=== PATIENT | female | born 1945 | race Caucasian/White ===

== ENCOUNTER 2020-10-21 05:15 | Observation (INO) ==
--- NOTE | 2020-10-18 14:06 | Anesthesiology Consultation ---
Date of Service October 18, 2020 Assessment & Plan (1) Encounter for pre-operative examination: Chart Review Chart Review: Acceptable Risk for Surgery (pending preop Covid testing results ) and Patient NOT seen in Pre Admission Testing Pt scheduled for a port placement by general surgery on 10/26/20 - Check BSG AM DOS Per nursing assessment 10/18/2020, patient denies any recent travel. Wears mask at all times in public and socially distances. No known Covid infection in the past 90 days. Patient is vaccinated for Covid. Pt is vaccinated for Covid. No known Covid positive contacts or Covid related symptoms. Preop Covid testing 10/18/20 = results pending Last seen by cardiology 06/11/20 = DOElongstanding but now getting worse. May also have orthopnea PND although that also was not clear and she may have some increasing edema. Mild CHF. Will investigate for ischemiabelieve diuretic would be reasonable. Chest discomfortsubsternalnot clear description. Will schedule stress test. Mild cardiomyopathycould be due to chemotherapymay also be idiopathic or due to ishcemia- will order stress test. HCTZ added fro edema. (Pt had negative DSE on 07/02/20- did speak with patient on 10/18/20- chest discomfort significantly improved- later dx'ed with lung cancer- discussed with Dr. Fitch- pt can proceed with procedures as scheduled) History Surgery Operation Date: 10/21/20 08:00 Proposed Procedures p Endobronchial Ultrasound Guided Biopsy and Endrobroncial Navigational Bronchoscopy and Verans CT - Gualberto Shepherd MD Height/Weight Height: 5 ft 7 in Weight: 90.718 kg Allergies Allergy/AdvReac Type Severity Reaction Status Date / Time Penicillins Allergy Severe RASH AND Verified 10/18/20 10:46 THROAT SWELLING shellfish derived Allergy Severe RASH WELTS Verified 10/18/20 10:46 mold Allergy Unknown PER Verified 10/18/20 10:46 ALLERGY TESTS-SNEEZING adhesive AdvReac Unknown BLISTERS Verified 10/18/20 10:46 WITH TAPE-CLOTH [place] aspirin AdvReac Unknown Rash Verified 10/18/20 10:46 [From Tuh-Rueter Plus Cold/Cough] chlorpheniramine AdvReac Unknown Rash Verified 10/18/20 10:46 [From Thu-Rueter Plus Cold/Cough] dextromethorphan AdvReac Unknown Rash Verified 10/18/20 10:46 [From Thu-Rueter Plus Cold/Cough] phenylpropanolamine AdvReac Unknown Rash Verified 10/18/20 10:46 [From Thu-Rueter Plus Cold/Cough] dust mite Allergy Unknown ALLERGY Uncoded 10/18/20 10:46 TESTING Medications Home Medications Medication Instructions Recorded Confirmed Last Taken calcium carbonate-vitamin D3 600 1 tab PO QAM tab 01/21/19 10/18/20 09/10/19 mg(1,500 mg)-400 unit chewable tablet (Calcium 600 with Vitamin D3) cetirizine 10 mg tablet 10 mg PO QAM tab 01/21/19 10/18/20 09/11/19 07:00 ergocalciferol (vitamin D2) 1,250 50,000 units PO WEEKLY cap 01/21/19 10/18/20 09/10/19 mcg (50,000 unit) capsule fluticasone propionate 50 1 sprays INTNAS DAILY PRN 01/21/19 10/18/20 09/10/19 mcg/actuation nasal spray,suspension [employer] Ultra Blue Test Strip #100 ea NS 04/15/19 10/18/20 Unknown (blood sugar diagnostic) carboxymethylcellulose sodium 0.5 1 drp OPHTHALMIC (EYE) BID 11/06/19 10/18/20 Unknown % eye drops in a dropperette (Refresh Plus) glipizide 5 mg tablet 5 mg PO QAM #90 tab 03/01/20 10/18/20 Unknown lancets 33 gauge (OneTouch Delica #100 ea 03/16/20 10/18/20 Unknown Lancets) montelukast 10 mg tablet 10 mg PO QAM #30 tab 06/02/20 10/18/20 Unknown atorvastatin 40 mg tablet 40 mg PO QPM #90 tab 06/28/20 10/18/20 Unknown amlodipine 5 mg-benazepril 20 mg 1 cap PO QAM #90 cap 07/20/20 10/18/20 Unknown capsule diphenhydramine HCl 25 mg capsule 25 mg PO ONCE PRN cap 08/16/20 10/18/20 Unknown (Allergy (diphenhydramine)) levothyroxine 88 mcg tablet 88 mcg PO QAM #90 tab 08/16/20 10/18/20 Unknown metformin 500 mg tablet,extended 2,000 mg PO QAM #120 tab 09/15/20 10/18/20 Unknown release 24 hr clonazepam 0.5 mg tablet 0.5 mg PO DAILY PRN #5 tab 10/14/20 10/18/20 Unknown albuterol sulfate 90 mcg/actuation 2 puff INHALATION Q6H PRN 10/18/20 10/18/20 Unknown aerosol inhaler (Ventolin HFA) azelastine 137 mcg (0.1 %) nasal 1 spray INTRANASAL BID PRN 10/18/20 10/18/20 Unknown spray aerosol ipratropium bromide 42 mcg (0.06 2 spray INTRANASAL QAM 10/18/20 10/18/20 Unknown %) nasal spray pantoprazole 40 mg tablet,delayed 40 mg PO QAM PRN 10/18/20 10/18/20 Unknown release sitagliptin 50 mg tablet (Januvia) 50 mg PO QAM 10/18/20 10/18/20 Unknown umeclidinium 62.5 mcg-vilanterol 1 inh INHALATION QAM 10/18/20 10/18/20 Unknown 25 mcg/actuation powdr for inhalation (Anoro Ellipta) Past Medical History Medical History (Updated 10/18/20 @ 15:18 by Gayathri Bales PA-C) Allergic rhinitis due to dust mite Anxiety Cardiomyopathy F/U DR FISHER COPD with emphysema Diabetes mellitus, type 2 Edema of both legs Essential tremor Exertional dyspnea GERD (gastroesophageal reflux disease) Hiatal hernia History of breast cancer chemo and radiation and then oral pill Hyperlipidemia Hypertension Hypothyroidism Kidney stones hx Multiple pulmonary nodules Osteoporosis Secondary polycythemia Small cell lung cancer, 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) Temporomandibular joint disorder NO LOCKING Past Family History Family History Sister Diabetes Breast cancer Brother Diabetes Heart disease Father Diabetes Hypertension Lung disease Myocardial infarction Mother Diabetes Hypertension Kidney disease Myocardial infarction Daughter Breast cancer Denies family history of Ovarian cancer Prostate cancer Colorectal cancer Past Surgical History Surgical History History of appendectomy (~1967) History of breast biopsy (~09/03/12) History of cholecystectomy (~1974) History of colonoscopy 2019 History of esophagogastroduodenoscopy (EGD) History of hysterectomy (~1974) ovaries removed as well History of lithotripsy 2011 Hx of cataract surgery right and left Hx of lumpectomy LEFT BREAST-NO LIMB RESTIRCTIONS Hx of tonsillectomy Social History Smoking Status: Former smoker tobacco type: cigarettes Smoking cigarettes per day: 20 Do You Dip or Chew Tobacco: No Smoking End Date: QUIT 5 YRS AGO Hx Alcohol Use: No Hx Substance Use: No substance use type: does not use Lab Results Anesthesia Preop Results Results Anesthesia Widget: WBC 7.43 K/uL (4.8-10.8) 10/18/20 Hgb 12.7 g/dL (12.0-16.0) 10/18/20 Hct 38.2 % (37-47) 10/18/20 Plt 154 K/uL (130-400) 10/18/20 Na 139 mmol/L (136-145) 10/18/20 K 4.4 mmol/L (3.5-5.1) 10/18/20 Cl 109 mmol/L (98-107) H 10/18/20 CO2 24 mmol/L (21-32) 10/18/20 BUN 19 mg/dl (7-18) H 10/18/20 Creat 1.20 mg/dl (0.6-1.2) 10/18/20 Glucose Level 207 mg/dl (70-99) H 10/18/20 PT 10.2 Seconds (9.0-12.0) 10/18/20 PTT 22.8 Seconds (21.0-31.0) 10/18/20 INR 1.0 (0.9-1.1) 10/18/20 Testing Laboratory Results 08/16/20= HGB A1C: 9.1 Electrocardiogram Date: 06/11/20 Findings: + SB @ (59 bpm) Echocardiogram Date: 05/12/20 EF: 45-50% RWMA: + none Other Findings: + diastolic dysfunction (Grade 1); no LVH Valvular Disease: + no significant valvular disease Mildly reduced LV systolic function. Normal chamber dimensions. No evidence of elevated right heart pressures. Stress Test Date: 07/02/20 Type: DSE Negative dobutamine stress echo for myocardial ischemia at 91% MPHR. Negative dobutamine stress EKG. No dobutamine induced chest pain. Baseline echocardiogram notes normal LV function. Other Testing CT of lung 08/05/2020 = New suspicious solid irregularly marginated 14 mm left upper lobe pulmonary nodule. Pulmonary consultation recommended in follow-up. There is moderate pulmonary emphysema. There are no pleural effusions. There is a stable solid 4 mm lingular nodule. In addition there are 6 a few scattered pulmonary micronodules, several calcified granulomas, and benign-appearing peripheral nodules. There is a 2 cm right adrenal gland nodule, likely representing an adenoma PET/CT scan 08/18/20= Moderate FDG uptake within the lobulated 1.4 cm solid left upper lobe nodule. This is highly suspicious for malignancy and favors a primary bronchogenic carcinoma. No thoracic lymphadenopathy. Emphysema. Mild FDG uptake within a 2.2 cm low-attenuation right adrenal nodule. This nodule is unchanged since CT of January 28, 2019. This favors an adenoma.
[2020-10-21] MEDS ORDERED: LR 15ML/HR IV SCH (06:00)
[2020-10-21] MEDS ORDERED: ROCURONIUM BROMIDE 10 MG/ML 5 ML VIAL IV ONE (06:49)
[2020-10-21] MEDS ORDERED: MIDAZOLAM HCL 1 MG/ML 2ML VIAL ONE (06:49)
[2020-10-21] MEDS ORDERED: ONDANSETRON INJ 2 MG/ML 2 ML VIAL ONE (06:49)
[2020-10-21] MEDS ORDERED: PROPOFOL IV EMULSION 10 MG/ML 20 ML VIAL IV ONE (06:49)
[2020-10-21] MEDS ORDERED: LIDOCAINE 2% 2 ML VIAL/AMP(20MG/ML) INFIL ONE (06:49)
[2020-10-21] MEDS ORDERED: fentaNYL citrate 100 MCG/2 ML VIAL ONE (06:49)
--- NOTE | 2020-10-21 07:55 | History & Physical Report ---
Date of Service October 21, 2020 Assessment & Plan (1) Small cell lung cancer, left upper lobe: (2) COPD with emphysema: (3) Multiple pulmonary nodules: Plan: --Small cell lung cancer Left upper lobe, limited stage Patient is here today for fiducial placement Below full note for EBUS to stage the mediastinum Risk and benefit of the procedure explained to the patient in depth Patient understands and agrees to go ahead with the procedure Consent signed, witnessed and put in the chart COVID-19 PCR negative 10/18/2020 Platelets 154, PT/INR activity within normal limits Patient is not on any blood thinner Please note the above document was generated using voice recognition software. It may contain grammatical, syntax or spelling errors.Any formal questions or concerns about the content, text or information contained within the body of this dictation should be directly addressed to the provider for clarification. History of Present Illness Primary Care Provider: HILDA Silva 74-year-old female coming to pulmonary for COPD and multiple pulmonary nodules Past medical history: GERD, dyslipidemia, hypertension, seasonal allergies with allergic rhinitis, Left-sided breast cancer s/p lumpectomy followed by chemo and radiation Patient was last seen by me on 02/16/[address]-guided biopsy of the left upper lobe nodule which was positive for small cell lung cancer Patient is here today for fiducial placement as well as EBUS At the time of examination patient denies any complaints. No shortness of breath. No headache, no dizziness No nausea or vomiting. Allergies Allergy/AdvReac Type Severity Reaction Status Date / Time Penicillins Allergy Severe RASH AND Verified 10/21/20 05:42 THROAT SWELLING shellfish derived Allergy Severe RASH WELTS Verified 10/21/20 05:42 mold Allergy Unknown PER Verified 10/21/20 05:42 ALLERGY TESTS-SNEEZING adhesive AdvReac Unknown BLISTERS Verified 10/21/20 05:42 WITH TAPE-CLOTH OK aspirin AdvReac Unknown Rash Verified 10/21/20 05:42 [From Thu-Collbran Plus Cold/Cough] chlorpheniramine AdvReac Unknown Rash Verified 10/21/20 05:42 [From Thu-Collbran Plus Cold/Cough] dextromethorphan AdvReac Unknown Rash Verified 10/21/20 05:42 [From Thu-Collbran Plus Cold/Cough] phenylpropanolamine AdvReac Unknown Rash Verified 10/21/20 05:42 [From Thu-Collbran Plus Cold/Cough] dust mite Allergy Unknown ALLERGY Uncoded 10/21/20 05:42 TESTING Home Medications Medication Instructions Recorded Confirmed Type calcium carbonate-vitamin D3 600 1 tab PO QAM tab 01/21/19 10/21/20 History mg(1,500 mg)-400 unit chewable tablet (Calcium 600 with Vitamin D3) cetirizine 10 mg tablet 10 mg PO QAM tab 01/21/19 10/21/20 History ergocalciferol (vitamin D2) 1,250 50,000 units PO WEEKLY cap 01/21/19 10/21/20 History mcg (50,000 unit) capsule [employer] Ultra Blue Test Strip #100 ea NS 04/15/19 10/18/20 Rx (blood sugar diagnostic) carboxymethylcellulose sodium 0.5 1 drp OPHTHALMIC (EYE) BID 11/06/19 10/21/20 History % eye drops in a dropperette (Refresh Plus) glipizide 5 mg tablet 5 mg PO QAM #90 tab 03/01/20 10/21/20 Rx lancets 33 gauge (OneTouch Delica #100 ea 03/16/20 10/18/20 Rx Lancets) atorvastatin 40 mg tablet 40 mg PO QPM #90 tab 06/28/20 10/21/20 Rx diphenhydramine HCl 25 mg capsule 25 mg PO ONCE PRN cap 08/16/20 10/18/20 History (Allergy (diphenhydramine)) levothyroxine 88 mcg tablet 88 mcg PO QAM #90 tab 08/16/20 10/21/20 Rx metformin 500 mg tablet,extended 2,000 mg PO QAM #120 tab 09/15/20 10/21/20 Rx release 24 hr clonazepam 0.5 mg tablet 0.5 mg PO DAILY PRN #5 tab 10/14/20 10/21/20 Rx albuterol sulfate 90 mcg/actuation 2 puff INHALATION Q6H PRN 10/18/20 10/21/20 History aerosol inhaler (Ventolin HFA) azelastine 137 mcg (0.1 %) nasal 1 spray INTRANASAL BID PRN 10/18/20 10/21/20 History spray aerosol pantoprazole 40 mg tablet,delayed 40 mg PO QAM PRN 10/18/20 10/21/20 History release sitagliptin 50 mg tablet (Januvia) 50 mg PO QAM 10/18/20 10/21/20 History umeclidinium 62.5 mcg-vilanterol 1 inh INHALATION QAM 10/18/20 10/21/20 History 25 mcg/actuation powdr for inhalation (Anoro Ellipta) amlodipine 5 mg-benazepril 20 mg 1 cap PO QAM 10/21/20 10/21/20 History capsule (Lotrel) montelukast 10 mg tablet 10 mg PO QAM 10/21/20 10/21/20 History (Singulair) 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 COPD with emphysema Diabetes mellitus, type 2 Edema of both legs Essential tremor Exertional dyspnea GERD (gastroesophageal reflux disease) Hiatal hernia History of breast cancer chemo and radiation and then oral pill Hyperlipidemia Hypertension Hypothyroidism Kidney stones hx Multiple pulmonary nodules Osteoporosis Secondary polycythemia Small cell lung cancer, 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) Temporomandibular joint disorder NO LOCKING Surgical History History of appendectomy (~1967) History of breast biopsy (~09/03/12) History of cholecystectomy (~1974) History of colonoscopy 2020 History of esophagogastroduodenoscopy (EGD) History of hysterectomy (~1974) ovaries removed as well History of lithotripsy 2011 Hx of cataract surgery right and left Hx of lumpectomy LEFT BREAST-NO LIMB RESTIRCTIONS Hx of tonsillectomy Family History Sister Diabetes Breast cancer Brother Diabetes Heart disease Father Diabetes Hypertension Lung disease Myocardial infarction Mother Diabetes Hypertension Kidney disease Myocardial infarction Daughter Breast cancer Denies family history of Ovarian cancer Prostate cancer Colorectal cancer Social History Smoking Status: Former smoker (AGES 15-65, AVERAGED 1 PACK/DAY, SOMETIMES UP TO 2 PACKS/DAY) Tobacco Type: Cigarettes Age Started Using Tobacco: 17; Age Quit Using Tobacco: 68; Cigarettes Per Day: 20; Smoking End Date: QUIT 5 YRS AGO; Number of Years Since Quit: 4; Second Hand Exposure: Yes (SPOUSE SMOKES); Do You Dip or Chew Tobacco: No; Hx Alcohol Use: No Hx Substance Use: No Preferred Language: Malaysian Communication Ability: Effective Visual Impairment: No Limitations Hearing Ability: Normal Nutrition And Dietetics Instructor Required: No Beliefs That Will Affect Care: None marital status: Current Living Situation: Spouse current occupational status: retired current occupation: used to work at [employer] out of [employer] Other Information That Helps Us Care for You: No Feels Safe at Home: Yes Safety Concerns: Feels Safe At This Time Childhood Exposure to Second-Hand Smoke: Yes caffeine: Yes during the past year weight has: remained stable Dental Care, Regularly: No Physical Activity Frequency: Does not Exercise Seatbelt Use: always Sunscreen Use: Yes Assistive Devices: Denture - Upper and Glasses Assistive Devices Comment: DOES NOT WEAR LOWER DENTURE Review of Systems Review of Systems: All systems reviewed & are unremarkable except as noted in HPI & below Physical Exam Physical Exam: Constitutional: No acute distress HEENT: EOMI, PERRLA Respiratory system: Decreased air entry bilaterally, no wheeze, no rhonchi, positive crackles bilateral lower lobes more on the left side CVS: S1-S2 positive, no murmurs or gallops Abdomen: Soft, nontender, nondistended, positive bowel sounds x4, obese Extremities: +2 pulses bilaterally radialis, no cyanosis, +1 edema bilateral lower extremity neuro: Awake alert oriented x3 Psych: Normal mood and affect Skin: no rashes, warm and dry Lymphatic: no cervical or axillary lymphadenopathy Results & Data Results & Data ([facility]) Vital Signs (Past 12 Hours) Vital Signs Temp Pulse Resp BP Pulse Ox 10/21/20 05:52 36.5 C 71 20 127/83 93 PG Care Time/CCT Total # of Minutes Spent Total Time Spent with Patient: Total time spent is greater than 50% in coordination of care (as documented) at patient's floor/unit and/or counseling patient: Coding Level of Care Code INT OBSERVATION CARE 50M LVL 2 Diagnoses Small cell lung cancer, left upper lobe C34.12 COPD with emphysema J43.9 Multiple pulmonary nodules R91.8
[2020-10-21] MEDS ORDERED: ePHEDrine sulfate 50 MG/ML SYR ONE (08:32)
[2020-10-21] MEDS ORDERED: GLYCOPYRROLATE 0.2 MG/ML VIAL ONE (08:49)
--- NOTE | 2020-10-21 09:48 | Procedure Note ---
Procedure Note: Bronchoscopy Procedure PREOPERATIVE DIAGNOSIS: Left upper lobe small cell lung cancer POSTOPERATIVE DIAGNOSIS: Left upper lobe small cell lung cancer with positive mediastinal lymph nodes PROCEDURE PERFORMED: Navigational bronchoscopy with fiducial placement, EBUS and flexible bronchoscopy COMPLICATIONS: None. INDICATION: Fiducial placement as well as staging of the mediastinum PROCEDURE: After obtaining an informed consent, the patient was brought to the OR. The patient had appropriate oxygen, blood pressure, heart rate, and respiratory rate monitoring applied and monitored continuously throughout the procedure. Anesthesiologist managed sedation. Please refer to their notes and documentation Bronchoscope was advanced through LMA/I gel. There was normal vocal cord motion without masses or lesions. Topical anesthesia with 1% lidocaine was applied to the trachea and isis. The trachea appeared normal.The bronchoscope was then advanced through the isis, which was sharp. The scope was then advanced into the right main stem and each segment, subsegement in the right upper lobe, right middle lobe and right lower lobe were visualized. There were no secretions appreciated there were no other findings including evidence of mass, anatomic distortions, or hemorrhage. The bronchoscope was subsequently withdrawn and advanced into the left mainstem. Again, each segment and subsegment was well visualized. No specific masses or other lesions were identified throughout the tracheobronchial tree on the left. There were no secretions appreciated. Navigational Veran system was started and with the help of a working channel path was made towards the left upper lobe apicoposterior lesion. I was able to successfully place 3 fiducials near the proximity of the pulmonary nodule. Flexible bronchoscope was withdrawn and EBUS was introduced Station 4R, 4L and station 7 were visualized Station 4L and station 7 were biopsied. With 3 adequate passes and 2 adequate passes respectively Station 4L was positive for small cell lung cancer EBUS was withdrawn. Flexible bronchoscope was reintroduced. No bleeding was appreciated. The bronchoscope was then withdrawn to the mainstem. The area was suctioned clear. The bronchoscope was then withdrawn. The patient tolerated the procedure well without evidence of desaturation or complications. Recommendations: Follow-up chest x-ray Follow-up cytology of the mediastinum Please note the above document was generated using voice recognition software. It may contain grammatical, syntax or spelling errors.Any formal questions or concerns about the content, text or information contained within the body of this dictation should be directly addressed to the provider for clarification.
[2020-10-21] MEDS ORDERED: ALBUT/IPRATROP 3MG/0.5MG NEB 3 ML VIAL NEB STA (10:03)
--- NOTE | 2020-10-21 10:37 | XRay Report ---
SINGLE VIEW CHEST CLINICAL HISTORY: Status post bronchoscopy and fiducial placement. FINDINGS: An AP, portable, upright chest radiograph is compared to study dated 08/25/2009 and correlat ed with chest CT dated 10/21/2020. The heart is enlarged noting atherosclerotic calcification of the t horacic aorta. The pulmonary vasculature is noncongested. Emphysematous change is noted with chronic interstitial thickening. Scarring/atelectasis is noted in the lung bases. There is no airspace consol idation typical for pneumonia or pleural effusion. There is a small left apical pneumothorax with zenaida roximately 2.5 cm pleural separation. No right-sided pneumothorax is identified. Small linear metalli c structures projecting over the aortic arch may correspond to the reported history of fiducial place ment. The patient's known left upper lobe pulmonary lesion may project over the first rib. The skelet al structures are osteopenic. The bony thorax is grossly intact. IMPRESSION: 1. There is a small left apical pneumothorax identified post procedure. 2. Cardiomegaly and emphysema. 3. The patient's known left upper lobe pulmonary lesion may project over the first rib. 4. No airspace consolidation is seen typical for pneumonia and there is no large pleural effusion. ACT 112: Negative or not required by law. Electronically signed by: Ned Robles M.D. 10/21/2020 10:35 AM
--- NOTE | 2020-10-21 12:10 | History & Physical Report ---
Date of Service October 21, 2020 Assessment & Plan (1) Pneumothorax, left: Plan: Attending: Dr. Kinney Patient underwent navigational bronchoscopy this morning for placement of fiducials Postoperative chest x-ray revealed a left-sided pneumothorax Patient is asymptomatic. No hypoxia Repeat chest x-ray at noon today Continue supplemental oxygen with nonrebreather We will admit overnight for observation. Possibility of small chest tube in the event the pneumothorax does not improve or worsens discussed with patient We will follow on medical floor (2) Small cell lung cancer, left upper lobe: Plan: Recent diagnosis by fine-needle aspiration Fiducial markers placed today and navigational bronchoscopy Further management per Dr. Daniels (3) COPD with emphysema: Plan: No exacerbation No bronchospasm on exam We will continue usual home medications and montelukast (4) Hyperlipidemia: Plan: Continue atorvastatin (5) Diabetes mellitus, type 2: Plan: We will continue patient's home medications including sitagliptin, Metformin, glipizide NovoLog sliding scale ordered for coverage A1c in August was 9.1% Outpatient management (6) Hypertension: Plan: Hemodynamically stable Continue Lotrel Vital signs per protocol (7) GERD (gastroesophageal reflux disease): Plan: Continue outpatient dose of pantoprazole 40 mg daily (8) Hypothyroidism: Plan: Levothyroxine 88 mcg daily (9) DVT prophylaxis: Plan: Hold chemical prophylaxis in the event the chest tube placement is needed CRISTINAs and MATILDE [place] ordered History of Present Illness Chief Complaint: Postoperative left pneumothorax Primary Care Provider: HILDA Silva Attending: Dr. Kinney This is a 74-year-old female with a past Harshil Masoud small cell lung cancer left upper lobe, multiple pulmonary nodules, COPD with emphysema, hyperlipidemia. The patient had previous FNA biopsy of a pulmonary nodule at [facility] which revealed small cell lung cancer in the left upper lobe. She came in today for an elective navigational bronchoscopy for placement of fiducial markers. She is well with no apparent complications during the procedure. Postoperative chest x-ray revealed a left pneumothorax. Patient is being admitted for observation. Chest x-ray is being repeated noon today and again tomorrow morning. Patient has been placed on 100% FiO2 oxygen with a nonrebreather. Patient denies any chest pain or tightness. She has no noticeable shortness of breath. She has no pleuritic pain. She denies any hemoptysis. Patient has no other acute complaints. Allergies Allergy/AdvReac Type Severity Reaction Status Date / Time Penicillins Allergy Severe RASH AND Verified 10/21/20 05:42 THROAT SWELLING shellfish derived Allergy Severe RASH WELTS Verified 10/21/20 05:42 mold Allergy Unknown PER Verified 10/21/20 05:42 ALLERGY TESTS-SNEEZING adhesive AdvReac Unknown BLISTERS Verified 10/21/20 05:42 WITH TAPE-CLOTH [place] aspirin AdvReac Unknown Rash Verified 10/21/20 05:42 [From Thu-Buchanan Plus Cold/Cough] chlorpheniramine AdvReac Unknown Rash Verified 10/21/20 05:42 [From Thu-Buchanan Plus Cold/Cough] dextromethorphan AdvReac Unknown Rash Verified 10/21/20 05:42 [From Thu-Buchanan Plus Cold/Cough] phenylpropanolamine AdvReac Unknown Rash Verified 10/21/20 05:42 [From Thu-Buchanan Plus Cold/Cough] dust mite Allergy Unknown ALLERGY Uncoded 10/21/20 05:42 TESTING Home Medications Medication Instructions Recorded Confirmed Type calcium carbonate-vitamin D3 600 1 tab PO QAM tab 01/21/19 10/21/20 History mg(1,500 mg)-400 unit chewable tablet (Calcium 600 with Vitamin D3) cetirizine 10 mg tablet 10 mg PO QAM tab 01/21/19 10/21/20 History ergocalciferol (vitamin D2) 1,250 50,000 units PO WEEKLY cap 01/21/19 10/21/20 History mcg (50,000 unit) capsule [employer] Researchuch Ultra Blue Test Strip #100 ea NS 04/15/19 10/18/20 Rx (blood sugar diagnostic) carboxymethylcellulose sodium 0.5 1 drp OPHTHALMIC (EYE) BID 11/06/19 10/21/20 History % eye drops in a dropperette (Refresh Plus) glipizide 5 mg tablet 5 mg PO QAM #90 tab 03/01/20 10/21/20 Rx lancets 33 gauge (OneTouch Delica #100 ea 03/16/20 10/18/20 Rx Lancets) atorvastatin 40 mg tablet 40 mg PO QPM #90 tab 06/28/20 10/21/20 Rx diphenhydramine HCl 25 mg capsule 25 mg PO ONCE PRN cap 08/16/20 10/18/20 History (Allergy (diphenhydramine)) levothyroxine 88 mcg tablet 88 mcg PO QAM #90 tab 08/16/20 10/21/20 Rx metformin 500 mg tablet,extended 2,000 mg PO QAM #120 tab 09/15/20 10/21/20 Rx release 24 hr clonazepam 0.5 mg tablet 0.5 mg PO DAILY PRN #5 tab 10/14/20 10/21/20 Rx albuterol sulfate 90 mcg/actuation 2 puff INHALATION Q6H PRN 10/18/20 10/21/20 History aerosol inhaler (Ventolin HFA) azelastine 137 mcg (0.1 %) nasal 1 spray INTRANASAL BID PRN 10/18/20 10/21/20 History spray aerosol pantoprazole 40 mg tablet,delayed 40 mg PO QAM PRN 10/18/20 10/21/20 History release sitagliptin 50 mg tablet (Januvia) 50 mg PO QAM 10/18/20 10/21/20 History umeclidinium 62.5 mcg-vilanterol 1 inh INHALATION QAM 10/18/20 10/21/20 History 25 mcg/actuation powdr for inhalation (Anoro Ellipta) amlodipine 5 mg-benazepril 20 mg 1 cap PO QAM 10/21/20 10/21/20 History capsule (Lotrel) montelukast 10 mg tablet 10 mg PO QAM 10/21/20 10/21/20 History (Singulair) Past Med/Surg History Medical History (Updated 10/21/20 @ 12:18 by Ned Kapadia PA-C) Allergic rhinitis due to dust mite Anxiety Cardiomyopathy F/U DR FISHER COPD with emphysema Diabetes mellitus, type 2 Edema of both legs Essential tremor Exertional dyspnea GERD (gastroesophageal reflux disease) Hiatal hernia History of breast cancer chemo and radiation and then oral pill Hyperlipidemia Hypertension Hypothyroidism Kidney stones hx Multiple pulmonary nodules Osteoporosis Secondary polycythemia Small cell lung cancer, 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) Temporomandibular joint disorder NO LOCKING Surgical History History of appendectomy (~1967) History of breast biopsy (~09/03/12) History of cholecystectomy (~1974) History of colonoscopy 2020 History of esophagogastroduodenoscopy (EGD) History of hysterectomy (~1974) ovaries removed as well History of lithotripsy 2011 Hx of cataract surgery right and left Hx of lumpectomy LEFT BREAST-NO LIMB RESTIRCTIONS Hx of tonsillectomy Family History Sister Diabetes Breast cancer Brother Diabetes Heart disease Father Diabetes Hypertension Lung disease Myocardial infarction Mother Diabetes Hypertension Kidney disease Myocardial infarction Daughter Breast cancer Denies family history of Ovarian cancer Prostate cancer Colorectal cancer Social History Smoking Status: Former smoker (AGES 17-65, AVERAGED 1 PACK/DAY, SOMETIMES UP TO 2 PACKS/DAY) Tobacco Type: Cigarettes Age Started Using Tobacco: 17; Age Quit Using Tobacco: 68; Cigarettes Per Day: 20; Smoking End Date: QUIT 5 YRS AGO; Number of Years Since Quit: 4; Second Hand Exposure: Yes (SPOUSE SMOKES); Do You Dip or Chew Tobacco: No; Hx Alcohol Use: No Hx Substance Use: No Preferred Language: Amharic Communication Ability: Effective Visual Impairment: No Limitations Hearing Ability: Normal Ibm Websphere Portal Developer Required: No Beliefs That Will Affect Care: None marital status: Current Living Situation: Spouse current occupational status: retired current occupation: used to work at [employer] out of [employer] Other Information That Helps Us Care for You: No Feels Safe at Home: Yes Safety Concerns: Feels Safe At This Time Childhood Exposure to Second-Hand Smoke: Yes caffeine: Yes during the past year weight has: remained stable Dental Care, Regularly: No Physical Activity Frequency: Does not Exercise Seatbelt Use: always Sunscreen Use: Yes Assistive Devices: Denture - Upper, Denture - Lower and Glasses Assistive Devices Comment: DOES NOT WEAR LOWER DENTURE Review of Systems Review of Systems: All systems reviewed & are unremarkable except as noted in Subjective Physical Exam Physical Exam: GENERAL : No acute distress EYES: No icterus, gaze conjugate NOSE: No evidence of epistaxis MOUTH: No lesions or candidiasis. Nonrebreather facemask in place NECK: Supple. Trachea midline LUNGS: CTA B/L, no wheezes, rales or rhonchi HEART: Regular, rate controlled ABDOMEN: Soft, NT, ND, BS Present. No paradoxical chest wall movement. EXTREMITIES: No LE edema, pedal pulses intact NEURO: A&OX3 Results & Data Results & Data ([facility]) Vital Signs (Past 12 Hours) Vital Signs Temp Pulse Pulse Resp BP Pulse Ox 10/21/20 11:35 90 22 128/74 98 10/21/20 11:05 96 H 22 143/73 H 98 10/21/20 10:35 36.6 C 95 H 22 117/74 96 10/21/20 10:30 96 H 19 116/69 98 10/21/20 10:20 94 H 19 116/75 99 10/21/20 10:13 92 H 18 95 10/21/20 10:10 36.4 C L 94 H 19 108/78 95 10/21/20 10:00 94 H 18 112/72 92 10/21/20 09:50 96 H 18 119/75 93 10/21/20 09:40 96 H 18 124/77 95 10/21/20 09:30 94 H 18 123/74 96 10/21/20 09:20 36.1 C L 104 H 18 136/78 96 10/21/20 05:52 36.5 C 71 20 127/83 93 Diagnostic Findings SINGLE VIEW CHEST CLINICAL HISTORY: Status post bronchoscopy and fiducial placement. FINDINGS: An AP, portable, upright chest radiograph is compared to study dated 08/25/2009 and correlated with chest CT dated 10/21/2020. The heart is enlarged noting atherosclerotic calcification of the thoracic aorta. The pulmonary vasculature is noncongested. Emphysematous change is noted with chronic interstitial thickening. Scarring/atelectasis is noted in the lung bases. There is no airspace consolidation typical for pneumonia or pleural effusion. There is a small left apical pneumothorax with approximately 2.5 cm pleural separation. No right-sided pneumothorax is identified. Small linear metallic structures projecting over the aortic arch may correspond to the reported history of fiducial placement. The patient's known left upper lobe pulmonary lesion may project over the first rib. The skeletal structures are osteopenic. The bony thorax is grossly intact. IMPRESSION: 1. There is a small left apical pneumothorax identified post procedure. 2. Cardiomegaly and emphysema. 3. The patient's known left upper lobe pulmonary lesion may project over the first rib. 4. No airspace consolidation is seen typical for pneumonia and there is no large pleural effusion. ACT 112: Negative or not required by law. Electronically signed by: Ned Robles M.D. 10/21/2020 10:35 AM Code Status & VTE Plan Code Status Full resuscitation: Level I Supervising Physician Co-Signing Physician Notes Patient was seen and examined independently I discussed the case with Ned Kapadia PA-C I reviewed pertinent past medical social family history and also the plan of care and agree with the plan of care. Patient underwent navigational bronchoscopy for placement of fiducials. Post procedure pneumothorax was seen 2.5 cm apical on the left side patient is asymptomatic patient brought in for observation to evaluate whether the pneumothorax will expand or remained stable. Fiduciary thing placed for small cell lung cancer for eventual radiation therapy Patient was seen in the ambulatory surgical unit she was wearing 100% oxygen by nonrebreather she was in no respiratory distress examination did reveal some expiratory wheezes she informed she did not take her inhalers this morning we will proceed to give her some bronchodilators. Remainder of examination her heart was regular abdomen was normoactive bowel sounds and soft extremities without edema Patient be observed in our facility to evaluate progression of her pneumothorax and respond appropriately if enlarges with drainage Any exceptions will be noted below PG Care Time/CCT Total # of Minutes Spent Total Time Spent with Patient: Total time spent is greater than 50% in coordination of care (as documented) at patient's floor/unit and/or counseling patient: 60 minutes Coding Level of Care Code INT OBSERVATION CARE 50M LVL 2 Diagnoses Pneumothorax, left J93.9 Small cell lung cancer, left upper lobe C34.12 COPD with emphysema J43.9 Hyperlipidemia E78.5 DVT prophylaxis Z29.9 Diabetes mellitus, type 2 E11.9 Hypertension I10 GERD (gastroesophageal reflux disease) K21.9 Hypothyroidism E03.9 Time Spent (min) 60
[2020-10-21] MEDS ORDERED: DEXTROSE 50% 50 ML SYRINGE IV PRN (12:53)
[2020-10-21] MEDS ORDERED: ALBUTEROL HFA 8 GM INHALER INH PRN (12:53)
[2020-10-21] MEDS ORDERED: GLUCOSE 10 TABS/TUBE PO PRN (12:53)
[2020-10-21] MEDS ORDERED: clonazePAM 0.5 MG TAB PO PRN (12:53)
[2020-10-21] MEDS ORDERED: GLUCAGON FOR INJ 1 MG VIAL SQ PRN (12:53)
[2020-10-21] MEDS ORDERED: diphenhydrAMINE Capsule 25 MG CAP PO PRN (12:53)
[2020-10-21] MEDS ORDERED: ALBUT/IPRATROP 3MG/0.5MG NEB 3 ML VIAL NEB PRN (12:53)
[2020-10-21] MEDS ORDERED: CARBOHYDRATES FOR HYPOGLYCEMIA PO PRN (12:53)
[2020-10-21] MEDS ORDERED: GLUCOSE 40% GEL 15 GM TUBE PO PRN (12:53)
[2020-10-21] MEDS ORDERED: PANTOprazole 40 MG TAB PO PRN (12:53)
--- NOTE | 2020-10-21 13:29 | XRay Report ---
XR chest 1V portable CLINICAL HISTORY: Left pneumothorax COMPARISON STUDY: October 21, 2020 FINDINGS: Redemonstration of stable left apical pneumothorax with 2.6 cm of pleural separation which is unchang ed since prior study performed earlier today. No pleural effusion. Diffuse thickening of pulmonary interstitium is again seen bilaterally, unchanged since prior. Few pa tchy areas of slightly increase attenuation is seen within left mid to lower lung, was not well seen on prior study and might represent atelectasis. . Cardiomediastinal silhouette is stable. Aorta is calcified. Pulmonary vasculature is indistinct.. Osseous structures: Mild degenerative changes of the spine. IMPRESSION: 1. Stable left apical pneumothorax. 2. Few areas of patchy opacities at the left lateral lower lung might represent atelectasis. Attenti on on follow-up imaging. ACT 112: Negative or not required by law. The above report was generated using voice recognition software. It may contain grammatical, syntax o r spelling errors. Electronically signed by: Whit Calix DO 10/21/2020 1:27 PM
--- NOTE | 2020-10-21 13:44 | Anesthesiology Progress Note ---
Date of Service October 21, 2020 Anesthesia Post Procedure Vital Signs Vital Signs: Temp Pulse Pulse Resp BP Pulse Ox 10/21/20 12:35 92 H 22 118/71 97 10/21/20 11:35 90 22 128/74 98 10/21/20 11:05 96 H 22 143/73 H 98 10/21/20 10:35 36.6 C 95 H 22 117/74 96 10/21/20 10:30 96 H 19 116/69 98 10/21/20 10:20 94 H 19 116/75 99 10/21/20 10:13 92 H 18 95 10/21/20 10:10 36.4 C L 94 H 19 108/78 95 10/21/20 10:00 94 H 18 112/72 92 10/21/20 09:50 96 H 18 119/75 93 10/21/20 09:40 96 H 18 124/77 95 10/21/20 09:30 94 H 18 123/74 96 10/21/20 09:20 36.1 C L 104 H 18 136/78 96 10/21/20 05:52 36.5 C 71 20 127/83 93 Transfer of Care Handoff Completed per policy Notes Mental Status: alert / awake / arousable and participated in evaluation Patient Amnestic to Procedure: Yes Nausea / Vomiting: adequately controlled Pain: adequately controlled Airway Patency, RR, SpO2: stable & adequate BP & HR: stable & adequate Hydration State: stable & adequate Anesthetic Complications: no major complications apparent and Pt Satisfied with anesthetic care Notes: The patient is status post navigational bronchoscopy this morning for placement of fiducials. A postoperative chest x-ray revealed a left-sided pneumothorax. Dr. Garcia therefore will be admitted the patient for observation and treatment. The patient remains stable in recovery with no complaints.
--- NOTE | 2020-10-21 16:25 | XRay Report ---
XR chest 1V portable HISTORY: 74 years-old Female f/u pneumo left-sided pneumothorax COMPARISON: Chest radiograph of same day at 11:50 AM TECHNIQUE: Portable AP view of the chest FINDINGS: Cardiac silhouette is upper limits of normal in size. Emphysema with interstitial coarsening. A left- sided pneumothorax is redemonstrated with pleural separation at the left lung apex measuring up to 2. 0 cm, previously measuring over 2.5 cm. Lateral pleural separation measures up to 8 mm. The patient's known left upper lobe pulmonary lesion is not identified. Leads are again noted overlying the chest. IMPRESSION: Slightly decreased size of the small left sided pneumothorax. ACT 112: Negative or not required by law. The above report was generated using voice recognition software. It may contain grammatical, syntax o r spelling errors. Electronically signed by: Jori Onofre M.D. 10/21/2020 4:23 PM
[2020-10-21] MEDS: INSULIN ASPART 100 UNITS/ML 3 ML PEN SC SCH ×2 (17:47→21:40)
[2020-10-21] MEDS: guaiFENesin/CODEINE 100MG/10MG 5ML UDC PO SCH ×2 (17:49→21:48)
[2020-10-21] MEDS: ACETAMINOPHEN 325 MG TAB PO PRN (21:48)
[2020-10-21] MEDS: ATORVASTATIN 40 MG TAB PO SCH (21:49)
[2020-10-22] MEDS: guaiFENesin/CODEINE 100MG/10MG 5ML UDC PO SCH ×4 (05:52→23:02)
[2020-10-22] MEDS: LEVOTHYROXINE SODIUM 88 MCG TABLET PO SCH (05:52)
[2020-10-22] MEDS ORDERED: ERGOCALCIFEROL 50,000 UNITS 1250 MCG CAP PO SCH (09:00)
[2020-10-22] MEDS: UMECLIDINIUM/VILANTEROL 62.5/25MCG 7 PUFFS/INHALER INH SCH (09:03)
[2020-10-22] MEDS: SITagliptin PHOSPHATE 25 MG TAB PO SCH (09:04)
[2020-10-22] MEDS: glipiZIDE 5 MG TAB PO SCH (09:04)
[2020-10-22] MEDS: amLODIPine BESYLATE 5 MG TAB PO SCH (09:04)
[2020-10-22] MEDS: metFORMIN HCL ER 500 MG TABCR PO SCH (09:04)
[2020-10-22] MEDS: CALCIUM 600MG + VIT D 400 IU TAB PO SCH (09:05)
[2020-10-22] MEDS: ENALAPRIL MALEATE 10 MG TAB PO SCH (09:05)
[2020-10-22] MEDS: MONTELUKAST SODIUM 10 MG TABLET PO SCH (09:05)
[2020-10-22] MEDS: CETIRIZINE HCL 10 MG TABLET PO SCH (09:05)
[2020-10-22] MEDS: INSULIN ASPART 100 UNITS/ML 3 ML PEN SC SCH ×4 (09:05→21:01)
--- NOTE | 2020-10-22 11:18 | XRay Report ---
XR chest 1V portable CLINICAL HISTORY: Left apical pneumothorax COMPARISON STUDY: October 21, 2020 FINDINGS: The right worsening of the left apical pneumothorax with pleural separation within region of the left apex measuring 2.5 cm (it was measured 2.0 cm during prior study performed yesterday). Also pleural separation is now seen at the mid lateral aspect of the left chest measuring 3 mm. No evidence of mid line shift. No pleural effusion. Diffuse reticular opacities are again seen probably bilateral lungs and unchanged since prior. Minima l atelectasis is seen at the left base. Cardiomediastinal silhouette is within normal limits in size. No significant pulmonary vascular congestion.. Osseous structures: Osteopenia. Degenerative changes of the spine. IMPRESSION: 1. Interval worsening of the left-sided pneumothorax. No evidence of midline shift. 2. The rest of findings as above. ACT 112: Negative or not required by law. The above report was generated using voice recognition software. It may contain grammatical, syntax o r spelling errors. Electronically signed by: Whit Calix DO 10/22/2020 11:16 AM
--- NOTE | 2020-10-22 13:45 | XRay Report ---
XR chest inspiration/expiratio CLINICAL HISTORY: Left pneumothorax COMPARISON STUDY: October 22, 2020 at 07:04 hours. FINDINGS: Minimal interval improvement of left-sided pneumothorax, pleural separation at the region of the left apex is measured 1.8 cm (it was measured 2.5 cm during recent prior study this morning) recently see n pleural separation at lateral mid left lung is no longer visualized.. No pleural effusion. Interval improvement of the diffuse prominence of pulmonary interstitium. Minimal atelectasis at the left base is also improved. Cardiomediastinal silhouette is within normal limits in size. No significant pulmonary vascular congestion.. Aorta is calcified. Osseous structures: Degenerative changes of the spine. Interval prominence of focal calcification at the left lower lung which could be due to improvement o f superimposed parenchymal thickening and represent pleural calcifications versus other etiology.. IMPRESSION: 1. Interval improvement of the left-sided pneumothorax. 2. Interval improvement of diffuse prominence of pulmonary interstitium. 3. The rest of findings as above. ACT 112: Negative or not required by law. The above report was generated using voice recognition software. It may contain grammatical, syntax o r spelling errors. Electronically signed by: Whit Calix DO 10/22/2020 1:43 PM
--- NOTE | 2020-10-22 14:08 | Pulmonary Consultation ---
Date of Consultation October 22, 2020 Assessment & Plan (1) Pneumothorax, left: Attending: Dr. 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 Patient presented for elective navigational bronchoscopy for placement of fiducial markers. Patient then developed an iatrogenic pneumothorax and was admitted for observation. She was placed on high flow O2 via nonrebreather. It was not felt at that time that the patient needed a chest tube and she was monitored. Repeat chest x-ray this morning showed possible development of worsening pneumothorax. Repeat chest x-ray with inspirational and expirational views was then completed which showed improvement of the aforementioned pneumothorax. Recommendations: 1. Left pneumothorax: Patient is asymptomatic. She has no hypoxia. She is tolerating supplemental oxygen at 100% FiO2 for treatment of her pneumothorax. Repeat chest x-ray this afternoon shows some improvement to the pneumothorax with inspirational expirational views. At this time a pigtail catheter chest tube is not indicated. Patient can be monitored another night with repeat chest x-ray in the morning. If patient prefers to go home, she could be discharged if she has repeat chest x-ray at the hospital in the morning. It should be made clear to the patient that if she does go home in the x-ray is worse tomorrow she may be readmitted for chest tube. It should also be noted if she goes home that she has any increase in shortness of breath or chest pain to report to the emergency department immediately. Is suspected that this pneumothorax will resolve on its own with time. We will follow with serial chest x-rays 2. Small cell lung cancer: Patient was presented at thoracic conference yesterday. Patient had fiducial markers placed by Dr. Shepherd with navigational bronchoscopy yesterday. Once pneumothorax is resolved, patient is scheduled for elective placement of an A-port for chemotherapy. She will also undergo stereotactic radiation for treatment of her known lung mass. Patient is a previous smoker and has quit smoking. 3. COPD with emphysema: Patient is a former tobacco abuser. She denies any supplemental oxygen use at home. She has no current complaints and is oxygenating well on room air. Outpatient medications include Anoro Ellipta (AC/LABA) and montelukast. I will continue these while inpatient. No emma cation for augmentation of the patient's inhalers at this time. If the patient does develop bronchospasm, it would be appropriate to add nebulizers with albuterol/ipratropium. Pulmonary function testing was performed on 05/20/2020 and does confirm a diagnosis of an obstructive process. This was discussed with Dr. Ramirez. He is in agreement. We will follow up on inspirational expirational films in the morning. Please look to his addendum for further recommendations and corrections. (2) Small cell lung cancer in adult: Supervising Physician Co-Signing Physician Notes Patient seen and examined. Images independently reviewed. On my review the apical pneumothorax appears stable. Would not recommend aspiration or chest tube placement at the current time. The patient remains asymptomatic. We will plan on repeating her x-ray in the morning and if it stable she can be dismissed with radiographic outpatient follow-up. Discussed with hospitalist and with SOP[facility] History of Present Illness Reason for Consultation: Iatrogenic left pneumothorax Requesting Physician: Dr. Kinney Attending Physician: Aaron Kinney MD History of Present Illness Attending: Dr. Ramirez This is a 74-year-old female with a past medical history of small cell lung cancer left upper lobe, multiple pulmonary nodules, COPD with emphysema, hyperlipidemia, and previous tobacco abuse. The patient had previous FNA biopsy of a pulmonary nodule at [facility] which revealed small cell lung cancer in the left upper lobe. She presented yesterday for an elective navigational bronchoscopy for placement of fiducial markers. Postoperative chest x-ray revealed a left pneumothorax. Patient was placed on 100% nonrebreather and monitor overnight. Repeat chest x- rays were similar to initial with no significant improvement to the pneumothorax. A repeat inspiratory/expiratory chest x-ray was reviewed at 1345 this afternoon and shows slight improvement to the aforementioned pneumothorax. Patient is asymptomatic. She has no shortness of breath. She denies any cough. She has no pleuritic pain. Patient denies any chest pain or tightness. She denies any hemoptysis. Patient has no other acute complaints. Allergies Allergy/AdvReac Type Severity Reaction Status Date / Time Penicillins Allergy Severe RASH AND Verified 10/21/20 05:42 THROAT SWELLING shellfish derived Allergy Severe RASH WELTS Verified 10/21/20 05:42 mold Allergy Unknown PER Verified 10/21/20 05:42 ALLERGY TESTS-SNEEZING adhesive AdvReac Unknown BLISTERS Verified 10/21/20 05:42 WITH TAPE-CLOTH [place] aspirin AdvReac Unknown Rash Verified 10/21/20 05:42 [From Thu-[facility] [facility] Cold/Cough] chlorpheniramine AdvReac Unknown Rash Verified 10/21/20 05:42 [From Thu-[facility] [facility] Cold/Cough] dextromethorphan AdvReac Unknown Rash Verified 10/21/20 05:42 [From Thu-[facility] [facility] Cold/Cough] phenylpropanolamine AdvReac Unknown Rash Verified 10/21/20 05:42 [From Thu-[facility] [facility] Cold/Cough] dust mite Allergy Unknown ALLERGY Uncoded 10/21/20 05:42 TESTING Home Medications Medication Instructions Recorded Confirmed Type calcium carbonate-vitamin D3 600 1 tab PO QAM tab 01/21/19 10/21/20 History mg(1,500 mg)-400 unit chewable tablet (Calcium 600 with Vitamin D3) cetirizine 10 mg tablet 10 mg PO QAM tab 01/21/19 10/21/20 History ergocalciferol (vitamin D2) 1,250 50,000 units PO WEEKLY cap 01/21/19 10/21/20 History mcg (50,000 unit) capsule DrDoctor Ultra Blue Test Strip #100 ea NS 04/15/19 10/18/20 Rx (blood sugar diagnostic) carboxymethylcellulose sodium 0.5 1 drp OPHTHALMIC (EYE) BID 11/06/19 10/21/20 History % eye drops in a dropperette (Refresh Plus) glipizide 5 mg tablet 5 mg PO QAM #90 tab 03/01/20 10/21/20 Rx lancets 33 gauge (OneTouch Delica #100 ea 03/16/20 10/18/20 Rx Lancets) atorvastatin 40 mg tablet 40 mg PO QPM #90 tab 06/28/20 10/21/20 Rx diphenhydramine HCl 25 mg capsule 25 mg PO ONCE PRN cap 08/16/20 10/18/20 History (Allergy (diphenhydramine)) levothyroxine 88 mcg tablet 88 mcg PO QAM #90 tab 08/16/20 10/21/20 Rx metformin 500 mg tablet,extended 2,000 mg PO QAM #120 tab 09/15/20 10/21/20 Rx release 24 hr clonazepam 0.5 mg tablet 0.5 mg PO DAILY PRN #5 tab 10/14/20 10/21/20 Rx albuterol sulfate 90 mcg/actuation 2 puff INHALATION Q6H PRN 10/18/20 10/21/20 History aerosol inhaler (Ventolin HFA) azelastine 137 mcg (0.1 %) nasal 1 spray INTRANASAL BID PRN 10/18/20 10/21/20 History spray aerosol pantoprazole 40 mg tablet,delayed 40 mg PO QAM PRN 10/18/20 10/21/20 History release sitagliptin 50 mg tablet (Januvia) 50 mg PO QAM 10/18/20 10/21/20 History umeclidinium 62.5 mcg-vilanterol 1 inh INHALATION QAM 10/18/20 10/21/20 History 25 mcg/actuation powdr for inhalation (Anoro Ellipta) amlodipine 5 mg-benazepril 20 mg 1 cap PO QAM 10/21/20 10/21/20 History capsule (Lotrel) montelukast 10 mg tablet 10 mg PO QAM 10/21/20 10/21/20 History (Singulair) codeine 10 mg-guaifenesin 100 mg/5 5 ml PO Q6H #118 ml 10/22/20 Rx mL oral liquid (Guaiatussin AC) Patient History Medical History Allergic rhinitis due to dust mite Anxiety Cardiomyopathy F/U DR FISHER COPD with emphysema Diabetes mellitus, type 2 Edema of both legs Essential tremor Exertional dyspnea GERD (gastroesophageal reflux disease) Hiatal hernia History of breast cancer chemo and radiation and then oral pill Hyperlipidemia Hypertension Hypothyroidism Kidney stones hx Multiple pulmonary nodules Osteoporosis Secondary polycythemia Small cell lung cancer, 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) Temporomandibular joint disorder NO LOCKING Surgical History History of appendectomy (~1967) History of breast biopsy (~09/03/12) History of cholecystectomy (~1974) History of colonoscopy 2019 History of esophagogastroduodenoscopy (EGD) History of hysterectomy (~1974) ovaries removed as well History of lithotripsy 2011 Hx of cataract surgery right and left Hx of lumpectomy LEFT BREAST-NO LIMB RESTIRCTIONS Hx of tonsillectomy Family History Sister Diabetes Breast cancer Brother Diabetes Heart disease Father Diabetes Hypertension Lung disease Myocardial infarction Mother Diabetes Hypertension Kidney disease Myocardial infarction Daughter Breast cancer Denies family history of Ovarian cancer Prostate cancer Colorectal cancer Social History Smoking Status: Former smoker (AGES 15-65, AVERAGED 1 PACK/DAY, SOMETIMES UP TO 2 PACKS/DAY) Tobacco Type: Cigarettes Age Started Using Tobacco: 17; Age Quit Using Tobacco: 68; Cigarettes Per Day: 20; Number of Years Since Quit: 4; Second Hand Exposure: Yes (SPOUSE SMOKES); Hx Alcohol Use: No Hx Substance Use: No Preferred Language: Swedish Communication Ability: Effective Visual Impairment: No Limitations Hearing Ability: Normal Audiovisual Production Specialist Required: No Beliefs That Will Affect Care: None marital status: Current Living Situation: Spouse current occupational status: retired current occupation: used to work at [employer] out of [employer] Feels Safe at Home: Yes Childhood Exposure to Second-Hand Smoke: Yes caffeine: Yes during the past year weight has: remained stable Dental Care, Regularly: No Physical Activity Frequency: Does not Exercise Seatbelt Use: always Sunscreen Use: Yes Assistive Devices: Oxygen - Continuous Review of Systems Review of Systems: All systems reviewed & are unremarkable except as noted in Subjective Physical Exam Physical Exam: GENERAL : No acute distress. Pleasant. No conversational dyspnea EYES: No icterus, gaze conjugate. Pupils equal round and reactive to light NOSE: No evidence of epistaxis. No evidence of septal breech MOUTH: No lesions or candidiasis. Mucosa moist NECK: Supple. No stridor LUNGS: CTA B/L, no wheezes, rales or rhonchi. No paradoxical chest wall movement HEART: Regular, rate controlled without evidence of tachycardia ABDOMEN: Soft, NT, ND, BS Present EXTREMITIES: No LE edema, pedal pulses intact and equal bilaterally NEURO: A&OX3 Results & Data Results & Data ([facility]) Vital Signs (Past 12 Hours) Vital Signs Temp Pulse Resp BP Pulse Ox 10/22/20 06:36 36.2 C L 57 L 18 100/62 99 Laboratory Results No further laboratory studies Diagnostic Findings XR chest inspiration/expiratio CLINICAL HISTORY: Left pneumothorax COMPARISON STUDY: October 22, 2020 at 07:04 hours. FINDINGS: Minimal interval improvement of left-sided pneumothorax, pleural separation at the region of the left apex is measured 1.8 cm (it was measured 2.5 cm during recent prior study this morning) recently seen pleural separation at lateral mid left lung is no longer visualized.. No pleural effusion. Interval improvement of the diffuse prominence of pulmonary interstitium. Minimal atelectasis at the left base is also improved. Cardiomediastinal silhouette is within normal limits in size. No significant pulmonary vascular congestion.. Aorta is calcified. Osseous structures: Degenerative changes of the spine. Interval prominence of focal calcification at the left lower lung which could be due to improvement of superimposed parenchymal thickening and represent pleural calcifications versus other etiology.. IMPRESSION: 1. Interval improvement of the left-sided pneumothorax. 2. Interval improvement of diffuse prominence of pulmonary interstitium. 3. The rest of findings as above. ACT 112: Negative or not required by law. The above report was generated using voice recognition software. It may contain grammatical, syntax or spelling errors. Electronically signed by: Whit Calix DO 10/22/2020 1:43 PM PG Care Time/CCT Total # of Minutes Spent Total Time Spent with Patient: Total time spent is greater than 50% in coordination of care (as documented) at patient's floor/unit and/or counseling patient:45 minutes Coding [place] [address] Office/OBS Consult Lvl 2 Patient Type Established Medical Decision Making Moderate Complexity Diagnoses Pneumothorax, left J93.9 Small cell lung cancer in adult C34.90 Time Spent (min) 45
--- NOTE | 2020-10-22 18:20 | Hospitalist Progress Note ---
Date of Service October 22, 2020 Assessment & Plan (1) Pneumothorax, left: Plan: Patient underwent navigational bronchoscopy this morning for placement of fiducials Postoperative chest x-ray revealed a left-sided pneumothorax this remains in on different x-rays may be slightly larger or slightly smaller. Patient is asymptomatic. No hypoxia Continue supplemental oxygen with nonrebreather Greatly appreciate pulmonary's assistance in managing this patient (2) Small cell lung cancer, left upper lobe: Plan: Recent diagnosis by fine-needle aspiration Fiducial markers placed 10/21/2020 and navigational bronchoscopy Scheduled for a port placement October 26 Radiation oncology simulation October [address] Daniels (3) COPD with emphysema: Plan: No exacerbation No bronchospasm on exam We will continue usual home medications and montelukast (4) Hyperlipidemia: Plan: Continue atorvastatin (5) Diabetes mellitus, type 2: Plan: We will continue patient's home medications including sitagliptin, Metformin, glipizide NovoLog sliding scale ordered for coverage A1c in August was 9.1% (6) Hypertension: Plan: Remains hemodynamically stable Continue Lotrel (7) GERD (gastroesophageal reflux disease): Plan: Continue outpatient dose of pantoprazole 40 mg daily (8) Hypothyroidism: Plan: Levothyroxine 88 mcg daily (9) DVT prophylaxis: Plan: Hold chemical prophylaxis in the event the chest tube placement is needed Jesus and MATILDE [place] ordered Admission and Anticipated Discharge Date Admission Date: October 21, 2020 Subjective Patient was seen in her room in no apparent distress. I checked her oxygen saturations on room air was 92 to 93%. However her chest x-ray showed equivocal improvement to worsening of apical pneumothorax which was resulted of a navigational bronchoscopy for fiduciary placement for radiation therapy. Patient is in no distress however after discussions on multiple occasions with pulmonology it is felt best to have the patient stay in the hospital for repeat chest x-ray in the morning to evaluate for progression of pneumothorax in case she would need medical decompression Review of Systems Review of Systems: Mild distress and fatigue no headache, no visual changes no speech or swallowing issues no chest pain, pressure or palpitations He does have some dyspnea with speaking and moving about but she says no worse than her baseline no abdominal pain, nausea or vomiting, diarrhea or constipation no dysuria, hematuria or frequency no focal joint pain or swelling no back pain, CVA tenderness or radicular pain no bruising, bleeding or rashes no focal signs of weakness or numbness or altered sensation no complaints of anxiety or depression.. Physical Exam Physical Exam: The patient appeared well nourished and normally developed. Vital signs as documented. Head exam is normocephalic atraumatic Neck is without JVD, thyromegaly, or carotid bruits. Lungs are clear to auscultation, no focal loss of breath sounds Cardiac exam, Rhythm is regular.. No murmurs, rubs or gallops. Abdominal exam reveals normal bowel sounds, soft non tender, no masses Extremities are nonedematous and both pedal pulses are present Neurologic exam is alert and oriented, no focal loss of strength or sensation Skin is without bruises or rashes Psychologically is without concerns for anxiety or depression Results & Data Results & Data ([facility]) Vital Signs (Past 12 Hours) Vital Signs Temp Pulse Pulse Resp BP Pulse Ox 10/22/20 15:00 97.7 F 78 16 112/68 98 10/22/20 06:36 97.2 F L 57 L 18 100/62 99 PG Care Time/CCT Total # of Minutes Spent Total Time Spent with Patient: Total time spent is greater than 50% in coordination of care (as documented) at patient's floor/unit and/or counseling patient: Coding Level of Care Code 86882 Subseq Hosp Care Lvl 3 Diagnoses Pneumothorax, left J93.9 Small cell lung cancer, left upper lobe C34.12 COPD with emphysema J43.9 Hyperlipidemia E78.5 Diabetes mellitus, type 2 E11.9 Hypertension I10 GERD (gastroesophageal reflux disease) K21.9 Hypothyroidism E03.9 DVT prophylaxis Z29.9
[2020-10-22] MEDS: ATORVASTATIN 40 MG TAB PO SCH (21:01)
[2020-10-22] MEDS: ACETAMINOPHEN 325 MG TAB PO PRN (21:01)
[2020-10-23] MEDS: LEVOTHYROXINE SODIUM 88 MCG TABLET PO SCH (05:46)
[2020-10-23] MEDS: guaiFENesin/CODEINE 100MG/10MG 5ML UDC PO SCH ×4 (05:46→21:43)
--- NOTE | 2020-10-23 08:46 | XRay Report ---
XR chest inspiration/expiratio HISTORY: 74 years-old Female Left pneumothorax follow-up study in a patient with left pneumothorax COMPARISON: 10/22/2020, PET CT 08/18/2020. TECHNIQUE: Inspiration and expiration views of the chest FINDINGS: Left-sided pneumothorax redemonstrated, 3.8 cm pleural separation with expiration and 1.7 cm pleural separation with inspiration, previously measuring 4.4 and 1.8 cm respectively. Cardiac silhouette is upper limits of normal in size. Emphysema with chronic interstitial coarsening. The patient's known l eft upper lobe pulmonary lesion is better seen on comparison chest CT. Leads are again noted overlyin g the chest. No acute fracture. IMPRESSION: Persistent left-sided pneumothorax, slightly decreased in size from yesterday's study. Co ntinued follow-up recommended. ACT 112: Negative or not required by law. The above report was generated using voice recognition software. It may contain grammatical, syntax o r spelling errors. Electronically signed by: Jori Onofre M.D. 10/23/2020 8:44 AM
[2020-10-23] MEDS: metFORMIN HCL ER 500 MG TABCR PO SCH (09:07)
[2020-10-23] MEDS: UMECLIDINIUM/VILANTEROL 62.5/25MCG 7 PUFFS/INHALER INH SCH (09:08)
[2020-10-23] MEDS: SITagliptin PHOSPHATE 25 MG TAB PO SCH (09:08)
[2020-10-23] MEDS: ENALAPRIL MALEATE 10 MG TAB PO SCH (09:08)
[2020-10-23] MEDS: amLODIPine BESYLATE 5 MG TAB PO SCH (09:08)
[2020-10-23] MEDS: glipiZIDE 5 MG TAB PO SCH (09:08)
[2020-10-23] MEDS: CALCIUM 600MG + VIT D 400 IU TAB PO SCH (09:08)
[2020-10-23] MEDS: MONTELUKAST SODIUM 10 MG TABLET PO SCH (09:08)
[2020-10-23] MEDS: CETIRIZINE HCL 10 MG TABLET PO SCH (09:08)
[2020-10-23] MEDS: INSULIN ASPART 100 UNITS/ML 3 ML PEN SC SCH ×4 (09:13→20:35)
[2020-10-23] MEDS ORDERED: LIDOCAINE 1% LOCAL 20 ML VIAL ONE (10:01)
--- NOTE | 2020-10-23 10:23 | Pulmonology Progress Note ---
Date of Service October 23, 2020 Assessment & Plan (1) Pneumothorax, left: Plan: Attending: Dr. Ramirez Impression: This is a 74-year-old female who had previous FNA biopsy at [facility] which revealed a small cell lung cancer in the left upper lobe. Patient presented for elective navigational bronchoscopy for placement of fiducial markers. Patient then developed an iatrogenic pneumothorax and was admitted for observation. The pneumothorax has been stable to slightly increased but now the patient desaturates with exertion. Recommendations: 1. Left pneumothorax: Patient is asymptomatic. I discussed options with the patient to include sending her home on oxygen with serial radiographic surveillance or aspiration/placement of a small bore catheter to evacuate the pneumothorax. She would like to proceed with the catheter intervention and she would like to avoid oxygen if possible. Please see separate procedure notes. If the pneumothorax is adequately evacuated, could consider clamping the tube and a follow-up chest x-ray in 2 hours and if the lung remains above, tube can be removed and the patient can be dismissed from the hospital. She should be advised not to drive or have significant changes in barometric pressure over the next 2 to 3 weeks to avoid reaccumulation. 2. Small cell lung cancer: Follow-up with radiation oncology and medical oncology 3. COPD with emphysema: Able currently Please call with additional questions. We will follow up with imaging as noted above (2) Small cell lung cancer in adult: Admission and Anticipated Discharge Date Admission Date: October 21, 2020 Subjective Patient seen and examined. EMR reviewed. Images were apparently reviewed. Patient remains asymptomatic. She denies any cough or shortness of breath however on ambulation to the restroom the patient did desaturate into the 80s. Chest x-ray demonstrated a stable 2 cm left apical pneumothorax. Patient denies fevers chills or night sweats. Review of Systems Review of Systems: All systems reviewed & are unremarkable except as noted in HPI & below Physical Exam Constitutional: WD/WN, vitals as above Neck: trachea midline, no thyromegaly Respiratory: normal respiratory effort, lungs clear to auscultation Cardiovascular: RRR, no murmur, no edema Gastrointestinal (Abdomen): normal bowel sounds, soft, nontender, no hepatosplenomegaly Musculoskeletal: Extremities: extremities normal to inspection Skin: no rashes, warm and dry Neurologic: Nonfocal exam Lymphatic: no cervical lymphadenopathy Results & Data Results & Data ([facility]) Vital Signs (Past 12 Hours) Vital Signs Temp Pulse Pulse Pulse Resp BP BP 10/23/20 09:05 87 117/73 10/23/20 08:17 63 16 10/23/20 06:00 36.6 C 58 L 20 102/65 10/23/20 00:13 36.7 C 82 22 103/67 Pulse Ox 10/23/20 09:05 10/23/20 08:17 89 L 10/23/20 06:00 98 10/23/20 00:13 94 Diagnostic Findings Chest x-ray from today was independently reviewed. Left apical pneumothorax unchanged to slightly progressed compared to previous PG Care Time/CCT Total # of Minutes Spent Total Time Spent with Patient: Total time spent is greater than 50% in coordination of care (as documented) at patient's floor/unit and/or counseling patient: Coding Level of Care Code 12256 Subseq Hosp Care Lvl 2 Diagnoses Pneumothorax, left J93.9 Small cell lung cancer in adult C34.90
--- NOTE | 2020-10-23 10:30 | Procedure Note ---
Procedure Note Date of Service October 23, 2020 Note Procedure: Left 8 Tajik apical catheter placement Indication postprocedural pneumothorax Um Rn Dr. Ramirez Senior Mobile Solutions Architect FADY [place] Anesthesia: 15 mL 1% lidocaine without epinephrine Estimated blood loss none Procedure: The patient was placed in a semirecumbent position in bed. An area approximately 2 to 4 cm below the clavicle on the left side was cleaned with chlorhexidine and a sterile field established. The intercostal space was palpated. Using 1% lidocaine, the skin and subcutaneous tissues were anesthetized. A small skin samanta was made with the scalpel. At that point time an 8 Tajik over the needle catheter was threaded down until air was aspirated. The catheter was advanced to small degree and then pushed off the needle into the pleural space. The needle was withdrawn. The catheter was then attached to a suction system. An occlusive dressing was applied around the insertion site. A follow-up chest x-ray was performed which revealed near complete resolution of the previously noted apical pneumothorax. The tube was then clamped. Would recommend repeating the patient's imaging in about 2 hours. If the pneumothorax remains resolved, the tube can be discontinued and the patient can be dismissed from the hospital. Recommendations and plan were discussed with the hospitalist service as well as with the bedside nurse. Coding CPT Codes Pulmonary/Thoracic - Pulmonary and Thoracic: 67022 Pleural drainage w/o imaging ([id number]) [facility] Procedure Codes (Charges) Pulmonary/Thoracic Procedure 1: Pulmonary and Thoracic: 65858 Pleural drainage w/o imaging
--- NOTE | 2020-10-23 10:35 | XRay Report ---
XR chest 1V portable HISTORY: Left sided chest catheter COMPARISON: Chest 10/23/2020. FINDINGS: There is a left upper pleural catheter. The left-sided pneumothorax appears to have resolve d in the interval. Emphysema and chronic interstitial thickening persists. No new focal lung consolid ations. The heart is normal in size. The patient's known left upper lobe pulmonary lesion is better a ppreciated on the recent chest CT. Left breast calcification persists. IMPRESSION: Interval resolution of the left-sided pneumothorax status post a left upper pleural catheter. ACT 112: Negative or not required by law. Electronically signed by: Adalid Limon M.D. 10/23/2020 10:34 AM
--- NOTE | 2020-10-23 10:56 | Hospitalist Progress Note ---
Date of Service October 23, 2020 Assessment & Plan (1) Pneumothorax, left: Plan: Attending: Dr. Waite Impression: This is a 74-year-old female who had previous FNA biopsy at [facility] which revealed a small cell lung cancer in the left upper lobe. Patient presented for elective navigational bronchoscopy for placement of fiducial markers. Patient then developed an iatrogenic pneumothorax and was admitted for observation. The pneumothorax has been stable to slightly increased but now the patient desaturates with exertion. Pneumothorax remained stable. Patient does have some hypoxia with exertion which is new for her. We will discuss options with Dr. Ramirez. Suspect patient would benefit from a pneumothorax catheter to evacuate free air around left lung Patient is asymptomatic with no complaints of shortness of breath We will follow-up with pulmonary service. (2) Small cell lung cancer in adult: Plan: Elective bronchoscopy performed on for placement of fiducial markers Patient scheduled for a port placement next week as well as marking for stereotactic radiation Further management per pulmonary and oncology services Anticoagulation for chemical prophylaxis of DVT has been held secondary to suspected need for interventional procedures Continue to encourage patient to ambulate as tolerated. (3) COPD with emphysema: Plan: Continue with Anoro Ellipta and montelukast Patient did have some bronchospasm earlier this morning. Continue with albuterol nebulizer treatments as needed High flow O2 with nonrebreather was used for pneumothorax Can convert to nasal cannula as needed to maintain SaO2 of 89% or higher. (4) Hypertension: Plan: Continue enalapril and amlodipine Vital signs per protocol (5) Hypothyroidism: Plan: Levothyroxine (6) GERD (gastroesophageal reflux disease): Plan: No symptoms Continue pantoprazole (7) Hyperlipidemia: Plan: Continue atorvastatin 40 mg daily (8) Diabetes mellitus, type 2: Plan: Hemoglobin A1c 9.1% in August 2020 Continue usual home medications Continue NovoLog sliding scale insulin (9) DVT prophylaxis: Plan: No chemical prophylaxis secondary to need for invasive procedure for pneumothorax Continue to encourage ambulation MATILDE hose/SCDs Admission and Anticipated Discharge Date Admission Date: October 21, 2020 Subjective Attending: Dr. Kinney Patient seen and examined at bedside. She has no complaints of shortness of breath. She has no chest pain or tightness. Inspirational/expirational chest x-ray was reviewed and patient continues with a persistent left pneumothorax with inspiration with separation of 1.7 cm and expirational separation of 3.[address] Ramirez regarding appropriateness of a chest tube to evacuate pneumothorax. Discussed briefly with patient she is agreeable to seeing Dr. Ramirez. Patient denies any fever, chills, sweats, rigors. She has no cough or sputum production. She is questioning discharge plan as today is her 52th anniversary. She has no other complaints Review of Systems Review of Systems: All systems reviewed & are unremarkable except as noted in Subjective Physical Exam Physical Exam: GENERAL : No acute distress. Pleasant. No conversational dyspnea EYES: No icterus, gaze conjugate NOSE: No evidence of epistaxis MOUTH: No lesions or candidiasis NECK: Supple LUNGS: CTA B/L, no wheezes, rales or rhonchi. Good inspirational effort. No paradoxical chest wall movement HEART: Regular, rate controlled ABDOMEN: Soft, NT, ND, BS Present EXTREMITIES: No LE edema, pedal pulses intact and equal bilaterally NEURO: A&OX3 Results & Data Results & Data ([facility]) Vital Signs (Past 12 Hours) Vital Signs Temp Pulse Pulse Pulse Resp BP BP 10/23/20 09:05 87 117/73 10/23/20 08:17 63 16 10/23/20 06:00 36.6 C 58 L 20 102/65 10/23/20 00:13 36.7 C 82 22 103/67 Pulse Ox 10/23/20 09:05 10/23/20 08:17 89 L 10/23/20 06:00 98 10/23/20 00:13 94 PG Care Time/CCT Total # of Minutes Spent Total Time Spent with Patient: Total time spent is greater than 50% in coordination of care (as documented) at patient's floor/unit and/or counseling patient: 30 minutes Coding Level of Care Code 77920 Subseq Hosp Care Lvl 2 Diagnoses Pneumothorax, left J93.9 Small cell lung cancer in adult C34.90 COPD with emphysema J43.9 Hypertension I10 Hypothyroidism E03.9 GERD (gastroesophageal reflux disease) K21.9 Hyperlipidemia E78.5 DVT prophylaxis Z29.9 Diabetes mellitus, type 2 E11.9 Time Spent (min) 30
--- NOTE | 2020-10-23 11:55 | XRay Report ---
XR chest 1V portable HISTORY: 74 years-old Female ABBEY Chest tube placement follow-up study in a patient with left pneumot horax COMPARISON: Chest radiograph of same day at 9:55 AM TECHNIQUE: Portable AP view of the chest FINDINGS: Interval removal of the left-sided chest tube. No pneumothorax, pleural effusion, airspace consolidat ion or overt pulmonary edema. Emphysema with chronic interstitial coarsening. Heart is normal in size . The patient's known left upper lobe pulmonary lesion is better appreciated on comparison chest CT. Degenerative changes of the shoulders and spine. IMPRESSION: Interval removal of the left-sided chest tube. No pneumothorax identified. ACT 112: Negative or not required by law. The above report was generated using voice recognition software. It may contain grammatical, syntax o r spelling errors. Electronically signed by: Jori Onofre M.D. 10/23/2020 11:54 AM
[2020-10-23] MEDS: ACETAMINOPHEN 325 MG TAB PO PRN (21:43)
[2020-10-23] MEDS: ATORVASTATIN 40 MG TAB PO SCH (21:43)
[2020-10-24] MEDS: LEVOTHYROXINE SODIUM 88 MCG TABLET PO SCH (05:37)
[2020-10-24] MEDS: guaiFENesin/CODEINE 100MG/10MG 5ML UDC PO SCH (05:37)
--- NOTE | 2020-10-24 08:15 | XRay Report ---
XR chest 1V portable HISTORY: 74 years-old Female Left pneumothorax COMPARISON: 10/23/2020, PET CT 08/18/2020 TECHNIQUE: AP view of the chest. FINDINGS: No pneumothorax, pleural effusion, airspace consolidation or overt pulmonary edema. Emphysema with ch ronic interstitial coarsening. Heart is normal in size. The patient's known left upper lobe pulmonary lesion is better appreciated on comparison chest CT. Left breast calcification. Degenerative changes of the shoulders and spine. IMPRESSION: 1. No pneumothorax. 2. Stable findings as above. ACT 112: Negative or not required by law. The above report was generated using voice recognition software. It may contain grammatical, syntax o r spelling errors. Electronically signed by: Jori Onofre M.D. 10/24/2020 8:14 AM
[2020-10-24 08:30] VITALS: TEMP 97.5; O2SAT 96
[2020-10-24] MEDS: UMECLIDINIUM/VILANTEROL 62.5/25MCG 7 PUFFS/INHALER INH SCH (08:31)
[2020-10-24] MEDS: MONTELUKAST SODIUM 10 MG TABLET PO SCH (08:32)
[2020-10-24] MEDS: metFORMIN HCL ER 500 MG TABCR PO SCH (08:33)
[2020-10-24] MEDS: glipiZIDE 5 MG TAB PO SCH (08:33)
[2020-10-24] MEDS: CETIRIZINE HCL 10 MG TABLET PO SCH (08:33)
[2020-10-24] MEDS: ENALAPRIL MALEATE 10 MG TAB PO SCH (08:33)
[2020-10-24] MEDS: amLODIPine BESYLATE 5 MG TAB PO SCH (08:33)
[2020-10-24] MEDS: SITagliptin PHOSPHATE 25 MG TAB PO SCH (08:33)
[2020-10-24] MEDS: CALCIUM 600MG + VIT D 400 IU TAB PO SCH (08:33)
[2020-10-24] MEDS: INSULIN ASPART 100 UNITS/ML 3 ML PEN SC SCH (08:38)
--- NOTE | 2020-10-24 08:48 | Discharge Summary ---
Date of Service October 24, 2020 Admission HPI Per Admitting Provider Attending: Dr. Kinney This is a 74-year-old female with a past small cell lung cancer left upper lobe, multiple pulmonary nodules, COPD with emphysema, hyperlipidemia. The patient had previous FNA biopsy of a pulmonary nodule at [facility] which revealed small cell lung cancer in the left upper lobe. She came in today for an elective navigational bronchoscopy for placement of fiducial ma rkers. She is well with no apparent complications during the procedure. Postoperative chest x-ray revealed a left pneumothorax. Patient is being admitted for observation. Chest x-ray is being repeated noon today and again tomorrow morning. Patient has been placed on 100% FiO2 oxygen with a nonrebreather. Patient denies any chest pain or tightness. She has no noticeable shortness of breath. She has no pleuritic pain. She denies any hemoptysis. Patient has no other acute complaints. Admission Exam Per Admitting Provider GENERAL : No acute distress EYES: No icterus, gaze conjugate NOSE: No evidence of epistaxis MOUTH: No lesions or candidiasis. Nonrebreather facemask in place NECK: Supple. Trachea midline LUNGS: CTA B/L, no wheezes, rales or rhonchi HEART: Regular, rate controlled ABDOMEN: Soft, NT, ND, BS Present. No paradoxical chest wall movement. EXTREMITIES: No LE edema, pedal pulses intact NEURO: A&OX3 Principal Diagnosis Left apical pneumothorax Discharge Exam GENERAL : No acute distress EYES: No icterus, gaze conjugate NOSE: No evidence of epistaxis MOUTH: No lesions or candidiasis NECK: Supple LUNGS: CTA B/L, no wheezes, rales or rhonchi HEART: Regular, rate controlled ABDOMEN: Soft, NT, ND, BS Present EXTREMITIES: No LE edema, pedal pulses intact NEURO: A&OX3 Discharge Data Allergies Allergy/AdvReac Type Severity Reaction Status Date / Time Penicillins Allergy Severe RASH AND Verified 10/26/20 15:52 THROAT SWELLING shellfish derived Allergy Severe RASH WELTS Verified 10/26/20 15:52 house dust mite Allergy Mild ALLERGY Verified 10/27/20 07:21 TESTING mold Allergy Mild PER Verified 10/27/20 07:21 ALLERGY TESTS-SNEEZING adhesive AdvReac Intermediate BLISTERS Verified 10/27/20 07:21 WITH TAPE-CLOTH [place] aspirin AdvReac Intermediate Rash Verified 10/27/20 07:21 [From Thu-[place] Plus Cold/Cough] chlorpheniramine AdvReac Intermediate Rash Verified 10/27/20 07:21 [From Thu-[place] Plus Cold/Cough] dextromethorphan AdvReac Intermediate Rash Verified 10/27/20 07:21 [From Thu-[place] Plus Cold/Cough] phenylpropanolamine AdvReac Intermediate Rash Verified 10/27/20 07:21 [From Thu-[place] Plus Cold/Cough] Consultations 10/22/20 12:46 Consult Pulmonology Routine Procedures Performed Operation Date: 10/21/20 08:00 Actual Procedures p Endobroncial Navigational Bronchoscopy with Verans CT(Not Applicable) - Gualberto Shepherd MD s Endobronchial Ultrasound Guided Biopsy(Not Applicable) - Gualberto Shepherd MD Ordered Studies 10/21/20 05:16 CT bronch Veran chest wo Routine Hospital Course (1) Pneumothorax, left: Attending: Dr. Waite Impression: This is a 74-year-old female who had previous FNA biopsy at [facility] which revealed a small cell lung cancer in the left upper lobe. Patient presented for elective navigational bronchoscopy for placement of fiducial markers. Patient then developed an iatrogenic pneumothorax and was admitted for observation. The pneumothorax has been stable to slightly increased but now the patient desaturates with exertion. Pneumothorax remained stable. Patient does have some hypoxia with exertion which is new for her. A pneumothorax catheter was placed in the second intercostal space on the left and placed to suction at 20 mmHg. Chest x-ray completed immediately post procedure showed no evidence of pneumothorax Shortly thereafter, patient accidentally pulled the catheter. The dressing was left in place. A repeat chest x-ray was completed and showed no evidence of pneumothorax once the catheter was pulled Chest x-ray the following morning again showed no evidence of pneumothorax. The patient was discharged home and set to follow the following week for a port placement. Patient did have hypoxia with exertion A 6-minute walk test was performed and patient did require 2 L/min via nasal cannula at rest and with exertion to maintain an SaO2 greater than 88% (2) COPD with emphysema: Continue with Anoro Ellipta and montelukast Patient being discharged with supplemental oxygen at 2 L/min via nasal cannula Follow-up in the office on discharge (3) Hypertension: Continue enalapril and amlodipine (4) Hypothyroidism: Levothyroxine (5) GERD (gastroesophageal reflux disease): No symptoms Continue pantoprazole (6) Hyperlipidemia: Continue atorvastatin 40 mg daily (7) Diabetes mellitus, type 2: Hemoglobin A1c 9.1% in August 2020 Continue usual home medications Outpatient management by PCP Total Time Total Time Spent Total Time Spent (In Minutes): 40 minutes Discharge Plan Discharge Items Patient Disposition: Home - Self-Care Reason For Visit: PULMONARY NODULE Discharge Diagnosis: pneumothorax stable non small cell lung cancer Activity: Resume your previous activity Lifting: Gradually increase as tolerated Bathing: No limitations Exercise/Sports: Gradually increase as tolerated Driving/Machine Use: No driving or flying Weightbearing: Full weightbearing Non-emergency contact: Primary Care Provider and Specialist Call non-emergency contact if: you have any medication questions, your symptoms worsen and you have a fever Follow-up/Referrals: Gayathri Parnell CRNP [Primary Care Provider] - 10/26/20 4:00 pm Maria Isabel Castro MD [Physician] - 10/27/20 8:30 am Diet: Carb Consistent or DM2 Addtl Attending Provider Instructions: please be sure you follow up with radiation onocology for your treatments you are scheduled for Radiation oncology 10/27/20 at 830, present to the [facility] [place] at the back left of the hospital, please arrive a bit early for check in After your bronchoscopy you developed a pneumothorax. this is a collapsed lung. This condition occurs when air leaks into the space between the lungs and chest wall. A blunt or penetrating chest injury, certain medical procedures, or lung disease can cause a pneumothorax. Symptoms include shortness of breath. A small chest tube was inserted and the air was evacuated on 10/23/2020. Yuval x- ray after the tube was removed showed no residual collapse. Chest x-ray the morning of discharge was also negative for collapsed lung. If you feel your breathing is worsening please return to the hospital You were also found to have low oxygen levels. Testing was done by respiratory therapy and you are not found to need supplemental oxygen at 2 L/min via nasal cannula at all times. Please use your oxygen as directed. No one should be smoking in the house or around you as this is a severe fire hazard and could result in explosion. Please keep all of your appointments with pulmonary, oncology, radiation oncology, and surgery. Pending Studies at Discharge: No Stand-Alone Forms: My [facility] Medications and DC Order Prescriptions: New codeine-guaifenesin [Guaiatussin AC] 10-100 mg/5 mL Liquid 5 ml PO Q6H Qty: 118 RF: 0 Continued (DME) OneTouch Ultra Blue Test Strip Strip See Rx Instructions .ROUTE .MEDSUPPLY Qty: 100 RF: 3 glipizide 5 mg tablet 5 mg PO QAM Qty: 90 RF: 3 (DME) lancets [OneTouch Delica Lancets] 33 gauge misc See Rx Instructions .ROUTE .MEDSUPPLY Qty: 100 RF: 3 atorvastatin 40 mg tablet 40 mg PO QPM Qty: 90 RF: 3 metformin 500 mg tablet extended release 24 hr 2,000 mg PO QAM Qty: 120 RF: 5 clonazepam 0.5 mg tablet 0.5 mg PO DAILY PRN (Reason: anxiety) Qty: 5 RF: 0 Calcium 600 with Vitamin D3 600 mg(1,500mg) -400 unit tablet,chewable 1 tab PO QAM RF: 0 ergocalciferol (vitamin D2) 50,000 unit capsule 50,000 units PO WEEKLY RF: 0 cetirizine 10 mg tablet 10 mg PO QAM RF: 0 Refresh Plus 0.5 % dropperette 1 drp ophthalmic (eye) BID RF: 0 diphenhydramine HCl [Allergy (diphenhydramine)] 25 mg capsule 25 mg PO ONCE PRN (Reason: Allergic Symptoms) RF: 0 levothyroxine 88 mcg tablet 88 mcg PO QAM Qty: 90 RF: 3 azelastine 137 mcg (0.1 %) aerosol,spray 1 spray intranasal BID PRN (Reason: Congestion) RF: 0 Anoro Ellipta 62.5-25 mcg/actuation blister with device 1 inh inhalation QAM RF: 0 albuterol sulfate [Ventolin HFA] 90 mcg/actuation Hfa Aerosol Inhaler 2 puff INHALATION Q6H PRN (Reason: Wheezing) RF: 0 pantoprazole 40 mg tablet,delayed release (DR/EC) 40 mg PO QAM PRN (Reason: Acid Reflux) RF: 0 Januvia 50 mg tablet 50 mg PO QAM RF: 0 amlodipine-benazepril [Lotrel] 5-20 mg capsule 1 cap PO QAM RF: 0 montelukast [Singulair] 10 mg tablet 10 mg PO QAM RF: 0 Discharge Orders: Discharge Order (Routine); Ordered 10/24/20 Ordered By: Ned Espinoza/Other Patient Handouts: Pneumothorax (Collapsed Lung) Admission Data Admit Date/Time: 10/23/20 10:41 Attending Provider: Aaron Kinney Admit Provider: Aaron Kinney Primary Care Provider: Gayathri Parnell Other Providers: Aaron Kinney Other Interventions: Discharge Summary Assessment (RN) Last Done: 10/24/20 08:57 Coding Level of Care Code D/C DAY MANAGEMENT >30 MINS Diagnoses Pneumothorax, left J93.9 COPD with emphysema J43.9 Hypertension I10 Hypothyroidism E03.9 GERD (gastroesophageal reflux disease) K21.9 Hyperlipidemia E78.5 Diabetes mellitus, type 2 E11.9 Time Spent (min) 40
[2020-10-24 08:58] VITALS: BP 103/67; PULSE 82
== END 2020-10-24 09:54 | disposition home or self-care (01) | DRG 200 ==
LOC: ASU 05:15 → EDSTATUS 08:00 → 3E 12:13 → INTOOBSV 12:13

== ENCOUNTER 2020-12-13 14:04 | Inpatient (IN) ==
[2020-12-13] MEDS ORDERED: SODIUM CHLORIDE 0.9% 1000ML 1,000 ML IV SCH (15:45)
[2020-12-13 16:51] LABS: Alanine Aminotransferase 20 U/L (12-78); Albumin Level 3.1 gm/dl (3.4-5.0); Aspartate Aminotransferase 19 U/L (15-37); Blood Urea Nitrogen 37 mg/dl (7-18); Calcium 10.3 mg/dl (8.5-10.1); Carbon Dioxide 22 mmol/L (21-32); Chloride 110 mmol/L (98-107); Est GFR (African American) 34.6 ml/min; Est GFR (Non-African American) 29.8 ml/min; Glucose 164 mg/dl (70-99); Magnesium 2.2 mg/dl (1.8-2.4); Partial Thromboplastin Ratio 0.9; Partial Thromboplastin Time 22.5 Seconds (21.0-31.0); Potassium 3.7 mmol/L (3.5-5.1); Prothrombin Time 10.3 Seconds (9.0-12.0); Sodium 143 mmol/L (136-145)
[2020-12-13 16:56] LABS: Albumin Globulin Ratio 0.7 (0.9-2); Alkaline Phosphatase 96 U/L (45-117); Bilirubin,Total 0.6 mg/dl (0.2-1); Globulin 4.7 gm/dl (2.5-4.0); Total Protein 7.8 gm/dl (6.4-8.2); Troponin I < 0.015 ng/ml (0-0.045)
--- NOTE | 2020-12-13 16:56 | XRay Report ---
XR chest 1V portable CLINICAL HISTORY: SEPSIS COMPARISON STUDY: Chest radiograph October 26, 2020. Treatment planning CT October 27, 2020. FINDINGS: Intraoperative [id number] is in place but there is no pneumothorax or definite pleural e ffusion. There is mild left basilar opacity. There is no evidence for pulmonary edema. Cardiomediasti nal silhouette is stable. The known left upper lobe lesion is not well-visualized on this exam. IMPRESSION: Minimal left basilar opacity. Atelectasis is favored. An infectious process could appear similar. ACT 112: Negative or not required by law. Electronically signed by: Vahe Reynoso M.D. 12/13/2020 4:54 PM
[2020-12-13 17:07] LABS: Hematocrit (blood only) 24.7 % (37-47); Hemoglobin 8.7 g/dL (12.0-16.0); Mean Corpuscular Hemoglobin 30.5 pg (25-34); Mean Corpuscular Hgb Conc 35.2 g/dL (32-36); Mean Corpuscular Volume 86.7 fL (80-100); Mean Platelet Volume 11.4 fL (7.4-10.4); Nucleated RBC # (auto) 0.03 K/uL (0-0); Nucleated RBC % (auto) 2.6 %; Platelet Count 19 K/uL (130-400); RDW Coefficient of Variation 14.1 % (11.5-14.5); RDW Standard Deviation 44.3 fL (36.4-46.3); Red Blood Count 2.85 M/uL (4.2-5.4); White Blood Count 1.32 K/uL (4.8-10.8)
[2020-12-13 17:09] LABS: Platelet Estimate SIGNIFIC DECREASED (Normal); Polychromasia 1+; Toxic Granulation 1+
[2020-12-13 17:10] LABS: ALC (manual) 0.41 K/uL (1.2-3.4); ANC (manual) 0.58 K/uL (1.4-6.5); Lymphocytes # (manual) 0.41 K/uL (1.2-3.4); Lymphocytes % (manual) 31.3 %; Metamyelocytes # (manual) 0.01 K/uL (0-0); Metamyelocytes % (manual) 0.9 %; Monocytes # (manual) 0.31 K/uL (0.11-0.59); Monocytes % (manual) 23.5 %; Neutrophils # (manual) 0.58 K/uL (1.4-6.5); Neutrophils % (manual) 44.3 %
[2020-12-13] MEDS ORDERED: ONDANSETRON INJ 2 MG/ML 2 ML VIAL IV STA (17:18)
[2020-12-13] MEDS ORDERED: AZTREONAM 2,000 MG in DEXTROSE 5% 100 ML IV STA (17:25)
[2020-12-13] MEDS ORDERED: CIPROFLOXACIN / D5W 400 MG/200 ML BAG IV STA (17:25)
[2020-12-13] MEDS ORDERED: VANCOMYCIN HCL 2,250 MG in SODIUM CHLORIDE 0.9% 500 ML IV ONE (18:05)
[2020-12-13] MEDS ORDERED: VANCOMYCIN CONSULT ACTIVE PRN (18:05)
[2020-12-13 18:06] LABS: Appearance Urine Cloudy (Clear); Bacteria Urine Automated 4+ (Negative); Blood Urine 2+ (Negative); Color Urine Dark Yellow; Epithelial Cell Urine Auto >30 /lpf (0-5); Glucose Urine UA Negative (Negative); Ketones Urine Trace (Negative); Leukocyte Esterase Urine Negative (Negative); Nitrite Urine Positive (Negative); Protein Urine 2+ (Negative); Specific Gravity Urine 1.025 (1.000-1.030); Urobilinogen Urine Negative (Negative)
[2020-12-13 18:25] LABS: Bilirubin Urine 1+ (Negative)
--- NOTE | 2020-12-13 19:16 | Emergency Department Note ---
History of Present Illness General Chief complaint: Illness Stated complaint: CANCER PATIENT,CAME FROM [facility] Time Seen by Provider: 12/13/20 15:40 History of Present Illness Provider complaint: Nausea and vomiting Onset (ago): day(s) 2 Maximum Pain Intensity: 6 Associated symptoms: + cough, + malaise, + nausea/vomiting and + shortness of breath; no chest pain or no headaches 75-year-old female presents emergency department for nausea vomiting. Patient is currently being treated for lung cancer with radiation therapy by radiation oncology Dr. Castro as well as chemotherapy oncology Dr. Daniels. She states for the last 2 days she has been having nausea and vomiting. She states she vomited what she thought was blood earlier today. She also reports cough. She also reports black stool. She also reports subjective fevers. She reports she cannot eat or drink anything. She reports generalized malaise. She states the [facility] told her to come to the emergency department. Home Medications Medication Instructions Recorded Confirmed Type calcium carbonate-vitamin D3 600 1 tab PO QAM tab 01/21/19 12/13/20 History mg(1,500 mg)-400 unit chewable tablet (Calcium 600 with Vitamin D3) cetirizine 10 mg tablet 10 mg PO QAM tab 01/21/19 12/13/20 History ergocalciferol (vitamin D2) 1,250 50,000 units PO WEEKLY cap 01/21/19 12/13/20 History mcg (50,000 unit) capsule [facility] Ultra Blue Test Strip #100 ea NS 04/15/19 12/13/20 Rx (blood sugar diagnostic) carboxymethylcellulose sodium 0.5 1 drp OPHTHALMIC (EYE) BID 11/06/19 12/13/20 History % eye drops in a dropperette (Refresh Plus) lancets 33 gauge (OneTouch Delica #100 ea 03/16/20 12/13/20 Rx Lancets) atorvastatin 40 mg tablet 40 mg PO QPM #90 tab 06/28/20 12/13/20 Rx levothyroxine 88 mcg tablet 88 mcg PO QAM #90 tab 08/16/20 12/13/20 Rx metformin 500 mg tablet,extended 2,000 mg PO QAM #120 tab 09/15/20 12/13/20 Rx release 24 hr clonazepam 0.5 mg tablet 0.5 mg PO DAILY PRN #5 tab 10/14/20 12/13/20 Rx azelastine 137 mcg (0.1 %) nasal 1 spray INTRANASAL BID PRN 10/18/20 12/13/20 History spray aerosol pantoprazole 40 mg tablet,delayed 40 mg PO QAM PRN 10/18/20 12/13/20 History release sitagliptin 50 mg tablet (Januvia) 50 mg PO QAM 10/18/20 12/13/20 History amlodipine 5 mg-benazepril 20 mg 1 cap PO QAM 10/21/20 12/13/20 History capsule (Lotrel) montelukast 10 mg tablet 10 mg PO QAM 10/21/20 12/13/20 History (Singulair) Portable Oxygen #1 ea 11/24/20 12/13/20 Rx albuterol sulfate 90 mcg/actuation 2 puff INHALATION Q6H PRN #8.5 g 11/24/20 12/13/20 Rx aerosol inhaler (Ventolin HFA) umeclidinium 62.5 mcg-vilanterol 1 inh INHALATION QAM #60 ea 11/24/20 12/13/20 Rx 25 mcg/actuation powdr for inhalation (Anoro Ellipta) glipizide 5 mg tablet 5 mg PO QAM #90 tab 11/25/20 12/13/20 Rx Magic Mouthwash 300 mL mouthwash 10 ml MUCOUS MEMBRANE .COMPLEX 12/06/20 12/13/20 Rx #300 ml sucralfate 1 gram tablet (Carafate) 1 g PO Q6H #120 tab 12/10/20 12/13/20 Rx Allergies Allergy/AdvReac Type Severity Reaction Status Date / Time Penicillins Allergy Severe RASH AND Verified 12/13/20 13:27 THROAT SWELLING shellfish derived Allergy Severe RASH WELTS Verified 12/13/20 13:27 house dust mite Allergy Mild ALLERGY Verified 12/13/20 13:27 TESTING mold Allergy Mild PER Verified 12/13/20 13:27 ALLERGY TESTS-SNEEZING adhesive AdvReac Intermediate BLISTERS Verified 12/13/20 13:27 WITH TAPE-CLOTH OK aspirin AdvReac Intermediate Rash Verified 12/13/20 13:27 [From Thu-[place] Plus Cold/Cough] chlorpheniramine AdvReac Intermediate Rash Verified 12/13/20 13:27 [From Thu-[place] Plus Cold/Cough] dextromethorphan AdvReac Intermediate Rash Verified 12/13/20 13:27 [From Thu-[place] Plus Cold/Cough] phenylpropanolamine AdvReac Intermediate Rash Verified 12/13/20 13:27 [From Thu-[place] Plus Cold/Cough] 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 COPD with emphysema Diabetes mellitus, type 2 Edema of both legs Essential tremor Exertional dyspnea GERD (gastroesophageal reflux disease) Hiatal hernia History of breast cancer chemo and radiation and then oral pill Hyperlipidemia Hypertension Hypothyroidism Kidney stones hx Multiple pulmonary nodules Osteoporosis Secondary polycythemia Small cell lung cancer, 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) Temporomandibular joint disorder NO LOCKING Surgical History History of appendectomy (~1967) History of breast biopsy (~09/03/12) History of cholecystectomy (~1974) History of colonoscopy 2019 History of esophagogastroduodenoscopy (EGD) History of hysterectomy (~1974) ovaries removed as well History of lithotripsy 2011 Hx of cataract surgery right and left Hx of lumpectomy LEFT BREAST-NO LIMB RESTIRCTIONS Hx of tonsillectomy Family History Sister Diabetes Breast cancer Brother Diabetes Heart disease Father Diabetes Hypertension Lung disease Myocardial infarction Mother Diabetes Hypertension Kidney disease Myocardial infarction Daughter Breast cancer Denies family history of Ovarian cancer Prostate cancer Colorectal cancer Social History Smoking Status: Never smoker Tobacco Type: Cigarettes Age Started Using Tobacco: 17; Age Quit Using Tobacco: 68; Cigarettes Per Day: 20; Number of Years Since Quit: 4; Second Hand Exposure: Yes (SPOUSE SMOKES); Hx Alcohol Use: No Hx Substance Use: No Preferred Language: Spanish Communication Ability: Effective Visual Impairment: No Limitations Hearing Ability: Normal Outside Sales Engineer Required: No Beliefs That Will Affect Care: None marital status: Current Living Situation: Spouse current occupational status: retired current occupation: used to work at [employer] out of [employer] Feels Safe at Home: Yes Childhood Exposure to Second-Hand Smoke: Yes caffeine: Yes during the past year weight has: remained stable Dental Care, Regularly: No Physical Activity Frequency: Does not Exercise Seatbelt Use: always Sunscreen Use: Yes Assistive Devices: Oxygen - Continuous Review of Systems A total of 10 systems reviewed and were otherwise negative Physical Exam Vital Signs Vital Signs - 24 hr 12/13/20 14:18 12/13/20 15:44 12/13/20 16:33 Temperature 37 C Temperature Source Oral Pulse Rate 100 H Respiratory Rate 18 20 Respiratory Effort / Characteristics Non-Labored Blood Pressure 107/74 Blood Pressure Mean 85 Pulse Oximetry 95 97 95 Oxygen Delivery Method Room Air Room Air Room Air Sepsis Recent Fever Within 48 Hours No Sepsis New/Unexplained Change in Mental Status No Sepsis Action Taken by Nursing No Action Required 12/13/20 17:00 12/13/20 17:19 Temperature Temperature Source Pulse Rate Respiratory Rate Respiratory Effort / Characteristics Blood Pressure Blood Pressure Mean Pulse Oximetry 87 L Oxygen Delivery Method Room Air Room Air Sepsis Recent Fever Within 48 Hours Sepsis New/Unexplained Change in Mental Status Sepsis Action Taken by Nursing Physical Exam HENT: Exam performed. -Head: Normocephalic and atraumatic. -Right Ear: External ear normal. No mastoid tenderness. -Left Ear: External ear normal. No mastoid tenderness. -Mouth/Throat: The oropharynx is clear and moist. No trismus in the jaw. No dental abscesses or uvula swelling. No oropharyngeal exudate or tonsillar abscesses. EYES: Conjunctivae and EOM are normal. Pupils are equal, round, and reactive to light. Right eye exhibits no discharge. Left eye exhibits no discharge. No scleral icterus. NECK: Normal range of motion. Neck supple. No JVD present. No spinous process tenderness present. No carotid bruit present. No rigidity. No tracheal deviation and normal range of motion present. No Brudzinski's sign and no Kernig's sign noted. CV: Normal rate, regular rhythm, normal heart sounds and intact distal pulses. There is no peripheral edema. Palpable radial pulses bue. PULM/CHEST: Diminished breath sounds bilaterally. -Chest Wall: She exhibits no tenderness. ABD: The abdomen is soft. Bowel sounds are normal. She has no distension. No mass is present. There is no tenderness. There is no rebound, no guarding, no Abreu's sign and no tenderness at McBurney's point. Rovsig negative MUSC/SKEL: Normal range of motion. There is no peripheral edema, tenderness or deformity. NEURO: She is alert and oriented to person, place, and time. She has normal strength. No cranial nerve deficit or sensory deficit. Course Course 1540: The patient was evaluated in room B7. A complete history and physical exam was performed Cardiac monitoring: An order was placed for continuous cardiac monitoring. The monitor shows a rate of 80 with sinus rhythm 1730: Patient hypoxic on room air. Patient placed on supplemental oxygen via nasal cannula which improved her oxygen saturation. Imaging does show possible infiltrate.Labs show a leukopenia of 1.32. Hemoglobin 8.7. Platelet count of 19. Creatinine 1.68. Lactic acid within normal limits. Given the patient's hypoxia and possible findings of pneumonia, the patient will be treated for pneumonia. Patient does have a apparent anaphylactic reaction to penicillin. Patient be treated with Cipro IV piggyback, vancomycin IV piggyback, and aztreonam IV piggyback. I did discuss the case with the patient's oncologist Dr. Garcia who is in agreement with this plan. [facility] will be [facility]. Administered Medications Ciprofloxacin (Cipro / D5w) 400 mg in 200 mls @ 100 mls/hr IV NOW STA; Protocol Stop: 12/13/20 19:24 Last Admin: 12/13/20 18:34 Dose: 100 mls/hr Documented by: [id number] Discontinued Medications Sodium Chloride (Nss 1000ml) 1,000 mls @ 999 mls/hr IV .Q1H1M MAYRA Stop: 12/13/20 16:45 Last Admin: 12/13/20 16:59 Dose: 999 mls/hr Documented by: [id number] Ondansetron HCl (Ondansetron Inj 2 Mg/Ml 2 Ml Vial) 4 mg IV NOW STA Stop: 12/13/20 17:19 Last Admin: 12/13/20 17:24 Dose: 4 mg Documented by: [id number] Critical Care Time Critical Care Time: Yes Total Critical Care Time: 37 I have personally spent greater than 37 minutes of critical care time in the direct management of this patient. This includes bedside care, interpretation of diagnostic studies, and testing, discussion with consultants, patient, and family members, and other required patient management activities. This 37 minutes is in excess of all separately billable procedures. Medical Decision Making Laboratory Data Result diagrams: 12/13/20 16:20 12/13/20 16:20 Lab Results 12/13/20 12/13/20 12/13/20 Range/Units 16:20 16:20 16:20 WBC 1.32 L (4.8-10.8) K/uL RBC 2.85 L (4.2-5.4) M/uL Hgb 8.7 L (12.0-16.0) g/dL Hct 24.7 L (37-47) % MCV 86.7 (80-100) fL MCH 30.5 (25-34) pg MCHC 35.2 (32-36) g/dL RDW Std Deviation 44.3 (36.4-46.3) fL RDW Coeff of Sari 14.1 (11.5-14.5) % Plt Count 19 L* (130-400) K/uL MPV 11.4 H (7.4-10.4) fL Absolute Nucleated RBC 0.03 H (0-0) K/uL Nucleated RBC % (auto) 2.6 % Neutrophils % (Manual) 44.3 % Lymphocytes % (Manual) 31.3 % Monocytes % (Manual) 23.5 % Metamyelocytes % (Man) 0.9 % Neutrophils # (Manual) 0.58 L (1.4-6.5) K/uL Total Absolute Neuts 0.58 L* (1.4-6.5) K/uL Lymphocytes # (Manual) 0.41 L (1.2-3.4) K/uL Total Abs Lymphocytes 0.41 L (1.2-3.4) K/uL Monocytes # (Manual) 0.31 (0.11-0.59) K/uL Metamyelocytes # (Man) 0.01 H (0-0) K/uL Toxic Granulation 1+ Platelet Estimate SIGNIFIC DECREASED (Normal) Polychromasia 1+ PT 10.3 (9.0-12.0) Seconds INR 1.0 (0.9-1.1) APTT 22.5 (21.0-31.0) Seconds PTT Ratio 0.9 Sodium 143 (136-145) mmol/L Potassium 3.7 (3.5-5.1) mmol/L Chloride 110 H (98-107) mmol/L Carbon Dioxide 22 (21-32) mmol/L Anion Gap 10.0 (3-11) BUN 37 H (7-18) mg/dl Creatinine 1.68 H (0.6-1.2) mg/dl Est Cr Clr Drug Dosing Not Reportable Est GFR ( Amer) 34.6 ml/min Est GFR (Non-Af Amer) 29.8 ml/min BUN/Creatinine Ratio 22.0 H (10-20) Glucose 164 H (70-99) mg/dl Lactate (0.4-2.0) mmol/L Calcium 10.3 H (8.5-10.1) mg/dl Magnesium 2.2 (1.8-2.4) mg/dl Total Bilirubin 0.6 (0.2-1) mg/dl AST 19 (15-37) U/L ALT 20 (12-78) U/L Alkaline Phosphatase 96 (45-117) U/L Troponin I < 0.015 (0-0.045) ng/ml Total Protein 7.8 (6.4-8.2) gm/dl Albumin 3.1 L (3.4-5.0) gm/dl Globulin 4.7 H (2.5-4.0) gm/dl Albumin/Globulin Ratio 0.7 L (0.9-2) Procalcitonin (0-0.5) ng/ml Urine Color Urine Appearance (Clear) Urine pH (4.5-7.5) Ur Specific Carlin (1.000-1.030) Urine Protein (Negative) Urine Glucose (UA) (Negative) Urine Ketones (Negative) Urine Blood (Negative) Urine Nitrite (Negative) Urine Bilirubin (Negative) Urine Urobilinogen (Negative) Ur Leukocyte Esterase (Negative) Urine WBC (Auto) (0-5) /hpf Urine RBC (Auto) (0-4) /hpf U Hyaline Cast (Auto) (0-5) /lpf U Epithel Cells (Auto) (0-5) /lpf Urine Bacteria (Auto) (Negative) Granular Casts (0) /lpf COVID-19 Eval Order SARS-CoV-2 (PCR) (Negative) 12/13/20 12/13/20 12/13/20 Range/Units 16:20 16:20 16:37 WBC (4.8-10.8) K/uL RBC (4.2-5.4) M/uL Hgb (12.0-16.0) g/dL Hct (37-47) % MCV (80-100) fL MCH (25-34) pg MCHC (32-36) g/dL RDW Std Deviation (36.4-46.3) fL RDW Coeff of Sari (11.5-14.5) % Plt Count (130-400) K/uL MPV (7.4-10.4) fL Absolute Nucleated RBC (0-0) K/uL Nucleated RBC % (auto) % Neutrophils % (Manual) % Lymphocytes % (Manual) % Monocytes % (Manual) % Metamyelocytes % (Man) % Neutrophils # (Manual) (1.4-6.5) K/uL Total Absolute Neuts (1.4-6.5) K/uL Lymphocytes # (Manual) (1.2-3.4) K/uL Total Abs Lymphocytes (1.2-3.4) K/uL Monocytes # (Manual) (0.11-0.59) K/uL Metamyelocytes # (Man) (0-0) K/uL Toxic Granulation Platelet Estimate (Normal) Polychromasia PT (9.0-12.0) Seconds INR (0.9-1.1) APTT (21.0-31.0) Seconds PTT Ratio Sodium (136-145) mmol/L Potassium (3.5-5.1) mmol/L Chloride (98-107) mmol/L Carbon Dioxide (21-32) mmol/L Anion Gap (3-11) BUN (7-18) mg/dl Creatinine (0.6-1.2) mg/dl Est Cr Clr Drug Dosing Est GFR ( Amer) ml/min Est GFR (Non-Af Amer) ml/min BUN/Creatinine Ratio (10-20) Glucose (70-99) mg/dl Lactate 1.0 (0.4-2.0) mmol/L Calcium (8.5-10.1) mg/dl Magnesium (1.8-2.4) mg/dl Total Bilirubin (0.2-1) mg/dl AST (15-37) U/L ALT (12-78) U/L Alkaline Phosphatase (45-117) U/L Troponin I (0-0.045) ng/ml Total Protein (6.4-8.2) gm/dl Albumin (3.4-5.0) gm/dl Globulin (2.5-4.0) gm/dl Albumin/Globulin Ratio (0.9-2) Procalcitonin 0.28 (0-0.5) ng/ml Urine Color Urine Appearance (Clear) Urine pH (4.5-7.5) Ur Specific Carlin (1.000-1.030) Urine Protein (Negative) Urine Glucose (UA) (Negative) Urine Ketones (Negative) Urine Blood (Negative) Urine Nitrite (Negative) Urine Bilirubin (Negative) Urine Urobilinogen (Negative) Ur Leukocyte Esterase (Negative) Urine WBC (Auto) (0-5) /hpf Urine RBC (Auto) (0-4) /hpf U Hyaline Cast (Auto) (0-5) /lpf U Epithel Cells (Auto) (0-5) /lpf Urine Bacteria (Auto) (Negative) Granular Casts (0) /lpf COVID-19 Eval Order Covid19 at [facility] SARS-CoV-2 (PCR) (Negative) 12/13/20 12/13/20 Range/Units 16:37 17:34 WBC (4.8-10.8) K/uL RBC (4.2-5.4) M/uL Hgb (12.0-16.0) g/dL Hct (37-47) % MCV (80-100) fL MCH (25-34) pg MCHC (32-36) g/dL RDW Std Deviation (36.4-46.3) fL RDW Coeff of Sari (11.5-14.5) % Plt Count (130-400) K/uL MPV (7.4-10.4) fL Absolute Nucleated RBC (0-0) K/uL Nucleated RBC % (auto) % Neutrophils % (Manual) % Lymphocytes % (Manual) % Monocytes % (Manual) % Metamyelocytes % (Man) % Neutrophils # (Manual) (1.4-6.5) K/uL Total Absolute Neuts (1.4-6.5) K/uL Lymphocytes # (Manual) (1.2-3.4) K/uL Total Abs Lymphocytes (1.2-3.4) K/uL Monocytes # (Manual) (0.11-0.59) K/uL Metamyelocytes # (Man) (0-0) K/uL Toxic Granulation Platelet Estimate (Normal) Polychromasia PT (9.0-12.0) Seconds INR (0.9-1.1) APTT (21.0-31.0) Seconds PTT Ratio Sodium (136-145) mmol/L Potassium (3.5-5.1) mmol/L Chloride (98-107) mmol/L Carbon Dioxide (21-32) mmol/L Anion Gap (3-11) BUN (7-18) mg/dl Creatinine (0.6-1.2) mg/dl Est Cr Clr Drug Dosing Est GFR ( Amer) ml/min Est GFR (Non-Af Amer) ml/min BUN/Creatinine Ratio (10-20) Glucose (70-99) mg/dl Lactate (0.4-2.0) mmol/L Calcium (8.5-10.1) mg/dl Magnesium (1.8-2.4) mg/dl Total Bilirubin (0.2-1) mg/dl AST (15-37) U/L ALT (12-78) U/L Alkaline Phosphatase (45-117) U/L Troponin I (0-0.045) ng/ml Total Protein (6.4-8.2) gm/dl Albumin (3.4-5.0) gm/dl Globulin (2.5-4.0) gm/dl Albumin/Globulin Ratio (0.9-2) Procalcitonin (0-0.5) ng/ml Urine Color Dark Yellow Urine Appearance Cloudy A (Clear) Urine pH 5.0 (4.5-7.5) Ur Specific Carlin 1.025 (1.000-1.030) Urine Protein 2+ H (Negative) Urine Glucose (UA) Negative (Negative) Urine Ketones Trace H (Negative) Urine Blood 2+ H (Negative) Urine Nitrite Positive A (Negative) Urine Bilirubin 1+ H (Negative) Urine Urobilinogen Negative (Negative) Ur Leukocyte Esterase Negative (Negative) Urine WBC (Auto) 5-10 H (0-5) /hpf Urine RBC (Auto) 10-30 H (0-4) /hpf U Hyaline Cast (Auto) 10-30 H (0-5) /lpf U Epithel Cells (Auto) >30 H (0-5) /lpf Urine Bacteria (Auto) 4+ H (Negative) Granular Casts 5-10 H (0) /lpf COVID-19 Eval Order SARS-CoV-2 (PCR) NEGATIVE (Negative) Imaging Data Radiologist's Impression: Chest X-Ray 12/13/20 15:44 XR chest 1V portable CLINICAL HISTORY: SEPSIS COMPARISON STUDY: Chest radiograph October 26, 2020. Treatment planning CT October 27, 2020. FINDINGS: Intraoperative Krcbul-a-Gyse is in place but there is no pneumothorax or definite pleural effusion. There is mild left basilar opacity. There is no evidence for pulmonary edema. Cardiomediastinal silhouette is stable. The known left upper lobe lesion is not well-visualized on this exam. IMPRESSION: Minimal left basilar opacity. Atelectasis is favored. An infectious process could appear similar. ACT 112: Negative or not required by law. Electronically signed by: Vahe Reynoso M.D. 12/13/2020 4:54 PM ECG Data Indication: + nausea and + SOB/dyspnea Rate (beats per minute): 83 Rhythm: + normal sinus ECG Intervals/blocks: + Normal QRS, + Normal MD and + Normal QT-c ECG ST segments: + Normal ST segments MDM Narrative Patient hypoxic on room air. Patient placed on supplemental oxygen via nasal cannula which improved her oxygen saturation. Imaging does show possible infiltrate.Labs show a leukopenia of 1.32. Hemoglobin 8.7. Platelet count of 19. Creatinine 1.68. Lactic acid within normal limits. Given the patient's hypoxia and possible findings of pneumonia, the patient will be treated for pneumonia. Patient does have a apparent anaphylactic reaction to penicillin. Patient be treated with Cipro IV piggyback, vancomycin IV piggyback, and aztreonam IV piggyback. I did discuss the case with the patient's oncologist Dr. Garcia who is in agreement with this plan. [facility] team will be notified. Impression & Plan Hypoxia, Nausea and vomiting, Leukopenia, Thrombocytopenia Discharge Plan Visit Data Chief Complaint: Illness Stated Complaint: CANCER PATIENT,CAME FROM [facility]CER CENTER Discharge Problem: Hypoxia, Nausea and vomiting, Leukopenia, Thrombocytopenia Patient Disposition: Admitted As Inpatient Forms Stand Alone Forms: My [facility] Prescriptions Prescriptions: No Action (DME) OneTouch Ultra Blue Test Strip Strip See Rx Instructions .ROUTE .MEDSUPPLY Qty: 100 RF: 3 (DME) lancets [OneTouch Delica Lancets] 33 gauge misc See Rx Instructions .ROUTE .MEDSUPPLY Qty: 100 RF: 3 atorvastatin 40 mg tablet 40 mg PO QPM Qty: 90 RF: 3 metformin 500 mg tablet extended release 24 hr 2,000 mg PO QAM Qty: 120 RF: 5 clonazepam 0.5 mg tablet 0.5 mg PO DAILY PRN (Reason: anxiety) Qty: 5 RF: 0 glipizide 5 mg tablet 5 mg PO QAM Qty: 90 RF: 3 Magic Mouthwash 300 mL mouthwash 10 ml mucous membrane .COMPLEX Qty: 300 RF: 1 sucralfate [Carafate] 1 gram tablet 1 g PO Q6H Qty: 120 RF: 4 Calcium 600 with Vitamin D3 600 mg(1,500mg) -400 unit tablet,chewable 1 tab PO QAM RF: 0 ergocalciferol (vitamin D2) 50,000 unit capsule 50,000 units PO WEEKLY RF: 0 cetirizine 10 mg tablet 10 mg PO QAM RF: 0 Refresh Plus 0.5 % dropperette 1 drp ophthalmic (eye) BID RF: 0 levothyroxine 88 mcg tablet 88 mcg PO QAM Qty: 90 RF: 3 albuterol sulfate [Ventolin HFA] 90 mcg/actuation HFA aerosol inhaler 2 puff INHALATION Q6H PRN (Reason: Wheezing) Qty: 8.5 RF: 3 Anoro Ellipta 62.5-25 mcg/actuation blister with device 1 inh inhalation QAM Qty: 60 RF: 5 (DME) Portable Oxygen Misc See Rx Instructions .MEDSUPPLY Qty: 1 RF: 0 azelastine 137 mcg (0.1 %) aerosol,spray 1 spray intranasal BID PRN (Reason: Congestion) RF: 0 pantoprazole 40 mg tablet,delayed release (DR/EC) 40 mg PO QAM PRN (Reason: Acid Reflux) RF: 0 Januvia 50 mg tablet 50 mg PO QAM RF: 0 amlodipine-benazepril [Lotrel] 5-20 mg capsule 1 cap PO QAM RF: 0 montelukast [Singulair] 10 mg tablet 10 mg PO QAM RF: 0 Referrals Referrals: Gayathri Parnell CRNP [Primary Care Provider] -
--- NOTE | 2020-12-13 22:10 | History & Physical Report ---
Date of Service December 13, 2020 Assessment & Plan (1) Nausea and vomiting: Plan: Patient is being admitted with nausea and vomiting. Patient is unable to tolerate an oral diet. This is likely secondary to her chemo/radiation. Patient will be receiving IV fluids. (2) Leukopenia: Plan: Pancytopenia. Patient is currently leukopenic. Patient received antibiotics while in the ER, however she does not have any documented fever. Will hold further antibiotics and monitor. (3) Thrombocytopenia: Plan: Platelet is 21. will continue to monitor. (4) Hypothyroidism: Plan: Patient will be restarted on her IV levothyroxine. (5) GERD (gastroesophageal reflux disease): Plan: Will resume home meds (6) Hypertension: Plan: will hold BP meds and monitor. (7) Diabetes mellitus, type 2: Plan: consult glycemic control (8) Small cell lung cancer, left upper lobe: Plan: due to problem 1 will hold chemo and radiotherapy (9) Hyperlipidemia: Plan: resume statin History of Present Illness Chief Complaint: Nausea and vomiting. Primary Care Provider: HILDA Tristan 75 yo female comes in with nausea and vomiting. Patient reports she has not been able to take any of her medications for the past 5 days (since ). Patient reports she has been getting radiation treatment with Dr. Castro and chemotherapy with Dr. Daniels. Patient has been complaining of generalized malaise. She reports she has not been able to eat or drink well. . She states the cancer center told her to come to the emergency department. Allergies Allergy/AdvReac Type Severity Reaction Status Date / Time Penicillins Allergy Severe RASH AND Verified 12/13/20 13:27 THROAT SWELLING shellfish derived Allergy Severe RASH WELTS Verified 12/13/20 13:27 house dust mite Allergy Mild ALLERGY Verified 12/13/20 13:27 TESTING mold Allergy Mild PER Verified 12/13/20 13:27 ALLERGY TESTS-SNEEZING adhesive AdvReac Intermediate BLISTERS Verified 12/13/20 13:27 WITH TAPE-CLOTH OK aspirin AdvReac Intermediate Rash Verified 12/13/20 13:27 [From Thu-Ludlow Plus Cold/Cough] chlorpheniramine AdvReac Intermediate Rash Verified 12/13/20 13:27 [From Thu-Ludlow Plus Cold/Cough] dextromethorphan AdvReac Intermediate Rash Verified 12/13/20 13:27 [From Thu-Ludlow Plus Cold/Cough] phenylpropanolamine AdvReac Intermediate Rash Verified 12/13/20 13:27 [From Thu-Ludlow Plus Cold/Cough] Home Medications Medication Instructions Recorded Confirmed Type calcium carbonate-vitamin D3 600 1 tab PO QAM tab 01/21/19 12/13/20 History mg(1,500 mg)-400 unit chewable tablet (Calcium 600 with Vitamin D3) cetirizine 10 mg tablet 10 mg PO QAM tab 01/21/19 12/13/20 History ergocalciferol (vitamin D2) 1,250 50,000 units PO WEEKLY cap 01/21/19 12/13/20 History mcg (50,000 unit) capsule [employer] Ultra Blue Test Strip #100 ea NS 04/15/19 12/13/20 Rx (blood sugar diagnostic) carboxymethylcellulose sodium 0.5 1 drp OPHTHALMIC (EYE) BID 11/06/19 12/13/20 History % eye drops in a dropperette (Refresh Plus) lancets 33 gauge ([employer] Delica #100 ea 03/16/20 12/13/20 Rx Lancets) atorvastatin 40 mg tablet 40 mg PO QPM #90 tab 06/28/20 12/13/20 Rx levothyroxine 88 mcg tablet 88 mcg PO QAM #90 tab 08/16/20 12/13/20 Rx metformin 500 mg tablet,extended 2,000 mg PO QAM #120 tab 09/15/20 12/13/20 Rx release 24 hr clonazepam 0.5 mg tablet 0.5 mg PO DAILY PRN #5 tab 10/14/20 12/13/20 Rx azelastine 137 mcg (0.1 %) nasal 1 spray INTRANASAL BID PRN 10/18/20 12/13/20 History spray aerosol pantoprazole 40 mg tablet,delayed 40 mg PO QAM PRN 10/18/20 12/13/20 History release sitagliptin 50 mg tablet (Januvia) 50 mg PO QAM 10/18/20 12/13/20 History amlodipine 5 mg-benazepril 20 mg 1 cap PO QAM 10/21/20 12/13/20 History capsule (Lotrel) montelukast 10 mg tablet 10 mg PO QAM 10/21/20 12/13/20 History (Singulair) Portable Oxygen #1 ea 11/24/20 12/13/20 Rx albuterol sulfate 90 mcg/actuation 2 puff INHALATION Q6H PRN #8.5 g 11/24/20 12/13/20 Rx aerosol inhaler (Ventolin HFA) umeclidinium 62.5 mcg-vilanterol 1 inh INHALATION QAM #60 ea 11/24/20 12/13/20 Rx 25 mcg/actuation powdr for inhalation (Anoro Ellipta) glipizide 5 mg tablet 5 mg PO QAM #90 tab 11/25/20 12/13/20 Rx Magic Mouthwash 300 mL mouthwash 10 ml MUCOUS MEMBRANE .COMPLEX 12/06/20 12/13/20 Rx #300 ml sucralfate 1 gram tablet (Carafate) 1 g PO Q6H #120 tab 12/10/20 12/13/20 Rx 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 COPD with emphysema Diabetes mellitus, type 2 Edema of both legs Essential tremor Exertional dyspnea GERD (gastroesophageal reflux disease) Hiatal hernia History of breast cancer chemo and radiation and then oral pill Hyperlipidemia Hypertension Hypothyroidism Kidney stones hx Multiple pulmonary nodules Osteoporosis Secondary polycythemia Small cell lung cancer, 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) Temporomandibular joint disorder NO LOCKING Surgical History History of appendectomy (~1967) History of breast biopsy (~09/03/12) History of cholecystectomy (~1974) History of colonoscopy 2019 History of esophagogastroduodenoscopy (EGD) History of hysterectomy (~1974) ovaries removed as well History of lithotripsy 2011 Hx of cataract surgery right and left Hx of lumpectomy LEFT BREAST-NO LIMB RESTIRCTIONS Hx of tonsillectomy Family History Sister Diabetes Breast cancer Brother Diabetes Heart disease Father Diabetes Hypertension Lung disease Myocardial infarction Mother Diabetes Hypertension Kidney disease Myocardial infarction Daughter Breast cancer Denies family history of Ovarian cancer Prostate cancer Colorectal cancer Social History Smoking Status: Former smoker Tobacco Type: Cigarettes Age Started Using Tobacco: 17; Age Quit Using Tobacco: 68; Cigarettes Per Day: 20; Number of Years Since Quit: 4; Second Hand Exposure: Yes (SPOUSE SMOKES); Hx Alcohol Use: No Hx Substance Use: No Preferred Language: Bermudian Communication Ability: Effective Visual Impairment: No Limitations Hearing Ability: Normal Mobile Unit Assistant Required: No Beliefs That Will Affect Care: None marital status: Current Living Situation: Spouse current occupational status: retired current occupation: used to work at [employer] out of [employer] Other Information That Helps Us Care for You: No Feels Safe at Home: Yes Safety Concerns: Feels Safe At This Time Childhood Exposure to Second-Hand Smoke: Yes caffeine: Yes during the past year weight has: remained stable Dental Care, Regularly: No Physical Activity Frequency: Does not Exercise Seatbelt Use: always Sunscreen Use: Yes Assistive Devices: Oxygen - Continuous Assistive Devices Comment: oxygen use PRN at home Review of Systems Review of Systems: All systems reviewed & are unremarkable except as noted in HPI & below Physical Exam Constitutional: WD/WN, vitals as above Eyes: PERRL, conjunctivae normal, anicteric sclerae ENMT: external ear and nose normal, oropharynx normal Neck: trachea midline, no thyromegaly Respiratory: normal respiratory effort, lungs clear to auscultation Cardiovascular: RRR, no murmur, no edema Gastrointestinal (Abdomen): normal bowel sounds, soft, nontender, no hepatosplenomegaly Musculoskeletal: no cyanosis or clubbing, extremities motor strength 5/5 Neurologic: PERRL, EOMI, accommodation nl, no face palsy, no dysarthria Psychiatric: A+Ox3, euthymic affect Results & Data Results & Data ([facility]) Vital Signs (Past 12 Hours) Vital Signs Temp Pulse Resp BP Pulse Ox 12/13/20 21:30 83 33 H 114/68 100 12/13/20 21:00 81 17 120/77 99 12/13/20 20:32 91 H 16 134/81 97 12/13/20 20:00 83 14 118/76 96 12/13/20 19:30 96 H 22 121/74 93 12/13/20 19:00 88 15 108/60 99 12/13/20 18:30 82 17 141/84 H 100 12/13/20 18:01 85 19 121/82 99 12/13/20 17:19 87 L 12/13/20 16:33 20 95 12/13/20 15:44 97 12/13/20 14:18 37 C 100 H 18 107/74 95 Code Status & VTE Plan VTE Prophylaxis Plan VTE Prophylaxis will be ordered: Yes PG Care Time/CCT Total # of Minutes Spent Total Time Spent with Patient: Total time spent is greater than 50% in coordination of care (as documented) at patient's floor/unit and/or counseling patient: Coding Level of Care Code 69570 Initial Inpt Care Lvl 3 Diagnoses Nausea and vomiting R11.2 Vomiting Intractability: non-intractable Vomiting type: unspecified Leukopenia D72.819 Leukopenia type: unspecified Thrombocytopenia D69.6 Hypothyroidism E03.9 GERD (gastroesophageal reflux disease) K21.9 Hypertension I10 Diabetes mellitus, type 2 E11.9 Small cell lung cancer, left upper lobe C34.12 Hyperlipidemia E78.5 (1) Leukopenia Leukopenia type: unspecified Qualified Code(s): D72.819 - Decreased white blood cell count, unspecified (2) Nausea and vomiting Vomiting Intractability: non-intractable Vomiting type: unspecified Qualified Code(s): R11.2 - Nausea with vomiting, unspecified
[2020-12-13] MEDS ORDERED: DEXTROSE 50% 50 ML SYRINGE IV PRN (22:53)
[2020-12-13] MEDS ORDERED: LORazepam 0.5 MG/1 ML VIAL IV PRN (22:53)
[2020-12-13] MEDS ORDERED: ALBUTEROL HFA 8 GM INHALER INH PRN (22:53)
[2020-12-13] MEDS ORDERED: CARBOHYDRATES FOR HYPOGLYCEMIA PO PRN (22:53)
[2020-12-13] MEDS ORDERED: GLUCOSE 40% GEL 15 GM TUBE PO PRN (22:53)
[2020-12-13] MEDS ORDERED: AZELASTINE HCL 0.1% NASAL 200 SPRAYS/27,400 MCG BTL NAE PRN (22:53)
[2020-12-13] MEDS ORDERED: GLUCOSE 10 TABS/TUBE PO PRN (22:53)
[2020-12-13] MEDS ORDERED: GLUCAGON FOR INJ 1 MG VIAL SQ PRN (22:53)
[2020-12-14] MEDS: FAMOTIDINE 20 MG in SYRINGE 3 ML IV SCH ×3 (00:09→21:00)
[2020-12-14] MEDS: SODIUM CHLORIDE 0.9% 1000ML 1,000 ML IV SCH ×2 (00:09→10:49)
[2020-12-14] MEDS: INSULIN ASPART 100 UNITS/ML 3 ML PEN SC SCH ×6 (00:15→21:01)
[2020-12-14] MEDS: ONDANSETRON INJ 2 MG/ML 2 ML VIAL IV PRN (07:28)
[2020-12-14 07:51] LABS: Mean Corpuscular Hgb Conc 34.5 g/dL (32-36); Mean Platelet Volume 10.9 fL (7.4-10.4); Nucleated RBC # (auto) 0.04 K/uL (0-0); Nucleated RBC % (auto) 2.1 %; Platelet Count 21 K/uL (130-400)
[2020-12-14 07:52] LABS: Hematocrit (blood only) 20.6 % (37-47); Hemoglobin 7.1 g/dL (12.0-16.0); Mean Corpuscular Hemoglobin 29.8 pg (25-34); Mean Corpuscular Volume 86.6 fL (80-100); RDW Coefficient of Variation 14.3 % (11.5-14.5); RDW Standard Deviation 44.5 fL (36.4-46.3); Red Blood Count 2.38 M/uL (4.2-5.4); White Blood Count 1.68 K/uL (4.8-10.8)
[2020-12-14 07:59] LABS: Dohle Bodies 1+
[2020-12-14 08:00] LABS: ALC (manual) 0.38 K/uL (1.2-3.4); ANC (manual) 0.88 K/uL (1.4-6.5); Lymphocytes # (manual) 0.38 K/uL (1.2-3.4); Lymphocytes % (manual) 22.6 %; Monocytes # (manual) 0.39 K/uL (0.11-0.59); Monocytes % (manual) 23.5 %; Myelocytes # (manual) 0.03 K/uL (0-0); Myelocytes % (manual) 1.7 %; Neutrophils # (manual) 0.88 K/uL (1.4-6.5); Neutrophils % (manual) 52.2 %
[2020-12-14 08:09] LABS: BUN Creatinine Ratio 22.2 (10-20); Calcium 9.3 mg/dl (8.5-10.1); Creatinine Clr Calc Pharmacy 44.3 ml/min; Est GFR (Non-African American) 41.4 ml/min; Potassium 3.6 mmol/L (3.5-5.1)
[2020-12-14] MEDS: UMECLIDINIUM/VILANTEROL 62.5/25MCG 7 PUFFS/INHALER INH SCH (08:44)
--- NOTE | 2020-12-14 08:45 | Electrocardiogram Report ---
Test Reason : Blood Pressure : / mmHG Vent. Rate : 083 BPM Atrial Rate : 083 BPM P-R Int : 120 ms QRS Dur : 088 ms QT Int : 366 ms P-R-T Axes : 070 047 049 degrees QTc Int : 430 ms Normal sinus rhythm Normal ECG No previous ECGs available Confirmed by Farooq Caldera ([id number]) on 12/14/2020 8:45:25 AM Referred By: REFERRED SELF Confirmed By:Aman Caldera
[2020-12-14] MEDS ORDERED: PHARMACY GLYCEMIC MGMT CONSULT PRN (10:01)
[2020-12-14] MEDS: ACETAMINOPHEN 1000 MG/100 ML IV IV PRN ×2 (10:58→20:57)
[2020-12-14] MEDS ORDERED: LEVOTHYROXINE SODIUM 44 MCG in SYRINGE 0 ML IV SCH (11:00)
--- NOTE | 2020-12-14 12:01 | Pharmacy Report ---
Pharmacy Glycemic Short Note 2 - Date of Service December 14, 2020 - Glycemic Short BSG Results (Last 24 hours): 12/13/20 12/14/20 12/14/20 16:20 00:07 06:18 Glucose 164 H POC Glucose 155 H 179 H 12/14/20 12/14/20 12/14/20 07:25 08:34 11:54 Glucose 160 H POC Glucose 180 H 173 H OUTPATIENT ANTIDIABETIC REGIMEN: * glipizide 5 mg qAM * HbA1C = 8.5% (12/06/20) ASSESSMENT: * Ms Rivers is a 75 y/o F with a PMH of T2DM on oral medications who presents with N/V and decreased PO intake. Last glipizide dose was 5 days ago. * BSGs since admission were 155-179-180 and at lunch 173 mg/dL. * Patient is NPO. * Will start weight-based stress of 3 Novolog for now for more aggressive short- term coverage. * Lantus 15 units at bedtime if BSGs > 180 mg/dL as this will indicate second time patient's BSGs> 180 mg/dL. PLAN FOR INPATIENT GLYCEMIC CONTROL: * Hold outpatient oral diabetes medications * Basal insulin * Lantus 15 units SQ HS if BSG > 180 mg/dL * Bolus insulin * NovoLog per scale ACHS or Q6hrs while NPO * Goal Range: Low 110 mg/dL - High 140 mg/dL * Correction Factor: 20 mg/dL/unit * Nutritional / Prandial insulin per carb ratio of 1 unit per 6 grams CHO consumed PLAN FOR DISCHARGE: * TBD
[2020-12-14] MEDS ORDERED: BENZONATATE 100 MG CAPSULE PO PRN (16:23)
[2020-12-14] MEDS ORDERED: guaiFENesin/DEXTROM SYRUP 100MG/10MG 5ML UDC PO PRN (16:57)
[2020-12-14] MEDS ORDERED: Nursing to Pharmacy Communication SCH (17:00)
[2020-12-14 17:12] LABS: Hematocrit (blood only) 19.9 % (37-47)
--- NOTE | 2020-12-14 17:35 | XRay Report ---
XR chest 1V portable INDICATION: MN ^cough. TECHNIQUE: Single frontal radiograph of the chest was obtained. Comparison: Comparison is made to chest one view 12/13/2020 FINDINGS: Stable left port catheter. The cardiomediastinal silhouette is normal. Trace left basilar opacity is again seen. Emphysematous changes are seen. No evidence of pleural effusion or pneumothorax. IMPRESSION: Stable minimal left basilar opacity which represent atelectasis and/or pneumonia. ACT 112: Negative or not required by law. Electronically signed by: Babak Muhammad M.D. 12/14/2020 5:34 PM
--- NOTE | 2020-12-14 20:18 | Hospitalist Progress Note ---
Date of Service December 14, 2020 Assessment & Plan (1) Nausea and vomiting: Plan: Patient is being admitted with nausea and vomiting. Patient was unable to tolerate an oral diet. This is likely secondary to her chemo/radiation. Patient will be receiving IV fluids. Will try a full liquid diet. appreciate input from turn out. (2) Leukopenia: Plan: Pancytopenia. Patient is currently leukopenic. Patient received antibiotics while in the ER, however she does not have any documented fever. Will hold further antibiotics and monitor. (3) Thrombocytopenia: Plan: Platelet is 21. will continue to monitor. (4) Hypothyroidism: Plan: Patient will be restarted on her IV levothyroxine. (5) GERD (gastroesophageal reflux disease): Plan: Will resume home meds (6) Hypertension: Plan: will hold BP meds and monitor. (7) Diabetes mellitus, type 2: Plan: consult glycemic control (8) Small cell lung cancer, left upper lobe: Plan: due to problem 1 will hold chemo and radiotherapy (9) Hyperlipidemia: Plan: resume statin (10) Anemia: Plan: hemoglobin is at 7. will transfuse below 7. Admission and Anticipated Discharge Date Admission Date: December 13, 2020 Subjective Patient reports she has severe pain when she swallows. Review of Systems Review of Systems: All systems reviewed & are unremarkable except as noted in HPI & below Physical Exam Constitutional: WD/WN, vitals as above Eyes: PERRL, conjunctivae normal, anicteric sclerae ENMT: external ear and nose normal, oropharynx normal Neck: trachea midline, no thyromegaly Respiratory: normal respiratory effort, lungs clear to auscultation Cardiovascular: RRR, no murmur, no edema Gastrointestinal (Abdomen): normal bowel sounds, soft, nontender, no hepatosplenomegaly Musculoskeletal: no cyanosis or clubbing, extremities motor strength 5/5 Neurologic: PERRL, EOMI, accommodation nl, no face palsy, no dysarthria Psychiatric: A+Ox3, euthymic affect Results & Data Results & Data ([facility]) Vital Signs (Past 12 Hours) Vital Signs Temp Pulse Resp BP Pulse Ox 12/14/20 14:37 36.7 C 74 18 114/73 95 PG Care Time/CCT Total # of Minutes Spent Total Time Spent with Patient: Total time spent is greater than 50% in coordination of care (as documented) at patient's floor/unit and/or counseling patient: Coding Level of Care Code 95041 Subseq Hosp Care Lvl 3 Diagnoses Nausea and vomiting R11.2 Vomiting Intractability: non-intractable Vomiting type: unspecified Leukopenia D72.819 Leukopenia type: unspecified Thrombocytopenia D69.6 Hypothyroidism E03.9 GERD (gastroesophageal reflux disease) K21.9 Hypertension I10 Diabetes mellitus, type 2 E11.9 Small cell lung cancer, left upper lobe C34.12 Hyperlipidemia E78.5 Anemia D64.9 (1) Leukopenia Leukopenia type: unspecified Qualified Code(s): D72.819 - Decreased white blood cell count, unspecified (2) Nausea and vomiting Vomiting Intractability: non-intractable Vomiting type: unspecified Qualified Code(s): R11.2 - Nausea with vomiting, unspecified
[2020-12-14] MEDS: INSULIN GLARGINE SOLOSTAR 100 UNITS/ML 3 ML PEN SC SCH (21:01)
[2020-12-15] MEDS: HEPARIN 100 UNIT/ML 5ML FLUSH FLUSH PRN ×5 (00:24→21:19)
[2020-12-15 06:37] LABS: Platelet Count 25 K/uL (130-400)
[2020-12-15 06:56] LABS: Hematocrit (blood only) 19.4 % (37-47); Hemoglobin 6.7 g/dL (12.0-16.0); Mean Corpuscular Hemoglobin 29.6 pg (25-34); Mean Corpuscular Hgb Conc 34.5 g/dL (32-36); Mean Corpuscular Volume 85.8 fL (80-100); Nucleated RBC # (auto) 0.02 K/uL (0-0); Nucleated RBC % (auto) 1.1 %; RDW Coefficient of Variation 14.2 % (11.5-14.5); RDW Standard Deviation 43.7 fL (36.4-46.3); Red Blood Count 2.26 M/uL (4.2-5.4); White Blood Count 2.05 K/uL (4.8-10.8)
[2020-12-15 06:57] LABS: Platelet Estimate SIGNIFIC DECREASED (Normal)
[2020-12-15 06:59] LABS: BUN Creatinine Ratio 22.9 (10-20); Creatinine Clr Calc Pharmacy 60.9 ml/min; Est GFR (African American) 70.7 ml/min; Ferritin 1395.8 ng/ml (8-388); Potassium 3.5 mmol/L (3.5-5.1)
[2020-12-15] MEDS ORDERED: SODIUM CHLORIDE 0.9% 250 ML IV PRN (07:27)
[2020-12-15] MEDS: UMECLIDINIUM/VILANTEROL 62.5/25MCG 7 PUFFS/INHALER INH SCH (08:30)
[2020-12-15] MEDS: FAMOTIDINE 20 MG in SYRINGE 3 ML IV SCH (08:45)
[2020-12-15] MEDS: ALUMINUM/MAGNESIUM SUSP 30 ML UDC PO SCH ×3 (08:45→21:13)
--- NOTE | 2020-12-15 09:08 | Hospitalist Progress Note ---
Date of Service December 15, 2020 Assessment & Plan (1) Nausea and vomiting: Plan: Patient is being admitted with nausea and vomiting. Patient was unable to tolerate an oral diet. This is likely secondary to her chemo/radiation. Patient will be receiving IV fluids. Will try a full liquid diet. appreciate input from sales assistant displays ordered maalox. consult GI for endoscopy. Ordered CT scan of chest: possible food impaction. (2) Leukopenia: Plan: Pancytopenia. Patient is currently leukopenic. Patient received antibiotics while in the ER, however she does not have any documented fever. Will hold further antibiotics and monitor. (3) Thrombocytopenia: Plan: Platelet is 21. will continue to monitor. (4) Hypothyroidism: Plan: Patient will be restarted on her IV levothyroxine. (5) GERD (gastroesophageal reflux disease): Plan: Will resume home meds (6) Hypertension: Plan: will hold BP meds and monitor. (7) Diabetes mellitus, type 2: Plan: consult glycemic control (8) Small cell lung cancer, left upper lobe: Plan: due to problem 1 will hold chemo and radiotherapy (9) Hyperlipidemia: Plan: resume statin (10) Anemia: Plan: hemoglobin is below 7. Will transfuse 1 PRBC Admission and Anticipated Discharge Date Admission Date: December 13, 2020 Subjective 75 yo female reports being able to tolerate beter her diet. However she is still having pain when she swallows, it is mainly epigastric and midsternum. She reports it as sharp. Review of Systems Review of Systems: All systems reviewed & are unremarkable except as noted in HPI & below Physical Exam Constitutional: WD/WN, vitals as above Eyes: PERRL, conjunctivae normal, anicteric sclerae ENMT: external ear and nose normal, oropharynx normal Neck: trachea midline, no thyromegaly Respiratory: normal respiratory effort, lungs clear to auscultation Cardiovascular: RRR, no murmur, no edema Gastrointestinal (Abdomen): normal bowel sounds, soft, nontender, no hepatosplenomegaly Musculoskeletal: no cyanosis or clubbing, extremities motor strength 5/5 Neurologic: PERRL, EOMI, accommodation nl, no face palsy, no dysarthria Psychiatric: A+Ox3, euthymic affect Results & Data Results & Data ([facility]) Vital Signs (Past 12 Hours) Vital Signs Temp Pulse Resp BP Pulse Ox 10/06/21 07:56 36.5 C 63 17 130/86 98 12/14/20 23:52 92 12/14/20 23:51 36.5 C 73 14 102/67 85 L PG Care Time/CCT Total # of Minutes Spent Total Time Spent with Patient: Total time spent is greater than 50% in coordination of care (as documented) at patient's floor/unit and/or counseling patient: Coding Level of Care Code 92844 Subseq Hosp Care Lvl 3 Diagnoses Nausea and vomiting R11.2 Vomiting Intractability: non-intractable Vomiting type: unspecified Leukopenia D72.819 Leukopenia type: unspecified Thrombocytopenia D69.6 Hypothyroidism E03.9 GERD (gastroesophageal reflux disease) K21.9 Hypertension I10 Diabetes mellitus, type 2 E11.9 Small cell lung cancer, left upper lobe C34.12 Hyperlipidemia E78.5 Anemia D64.9 (1) Leukopenia Leukopenia type: unspecified Qualified Code(s): D72.819 - Decreased white blood cell count, unspecified (2) Nausea and vomiting Vomiting Intractability: non-intractable Vomiting type: unspecified Qualified Code(s): R11.2 - Nausea with vomiting, unspecified
[2020-12-15] MEDS: INSULIN ASPART 100 UNITS/ML 3 ML PEN SC SCH ×4 (11:51→21:16)
[2020-12-15] MEDS: PANTOprazole 40 MG in SYRINGE 0 ML IV SCH ×2 (12:49→21:16)
[2020-12-15] MEDS ORDERED: OPTIRAY 320 100ml IV ONE (13:13)
--- NOTE | 2020-12-15 13:32 | CT Scan Report ---
CHEST CT WITH CONTRAST CT DOSE: 405.28 mGycm HISTORY: Mid Chest pain, History of Lung CA TECHNIQUE: Multiaxial CT images of the chest were performed following the intravenous administration of contrast. A dose lowering technique was utilized adhering to the principles of ALARA. COMPARISON: Radiation oncology CT 10/27/2020. PET CT 08/18/2020. FINDINGS: There is an old anterior wedge-shaped compression deformity at T6. No suspicious lytic or b lastic osseous lesions. A left jugular Port-A-Cath terminates in the SVC. Prior cholecystectomy. Limi jazz views of the upper abdomen demonstrate a normal liver and spleen. Stable 2.2 cm right adrenal gla nd nodule. Trace left pleural effusion. Stable dense calcification within the medial aspect of the le ft breast likely representing old postoperative change. Moderate circumferential thickening within th e mid esophagus with associated small amount of intraluminal debris. This raises the possibility of f ood impaction. No evidence for pneumomediastinum to suggest esophageal perforation. This is best seen on image 79. There is a single mildly enlarged upper right paratracheal lymph node on image 20 which is increased in size. This measures 10 x 7 mm. This could be reactive. No additional enlarged medias tinal or hilar lymph nodes. No axillary lymphadenopathy. Normal caliber thoracic aorta with no eviden ce for dissection. The central pulmonary arteries are patent. Moderate emphysema. No pneumothorax. Significant decrease in size in the left upper lobe nodule radha red to the prior study. This currently measures 5 mm. Small linear scarlike densities adjacent to thi s nodule may represent post radiation change. There are 2 fiducial marker seen within the left upper lobe medially. A few left basilar linear densities consistent with subsegmental atelectasis. IMPRESSION: 1. Moderate circumferential thickening within the esophagus with associated small amount of intralumi nal debris at this location. This raises the possibility of food impaction. Recommend endoscopy for f urther evaluation. 2. A single mildly enlarged upper right paratracheal lymph node which is new from the prior study. Th is could be reactive to the suspected inflammatory process within the mid esophagus. This bears watch ing future examinations. 3. Emphysema. 4. Significant decrease in size within the left upper lobe nodule which currently measures 5 mm. 5. Trace left pleural effusion. 6. These findings were called/faxed to the referring physician following dictation. ACT 112: Negative or not required by law. Electronically signed by: Adalid Limon M.D. 12/15/2020 1:31 PM
[2020-12-15 16:18] LABS: Hemoglobin 8.4 g/dL (12.0-16.0)
--- NOTE | 2020-12-15 20:40 | Gastrointestinal Consultation ---
Date of Consultation December 15, 2020 Assessment & Plan (1) Anemia: (2) Nausea and vomiting: (3) Small cell lung cancer, left upper lobe: (4) GERD (gastroesophageal reflux disease): Differential diagnosis: 1) Radiation esophagitis 2) Munira esophagitis 3) GERD 4) Metastatic disease from Small Cell Lung CA Recommend switching from Famotidine to Protonix 40 mg IV BID Check CT scan of the chest with IV contrast now Transfuse PRN to maintain H/H around 10/30 Consider EGD based on findings of CT imaging if medically stable History of Present Illness Reason for Consultation: Esophagitis Attending Physician: Cortez Sandhu History of Present Illness Daina Rivers is a 75 yo CF with an extensive medical history that includes Small Cell lung cancer for which she has been receiving chemotherapy and XRT. She presented to the ER with complaints of nausea, vomiting, SOB and was subsequently admitted. She was placed on twice daily famotidine therapy. I was asked to see her in consultation secondary to her symptoms of nausea, vomiting and recent complaints of right sided chest pain. She states that she has been tolerating clear liquid diet, however, she notes that she has a poor appetite, mainly, "because of the pain I get in my chest when I swallow something." She denies any fevers, chills, hematemesis, melena, or hematochezia, however, she was noted to have significant anemia on admission and did receive a transfusion. She states that she does not feel like food is getting stuck. She denies any abdominal pain or difficulty with moving her bowels, and has no further complaints. Allergies Allergy/AdvReac Type Severity Reaction Status Date / Time Penicillins Allergy Severe RASH AND Verified 12/13/20 13:27 THROAT SWELLING shellfish derived Allergy Severe RASH WELTS Verified 12/13/20 13:27 house dust mite Allergy Mild ALLERGY Verified 12/13/20 13:27 TESTING mold Allergy Mild PER Verified 12/13/20 13:27 ALLERGY TESTS-SNEEZING adhesive AdvReac Intermediate BLISTERS Verified 12/13/20 13:27 WITH TAPE-CLOTH [place] aspirin AdvReac Intermediate Rash Verified 12/13/20 13:27 [From Thu-Jones Plus Cold/Cough] chlorpheniramine AdvReac Intermediate Rash Verified 12/13/20 13:27 [From Thu-Jones Plus Cold/Cough] dextromethorphan AdvReac Intermediate Rash Verified 12/13/20 13:27 [From Thu-Jones Plus Cold/Cough] phenylpropanolamine AdvReac Intermediate Rash Verified 12/13/20 13:27 [From Tuh-Jones Plus Cold/Cough] Home Medications Medication Instructions Recorded Confirmed Type calcium carbonate-vitamin D3 600 1 tab PO QAM tab 01/21/19 12/13/20 History mg(1,500 mg)-400 unit chewable tablet (Calcium 600 with Vitamin D3) cetirizine 10 mg tablet 10 mg PO QAM tab 01/21/19 12/13/20 History ergocalciferol (vitamin D2) 1,250 50,000 units PO WEEKLY cap 01/21/19 12/13/20 History mcg (50,000 unit) capsule [facility] Inspar Ultra Blue Test Strip #100 ea NS 04/15/19 12/13/20 Rx (blood sugar diagnostic) carboxymethylcellulose sodium 0.5 1 drp OPHTHALMIC (EYE) BID 11/06/19 12/13/20 History % eye drops in a dropperette (Refresh Plus) lancets 33 gauge (Whiskey MediaTouch Delica #100 ea 03/16/20 12/13/20 Rx Lancets) atorvastatin 40 mg tablet 40 mg PO QPM #90 tab 06/28/20 12/13/20 Rx levothyroxine 88 mcg tablet 88 mcg PO QAM #90 tab 08/16/20 12/13/20 Rx metformin 500 mg tablet,extended 2,000 mg PO QAM #120 tab 09/15/20 12/13/20 Rx release 24 hr clonazepam 0.5 mg tablet 0.5 mg PO DAILY PRN #5 tab 10/14/20 12/13/20 Rx azelastine 137 mcg (0.1 %) nasal 1 spray INTRANASAL BID PRN 10/18/20 12/13/20 History spray aerosol pantoprazole 40 mg tablet,delayed 40 mg PO QAM PRN 10/18/20 12/13/20 History release sitagliptin 50 mg tablet (Januvia) 50 mg PO QAM 10/18/20 12/13/20 History amlodipine 5 mg-benazepril 20 mg 1 cap PO QAM 10/21/20 12/13/20 History capsule (Lotrel) montelukast 10 mg tablet 10 mg PO QAM 10/21/20 12/13/20 History (Singulair) Portable Oxygen #1 ea 11/24/20 12/13/20 Rx albuterol sulfate 90 mcg/actuation 2 puff INHALATION Q6H PRN #8.5 g 11/24/2006/30 Rx aerosol inhaler (Ventolin HFA) umeclidinium 62.5 mcg-vilanterol 1 inh INHALATION QAM #60 ea 11/24/20 12/13/20 Rx 25 mcg/actuation powdr for inhalation (Anoro Ellipta) glipizide 5 mg tablet 5 mg PO QAM #90 tab 11/25/20 12/13/20 Rx Magic Mouthwash 300 mL mouthwash 10 ml MUCOUS MEMBRANE .COMPLEX 12/06/20 12/13/20 Rx #300 ml sucralfate 1 gram tablet (Carafate) 1 g PO Q6H #120 tab 12/10/20 12/13/20 Rx Patient History Medical History Allergic rhinitis due to dust mite Anxiety Cardiomyopathy F/U DR FISHER COPD with emphysema Diabetes mellitus, type 2 Edema of both legs Essential tremor Exertional dyspnea GERD (gastroesophageal reflux disease) Hiatal hernia History of breast cancer chemo and radiation and then oral pill Hyperlipidemia Hypertension Hypothyroidism Kidney stones hx Multiple pulmonary nodules Osteoporosis Secondary polycythemia Small cell lung cancer, 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) Temporomandibular joint disorder NO LOCKING Surgical History History of appendectomy (~1967) History of breast biopsy (~09/03/12) History of cholecystectomy (~1974) History of colonoscopy 2020 History of esophagogastroduodenoscopy (EGD) History of hysterectomy (~1974) ovaries removed as well History of lithotripsy 2011 Hx of cataract surgery right and left Hx of lumpectomy LEFT BREAST-NO LIMB RESTIRCTIONS Hx of tonsillectomy Family History Sister Diabetes Breast cancer Brother Diabetes Heart disease Father Diabetes Hypertension Lung disease Myocardial infarction Mother Diabetes Hypertension Kidney disease Myocardial infarction Daughter Breast cancer Denies family history of Ovarian cancer Prostate cancer Colorectal cancer Social History Smoking Status: Former smoker Tobacco Type: Cigarettes Age Started Using Tobacco: 17; Age Quit Using Tobacco: 68; Cigarettes Per Day: 20; Number of Years Since Quit: 4; Second Hand Exposure: Yes (SPOUSE SMOKES); Hx Alcohol Use: No Hx Substance Use: No Preferred Language: Irish Communication Ability: Effective Visual Impairment: No Limitations Hearing Ability: Normal Technical Architect Required: No Beliefs That Will Affect Care: None marital status: Current Living Situation: Spouse current occupational status: retired current occupation: used to work at [employer] out of [employer] Other Information That Helps Us Care for You: No Feels Safe at Home: Yes Safety Concerns: Feels Safe At This Time Childhood Exposure to Second-Hand Smoke: Yes caffeine: Yes during the past year weight has: remained stable Dental Care, Regularly: No Physical Activity Frequency: Does not Exercise Seatbelt Use: always Sunscreen Use: Yes Assistive Devices: None Assistive Devices Comment: oxygen use PRN at home Review of Systems Constitutional: as per Subjective / HPI Eyes: as per Subjective / HPI Ear, Nose, Mouth, Throat: as per Subjective / HPI Respiratory: as per Subjective / HPI Cardiovascular: as per Subjective / HPI Gastrointestinal: as per Subjective / HPI Musculoskeletal: as per Subjective / HPI Integumentary: as per Subjective / HPI Neurologic: as per Subjective / HPI Psychiatric: as per Subjective / HPI Endocrine: as per Subjective / HPI Hematologic / Lymphatic: as per Subjective / HPI Allergy / Immunological: as per Subjective / HPI Physical Exam Constitutional: + ill appearing (Chronic) and + cachectic Eyes: + anicteric sclerae ENMT: external ear and nose normal, oropharynx normal Respiratory: normal respiratory effort Auscultation: + diminished lung sounds Cardiovascular: RRR, no murmur, no edema Gastrointestinal (Abdomen): normal bowel sounds, soft, nontender, no hepatosplenomegaly Psychiatric: A+Ox3, euthymic affect Results & Data ([facility]) Vital Signs (Past 12 Hours) Vital Signs Temp Pulse Pulse Resp BP BP Pulse Ox 12/15/20 15:12 36.8 C 59 L 17 115/71 91 12/15/20 12:11 36.6 C 61 16 121/78 96 12/15/20 11:44 36.6 C 65 16 127/76 91 12/15/20 11:24 36.5 C 73 16 114/74 93 12/15/20 10:24 36.4 C L 82 18 118/78 96 12/15/20 09:55 36.5 C 82 16 119/81 97 12/15/20 09:39 36.6 C 84 18 128/82 95 12/15/20 09:22 36.4 C L 84 18 125/78 95 PG Care Time/CCT Total # of Minutes Spent Total Time Spent with Patient: Total time spent is greater than 50% in coordination of care (as documented) at patient's floor/unit and/or counseling patient: Coding Level of Care Code 43350 Initial Inpt Care Lvl 3 Diagnoses Anemia D64.9 Nausea and vomiting R11.2 Vomiting Intractability: non-intractable Vomiting type: unspecified Small cell lung cancer, left upper lobe C34.12 GERD (gastroesophageal reflux disease) K21.9 (1) Nausea and vomiting Vomiting Intractability: non-intractable Vomiting type: unspecified Qualified Code(s): R11.2 - Nausea with vomiting, unspecified
[2020-12-15] MEDS: INSULIN GLARGINE SOLOSTAR 100 UNITS/ML 3 ML PEN SC SCH (21:16)
[2020-12-16] MEDS: ALUMINUM/MAGNESIUM SUSP 30 ML UDC PO SCH ×4 (01:46→21:31)
[2020-12-16] MEDS ORDERED: Nursing to Pharmacy Communication SCH ×2 (03:45→16:00)
[2020-12-16] MEDS: INSULIN ASPART 100 UNITS/ML 3 ML PEN SC SCH ×4 (05:44→21:32)
[2020-12-16] MEDS: ACETAMINOPHEN 1000 MG/100 ML IV IV PRN ×2 (07:36→15:03)
[2020-12-16] MEDS: HEPARIN 100 UNIT/ML 5ML FLUSH FLUSH PRN ×3 (07:56→21:32)
[2020-12-16] MEDS: UMECLIDINIUM/VILANTEROL 62.5/25MCG 7 PUFFS/INHALER INH SCH (09:11)
[2020-12-16] MEDS: PANTOprazole 40 MG in SYRINGE 0 ML IV SCH ×2 (09:11→21:32)
--- NOTE | 2020-12-16 09:40 | History & Physical Bridge Note ---
Date of Service December 16, 2020 History & Physical Bridge Note I have examined the patient, reviewed the History & Physical and in the interval since the performance of the History & Physical I have noted the following changes of clinical significance: CT chest showed intraluminal abnormality of the esophagus concerning for a food bolus. Patient notes she struggles with swallowing cold liquids and foods. She reports persistent, unchanged epigastric/chest discomfort. No new complaints since initial GI evaluation. Keep NPO. Proceed with EGD in OR today. Will hold off on EGD at present due to platelet count of 24 Advance to Full liquid diet EGD when Platelet count >50
--- NOTE | 2020-12-16 15:07 | Anesthesiology Consultation ---
Date of Service December 16, 2020 Assessment & Plan Chart Review Chart Review: Acceptable Risk for Surgery and Patient NOT seen in Pre Admission Testing Consults Requested none ASA ASA4 Proposed Anesthesia Anesthesia Type: General History Surgery Operation Date: 12/16/20 10:50 Proposed Procedures p Esophagogastroduodenoscopy Mingo Burris Case, DO Operation Date: 12/16/20 17:10 Proposed Procedures p Esophagogastroduodenoscopy Dr Mercado - Vik Burris Case, DO Height/Weight Height: 5 ft 7 in Weight: 86.7 kg Allergies Allergy/AdvReac Type Severity Reaction Status Date / Time Penicillins Allergy Severe RASH AND Verified 12/13/20 13:27 THROAT SWELLING shellfish derived Allergy Severe RASH WELTS Verified 12/13/20 13:27 house dust mite Allergy Mild ALLERGY Verified 12/13/20 13:27 TESTING mold Allergy Mild PER Verified 12/13/20 13:27 ALLERGY TESTS-SNEEZING adhesive AdvReac Intermediate BLISTERS Verified 12/13/20 13:27 WITH TAPE-CLOTH OK aspirin AdvReac Intermediate Rash Verified 12/13/20 13:27 [From Thu-Hillister Plus Cold/Cough] chlorpheniramine AdvReac Intermediate Rash Verified 12/13/20 13:27 [From Thu-Hillister Plus Cold/Cough] dextromethorphan AdvReac Intermediate Rash Verified 12/13/20 13:27 [From Thu-Hillister Plus Cold/Cough] phenylpropanolamine AdvReac Intermediate Rash Verified 12/13/20 13:27 [From Thu-Hillister Plus Cold/Cough] Medications Home Medications Medication Instructions Recorded Confirmed Last Taken calcium carbonate-vitamin D3 600 1 tab PO QAM tab 01/21/19 12/13/20 10/25/20 09:00 mg(1,500 mg)-400 unit chewable tablet (Calcium 600 with Vitamin D3) cetirizine 10 mg tablet 10 mg PO QAM tab 01/21/19 12/13/20 12/09/20 ergocalciferol (vitamin D2) 1,250 50,000 units PO WEEKLY cap 01/21/19 12/13/20 10/24/20 09:00 mcg (50,000 unit) capsule ScrollMotionTouch Ultra Blue Test Strip #100 ea NS 04/15/19 12/13/20 Unknown (blood sugar diagnostic) carboxymethylcellulose sodium 0.5 1 drp OPHTHALMIC (EYE) BID 11/06/19 12/13/20 10/24/20 20:00 % eye drops in a dropperette (Refresh Plus) lancets 33 gauge (Mitra Moeller #100 ea 03/16/20 12/13/20 Unknown Lancets) atorvastatin 40 mg tablet 40 mg PO QPM #90 tab 06/28/20 12/13/20 12/09/20 levothyroxine 88 mcg tablet 88 mcg PO QAM #90 tab 08/16/20 12/13/20 12/09/20 metformin 500 mg tablet,extended 2,000 mg PO QAM #120 tab 09/15/20 12/13/20 12/09/20 release 24 hr clonazepam 0.5 mg tablet 0.5 mg PO DAILY PRN #5 tab 10/14/20 12/13/20 10/24/20 08:00 azelastine 137 mcg (0.1 %) nasal 1 spray INTRANASAL BID PRN 10/18/20 12/13/20 10/25/20 23:00 spray aerosol pantoprazole 40 mg tablet,delayed 40 mg PO QAM PRN 10/18/20 12/13/20 10/25/20 09:00 release sitagliptin 50 mg tablet (Januvia) 50 mg PO QAM 10/18/20 12/13/20 12/09/20 amlodipine 5 mg-benazepril 20 mg 1 cap PO QAM 10/21/20 12/13/20 12/09/20 capsule (Lotrel) montelukast 10 mg tablet 10 mg PO QAM 10/21/20 12/13/20 10/25/20 09:00 (Singulair) Portable Oxygen #1 ea 11/24/20 12/13/20 Unknown albuterol sulfate 90 mcg/actuation 2 puff INHALATION Q6H PRN #8.5 g 11/24/20 12/13/20 Unknown aerosol inhaler (Ventolin HFA) umeclidinium 62.5 mcg-vilanterol 1 inh INHALATION QAM #60 ea 11/24/20 12/13/20 Unknown 25 mcg/actuation powdr for inhalation (Anoro Ellipta) glipizide 5 mg tablet 5 mg PO QAM #90 tab 11/25/20 12/13/2012/09/21 Magic Mouthwash 300 mL mouthwash 10 ml MUCOUS MEMBRANE .COMPLEX 12/06/20 12/13/20 Unknown #300 ml sucralfate 1 gram tablet (Carafate) 1 g PO Q6H #120 tab 12/10/20 12/13/20 Unknown Active Medications Generic Name Dose Route Start Last Admin Trade Name Freq PRN Reason Stop Dose Admin Acetaminophen 1,000 mg 12/14/20 10:22 12/16/20 15:03 Acetaminophen 1000 Mg/100 Ml Iv IV 12/17/20 10:21 1,000 mg Q8H PRN Administration Pain Al Hydrox/Mg Hydrox/Simethicone 15 ml 12/15/20 09:00 12/16/20 15:06 Aluminum/Magnesium Susp 30 Ml Udc PO 01/14/21 08:59 Not Given Q6H MAYRA Guaifenesin/Dextromethorphan 5 ml 12/14/20 16:57 12/14/20 21:58 Guaifenesin/Dextrom Syrup 100mg/10mg 5ml Udc PO 01/13/21 16:56 5 ml Q6H PRN Administration Cough Heparin Sodium (Porcine) 5 ml 12/14/20 04:40 12/16/20 09:12 Heparin 100 Unit/Ml 5ml Flush FLUSH 01/13/21 04:39 5 ml PRN PRN Administration Flush Pantoprazole Sodium 40 mg/ 10 mls @ 5 mls/min 12/15/20 09:30 12/16/20 09:11 Syringe IV 01/14/21 09:29 5 mls/min BID MAYRA Administration Insulin Aspart 0 units 12/16/20 06:00 12/16/20 12:30 Insulin Aspart 100 Units/Ml 3 Ml Pen SC 01/15/21 05:59 Not Given Q6 MAYRA Ondansetron HCl 4 mg 12/13/20 22:53 12/14/20 07:28 Ondansetron Inj 2 Mg/Ml 2 Ml Vial IV 01/12/21 22:52 4 mg Q6H PRN Administration Nausea Umeclidinium/Vilanterol 1 puffs 12/14/20 09:00 12/16/20 09:11 Umeclidinium/Vilanterol 62.5/25mcg 7 Puffs/Inhaler INH 01/13/21 08:59 1 puffs QAM MAYRA Administration Past Medical History Medical History Allergic rhinitis due to dust mite Anxiety Cardiomyopathy F/U DR FISHER COPD with emphysema Diabetes mellitus, type 2 Edema of both legs Essential tremor Exertional dyspnea GERD (gastroesophageal reflux disease) Hiatal hernia History of breast cancer chemo and radiation and then oral pill Hyperlipidemia Hypertension Hypothyroidism Kidney stones hx Multiple pulmonary nodules Osteoporosis Secondary polycythemia Small cell lung cancer, 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) Temporomandibular joint disorder NO LOCKING Exercise / Class Metabolic Activity III < 4 Walking/Shop/Light housework Past Family History Family History Sister Diabetes Breast cancer Brother Diabetes Heart disease Father Diabetes Hypertension Lung disease Myocardial infarction Mother Diabetes Hypertension Kidney disease Myocardial infarction Daughter Breast cancer Denies family history of Ovarian cancer Prostate cancer Colorectal cancer Past Surgical History Surgical History History of appendectomy (~1967) History of breast biopsy (~09/03/12) History of cholecystectomy (~1974) History of colonoscopy 2020 History of esophagogastroduodenoscopy (EGD) History of hysterectomy (~1974) ovaries removed as well History of lithotripsy 2011 Hx of cataract surgery right and left Hx of lumpectomy LEFT BREAST-NO LIMB RESTIRCTIONS Hx of tonsillectomy Past Anesthesia History No Hx of Anesthesia Complications and No Family Hx of Anesthesia Complications History of PONV No Hx of PONV and No Hx of Motion Sickness Social History Smoking Status: Former smoker tobacco type: cigarettes Smoking cigarettes per day: 20 Hx Alcohol Use: No Hx Substance Use: No substance use type: does not use Physical Exam Vital Signs Last Vital Signs Temp 36.7 C 12/16/20 14:16 Pulse 54 L 12/16/20 14:16 Resp 17 12/16/20 14:16 BP 132/82 12/16/20 14:16 Pulse Ox 91 12/16/20 14:16 Testing Laboratory Results 12/15/20 15:57 12/15/20 05:53 PT 10.3 Seconds (9.0-12.0) 12/13/20 16:20 INR 1.0 (0.9-1.1) 12/13/20 16:20 APTT 22.5 Seconds (21.0-31.0) 12/13/20 16:20 Urine Color Dark Yellow 12/13/20 17:34 Urine Appearance Cloudy (Clear) A 12/13/20 17:34 Urine pH 5.0 (4.5-7.5) 12/13/20 17:34 Ur Specific [place] 1.025 (1.000-1.030) 12/13/20 17:34 Urine Protein 2+ (Negative) H 12/13/20 17:34 Urine Glucose (UA) Negative (Negative) 12/13/20 17:34 Urine Ketones Trace (Negative) H 12/13/20 17:34 Urine Nitrite Positive (Negative) A 12/13/20 17:34 Ur Leukocyte Esterase Negative (Negative) 12/13/20 17:34 Urine WBC (Auto) 5-10 /hpf (0-5) H 12/13/20 17:34 Urine RBC (Auto) 10-30 /hpf (0-4) H 12/13/20 17:34 U Hyaline Cast (Auto) 10-30 /lpf (0-5) H 12/13/20 17:34 U Epithel Cells (Auto) >30 /lpf (0-5) H 12/13/20 17:34 Urine Bacteria (Auto) 4+ (Negative) H 12/13/20 17:34 Blood Type A Positive 12/15/20 07:56 Antibody Screen NEGATIVE 12/15/20 07:56 12/13/20 16:20 Aerobic Blood Culture - Preliminary Blood No growth in Aerobic bottle after 48 hours. Anaerobic Blood Culture - Preliminary No growth in Anaerobic bottle after 48 hours. 12/13/20 16:39 Aerobic Blood Culture - Preliminary Blood No growth in Aerobic bottle after 48 hours. Anaerobic Blood Culture - Preliminary No growth in Anaerobic bottle after 48 hours. 12/13/20 17:34 Urine Culture - Final Urine,Clean Catch Escherichia coli 12/16/20 12/16/20 11:54 05:39 POC Glucose 136 H 139 H Electrocardiogram Date: 12/13/20 Findings: + NSR @ (at 83) Chest X-Ray Date: 12/14/20 Findings: + infiltrate (trace left basilar opacity) and + other (emphysematous changes) Echocardiogram Date: 05/12/20 EF: 45% LV Function: dysfunctional RWMA: + none and + hypokinetic (mild) Other Findings: + diastolic dysfunction (grade 1) Valvular Disease: + no significant valvular disease Stress Test Date: 07/02/20 Type: DSE Findings: + WNL Pulmonary Function Test Date: 10/25/20 moderate COPD w/emphysema
[2020-12-16] MEDS ORDERED: fentaNYL citrate 100 MCG/2 ML VIAL ONE (15:35)
[2020-12-16] MEDS ORDERED: LIDOCAINE 2% 2 ML VIAL/AMP(20MG/ML) INFIL ONE (15:35)
[2020-12-16] MEDS ORDERED: PROPOFOL IV EMULSION 10 MG/ML 20 ML VIAL IV ONE (15:35)
--- NOTE | 2020-12-16 15:35 | Pharmacy Report ---
Pharmacy Glycemic Short Note 2 - Date of Service December 16, 2020 - Glycemic Short BSG Results (Last 24 hours): 12/15/20 12/15/20 12/16/20 17:09 20:45 05:39 POC Glucose 111 H 122 H 139 H 12/16/20 11:54 POC Glucose 136 H OUTPATIENT ANTIDIABETIC REGIMEN: * glipizide 5 mg qAM * HbA1C = 8.5% (12/06/20) ASSESSMENT: 12/16/20: * Pt received total 13 units of insulin yesterday; 0 units basal + 13 units b olus. * Fasting BSG = 139 mg/dl. Basal insulin discontinued today since she has received none so far. * Continued Novolog parameters the same since post-prandial BSGs within goal. 12/14/20 * Ms Rivers is a 75 y/o F with a PMH of T2DM on oral medications who presents with N/V and decreased PO intake. Last glipizide dose was 5 days ago. * BSGs since admission were 155-179-180 and at lunch 173 mg/dL. * Patient is NPO. * Will start weight-based stress of 3 Novolog for now for more aggressive short- term coverage. * Lantus 15 units at bedtime if BSGs > 180 mg/dL as this will indicate second time patient's BSGs> 180 mg/dL. PLAN FOR INPATIENT GLYCEMIC CONTROL: * Hold outpatient oral diabetes medications * Basal insulin * Discontinued * Bolus insulin: continued * NovoLog per scale ACHS or Q6hrs while NPO * Goal Range: Low 110 mg/dL - High 140 mg/dL * Correction Factor: 20 mg/dL/unit * Nutritional / Prandial insulin per carb ratio of 1 unit per 6 grams CHO consumed PLAN FOR DISCHARGE: * HbA1c = 8.5% on 12/06/20. Goal A1c is less than 8% in this patient based on age and co-morbidities. * Recommend continue Glipizide 5 mg QAM with breakfast and adding Metformin ER 500 mg PO with dinner with close follow up by outpatient provider.
--- NOTE | 2020-12-16 15:46 | History & Physical Bridge Note ---
Date of Service December 16, 2020 History & Physical Bridge Note I have examined the patient, reviewed the History & Physical and in the interval since the performance of the History & Physical I have noted the following changes of clinical significance: Platelet count is 25 and no platelets are available. Will hold off on endoscopy until platelets improve.
[2020-12-16 16:40] LABS: Hematocrit (blood only) 26.7 % (37-47); Hemoglobin 9.3 g/dL (12.0-16.0); Mean Corpuscular Hemoglobin 29.7 pg (25-34); Mean Corpuscular Hgb Conc 34.8 g/dL (32-36); Mean Corpuscular Volume 85.3 fL (80-100); Nucleated RBC # (auto) 0.07 K/uL (0-0); Nucleated RBC % (auto) 2.1 %; RDW Coefficient of Variation 14.3 % (11.5-14.5); RDW Standard Deviation 44.1 fL (36.4-46.3); Red Blood Count 3.13 M/uL (4.2-5.4); White Blood Count 3.19 K/uL (4.8-10.8)
[2020-12-16 17:33] LABS: Mean Platelet Volume 9.6 fL (7.4-10.4); Platelet Count 31 K/uL (130-400); Platelet Estimate Decreased (Normal)
--- NOTE | 2020-12-16 20:46 | Hospitalist Progress Note ---
Date of Service December 16, 2020 Assessment & Plan (1) Nausea and vomiting: Plan: Patient is being admitted with nausea and vomiting. Patient was unable to tolerate an oral diet. This is likely secondary to her chemo/radiation. Patient will be receiving IV fluids. Will try a full liquid diet. appreciate input from solar pv installer ordered maalox. consult GI for endoscopy. Ordered CT scan of chest: possible food impaction. unable to do endoscopy due to thrombocytopenia. blood bank does not have platelets (2) Leukopenia: Plan: Pancytopenia. Patient is currently leukopenic. Patient received antibiotics while in the ER, however she does not have any documented fever. Will hold further antibiotics and monitor. (3) Thrombocytopenia: Plan: Platelet is 25, improving/ will continue to monitor. (4) Hypothyroidism: Plan: Patient will be restarted on her IV levothyroxine. (5) GERD (gastroesophageal reflux disease): Plan: Will resume home meds (6) Hypertension: Plan: will hold BP meds and monitor. (7) Diabetes mellitus, type 2: Plan: consult glycemic control (8) Small cell lung cancer, left upper lobe: Plan: due to problem 1 will hold chemo and radiotherapy (9) Hyperlipidemia: Plan: resume statin (10) Anemia: Plan: hemoglobin is below 7. Will transfuse 1 PRBC Admission and Anticipated Discharge Date Admission Date: December 13, 2020 Subjective Patient continues to have pain in her chest when she eats. updated family. Review of Systems Review of Systems: All systems reviewed & are unremarkable except as noted in HPI & below Physical Exam Physical Exam: Constitutional: WD/WN, vitals as above Eyes: PERRL, conjunctivae normal, anicteric sclerae ENMT: external ear and nose normal, oropharynx normal Neck: trachea midline, no thyromegaly Respiratory: normal respiratory effort, lungs clear to auscultation Cardiovascular: RRR, no murmur, no edema Gastrointestinal (Abdomen): normal bowel sounds, soft, nontender, no hepatosplenomegaly Musculoskeletal: no cyanosis or clubbing, extremities motor strength 5/5 Neurologic: PERRL, EOMI, accommodation nl, no face palsy, no dysarthria Psychiatric: A+Ox3, euthymic affect Results & Data Results & Data ([facility]) Vital Signs (Past 12 Hours) Vital Signs Temp Pulse Resp BP Pulse Ox 12/16/20 14:16 36.7 C 54 L 17 132/82 91 PG Care Time/CCT Total # of Minutes Spent Total Time Spent with Patient: Total time spent is greater than 50% in coordination of care (as documented) at patient's floor/unit and/or counseling patient: Coding Level of Care Code 32293 Subseq Hosp Care Lvl 3 Diagnoses Nausea and vomiting R11.2 Vomiting Intractability: non-intractable Vomiting type: unspecified Leukopenia D72.819 Leukopenia type: unspecified Thrombocytopenia D69.6 Hypothyroidism E03.9 GERD (gastroesophageal reflux disease) K21.9 Hypertension I10 Diabetes mellitus, type 2 E11.9 Small cell lung cancer, left upper lobe C34.12 Hyperlipidemia E78.5 Anemia D64.9 Time Spent (min) 35 (1) Leukopenia Leukopenia type: unspecified Qualified Code(s): D72.819 - Decreased white blood cell count, unspecified (2) Nausea and vomiting Vomiting Intractability: non-intractable Vomiting type: unspecified Qualified Code(s): R11.2 - Nausea with vomiting, unspecified
[2020-12-17] MEDS: ALUMINUM/MAGNESIUM SUSP 30 ML UDC PO SCH ×4 (02:37→20:40)
[2020-12-17] MEDS: HEPARIN 100 UNIT/ML 5ML FLUSH FLUSH PRN ×4 (07:43→20:40)
[2020-12-17] MEDS: ONDANSETRON INJ 2 MG/ML 2 ML VIAL IV PRN (07:43)
[2020-12-17] MEDS ORDERED: LEVOTHYROXINE SODIUM 44 MCG in SYRINGE 0 ML IV SCH (08:00)
[2020-12-17] MEDS: INSULIN ASPART 100 UNITS/ML 3 ML PEN SC SCH ×4 (09:52→20:35)
[2020-12-17] MEDS: UMECLIDINIUM/VILANTEROL 62.5/25MCG 7 PUFFS/INHALER INH SCH (10:00)
[2020-12-17] MEDS: PANTOprazole 40 MG in SYRINGE 0 ML IV SCH ×2 (10:04→20:40)
[2020-12-17] MEDS ORDERED: ACETAMINOPHEN 325 MG TAB PO PRN (15:49)
[2020-12-17] MEDS: ACETAMINOPHEN 1,000 MG/100 ML VIAL IV PRN (16:47)
--- NOTE | 2020-12-17 20:38 | Hospitalist Progress Note ---
Date of Service December 17, 2020 Assessment & Plan (1) Nausea and vomiting: Plan: Patient is being admitted with nausea and vomiting. Patient was unable to tolerate an oral diet. This is likely secondary to her chemo/radiation. Patient will be receiving IV fluids. Will try a full liquid diet. appreciate input from crop setting out machine operator ordered maalox. consult GI for endoscopy. Ordered CT scan of chest: showed evidence of possible food impaction. unable to do endoscopy due to thrombocytopenia. blood bank does not have platelets Platelets have been gradually increasing. Now above 30. (2) Leukopenia: Plan: Pancytopenia. Patient is currently leukopenic. Patient received antibiotics while in the ER, however she does not have any documented fever. Will hold further antibiotics and monitor. (3) Thrombocytopenia: Plan: Platelet is 25, improving/ will continue to monitor. (4) Hypothyroidism: Plan: Patient will be restarted on her IV levothyroxine. (5) GERD (gastroesophageal reflux disease): Plan: Will resume home meds (6) Hypertension: Plan: will hold BP meds and monitor. (7) Diabetes mellitus, type 2: Plan: consult glycemic control (8) Small cell lung cancer, left upper lobe: Plan: due to problem 1 will hold chemo and radiotherapy (9) Hyperlipidemia: Plan: resume statin (10) Anemia: Plan: hemoglobin is below 7. Will transfuse 1 PRBC Admission and Anticipated Discharge Date Admission Date: December 13, 2020 Subjective 75 yo female reports have a streak of red blood in her stool. She denies any other symptoms. Review of Systems Review of Systems: All systems reviewed & are unremarkable except as noted in HPI & below Physical Exam Physical Exam: Constitutional: WD/WN, vitals as above Eyes: PERRL, conjunctivae normal, anicteric sclerae ENMT: external ear and nose normal, oropharynx normal Neck: trachea midline, no thyromegaly Respiratory: normal respiratory effort, lungs clear to auscultation Cardiovascular: RRR, no murmur, no edema Gastrointestinal (Abdomen): normal bowel sounds, soft, nontender, no hepatosplenomegaly Musculoskeletal: no cyanosis or clubbing, extremities motor strength 5/5 Neurologic: PERRL, EOMI, accommodation nl, no face palsy, no dysarthria Psychiatric: A+Ox3, euthymic affect Results & Data Results & Data ([place]) Vital Signs (Past 12 Hours) Vital Signs Temp Pulse Resp BP Pulse Ox 12/17/20 15:54 36.8 C 61 18 132/77 93 PG Care Time/CCT Total # of Minutes Spent Total Time Spent with Patient: Total time spent is greater than 50% in coordination of care (as documented) at patient's floor/unit and/or counseling patient: Coding Level of Care Code 90809 Subseq Hosp Care Lvl 2 Diagnoses Nausea and vomiting R11.2 Vomiting Intractability: non-intractable Vomiting type: unspecified Leukopenia D72.819 Leukopenia type: unspecified Thrombocytopenia D69.6 Hypothyroidism E03.9 GERD (gastroesophageal reflux disease) K21.9 Hypertension I10 Diabetes mellitus, type 2 E11.9 Small cell lung cancer, left upper lobe C34.12 Hyperlipidemia E78.5 Anemia D64.9 Time Spent (min) 25 (1) Leukopenia Leukopenia type: unspecified Qualified Code(s): D72.819 - Decreased white blood cell count, unspecified (2) Nausea and vomiting Vomiting Intractability: non-intractable Vomiting type: unspecified Qualified Code(s): R11.2 - Nausea with vomiting, unspecified
[2020-12-18] MEDS: ALUMINUM/MAGNESIUM SUSP 30 ML UDC PO SCH ×5 (03:25→20:11)
--- NOTE | 2020-12-18 08:58 | Pharmacy Report ---
Pharmacy Glycemic Short Note 2 - Date of Service December 18, 2020 - Glycemic Short BSG Results (Last 24 hours): 12/17/20 12/17/20 12/17/20 12:19 16:52 20:34 POC Glucose 96 117 H 127 H 12/18/20 08:23 POC Glucose 186 H OUTPATIENT ANTIDIABETIC REGIMEN: * glipizide 5 mg qAM * HbA1C = 8.5% (12/06/20) ASSESSMENT: 12/18/20 * AM fasting BSG on the rise since Lantus held 12/15 (Pt NPO and only full liquid diet) * Will resume low dose basal (0.2 units/kg) and titrate based on BSG trends. * No changes needed to CF/CR 12/16/20: * Pt received total 13 units of insulin yesterday; 0 units basal + 13 units carrie kenia. * Fasting BSG = 139 mg/dl. Basal insulin discontinued today since she has received none so far. * Continued Novolog parameters the same since post-prandial BSGs within goal. 12/14/20 * Ms Rivers is a 75 y/o F with a PMH of T2DM on oral medications who presents with N/V and decreased PO intake. Last glipizide dose was 5 days ago. * BSGs since admission were 155-179-180 and at lunch 173 mg/dL. * Patient is NPO. * Will start weight-based stress of 3 Novolog for now for more aggressive short- term coverage. * Lantus 15 units at bedtime if BSGs > 180 mg/dL as this will indicate second time patient's BSGs> 180 mg/dL. PLAN FOR INPATIENT GLYCEMIC CONTROL: * Hold outpatient oral diabetes medications * Basal insulin * Lantus 15 units SQ daily * Bolus insulin: continued * NovoLog per scale ACHS or Q6hrs while NPO * Goal Range: Low 110 mg/dL - High 140 mg/dL * Correction Factor: 20 mg/dL/unit * Nutritional / Prandial insulin per carb ratio of 1 unit per 7 grams CHO consumed PLAN FOR DISCHARGE: * HbA1c = 8.5% on 12/06/20. Goal A1c is less than 8% in this patient based on age and co-morbidities. * Recommend continue Glipizide 5 mg QAM with breakfast and adding Metformin ER 500 mg PO with dinner with close follow up by outpatient provider.
[2020-12-18 09:05] LABS: Hematocrit (blood only) 25.6 % (37-47); Mean Corpuscular Hemoglobin 29.7 pg (25-34); Mean Corpuscular Hgb Conc 35.2 g/dL (32-36); Mean Corpuscular Volume 84.5 fL (80-100); Nucleated RBC # (auto) 0.11 K/uL (0-0); Nucleated RBC % (auto) 2.9 %; RDW Coefficient of Variation 14.1 % (11.5-14.5); RDW Standard Deviation 42.9 fL (36.4-46.3); Red Blood Count 3.03 M/uL (4.2-5.4); White Blood Count 3.67 K/uL (4.8-10.8)
[2020-12-18] MEDS: INSULIN GLARGINE SOLOSTAR 100 UNITS/ML 3 ML PEN SC SCH (09:12)
[2020-12-18] MEDS: INSULIN ASPART 100 UNITS/ML 3 ML PEN SC SCH ×4 (09:13→21:28)
[2020-12-18] MEDS: UMECLIDINIUM/VILANTEROL 62.5/25MCG 7 PUFFS/INHALER INH SCH (09:20)
[2020-12-18] MEDS: HEPARIN 100 UNIT/ML 5ML FLUSH FLUSH PRN ×3 (09:24→17:48)
[2020-12-18] MEDS: PANTOprazole 40 MG in SYRINGE 0 ML IV SCH ×2 (09:24→20:11)
[2020-12-18 09:27] LABS: Mean Platelet Volume 10.7 fL (7.4-10.4); Platelet Count 41 K/uL (130-400)
[2020-12-18 09:30] LABS: BUN Creatinine Ratio 9.8 (10-20); Creatinine Clr Calc Pharmacy 54.5 ml/min; Est GFR (African American) 61.7 ml/min; Est GFR (Non-African American) 53.3 ml/min; Potassium 2.9 mmol/L (3.5-5.1)
[2020-12-18] MEDS: ACETAMINOPHEN 1,000 MG/100 ML VIAL IV PRN (10:58)
[2020-12-18] MEDS ORDERED: MoRPHine SULFATE 2 MG/ML CARP IV STA (17:39)
--- NOTE | 2020-12-18 20:35 | Hospitalist Progress Note ---
Date of Service December 18, 2020 Assessment & Plan (1) Nausea and vomiting: Plan: Patient is being admitted with nausea and vomiting. Patient was unable to tolerate an oral diet. This is likely secondary to her chemo/radiation. Patient will be receiving IV fluids. Will try a full liquid diet. appreciate input from publications sales representative ordered maalox. consult GI for endoscopy. Ordered CT scan of chest: showed evidence of possible food impaction. unable to do endoscopy due to thrombocytopenia. blood bank does not have platelets Platelets have been gradually increasing. Now above 40. (2) Leukopenia: Plan: Pancytopenia. Patient is currently leukopenic. Patient received antibiotics while in the ER, however she does not have any documented fever. Will hold further antibiotics and monitor. (3) Thrombocytopenia: Plan: Platelet is 41, improving/ will continue to monitor. (4) Hypothyroidism: Plan: Patient will be restarted on her IV levothyroxine. (5) GERD (gastroesophageal reflux disease): Plan: Will resume home meds (6) Hypertension: Plan: will hold BP meds and monitor. (7) Diabetes mellitus, type 2: Plan: consult glycemic control (8) Small cell lung cancer, left upper lobe: Plan: due to problem 1 will hold chemo and radiotherapy (9) Hyperlipidemia: Plan: resume statin (10) Anemia: Plan: hemoglobin is below 7. Will transfuse 1 PRBC Admission and Anticipated Discharge Date Admission Date: December 13, 2020 Subjective Patient reports no new symptoms. Review of Systems Review of Systems: All systems reviewed & are unremarkable except as noted in HPI & below Physical Exam Physical Exam: Constitutional: WD/WN, vitals as above Eyes: PERRL, conjunctivae normal, anicteric sclerae ENMT: external ear and nose normal, oropharynx normal Neck: trachea midline, no thyromegaly Respiratory: normal respiratory effort, lungs clear to auscultation Cardiovascular: RRR, no murmur, no edema Gastrointestinal (Abdomen): normal bowel sounds, soft, nontender, no hepato splenomegaly Musculoskeletal: no cyanosis or clubbing, extremities motor strength 5/5 Neurologic: PERRL, EOMI, accommodation nl, no face palsy, no dysarthria Psychiatric: A+Ox3, euthymic affect Results & Data Results & Data ([facility]) Vital Signs (Past 12 Hours) Vital Signs Temp Pulse Resp BP Pulse Ox 12/18/20 14:45 37.1 C 71 20 118/77 97 PG Care Time/CCT Total # of Minutes Spent Total Time Spent with Patient: Total time spent is greater than 50% in coordination of care (as documented) at patient's floor/unit and/or counseling patient: Coding Level of Care Code 14486 Subseq Hosp Care Lvl 2 Diagnoses Nausea and vomiting R11.2 Vomiting Intractability: non-intractable Vomiting type: unspecified Leukopenia D72.819 Leukopenia type: unspecified Thrombocytopenia D69.6 Hypothyroidism E03.9 GERD (gastroesophageal reflux disease) K21.9 Hypertension I10 Diabetes mellitus, type 2 E11.9 Small cell lung cancer, left upper lobe C34.12 Hyperlipidemia E78.5 Anemia D64.9 Time Spent (min) 25 (1) Leukopenia Leukopenia type: unspecified Qualified Code(s): D72.819 - Decreased white blood cell count, unspecified (2) Nausea and vomiting Vomiting Intractability: non-intractable Vomiting type: unspecified Qualified Code(s): R11.2 - Nausea with vomiting, unspecified
[2020-12-19] MEDS: ALUMINUM/MAGNESIUM SUSP 30 ML UDC PO SCH ×4 (03:09→21:26)
[2020-12-19] MEDS: PANTOprazole 40 MG in SYRINGE 0 ML IV SCH (08:04)
[2020-12-19] MEDS: UMECLIDINIUM/VILANTEROL 62.5/25MCG 7 PUFFS/INHALER INH SCH (08:05)
[2020-12-19] MEDS: HEPARIN 100 UNIT/ML 5ML FLUSH FLUSH PRN ×3 (08:09→16:18)
[2020-12-19 08:49] LABS: Hematocrit (blood only) 25.6 % (37-47); Hemoglobin 8.9 g/dL (12.0-16.0); Mean Corpuscular Hgb Conc 34.8 g/dL (32-36); Mean Corpuscular Volume 86.2 fL (80-100); Nucleated RBC # (auto) 0.09 K/uL (0-0); Nucleated RBC % (auto) 3.2 %; RDW Standard Deviation 42.8 fL (36.4-46.3); Red Blood Count 2.97 M/uL (4.2-5.4); White Blood Count 2.84 K/uL (4.8-10.8)
[2020-12-19] MEDS: INSULIN GLARGINE SOLOSTAR 100 UNITS/ML 3 ML PEN SC SCH (08:55)
[2020-12-19] MEDS: INSULIN ASPART 100 UNITS/ML 3 ML PEN SC SCH ×4 (08:56→21:26)
[2020-12-19 09:00] LABS: Mean Platelet Volume 9.8 fL (7.4-10.4); Platelet Count 48 K/uL (130-400)
[2020-12-19 09:15] LABS: BUN Creatinine Ratio 7.4 (10-20); Calcium 9.1 mg/dl (8.5-10.1); Creatinine Clr Calc Pharmacy 58.4 ml/min; Est GFR (African American) 67.2 ml/min; Est GFR (Non-African American) 57.9 ml/min
[2020-12-19] MEDS: POTASSIUM CHLORIDE CRTAB 20 MEQ TABCR PO SCH ×4 (11:16→21:30)
[2020-12-19] MEDS: POTASSIUM CHLORIDE / WTR 10 MEQ/100 ML PLCT IV SCH ×4 (12:19→15:12)
--- NOTE | 2020-12-19 20:11 | Hospitalist Progress Note ---
Date of Service December 19, 2020 Assessment & Plan (1) Nausea and vomiting: Plan: Patient is being admitted with nausea and vomiting. Patient was unable to tolerate an oral diet. This is likely secondary to her chemo/radiation. Patient will be receiving IV fluids. Will try a full liquid diet. appreciate input from dieing out machine operator ordered maalox. consult GI for endoscopy. Ordered CT scan of chest: showed evidence of possible food impaction. unable to do endoscopy due to thrombocytopenia. blood bank does not have platelets Platelets have been gradually increasing, now at 48. Goal is >50 platelets Plan is to have endoscopy on SundayDecember 21. NPO after midnight for Sunday. (2) Leukopenia: Plan: Pancytopenia. Patient is currently leukopenic. Patient received antibiotics while in the ER, however she does not have any documented fever. Will hold further antibiotics and monitor. (3) Thrombocytopenia: Plan: Platelet is 41, improving/ will continue to monitor. (4) Hypothyroidism: Plan: Patient will be restarted on her IV levothyroxine. (5) GERD (gastroesophageal reflux disease): Plan: Will resume home meds (6) Hypertension: Plan: will hold BP meds and monitor. (7) Diabetes mellitus, type 2: Plan: consult glycemic control (8) Small cell lung cancer, left upper lobe: Plan: due to problem 1 will hold chemo and radiotherapy (9) Hyperlipidemia: Plan: resume statin (10) Anemia: Plan: hemoglobin is below 7. Will transfuse 1 PRBC Admission and Anticipated Discharge Date Admission Date: December 13, 2020 Subjective Patient reports no new symptoms. She is having less pain when she eats. Review of Systems Review of Systems: All systems reviewed & are unremarkable except as noted in HPI & below Physical Exam Physical Exam: Constitutional: WD/WN, vitals as above Eyes: PERRL, conjunctivae normal, anicteric sclerae ENMT: external ear and nose normal, oropharynx normal Neck: trachea midline, no thyromegaly Respiratory: Marker for raition is noted on her midsternum. normal respiratory effort, lungs clear to auscultation Cardiovascular: RRR, no murmur, no edema Gastrointestinal (Abdomen): normal bowel sounds, soft, nontender, no hepatosplenomegaly Musculoskeletal: no cyanosis or clubbing, extremities motor strength 5/5 Neurologic: PERRL, EOMI, accommodation nl, no face palsy, no dysarthria Psychiatric: A+Ox3, euthymic affect Results & Data Results & Data ([facility]) Vital Signs (Past 12 Hours) Vital Signs Temp Pulse Resp BP Pulse Ox 12/19/20 16:07 36.6 C 70 16 133/87 91 PG Care Time/CCT Total # of Minutes Spent Total Time Spent with Patient: Total time spent is greater than 50% in coordination of care (as documented) at patient's floor/unit and/or counseling patient: Coding Level of Care Code 79536 Subseq Hosp Care Lvl 2 Diagnoses Nausea and vomiting R11.2 Vomiting Intractability: non-intractable Vomiting type: unspecified Leukopenia D72.819 Leukopenia type: unspecified Thrombocytopenia D69.6 Hypothyroidism E03.9 GERD (gastroesophageal reflux disease) K21.9 Hypertension I10 Diabetes mellitus, type 2 E11.9 Small cell lung cancer, left upper lobe C34.12 Hyperlipidemia E78.5 Anemia D64.9 Time Spent (min) 25 (1) Leukopenia Leukopenia type: unspecified Qualified Code(s): D72.819 - Decreased white blood cell count, unspecified (2) Nausea and vomiting Vomiting Intractability: non-intractable Vomiting type: unspecified Qualified Code(s): R11.2 - Nausea with vomiting, unspecified
[2020-12-19] MEDS: PANTOprazole 40 MG TAB PO SCH ×2 (21:26→21:30)
[2020-12-20] MEDS: ALUMINUM/MAGNESIUM SUSP 30 ML UDC PO SCH ×4 (02:21→20:20)
[2020-12-20] MEDS: LEVOTHYROXINE SODIUM 88 MCG TABLET PO SCH (06:01)
[2020-12-20] MEDS: INSULIN ASPART 100 UNITS/ML 3 ML PEN SC SCH ×4 (09:09→21:06)
[2020-12-20] MEDS: POTASSIUM CHLORIDE CRTAB 20 MEQ TABCR PO SCH (09:10)
[2020-12-20] MEDS: INSULIN GLARGINE SOLOSTAR 100 UNITS/ML 3 ML PEN SC SCH (09:10)
[2020-12-20] MEDS: PANTOprazole 40 MG TAB PO SCH ×2 (09:10→20:20)
[2020-12-20] MEDS: UMECLIDINIUM/VILANTEROL 62.5/25MCG 7 PUFFS/INHALER INH SCH (11:22)
--- NOTE | 2020-12-20 13:24 | Pharmacy Report ---
Pharmacy Glycemic Short Note 2 - Date of Service December 20, 2020 - Glycemic Short BSG Results (Last 24 hours): 12/19/20 12/19/20 12/20/20 17:35 20:49 08:10 POC Glucose 117 H 139 H 164 H 12/20/20 12:28 POC Glucose 105 H OUTPATIENT ANTIDIABETIC REGIMEN: * glipizide 5 mg qAM * HbA1C = 8.5% (12/06/20) ASSESSMENT: 12/20/20: * Ms Rivers rec'd 27 units of insulin yesterday, with well-controlled BSGs all day. * Pt will be NPO after midnight tonight for endoscopy tomorrow. * Basal insulin appears to be appropriately dosed, so do not anticipate any changes while NPO. 12/18 * AM fasting BSG on the rise since Lantus held 12/15 (Pt NPO and only full liquid diet) * Will resume low dose basal (0.2 units/kg) and titrate based on BSG trends. * No changes needed to CF/CR 12/16 * Pt received total 13 units of insulin yesterday; 0 units basal + 13 units bolus. * Fasting BSG = 139 mg/dl. Basal insulin discontinued today since she has received none so far. * Continued Novolog parameters the same since post-prandial BSGs within goal. 12/14 * Ms Rivers is a 75 y/o F with a PMH of T2DM on oral medications who presents with N/V and decreased PO intake. Last glipizide dose was 5 days ago. * BSGs since admission were 155-179-180 and at lunch 173 mg/dL. * Patient is NPO. * Will start weight-based stress of 3 Novolog for now for more aggressive short- term coverage. * Lantus 15 units at bedtime if BSGs > 180 mg/dL as this will indicate second time patient's BSGs> 180 mg/dL. PLAN FOR INPATIENT GLYCEMIC CONTROL: * Hold outpatient oral diabetes medications * Basal insulin * Lantus 15 units SQ daily * Bolus insulin: continued * NovoLog per scale ACHS or Q6hrs while NPO * Goal Range: Low 110 mg/dL - High 140 mg/dL * Correction Factor: 20 mg/dL/unit * Nutritional / Prandial insulin per carb ratio of 1 unit per 8 grams CHO consumed PLAN FOR DISCHARGE: * HbA1c = 8.5% on 12/06/20. Goal A1c is less than 8% in this patient based on age and co-morbidities. * Recommend continue Glipizide 5 mg QAM with breakfast and adding Metformin ER 500 mg PO with dinner with close follow up by outpatient provider.
[2020-12-20 14:03] LABS: Hematocrit (blood only) 26.2 % (37-47); Hemoglobin 9.1 g/dL (12.0-16.0); Mean Corpuscular Hgb Conc 34.7 g/dL (32-36); Mean Corpuscular Volume 86.5 fL (80-100); Nucleated RBC # (auto) 0.06 K/uL (0-0); Nucleated RBC % (auto) 2.1 %; RDW Coefficient of Variation 14.5 % (11.5-14.5); RDW Standard Deviation 44.1 fL (36.4-46.3); Red Blood Count 3.03 M/uL (4.2-5.4); White Blood Count 2.95 K/uL (4.8-10.8)
[2020-12-20 14:18] LABS: Mean Platelet Volume 9.1 fL (7.4-10.4); Platelet Count 60 K/uL (130-400)
--- NOTE | 2020-12-20 17:23 | Anesthesiology Consultation ---
Date of Service December 20, 2020 Assessment & Plan Chart Review Chart Review: Acceptable Risk for Surgery and Patient NOT seen in Pre Admission Testing History Surgery Operation Date: 12/16/20 10:50 Proposed Procedures p Esophagogastroduodenoscopy Mingo Burris Case, DO Operation Date: 12/16/20 17:10 Proposed Procedures p Esophagogastroduodenoscopy Dr Mercado - Vik Burris Case, DO Operation Date: 12/21/20 07:00 Proposed Procedures p Esophagogastroduodenoscopy - Tej West MD Height/Weight Height: 5 ft 7 in Weight: 86.7 kg Allergies Allergy/AdvReac Type Severity Reaction Status Date / Time Penicillins Allergy Severe RASH AND Verified 12/13/20 13:27 THROAT SWELLING shellfish derived Allergy Severe RASH WELTS Verified 12/13/20 13:27 house dust mite Allergy Mild ALLERGY Verified 12/13/20 13:27 TESTING mold Allergy Mild PER Verified 12/13/20 13:27 ALLERGY TESTS-SNEEZING adhesive AdvReac Intermediate BLISTERS Verified 12/13/20 13:27 WITH TAPE-CLOTH [place] aspirin AdvReac Intermediate Rash Verified 12/13/20 13:27 [From Thu-[place] Plus Cold/Cough] chlorpheniramine AdvReac Intermediate Rash Verified 12/13/20 13:27 [From Thu-[place] Plus Cold/Cough] dextromethorphan AdvReac Intermediate Rash Verified 12/13/20 13:27 [From Thu-[place] Plus Cold/Cough] phenylpropanolamine AdvReac Intermediate Rash Verified 12/13/20 13:27 [From Thu-[place] Plus Cold/Cough] Medications Home Medications Medication Instructions Recorded Confirmed Last Taken calcium carbonate-vitamin D3 600 1 tab PO QAM tab 01/21/19 12/13/20 10/25/20 09:00 mg(1,500 mg)-400 unit chewable tablet (Calcium 600 with Vitamin D3) cetirizine 10 mg tablet 10 mg PO QAM tab 01/21/19 12/13/20 12/09/20 ergocalciferol (vitamin D2) 1,250 50,000 units PO WEEKLY cap 01/21/19 12/13/20 10/24/20 09:00 mcg (50,000 unit) capsule Virobayuch Ultra Blue Test Strip #100 ea NS 04/15/19 12/13/20 Unknown (blood sugar diagnostic) carboxymethylcellulose sodium 0.5 1 drp OPHTHALMIC (EYE) BID 11/06/19 12/13/20 10/24/20 20:00 % eye drops in a dropperette (Refresh Plus) lancets 33 gauge (Mitra Moeller #100 ea 03/16/20 12/13/20 Unknown Lancets) atorvastatin 40 mg tablet 40 mg PO QPM #90 tab 06/28/20 12/13/20 12/09/20 levothyroxine 88 mcg tablet 88 mcg PO QAM #90 tab 08/16/20 12/13/20 12/09/20 metformin 500 mg tablet,extended 2,000 mg PO QAM #120 tab 09/15/20 12/13/20 0 12/09/20 release 24 hr clonazepam 0.5 mg tablet 0.5 mg PO DAILY PRN #5 tab 10/14/20 12/13/20 10/24/20 08:00 azelastine 137 mcg (0.1 %) nasal 1 spray INTRANASAL BID PRN 10/18/20 12/13/20 10/25/20 23:00 spray aerosol pantoprazole 40 mg tablet,delayed 40 mg PO QAM PRN 10/18/20 12/13/20 10/25/20 09:00 release sitagliptin 50 mg tablet (Januvia) 50 mg PO QAM 10/18/20 12/13/20 12/09/20 amlodipine 5 mg-benazepril 20 mg 1 cap PO QAM 10/21/20 12/13/20 12/09/20 capsule (Lotrel) montelukast 10 mg tablet 10 mg PO QAM 10/21/20 12/13/20 10/25/20 09:00 (Singulair) Portable Oxygen #1 ea 11/24/20 12/13/20 Unknown albuterol sulfate 90 mcg/actuation 2 puff INHALATION Q6H PRN #8.5 g 11/24/20 12/13/20 Unknown aerosol inhaler (Ventolin HFA) umeclidinium 62.5 mcg-vilanterol 1 inh INHALATION QAM #60 ea 11/24/20 12/13/20 Unknown 25 mcg/actuation powdr for inhalation (Anoro Ellipta) glipizide 5 mg tablet 5 mg PO QAM #90 tab 11/25/20 12/13/20 12/09/20 Magic Mouthwash 300 mL mouthwash 10 ml MUCOUS MEMBRANE .COMPLEX 12/06/20 12/13/20 Unknown #300 ml sucralfate 1 gram tablet (Carafate) 1 g PO Q6H #120 tab 12/10/20 12/13/20 Unknown Active Medications Generic Name Dose Route Start Last Admin Trade Name Freq PRN Reason Stop Dose Admin Al Hydrox/Mg Hydrox/Simethicone 15 ml 12/15/20 09:00 12/20/20 15:49 Aluminum/Magnesium Susp 30 Ml Udc PO 01/14/21 08:59 15 ml Q6H MAYRA Administration Guaifenesin/Dextromethorphan 5 ml 12/14/20 16:57 12/14/20 21:58 Guaifenesin/Dextrom Syrup 100mg/10mg 5ml Udc PO 01/13/21 16:56 5 ml Q6H PRN Administration Cough Heparin Sodium (Porcine) 5 ml 12/14/20 04:40 12/19/20 16:18 Heparin 100 Unit/Ml 5ml Flush FLUSH 01/13/21 04:39 5 ml PRN PRN Administration Flush Insulin Aspart 0 units 12/16/20 16:30 12/20/20 12:59 Insulin Aspart 100 Units/Ml 3 Ml Pen SC 01/15/21 05:59 5 units ACHS MAYRA Administration Insulin Glargine 15 units 12/18/20 09:00 12/20/20 09:10 Insulin Glargine Solostar 100 Units/Ml 3 Ml Pen SC 01/17/21 08:59 15 units DAILY MAYRA Administration Levothyroxine Sodium 88 mcg 12/20/20 06:30 12/20/20 06:01 Levothyroxine Sodium 88 Mcg Tablet PO 01/19/21 06:29 88 mcg DAILYBB MAYRA Administration Ondansetron HCl 4 mg 12/13/20 22:53 12/17/20 07:43 Ondansetron Inj 2 Mg/Ml 2 Ml Vial IV 01/12/21 22:52 4 mg Q6H PRN Administration Nausea Pantoprazole Sodium 40 mg 12/19/20 21:00 12/20/20 09:10 Pantoprazole 40 Mg Tab PO 01/18/21 20:59 Not Given BID MARYA Umeclidinium/Vilanterol 1 puffs 12/14/20 09:00 12/20/20 11:22 Umeclidinium/Vilanterol 62.5/25mcg 7 Puffs/Inhaler INH 01/13/21 08:59 1 puffs QAM MAYRA Administration Past Medical History Medical History Allergic rhinitis due to dust mite Anxiety Cardiomyopathy F/U DR FISHER COPD with emphysema Diabetes mellitus, type 2 Edema of both legs Essential tremor Exertional dyspnea GERD (gastroesophageal reflux disease) Hiatal hernia History of breast cancer chemo and radiation and then oral pill Hyperlipidemia Hypertension Hypothyroidism Kidney stones hx Multiple pulmonary nodules Osteoporosis Secondary polycythemia Small cell lung cancer, 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) Temporomandibular joint disorder NO LOCKING Past Family History Family History Sister Diabetes Breast cancer Brother Diabetes Heart disease Father Diabetes Hypertension Lung disease Myocardial infarction Mother Diabetes Hypertension Kidney disease Myocardial infarction Daughter Breast cancer Denies family history of Ovarian cancer Prostate cancer Colorectal cancer Past Surgical History Surgical History History of appendectomy (~1967) History of breast biopsy (~09/03/12) History of cholecystectomy (~1974) History of colonoscopy 2020 History of esophagogastroduodenoscopy (EGD) History of hysterectomy (~1974) ovaries removed as well History of lithotripsy 2011 Hx of cataract surgery right and left Hx of lumpectomy LEFT BREAST-NO LIMB RESTIRCTIONS Hx of tonsillectomy Social History Smoking Status: Former smoker tobacco type: cigarettes Smoking cigarettes per day: 20 Hx Alcohol Use: No Hx Substance Use: No substance use type: does not use Physical Exam Vital Signs Last Vital Signs Temp 36.7 C 12/20/20 16:00 Pulse 77 12/20/20 16:00 Resp 20 12/20/20 16:00 BP 131/83 12/20/20 16:00 Pulse Ox 92 12/20/20 16:00 Testing Laboratory Results 12/20/20 13:53 12/19/20 08:11 PT 10.3 Seconds (9.0-12.0) 12/13/20 16:20 INR 1.0 (0.9-1.1) 12/13/20 16:20 APTT 22.5 Seconds (21.0-31.0) 12/13/20 16:20 Urine Color Dark Yellow 12/13/20 17:34 Urine Appearance Cloudy (Clear) A 12/13/20 17:34 Urine pH 5.0 (4.5-7.5) 12/13/20 17:34 Ur Specific [place] 1.025 (1.000-1.030) 12/13/20 17:34 Urine Protein 2+ (Negative) H 12/13/20 17:34 Urine Glucose (UA) Negative (Negative) 12/13/20 17:34 Urine Ketones Trace (Negative) H 12/13/20 17:34 Urine Nitrite Positive (Negative) A 12/13/20 17:34 Ur Leukocyte Esterase Negative (Negative) 12/13/20 17:34 Urine WBC (Auto) 5-10 /hpf (0-5) H 12/13/20 17:34 Urine RBC (Auto) 10-30 /hpf (0-4) H 12/13/20 17:34 U Hyaline Cast (Auto) 10-30 /lpf (0-5) H 12/13/20 17:34 U Epithel Cells (Auto) >30 /lpf (0-5) H 12/13/20 17:34 Urine Bacteria (Auto) 4+ (Negative) H 12/13/20 17:34 Blood Type A Positive 12/15/20 07:56 Antibody Screen NEGATIVE 12/15/20 07:56 12/13/20 16:39 Aerobic Blood Culture - Final Blood No growth in Aerobic bottle after 5 days. Anaerobic Blood Culture - Final No growth in Anaerobic bottle after 5 days. 12/13/20 16:20 Aerobic Blood Culture - Final Blood No growth in Aerobic bottle after 5 days. Anaerobic Blood Culture - Final No growth in Anaerobic bottle after 5 days. 12/13/20 17:34 Urine Culture - Final Urine,Clean Catch Escherichia coli 12/20/20 12/20/20 12/20/20 17:01 12:28 08:10 POC Glucose 109 H 105 H 164 H Electrocardiogram Date: 12/13/20 Findings: + NSR @ (at 83) Chest X-Ray Date: 12/14/20 Findings: + infiltrate (trace left basilar opacity) and + other (emphysematous changes) Echocardiogram Date: 05/12/20 EF: 45% LV Function: dysfunctional RWMA: + none and + hypokinetic (mild) Other Findings: + diastolic dysfunction (grade 1) Valvular Disease: + no significant valvular disease Stress Test Date: 07/02/20 Type: DSE Findings: + WNL Pulmonary Function Test Date: 10/25/20 moderate COPD w/emphysema
--- NOTE | 2020-12-20 20:50 | Hospitalist Progress Note ---
Date of Service December 20, 2020 Assessment & Plan (1) Nausea and vomiting: Plan: - Patient admitted with nausea and vomiting; actively undergoing radiation/chemotherapy - CT with moderate circumferential thickening within the esophagus with associated small amount of debris which raises the possibility of food impaction -- Also single mildly enlarged upper right paratracheal lymph node with his new and possibly reactive due to the esophageal findings - will need monitoring -- Decrease in the L upper lobe nodule - Plts currently at 60 - GI following - planning for EGD tomorrow (2) Leukopenia: Plan: - Pancytopenia - active chemotherapy - Abx in ED but does not look infectious at this time and will monitor - low threshold for abx given immune compromised (3) Thrombocytopenia: Plan: Platelet up to 60, improving/ will continue to monitor - no signs of bleeding (4) Hypothyroidism: Plan: - Was able to take Synthroid this evening - will see if able to do this tomorrow vs need further IV options (5) GERD (gastroesophageal reflux disease): Plan: - Continue Protonix (6) Diabetes mellitus, type 2: Plan: - Appreciate glycemic management (7) Small cell lung cancer, left upper lobe: Plan: - Actively undergoing chemo/radiation - follows with Dr. Garcia and Dr. Castro (Radiation) (8) Hyperlipidemia: Plan: - Can resume statin when better swallowing (9) Anemia: Plan: - Hgb at 9.1 - Transfused on 12/15 Plan: - Await EGD tomorrow Admission and Anticipated Discharge Date Admission Date: December 13, 2020 Subjective Reports feeling well today. Still having difficulty with swallowing pills but was able to take the protonix oral tonight. Plts have improved to 60 and plan for EGD tomorrow. She verbalizes no other complaints currently Review of Systems Review of Systems: REVIEW OF SYSTEMS General/Constitutional: Denies fever/chills ENT: + difficulty swallowing pills Cardiovascular: Denies chest pain, palpitations, edema Respiratory: Denies cough, sputum, SOB, wheezing, orthopnea GI: Denies nausea, vomiting, abdominal pain, constipation, diarrhea : Denies dysuria, frequency, hematuria Musculoskeletal: Denies joint/muscle aches, weakness, swelling Neurologic: Denies dizziness/lightheadedness Physical Exam Physical Exam: PHYSICAL EXAM General Appearance: NAD who is A&O x 3 HEENT: Head is normocephalic/atraumatic; Hearing grossly intact; Mucous membranes moist Neck: Supple; Trachea midline; Neg JVD Heart: RRR with no M/G/R; port placed in L upper chest Lungs: CTA in all lung grewal bilaterally; Respirations unlabored; Neg accessory muscle use Abdomen: Soft, non-tender, non-distended; Positive BS x 4 quadrants Extremities: Neg cyanosis or edema Neurological: Speech clear; Gross motor/sensory function intact; Neg focal neurologic deficits Psychiatric: Appropriate mood/affect Skin: Normal Color; Warm/Dry Results & Data Results & Data ([facility]) Vital Signs (Past 12 Hours) Vital Signs Temp Pulse Resp BP Pulse Ox 12/20/20 16:00 36.7 C 77 20 131/83 92 PG Care Time/CCT Total # of Minutes Spent Total Time Spent with Patient: Total time spent is greater than 50% in coordination of care (as documented) at patient's floor/unit and/or counseling patient: Coding Level of Care Code 45992 Subseq Hosp Care Lvl 3 Diagnoses Nausea and vomiting R11.2 Vomiting Intractability: non-intractable Vomiting type: unspecified Leukopenia D72.819 Leukopenia type: unspecified Thrombocytopenia D69.6 Hypothyroidism E03.9 GERD (gastroesophageal reflux disease) K21.9 Diabetes mellitus, type 2 E11.9 Small cell lung cancer, left upper lobe C34.12 Hyperlipidemia E78.5 Anemia D64.9 (1) Nausea and vomiting Vomiting Intractability: non-intractable Vomiting type: unspecified Qualified Code(s): R11.2 - Nausea with vomiting, unspecified (2) Leukopenia Leukopenia type: unspecified Qualified Code(s): D72.819 - Decreased white blood cell count, unspecified
[2020-12-21] MEDS: ALUMINUM/MAGNESIUM SUSP 30 ML UDC PO SCH ×4 (02:22→21:52)
[2020-12-21] MEDS: LEVOTHYROXINE SODIUM 88 MCG TABLET PO SCH (05:51)
[2020-12-21 06:01] LABS: Hematocrit (blood only) 26.5 % (37-47); Mean Corpuscular Hemoglobin 30.1 pg (25-34); Mean Corpuscular Volume 88.6 fL (80-100); Nucleated RBC # (auto) 0.03 K/uL (0-0); Nucleated RBC % (auto) 1.5 %; RDW Coefficient of Variation 14.7 % (11.5-14.5); RDW Standard Deviation 44.5 fL (36.4-46.3); Red Blood Count 2.99 M/uL (4.2-5.4); White Blood Count 2.23 K/uL (4.8-10.8)
[2020-12-21 06:03] LABS: Mean Platelet Volume 9.6 fL (7.4-10.4); Platelet Count 67 K/uL (130-400)
[2020-12-21] MEDS: INSULIN ASPART 100 UNITS/ML 3 ML PEN SC SCH ×4 (08:05→21:53)
[2020-12-21] MEDS: PANTOprazole 40 MG TAB PO SCH ×2 (08:15→21:52)
[2020-12-21] MEDS: UMECLIDINIUM/VILANTEROL 62.5/25MCG 7 PUFFS/INHALER INH SCH (08:16)
[2020-12-21] MEDS: INSULIN GLARGINE SOLOSTAR 100 UNITS/ML 3 ML PEN SC SCH (08:16)
--- NOTE | 2020-12-21 09:54 | History & Physical Bridge Note ---
Date of Service December 21, 2020 History & Physical Bridge Note I have examined the patient, reviewed the History & Physical and in the interval since the performance of the History & Physical I have noted the following changes of clinical significance: no changes noted. Reports persistent pinpoint chest pain although states the pain has slightly improved. No n/v, abdominal pain or other complaints. Platelet count has improved to 67 this morning. PE: A&Ox3. Heart RRR. Lungs CTA bilaterally. Abdomen soft, nontender. Normal bowel sounds. Moves all extremities. A/P: (1) Anemia: (2) Nausea and vomiting: (3) Small cell lung cancer, left upper lobe: (4) GERD (gastroesophageal reflux disease): Differential diagnosis: 1) Radiation esophagitis 2) [place] esophagitis 3) GERD 4) Metastatic disease from Small Cell Lung CA * NPO for now. * EGD in the OR with Dr. West for further evaluation. * Continue Pantoprazole 40 mg BID. * Further recommendations pending results of testing.
[2020-12-21] MEDS ORDERED: LACTATED RINGER'S 1,000 ML IV SCH (11:00)
[2020-12-21] MEDS ORDERED: SUCCINYLCHOLINE CHLORIDE 20 MG/ML 10 ML VIAL IV ONE (11:48)
[2020-12-21] MEDS ORDERED: LIDOCAINE 2% 2 ML VIAL/AMP(20MG/ML) INFIL ONE (11:48)
[2020-12-21] MEDS ORDERED: PROPOFOL IV EMULSION 10 MG/ML 20 ML VIAL IV ONE (11:48)
--- NOTE | 2020-12-21 12:02 | GI REPORT ---
Patient Name: Daina Rivers Procedure Date: 12/21/2020 11:13 AM Date of : 1945 Admit Type: Inpatient Age: 75 Gender: Female Attending MD: Tej West MD Procedure: Upper GI endoscopy Providers: Tej West MD Referring MD: Babak Walker Indications: Dysphagia, Abnormal CT of the GI tract Medicines: Monitored Anesthesia Care Complications: No immediate complications. Estimated blood loss: None. Estimated Blood Loss: Estimated blood loss: none. Procedure: Pre-Anesthesia Assessment: - Prior Anticoagulants: The patient has taken no previous anticoagulant or antiplatelet agents. - ASA Grade Assessment: III - A patient with severe systemic disease. After obtaining informed consent, the endoscope was passed under direct vision. Throughout the procedure, the patient's blood pressure, pulse, and oxygen saturations were monitored continuously. The Scope was introduced through the mouth, and advanced to the second part of duodenum. The upper GI endoscopy was accomplished without difficulty. The patient tolerated the procedure well. Findings: One benign-appearing, intrinsic moderate (circumferential scarring or stenosis; an endoscope may pass) stenosis was found in the mid esophagus. The stenosis was traversed. The dilation site was examined following endoscope reinsertion and showed mild mucosal disruption and mild improvement in luminal narrowing. Estimated blood loss: none. Diffuse mild inflammation characterized by erythema was found in the stomach. Biopsies were taken with a cold forceps for Helicobacter pylori testing. Estimated blood loss: none. The duodenal bulb and second portion of the duodenum were normal. Estimated blood loss: none. Impression: - Benign-appearing esophageal stenosis. - Gastritis. Biopsied. - Normal duodenal bulb and second portion of the duodenum. Recommendation: - [facility]. - Resume previous diet today. - Await pathology results. Tej West MD 12/21/2020 12:01:58 PM This report has been signed electronically. Note Initiated On: 12/21/2020 11:13 AM Number of Addenda: 0 I attest to the content of the Intraoperative Record and orders documented therein, exceptions below {[id number]}
--- NOTE | 2020-12-21 12:04 | Procedure Note ---
Procedure Note Date of Service December 21, 2020 Note GI post op/brief procedure note findings: radiation induced stricture in the mid-esophagus, dilated to 16.5 mm with balloon successfully with improved narrowing. No food bolus. gastritis, bx'd. recs: --dysphagia diet --f/u path results --supportive care Tej West MD Gastroenterology Coding
[2020-12-21] MEDS ORDERED: ATROPINE SULFATE 0.1 MG/ML 10ML SYR IV PRN (12:08)
[2020-12-21] MEDS ORDERED: ePHEDrine sulfate 50 MG/ML AMP IV PRN (12:08)
[2020-12-21] MEDS ORDERED: ONDANSETRON INJ 2 MG/ML 2 ML VIAL IV PRN (12:08)
--- NOTE | 2020-12-21 12:39 | Anesthesiology Progress Note ---
Date of Service December 21, 2020 Anesthesia Post Procedure Vital Signs Vital Signs: Temp Pulse Pulse Resp BP BP Pulse Ox 12/21/20 12:35 97.3 F L 68 12 149/84 H 96 12/21/20 12:25 71 13 127/83 96 12/21/20 12:15 74 12 133/87 100 12/21/20 12:05 78 17 144/82 H 100 12/21/20 11:58 96.8 F L 80 15 132/88 100 12/21/20 10:41 98.1 F 71 20 129/86 99 12/21/20 05:54 97.7 F 64 17 129/83 94 12/20/20 23:14 97.9 F 17 124/75 92 12/20/20 16:00 98.1 F 77 20 131/83 92 Pain Intensity Medial Chest: Pain Intensity: 3 Transfer of Care Handoff Completed per policy Notes Mental Status: alert / awake / arousable and participated in evaluation Patient Amnestic to Procedure: Yes Nausea / Vomiting: adequately controlled Pain: adequately controlled Airway Patency, RR, SpO2: stable & adequate BP & HR: stable & adequate Hydration State: stable & adequate Anesthetic Complications: no major complications apparent and Pt Satisfied with anesthetic care
--- NOTE | 2020-12-21 13:38 | Anesthesiology Progress Note ---
Date of Service December 21, 2020 Anesthesia Post Procedure Vital Signs Vital Signs: Temp Pulse Pulse Pulse Resp BP BP 12/21/20 13:04 98.1 F 76 16 122/72 12/21/20 12:35 97.3 F L 68 12 149/84 H 12/21/20 12:25 71 13 127/83 12/21/20 12:15 74 12 133/87 12/21/20 12:05 78 17 144/82 H 12/21/20 11:58 96.8 F L 80 15 132/88 12/21/20 10:41 98.1 F 71 20 129/86 12/21/20 05:54 97.7 F 64 17 129/83 12/20/20 23:14 97.9 F 17 124/75 12/20/20 16:00 98.1 F 77 20 131/83 Pulse Ox 12/21/20 13:04 99 12/21/20 12:35 96 12/21/20 12:25 96 12/21/20 12:15 100 12/21/20 12:05 100 12/21/20 11:58 100 12/21/20 10:41 99 12/21/20 05:54 94 12/20/20 23:14 92 12/20/20 16:00 92 Pain Intensity Medial Chest: Pain Intensity: 3 Transfer of Care Handoff Completed per policy Notes Mental Status: alert / awake / arousable and participated in evaluation Patient Amnestic to Procedure: Yes Nausea / Vomiting: adequately controlled Pain: adequately controlled Airway Patency, RR, SpO2: stable & adequate BP & HR: stable & adequate Hydration State: stable & adequate Anesthetic Complications: no major complications apparent and Pt Satisfied with anesthetic care
[2020-12-21] MEDS ORDERED: ACETAMINOPHEN 325 MG TAB PO PRN (17:01)
--- NOTE | 2020-12-21 17:38 | Hospitalist Progress Note ---
Date of Service December 21, 2020 Assessment & Plan (1) Nausea and vomiting: Plan: - Patient admitted with nausea and vomiting; actively undergoing radiation/chemotherapy - CT with moderate circumferential thickening within the esophagus with associated small amount of debris which raises the possibility of food impaction -- Also single mildly enlarged upper right paratracheal lymph node with his new and possibly reactive due to the esophageal findings - will need monitoring -- Decrease in the L upper lobe nodule - S/P EGD on 12/21 - intrinsic moderate stenosis with dilation; gastritis with biopsy pending - Plts continue to trend up - GI following - appreciate any further intervention/recommendations (2) Leukopenia: Plan: - Pancytopenia - active chemotherapy - Abx in ED but does not look infectious at this time and will monitor - low threshold for abx given immune compromised (3) Thrombocytopenia: Plan: Platelet trending up/improving will continue to monitor - no signs of bleeding (4) Hypothyroidism: Plan: - Continue Synthroid 88 mcg daily (5) GERD (gastroesophageal reflux disease): Plan: - Continue Protonix (6) Diabetes mellitus, type 2: Plan: - Appreciate glycemic management (7) Small cell lung cancer, left upper lobe: Plan: - Actively undergoing chemo/radiation - follows with Dr. Garcia and Dr. Castro (Radiation) (8) Hyperlipidemia: Plan: - Can resume statin when better swallowing (9) Anemia: Plan: - Hgb at 9.1 - Transfused on 12/15 Plan: - Await pathology and diet tolerance - possible D/C to home 1-2 days Admission and Anticipated Discharge Date Admission Date: December 13, 2020 Subjective Reports feeling well. Was seen pre and post EGD. Some nausea post-EGD. Feels she is able to swallow a lot better now. She did have her esophagus dilated. She verbalizes no new complaints Review of Systems Review of Systems: REVIEW OF SYSTEMS General/Constitutional: Denies fever/chills ENT: + improvement in swallowing pills but sore throat post-EGD Cardiovascular: Denies chest pain, palpitations, edema Respiratory: Denies cough, sputum, SOB, wheezing, orthopnea GI: Denies nausea, vomiting, abdominal pain, constipation, diarrhea : Denies dysuria, frequency, hematuria Musculoskeletal: Denies joint/muscle aches, weakness, swelling Neurologic: Denies dizziness/lightheadedness Physical Exam Physical Exam: PHYSICAL EXAM General Appearance: NAD who is A&O x 3 HEENT: Head is normocephalic/atraumatic; Hearing grossly intact; Mucous membranes moist Neck: Supple; Trachea midline; Neg JVD Heart: RRR with no M/G/R; port placed in L upper chest Lungs: CTA in all lung grewal bilaterally; Respirations unlabored; Neg accessory muscle use Abdomen: Soft, non-tender, non-distended; Positive BS x 4 quadrants Extremities: Neg cyanosis or edema Neurological: Speech clear; Gross motor/sensory function intact; Neg focal neurologic deficits Psychiatric: Appropriate mood/affect Skin: Normal Color; Warm/Dry Results & Data Results & Data ([facility]) Vital Signs (Past 12 Hours) Vital Signs Temp Pulse Pulse Pulse Resp BP BP 12/21/20 15:25 36.8 C 88 20 146/83 H 12/21/20 14:00 36.7 C 74 16 120/70 12/21/20 13:44 36.7 C 70 16 133/70 12/21/20 13:04 36.7 C 76 16 122/72 12/21/20 12:35 36.3 C L 68 12 149/84 H 12/21/20 12:25 71 13 127/83 12/21/20 12:15 74 12 133/87 12/21/20 12:05 78 17 144/82 H 12/21/20 11:58 36 C L 80 15 132/88 12/21/20 10:41 36.7 C 71 20 129/86 12/21/20 05:54 36.5 C 64 17 129/83 Pulse Ox 12/21/20 15:25 92 12/21/20 14:00 98 12/21/20 13:44 96 12/21/20 13:04 99 12/21/20 12:35 96 12/21/20 12:25 96 12/21/20 12:15 100 12/21/20 12:05 100 12/21/20 11:58 100 12/21/20 10:41 99 12/21/20 05:54 94 PG Care Time/CCT Total # of Minutes Spent Total Time Spent with Patient: Total time spent is greater than 50% in coordination of care (as documented) at patient's floor/unit and/or counseling patient: Coding Level of Care Code 91181 Subseq Hosp Care Lvl 2 Diagnoses Nausea and vomiting R11.2 Vomiting Intractability: non-intractable Vomiting type: unspecified Leukopenia D72.819 Leukopenia type: unspecified Thrombocytopenia D69.6 Hypothyroidism E03.9 GERD (gastroesophageal reflux disease) K21.9 Diabetes mellitus, type 2 E11.9 Small cell lung cancer, left upper lobe C34.12 Hyperlipidemia E78.5 Anemia D64.9 (1) Nausea and vomiting Vomiting Intractability: non-intractable Vomiting type: unspecified Qualified Code(s): R11.2 - Nausea with vomiting, unspecified (2) Leukopenia Leukopenia type: unspecified Qualified Code(s): D72.819 - Decreased white blood cell count, unspecified
[2020-12-21] MEDS: CHLORASEPTIC 1.4% SOLN 180 ML BTL MT PRN ×2 (18:33→21:55)
[2020-12-22] MEDS: ALUMINUM/MAGNESIUM SUSP 30 ML UDC PO SCH ×4 (03:51→20:10)
[2020-12-22] MEDS: LEVOTHYROXINE SODIUM 88 MCG TABLET PO SCH (06:24)
[2020-12-22] MEDS: UMECLIDINIUM/VILANTEROL 62.5/25MCG 7 PUFFS/INHALER INH SCH (07:35)
[2020-12-22] MEDS: PANTOprazole 40 MG TAB PO SCH ×2 (07:35→20:10)
[2020-12-22 08:39] LABS: Hematocrit (blood only) 26.8 % (37-47); Hemoglobin 8.9 g/dL (12.0-16.0); Mean Corpuscular Hgb Conc 33.2 g/dL (32-36); Mean Corpuscular Volume 90.2 fL (80-100); Nucleated RBC # (auto) 0.03 K/uL (0-0); Nucleated RBC % (auto) 1.1 %; RDW Coefficient of Variation 15.8 % (11.5-14.5); RDW Standard Deviation 47.1 fL (36.4-46.3); Red Blood Count 2.97 M/uL (4.2-5.4); White Blood Count 2.61 K/uL (4.8-10.8)
[2020-12-22 08:41] LABS: Mean Platelet Volume 9.2 fL (7.4-10.4); Platelet Count 82 K/uL (130-400)
[2020-12-22] MEDS: INSULIN GLARGINE SOLOSTAR 100 UNITS/ML 3 ML PEN SC SCH (09:02)
[2020-12-22] MEDS: INSULIN ASPART 100 UNITS/ML 3 ML PEN SC SCH ×4 (09:04→21:39)
[2020-12-22 09:07] LABS: Calcium 9.1 mg/dl (8.5-10.1); Creatinine Clr Calc Pharmacy 46.4 ml/min; Est GFR (African American) 50.9 ml/min; Est GFR (Non-African American) 43.9 ml/min; Potassium 3.4 mmol/L (3.5-5.1)
--- NOTE | 2020-12-22 10:41 | Gastroenterology Progress Note ---
Date of Service December 22, 2020 Assessment & Plan (1) Anemia: (2) Nausea and vomiting: (3) Small cell lung cancer, left upper lobe: (4) GERD (gastroesophageal reflux disease): Plan: Findings of esophageal stenosis, likely related to radiation treatment. -Continue Protonix 40 mg PO BID. -Repeat EGD with dilation in 4-6 weeks to be arranged by our office. -GI sign off. If needed, please do not hesitate to contact us. Admission and Anticipated Discharge Date Admission Date: December 13, 2020 Subjective Patient is status post EGD by Dr. West yesterday with reports of improved chest pain and improved swallowing after dilation of esophageal stricture. No new GI complaints. Review of Systems Constitutional: no fever and no chills Gastrointestinal: as per Subjective / HPI Physical Exam Constitutional: no acute distress Eyes: EOM intact bilaterally Neck: normal visual inspection Respiratory: normal respiratory effort Skin: normal color Psychiatric: A+Ox3, euthymic affect Results & Data Results & Data ([facility]) Vital Signs (Past 12 Hours) Vital Signs Temp Pulse Resp BP BP Pulse Ox 12/22/20 08:03 36.7 C 63 16 114/72 94 12/22/20 02:50 36.9 C 73 16 113/70 90 PG Care Time/CCT Total # of Minutes Spent Total Time Spent with Patient: Total time spent is greater than 50% in coordination of care (as documented) at patient's floor/unit and/or counseling patient: Coding Level of Care Code 80415 Subseq Hosp Care Lvl 3 Diagnoses Anemia D64.9 Nausea and vomiting R11.2 Vomiting Intractability: non-intractable Vomiting type: unspecified Small cell lung cancer, left upper lobe C34.12 GERD (gastroesophageal reflux disease) K21.9 (1) Nausea and vomiting Vomiting Intractability: non-intractable Vomiting type: unspecified Qualified Code(s): R11.2 - Nausea with vomiting, unspecified
[2020-12-22 12:36] LABS: Appearance Urine Cloudy (Clear); Bacteria Urine Automated Negative (Negative); Bilirubin Urine Negative (Negative); Blood Urine Negative (Negative); Color Urine Dark Yellow; Epithelial Cell Urine Auto >30 /lpf (0-5); Glucose Urine UA Negative (Negative); Ketones Urine Trace (Negative); Leukocyte Esterase Urine Trace (Negative); Nitrite Urine Negative (Negative); Protein Urine Negative (Negative); RBC Urine Automated 0-4 /hpf (0-4); Specific Gravity Urine 1.022 (1.000-1.030); Urobilinogen Urine Negative (Negative); pH Urine 5.5 (4.5-7.5)
--- NOTE | 2020-12-22 17:13 | Hospitalist Progress Note ---
Date of Service December 22, 2020 Assessment & Plan (1) Nausea and vomiting: Plan: - Patient admitted with nausea and vomiting (RESOLVED); actively undergoing radiation/chemotherapy - CT with moderate circumferential thickening within the esophagus with associated small amount of debris which raises the possibility of food impaction -- Also single mildly enlarged upper right paratracheal lymph node with his new and possibly reactive due to the esophageal findings - will need monitoring -- Decrease in the L upper lobe nodule - S/P EGD on 12/21 - intrinsic moderate stenosis with dilation; gastritis with biopsy showing chronic gastritis, intestinal metaplasia but negative for dysplasia, and H. pylori negative - Plts continue to trend up - Did have a positive UA on admission - states very rarely she gets mild burning periodically but nothing currently - repeated UA but negative maybe some asymptomatic bacteruria - but would have to monitor for symptoms or fever for treatment -- Was treated with a day of Abx due to concern of PNA - GI following - plan to F/U as outpatient with repeat EGD in 4-6 weeks (2) Leukopenia: Plan: - Pancytopenia - active chemotherapy - improving (3) Thrombocytopenia: Plan: Platelet trending up/improving will continue to monitor - no signs of bleeding (4) Hypothyroidism: Plan: - Continue Synthroid 88 mcg daily (5) GERD (gastroesophageal reflux disease): Plan: - Continue Protonix (6) Diabetes mellitus, type 2: Plan: - Appreciate glycemic management (7) Small cell lung cancer, left upper lobe: Plan: - Actively undergoing chemo/radiation - follows with Dr. Garcia and Dr. Castro (Radiation) (8) Hyperlipidemia: Plan: - Can resume statin when better swallowing (9) Anemia: Plan: - Hgb stable - Transfused on 12/15 Plan: - Plan for radiation tomorrow and D/C likely after if tolerated Admission and Anticipated Discharge Date Admission Date: December 13, 2020 Subjective Reports feeling well today. Some irritation with swallowing but a lot easier to swallow pills and food. She did go to radiation and tolerated that well today Review of Systems Review of Systems: REVIEW OF SYSTEMS General/Constitutional: Denies fever/chills ENT: + improvement in swallowing pills but sore throat post-EGD Cardiovascular: Denies chest pain, palpitations, edema Respiratory: Denies cough, sputum, SOB, wheezing, orthopnea GI: Denies nausea, vomiting, abdominal pain, constipation, diarrhea : Denies dysuria, frequency, hematuria Musculoskeletal: Denies joint/muscle aches, weakness, swelling Neurologic: Denies dizziness/lightheadedness Physical Exam Physical Exam: PHYSICAL EXAM General Appearance: NAD who is A&O x 3 HEENT: Head is normocephalic/atraumatic; Hearing grossly intact; Mucous membranes moist Neck: Supple; Trachea midline; Neg JVD Heart: RRR with no M/G/R; port placed in L upper chest Lungs: CTA in all lung grewal bilaterally; Respirations unlabored; Neg accessory muscle use Abdomen: Soft, non-tender, non-distended; Positive BS x 4 quadrants Extremities: Neg cyanosis or edema Neurological: Speech clear; Gross motor/sensory function intact; Neg focal neurologic deficits Psychiatric: Appropriate mood/affect Skin: Normal Color; Warm/Dry Results & Data Results & Data ([facility]) Vital Signs (Past 12 Hours) Vital Signs Temp Pulse Resp BP Pulse Ox 12/22/20 15:51 36.8 C 108 H 18 130/78 91 12/22/20 08:03 36.7 C 63 16 114/72 94 PG Care Time/CCT Total # of Minutes Spent Total Time Spent with Patient: Total time spent is greater than 50% in coordination of care (as documented) at patient's floor/unit and/or counseling patient: Coding Level of Care Code 38279 Subseq Hosp Care Lvl 3 Diagnoses Nausea and vomiting R11.2 Vomiting Intractability: non-intractable Vomiting type: unspecified Leukopenia D72.819 Leukopenia type: unspecified Thrombocytopenia D69.6 Hypothyroidism E03.9 GERD (gastroesophageal reflux disease) K21.9 Diabetes mellitus, type 2 E11.9 Small cell lung cancer, left upper lobe C34.12 Hyperlipidemia E78.5 Anemia D64.9 (1) Nausea and vomiting Vomiting Intractability: non-intractable Vomiting type: unspecified Qualified Code(s): R11.2 - Nausea with vomiting, unspecified (2) Leukopenia Leukopenia type: unspecified Qualified Code(s): D72.819 - Decreased white blood cell count, unspecified
[2020-12-23] MEDS: ALUMINUM/MAGNESIUM SUSP 30 ML UDC PO SCH ×2 (03:52→11:47)
[2020-12-23] MEDS: LEVOTHYROXINE SODIUM 88 MCG TABLET PO SCH (05:50)
[2020-12-23 08:41] VITALS: PULSE 121; TEMP 97.5; O2SAT 96
[2020-12-23] MEDS: ONDANSETRON INJ 2 MG/ML 2 ML VIAL IV PRN ×2 (08:49→15:28)
[2020-12-23] MEDS: HEPARIN 100 UNIT/ML 5ML FLUSH FLUSH PRN ×2 (08:49→15:28)
[2020-12-23] MEDS: UMECLIDINIUM/VILANTEROL 62.5/25MCG 7 PUFFS/INHALER INH SCH (09:27)
[2020-12-23] MEDS: INSULIN GLARGINE SOLOSTAR 100 UNITS/ML 3 ML PEN SC SCH (09:39)
[2020-12-23] MEDS: INSULIN ASPART 100 UNITS/ML 3 ML PEN SC SCH ×2 (09:39→12:52)
--- NOTE | 2020-12-23 10:50 | Pharmacy Report ---
Pharmacy Glycemic Short Note 2 - Date of Service December 23, 2020 - Glycemic Short BSG Results (Last 24 hours): 12/22/20 12/22/20 12/22/20 11:46 16:53 21:27 POC Glucose 165 H 141 H 169 H 12/23/20 08:21 POC Glucose 188 H OUTPATIENT ANTIDIABETIC REGIMEN: * glipizide 5 mg qAM * HbA1C = 8.5% (12/06/20) ASSESSMENT: 12/23: * Patient received total 34 units of insulin yesterday which is the highest that she has got in a few days. This includes 15 units of basal and 19 units bolus. * Fasting BSG today was 188 mg/dl which is slightly elevated but this happened a few days ago as well and trended down to normal by the end of the day. The following day fasting was at goal. No changes made in the basal insulin today. * Post-prandial BSGs have been well controlled. Continued current Novolog parameters. 12/20/20: * Ms Rivers rec'd 27 units of insulin yesterday, with well-controlled BSGs all day. * Pt will be NPO after midnight tonight for endoscopy tomorrow. * Basal insulin appears to be appropriately dosed, so do not anticipate any changes while NPO. 12/18 * AM fasting BSG on the rise since Lantus held 12/15 (Pt NPO and only full liquid diet) * Will resume low dose basal (0.2 units/kg) and titrate based on BSG trends. * No changes needed to CF/CR 12/16 * Pt received total 13 units of insulin yesterday; 0 units basal + 13 units bolus. * Fasting BSG = 139 mg/dl. Basal insulin discontinued today since she has received none so far. * Continued Novolog parameters the same since post-prandial BSGs within goal. 12/14 * Ms Rivers is a 75 y/o F with a PMH of T2DM on oral medications who presents with N/V and decreased PO intake. Last glipizide dose was 5 days ago. * BSGs since admission were 155-179-180 and at lunch 173 mg/dL. * Patient is NPO. * Will start weight-based stress of 3 Novolog for now for more aggressive short- term coverage. * Lantus 15 units at bedtime if BSGs > 180 mg/dL as this will indicate second time patient's BSGs> 180 mg/dL. PLAN FOR INPATIENT GLYCEMIC CONTROL: * Hold outpatient oral diabetes medications * Basal insulin: continued * Lantus 15 units SQ daily * Bolus insulin: continued * NovoLog per scale ACHS or Q6hrs while NPO * Goal Range: Low 110 mg/dL - High 140 mg/dL * Correction Factor: 20 mg/dL/unit * Nutritional / Prandial insulin per carb ratio of 1 unit per 8 grams CHO consumed PLAN FOR DISCHARGE: * HbA1c = 8.5% on 12/06/20. Goal A1c is less than 8% in this patient based on age and co-morbidities. * Recommend continue Glipizide 5 mg QAM with breakfast and adding Metformin ER 500 mg PO with dinner with close follow up by outpatient provider.
[2020-12-23] MEDS: PANTOprazole 40 MG TAB PO SCH (11:48)
[2020-12-23 15:35] VITALS: BP 113/70
--- NOTE | 2020-12-23 18:57 | Discharge Summary ---
Date of Service December 23, 2020 Admission HPI Per Admitting Provider 75 yo female comes in with nausea and vomiting. Patient reports she has not been able to take any of her medications for the past 5 days (since ). Patient reports she has been getting radiation treatment with Dr. Castro and chemotherapy with Dr. Daniels. Patient has been complaining of generalized malaise. She reports she has not been able to eat or drink well. . She states the cancer center told her to come to the emergency department. Principal Diagnosis Esophageal Stenosis Discharge Exam PHYSICAL EXAM General Appearance: NAD who is A&O x 3 HEENT: Head is normocephalic/atraumatic; Hearing grossly intact; Mucous membranes moist Neck: Supple; Trachea midline; Neg JVD Heart: RRR with no M/G/R; port placed in L upper chest Lungs: CTA in all lung grewal bilaterally; Respirations unlabored; Neg accessory muscle use Abdomen: Soft, non-tender, non-distended; Positive BS x 4 quadrants Extremities: Neg cyanosis or edema Neurological: Speech clear; Gross motor/sensory function intact; Neg focal neurologic deficits Psychiatric: Appropriate mood/affect Skin: Normal Color; Warm/Dry Discharge Data Allergies Allergy/AdvReac Type Severity Reaction Status Date / Time Penicillins Allergy Severe RASH AND Verified 12/27/20 13:58 THROAT SWELLING shellfish derived Allergy Severe RASH WELTS Verified 12/27/20 13:58 house dust mite Allergy Mild ALLERGY Verified 12/27/20 13:58 TESTING mold Allergy Mild PER Verified 12/27/20 13:58 ALLERGY TESTS-SNEEZING adhesive AdvReac Intermediate BLISTERS Verified 12/27/20 13:58 WITH TAPE-CLOTH [place] aspirin AdvReac Intermediate Rash Verified 12/27/20 13:58 [From Thu-[place] Plus Cold/Cough] chlorpheniramine AdvReac Intermediate Rash Verified 12/27/20 13:58 [From Thu-[place] Plus Cold/Cough] dextromethorphan AdvReac Intermediate Rash Verified 12/27/20 13:58 [From Thu-[place] Plus Cold/Cough] phenylpropanolamine AdvReac Intermediate Rash Verified 12/27/20 13:58 [From Thu-[place] Plus Cold/Cough] Consultations 12/13/20 17:31 ED Decision to Admit Stat 12/15/20 08:17 Consult Gastroenterology Routine Procedures Performed Operation Date: 12/16/20 10:50 Actual Procedures p Esophagogastroduodenoscopy(Not Applicable) - Vik Burris Case, DO Operation Date: 12/16/20 17:10 <No data on this case meets the specified criteria> Operation Date: 12/21/20 07:00 Actual Procedures p Esophagogastroduodenoscopy with Stomach Biopsy and Dilation(Not Applicable) - Tej Staley MD Ordered Studies Chest X-Ray 12/13/20 15:44 XR chest 1V portable CLINICAL HISTORY: SEPSIS COMPARISON STUDY: Chest radiograph October 26, 2020. Treatment planning CT October 27, 2020. FINDINGS: Intraoperative Gcefqk-a-Wagj is in place but there is no pneumothorax or definite pleural effusion. There is mild left basilar opacity. There is no evidence for pulmonary edema. Cardiomediastinal silhouette is stable. The known left upper lobe lesion is not well-visualized on this exam. IMPRESSION: Minimal left basilar opacity. Atelectasis is favored. An infectious process could appear similar. ACT 112: Negative or not required by law. Electronically signed by: Vahe Reynoso M.D. 12/13/2020 4:54 PM Chest X-Ray 12/14/20 16:46 XR chest 1V portable INDICATION: MN ^cough. TECHNIQUE: Single frontal radiograph of the chest was obtained. Comparison: Comparison is made to chest one view 12/13/2020 FINDINGS: Stable left port catheter. The cardiomediastinal silhouette is normal. Trace left basilar opacity is again seen. Emphysematous changes are seen. No evidence of pleural effusion or pneumothorax. IMPRESSION: Stable minimal left basilar opacity which represent atelectasis and/or pneumonia. ACT 112: Negative or not required by law. Electronically signed by: Babak Muhammad M.D. 12/14/2020 5:[address] 12/15/20 09:[address] WITH CONTRAST CT DOSE: 405.28 mGycm HISTORY: Mid Chest pain, History of Lung CA TECHNIQUE: Multiaxial CT images of the chest were performed following the intravenous administration of contrast. A dose lowering technique was utilized adhering to the principles of ALARA. COMPARISON: Radiation oncology CT 10/27/2020. PET CT 08/18/2020. FINDINGS: There is an old anterior wedge-shaped compression deformity at T6. No suspicious lytic or blastic osseous lesions. A left jugular Port-A-Cath terminates in the SVC. Prior cholecystectomy. Limited views of the upper abdomen demonstrate a normal liver and spleen. Stable 2.2 cm right adrenal gland nodule. Trace left pleural effusion. Stable dense calcification within the medial aspect of the left breast likely representing old postoperative change. Moderate circumferential thickening within the mid esophagus with associated small amount of intraluminal debris. This raises the possibility of food impaction. No ev idence for pneumomediastinum to suggest esophageal perforation. This is best seen on image 79. There is a single mildly enlarged upper right paratracheal lymph node on image 20 which is increased in size. This measures 10 x 7 mm. This could be reactive. No additional enlarged mediastinal or hilar lymph nodes. No axillary lymphadenopathy. Normal caliber thoracic aorta with no evidence for dissection. The central pulmonary arteries are patent. Moderate emphysema. No pneumothorax. Significant decrease in size in the left upper lobe nodule compared to the prior study. This currently measures 5 mm. Small linear scarlike densities adjacent to this nodule may represent post radiation change. There are 2 fiducial marker seen within the left upper lobe medially. A few left basilar linear densities consistent with subsegmental atelectasis. IMPRESSION: 1. Moderate circumferential thickening within the esophagus with associated small amount of intraluminal debris at this location. This raises the possibility of food impaction. Recommend endoscopy for further evaluation. 2. A single mildly enlarged upper right paratracheal lymph node which is new from the prior study. This could be reactive to the suspected inflammatory process within the mid esophagus. This bears watching future examinations. 3. Emphysema. 4. Significant decrease in size within the left upper lobe nodule which curre ntly measures 5 mm. 5. Trace left pleural effusion. 6. These findings were called/faxed to the referring physician following dictation. ACT 112: Negative or not required by law. Electronically signed by: Adalid Limon M.D. 12/15/2020 1:31 PM Hospital Course (1) Nausea and vomiting: - Patient admitted with nausea and vomiting (RESOLVED) - mild nausea after radiation which she said is common for her; actively undergoing radiation/chemotherapy - CT with moderate circumferential thickening within the esophagus with associated small amount of debris which raises the possibility of food impaction -- Also single mildly enlarged upper right paratracheal lymph node which this is new and possibly reactive due to the esophageal findings - will need monitoring in future -- Decrease in the L upper lobe nodule - S/P EGD on 12/21 - intrinsic moderate stenosis with dilation; gastritis with biopsy showing chronic gastritis, intestinal metaplasia but negative for dysplasia, and H. pylori negative - Plts continue to trend up - Did have a positive UA on admission - states very rarely she gets mild burning periodically but nothing currently - repeated UA but negative - but would have to monitor for symptoms or fever for treatment needs in the future -- Was treated with a day of Abx due to concern of PNA - GI following - plan to F/U as outpatient with repeat EGD in 4-6 weeks; Protonix 40 mg BID (2) Leukopenia: - * Chemotherapy induced pancytopenia - active chemotherapy - IMPROVING (3) Thrombocytopenia: Platelet trending up/improving will continue to monitor - no signs of bleeding (4) Hypothyroidism: - Continue Synthroid 88 mcg daily (5) GERD (gastroesophageal reflux disease): - Continue Protonix (6) Diabetes mellitus, type 2: - Continue home regimen (7) Small cell lung cancer, left upper lobe: - Actively undergoing chemo/radiation - follows with Dr. Garcia and Dr. Castro (Radiation) (8) Hyperlipidemia: - Continue Atorvastatin 40 mg daily (9) Anemia: - Hgb stable - Transfused on 12/15 - Will need F/U with PCP for ongoing monitorig - [facility] - Dr. Staley or associate in 4-6 weeks for repeat EGD - Has resumed radiation; will need to F/U with Dr. Garcia to determin when to resume chemotherapy (would suspect CBC needing to trend up a bit more before next dose) Total Time Total Time Spent Total Time Spent (In Minutes): Chest X-Ray 12/13/20 15:44 XR chest 1V portable CLINICAL HISTORY: SEPSIS COMPARISON STUDY: Chest radiograph October 26, 2020. Treatment planning CT October 27, 2020. FINDINGS: Intraoperative Sdjtme-n-Tcsp is in place but there is no pneumothorax or definite pleural effusion. There is mild left basilar opacity. There is no evidence for pulmonary edema. Cardiomediastinal silhouette is stable. The known left upper lobe lesion is not well-visualized on this exam. IMPRESSION: Minimal left basilar opacity. Atelectasis is favored. An infectious process could appear similar. ACT 112: Negative or not required by law. Electronically signed by: Vahe Reynoso M.D. 12/13/2020 4:54 PM Chest X-Ray 12/14/20 16:46 XR chest 1V portable INDICATION: MN ^cough. TECHNIQUE: Single frontal radiograph of the chest was obtained. Comparison: Comparison is made to chest one view 12/13/2020 FINDINGS: Stable left port catheter. The cardiomediastinal silhouette is normal. Trace left basilar opacity is again seen. Emphysematous changes are seen. No evidence of pleural effusion or pneumothorax. IMPRESSION: Stable minimal left basilar opacity which represent atelectasis and/or pneumonia. ACT 112: Negative or not required by law. Electronically signed by: Babak Muhammad M.D. 12/14/2020 5:[address] 12/15/20 09:[address] WITH CONTRAST CT DOSE: 405.28 mGycm HISTORY: Mid Chest pain, History of Lung CA TECHNIQUE: Multiaxial CT images of the chest were performed following the intravenous administration of contrast. A dose lowering technique was utilized adhering to the principles of ALARA. COMPARISON: Radiation oncology CT 10/27/2020. PET CT 08/18/2020. FINDINGS: There is an old anterior wedge-shaped compression deformity at T6. No suspicious lytic or blastic osseous lesions. A left jugular Port-A-Cath terminates in the SVC. Prior cholecystectomy. Limited views of the upper abdomen demonstrate a normal liver and spleen. Stable 2.2 cm right adrenal gland nodule. Trace left pleural effusion. Stable dense calcification within the medial aspect of the left breast likely representing old postoperative change. Moderate circumferential thickening within the mid esophagus with associated small amount of intraluminal debris. This raises the possibility of food impaction. No evidence for pneumomediastinum to suggest esophageal perforation. This is best seen on image 79. There is a single mildly enlarged upper right paratracheal lymph node on image 20 which is increased in size. This measures 10 x 7 mm. This could be reactive. No additional enlarged mediastinal or hilar lymph nodes. No axillary lymphadenopathy. Normal caliber thoracic aorta with no evidence for dissection. The central pulmonary arteries are patent. Moderate emphysema. No pneumothorax. Significant decrease in size in the left upper lobe nodule compared to the prior study. This currently measures 5 mm. Small linear scarlike densities adjacent to this nodule may represent post radiation change. There are 2 fiducial marker seen within the left upper lobe medially. A few left basilar linear densities consistent with subsegmental atelectasis. IMPRESSION: 1. Moderate circumferential thickening within the esophagus with associated small amount of intraluminal debris at this location. This raises the possibility of food impaction. Recommend endoscopy for further evaluation. 2. A single mildly enlarged upper right paratracheal lymph node which is new from the prior study. This could be reactive to the suspected inflammatory process within the mid esophagus. This bears watching future examinations. 3. Emphysema. 4. Significant decrease in size within the left upper lobe nodule which currently measures 5 mm. 5. Trace left pleural effusion. 6. These findings were called/faxed to the referring physician following dictation. ACT 112: Negative or not required by law. Electronically signed by: Adalid Limon M.D. 12/15/2020 1:31 PM Discharge Plan Discharge Items Patient Disposition: Home - Self-Care Reason For Visit: INTRACTABLE NAUSEA 2/2 CHEMO Discharge Diagnosis: Esophageal Stenosis (Narrowing) Activity: Resume your previous activity Non-emergency contact: Primary Care Provider Call non-emergency contact if: your symptoms worsen and you have a fever Follow-up/Referrals: Gayathri Parnell CRNP [Primary Care Provider] - 12/28/20 2:00 pm Chris Daniels DO [Physician] - (Needs labs and follow-up as missed appointments) Tej Staley MD [Physician] - (EGD IS NEEDED IN 4-[address] STALEY; THE OFFICE WILL CALL THE PATIENT TO SCHEDULE THE PROCEDURE.) Diet: Carb Consistent or DM2 Diet Texture: Easy to Chew Addtl Attending Provider Instructions: Nausea and Vomiting Likely due to Chemo but Also Esophageal Narrowing or Stenosis: - You were found to have narrowing of your esophagus which was dilated or stretched during your EGD scope. It is likely this was due to radiation. - The GI doctors office will call as you will need to follow up in 4-6 weeks for possibly a repeat scope. Sometimes repeat dilations are needed in the future. - Recommend to follow an easy to chew and swallow diet. Some things you can do is cook vegetables to make sure they are soft and easy to chew and swallow. Would avoid things like apples or those things with hard fiber skins -- Please see the handout provided. Would focus on levels 5-6 for now - Recommend to take Protonix 40 mg twice a day at least until you follow-up with the GI doctors to help reduce stomach acids - You can continue to use your Carafate or can always use Maalox over the counter to help with irritation of the stomach/esophagus - Continue your home medications as previously prescribed as we did not make adjustments to these Pending Studies at Discharge: No Stand-Alone Forms: [facility], Smoking Cessation Medications and DC Order Prescriptions: Continued (DME) OneTouch Ultra Blue Test Strip Strip See Rx Instructions .ROUTE .MEDSUPPLY Qty: 100 RF: 3 (DME) lancets [OneTouch Delica Lancets] 33 gauge misc See Rx Instructions .ROUTE .MEDSUPPLY Qty: 100 RF: 3 atorvastatin 40 mg tablet 40 mg PO QPM Qty: 90 RF: 3 metformin 500 mg tablet extended release 24 hr 2,000 mg PO QAM Qty: 120 RF: 5 clonazepam 0.5 mg tablet 0.5 mg PO DAILY PRN (Reason: anxiety) Qty: 5 RF: 0 glipizide 5 mg tablet 5 mg PO QAM Qty: 90 RF: 3 Magic Mouthwash 300 mL mouthwash 10 ml mucous membrane .COMPLEX Qty: 300 RF: 1 sucralfate [Carafate] 1 gram tablet 1 g PO Q6H Qty: 120 RF: 4 Calcium 600 with Vitamin D3 600 mg(1,500mg) -400 unit tablet,chewable 1 tab PO QAM RF: 0 ergocalciferol (vitamin D2) 50,000 unit capsule 50,000 units PO WEEKLY RF: 0 cetirizine 10 mg tablet 10 mg PO QAM RF: 0 Refresh Plus 0.5 % dropperette 1 drp ophthalmic (eye) BID RF: 0 levothyroxine 88 mcg tablet 88 mcg PO QAM Qty: 90 RF: 3 albuterol sulfate [Ventolin HFA] 90 mcg/actuation HFA aerosol inhaler 2 puff INHALATION Q6H PRN (Reason: Wheezing) Qty: 8.5 RF: 3 Anoro Ellipta 62.5-25 mcg/actuation blister with device 1 inh inhalation QAM Qty: 60 RF: 5 (DME) Portable Oxygen Misc See Rx Instructions .MEDSUPPLY Qty: 1 RF: 0 azelastine 137 mcg (0.1 %) aerosol,spray 1 spray intranasal BID PRN (Reason: Congestion) RF: 0 Januvia 50 mg tablet 50 mg PO QAM RF: 0 amlodipine-benazepril [Lotrel] 5-20 mg capsule 1 cap PO QAM RF: 0 Changed pantoprazole 40 mg tablet,delayed release (DR/EC) 40 mg PO BID 30 Days Qty: 60 RF: 0 No Action montelukast [Singulair] 10 mg tablet 10 mg PO QAM Qty: 90 RF: 3 Discharge Orders: Discharge Order (Routine); Ordered 12/23/20 Ordered By: Jenifer Espinoza/Other Patient Handouts: Dysphagia Diet- Managing Foods Admission Data Admit Date/Time: 12/13/20 20:31 Attending Provider: Babak Walker Admit Provider: Linda Reynolds Primary Care Provider: Gayathri Parnell Other Providers: Cortez Sandhu ; Vik Mercado Other Interventions: Discharge Summary Assessment (RN) Last Done: 12/23/20 15:33 Supervising Physician Co-Signing Physician Notes Attending note: patient seen and examined with Jenifer Bullard PA-C. I agree with her discharge summary. I personally reviewed the labs and imaging findings. patient feeling better ever since esophagus was dilated, swallowing better, no vomiting completed radiation today, ready for discharge - Esophageal stenosis: treated with EGD, esophageal dilation - Lung cancer: continue radiation therapy, received treatment while inpatient Coding Level of Care Code D/C DAY MANAGEMENT >30 MINS Diagnoses Nausea and vomiting R11.2 Vomiting Intractability: non-intractable Vomiting type: unspecified Leukopenia D72.819 Leukopenia type: unspecified Thrombocytopenia D69.6 Hypothyroidism E03.9 GERD (gastroesophageal reflux disease) K21.9 Diabetes mellitus, type 2 E11.9 Small cell lung cancer, left upper lobe C34.12 Hyperlipidemia E78.5 Anemia D64.9
== END 2020-12-23 16:51 | disposition home or self-care (01) | DRG 392 ==
LOC: ED 14:04 → 3E 20:31 → SUATTDRO 20:31 → 3E 21:56
DX: Z88.6 Allergy status to analgesic agent; D72.819 Decreased white blood cell count, unspecified; D69.6 Thrombocytopenia, unspecified; Z88.0 Allergy status to penicillin; I10 Essential (primary) hypertension; Z87.891 Personal history of nicotine dependence; C34.12 Malignant neoplasm of upper lobe, left bronchus or lung; Z92.3 Personal history of irradiation; K22.2 Esophageal obstruction; E11.9 Type 2 diabetes mellitus without complications; E78.5 Hyperlipidemia, unspecified; Z99.81 Dependence on supplemental oxygen; D61.818 Other pancytopenia; E03.9 Hypothyroidism, unspecified; T45.1X5A Adverse effect of antineoplastic and immunosuppressive drugs, initial encounter; K21.9 Gastro-esophageal reflux disease without esophagitis; Z79.84 Long term (current) use of oral hypoglycemic drugs

== ENCOUNTER 2021-01-23 12:57 | Inpatient (IN) ==
[2021-01-23] MEDS ORDERED: ERTAPENEM SODIUM 10 ML IV STA (13:25)
[2021-01-23] MEDS ORDERED: dexAMETHasone**PF** 10 MG/ML VIAL IV ONE (13:25)
[2021-01-23] MEDS ORDERED: ALBUT/IPRATROP 3MG/0.5MG NEB 3 ML VIAL NEB STA (13:25)
[2021-01-23] MEDS ORDERED: SODIUM CHLORIDE 0.9% 1000ML 1,000 ML IV SCH (13:30)
--- NOTE | 2021-01-23 13:33 | Emergency Department Note ---
Impression & Plan SOB (shortness of breath), Pneumonia, COVID-19, Pancytopenia, Lung cancer ED Provider Note NAME: SHAVONNE BARRON AGE: 75 SEX: F : 1945 ARRIVES VIA: Walk-In INFORMANT: [Patient] ED PROVIDER(S): [Ned Lynch MD] CHIEF COMPLAINT: Short of breath HISTORY OF PRESENT ILLNESS: The patient is a 75-year-old female who presents to the ER with 2 days of some increasing cough, shortness of breath, chills and fever. She has had some intermittent vomiting and diarrhea, most of the vomiting has been mucus. She tested positive for Covid yesterday. She has been vaccinated against COVID-19. The patient's Covid test was done because she was to have chemotherapy this [facility] [place] . As a result of the Covid test results, she cannot have her chemotherapy. She is receiving chemotherapy for lung cancer. The patient still has her taste and smell. She has had no known Covid exposures. She was told by her doctors office to report to the ED for evaluation and hospitalization as she was not felt safe at home. The patient does have COPD. She uses inhalers and nebulizers. She is on 2 L of oxygen chronically. REVIEW OF SYSTEMS: See HPI for pertinent positives and negatives. A total of ten systems were reviewed and were otherwise negative. PMHx/PSHx: See Below SOCIAL HISTORY: See Below. PHYSICAL EXAM: GENERAL: Patient is in no acute distress. HEENT: No acute trauma, normocephalic atraumatic, mucous membranes moist, no nasal congestion, no scleral icterus. NECK: No stridor, no adenopathy, no meningismus, trachea is midline. LUNGS: Diminished breath sounds bilaterally, especially on the left. No obvious respiratory distress, no wheezing. HEART: Without murmurs gallops or rubs, regular rate and rhythm. ABDOMEN: Soft, nontender, bowel sounds positive, no hernias, no peritonitis. EXTREMITIES: No cyanosis, full range of motion of all the joints without pain or difficulty, no signs for acute trauma. NEUROLOGIC: Oriented x 3, no acute motor or sensory deficits, no focal weakness. Upper extremity tremor noted. SKIN: No rash, no jaundice, no diaphoresis. DIFFERENTIAL DIAGNOSIS: Sepsis, UTI, influenza, COVID-19, pneumonia, metabolic abnormality, electrolyte abnormalities, cardiac sources, cellulitis, bacteremia, intracerebral event, toxicologic etiology, neurologic event, as well as other pathologies. EMERGENCY DEPARTMENT COURSE/PROCEDURES: ECG: Indication was shortness of breath. The ECG shows a normal sinus rhythm with some baseline artifact. The rate is 83. There is no ST elevation, no PVCs. The QTc is 444. Continuous Cardiac Monitoring: An order was placed for continuous cardiac monitoring. The monitor shows a rate of 85 with normal sinus rhythm. Critical Care Note: I have personally spent 39 minutes of critical care time in the direct management of this patient. This includes bedside care, interpretat ion of diagnostic studies, and testing, discussion with consultants, patient, and family members, and other required patient management activities. This 39 minutes is in excess of all separately billable procedures. MEDICAL DECISION MAKING: There is a marked leukopenia. The patient is quite neutropenic. Hemoglobin is low at 6.2. Platelet count is quite low at 11. No coagulopathy. Potassium low at 3, magnesium low at 1.3. Creatinine is mildly elevated, consistent with some dehydration. No worrisome liver enzyme elevation. ECG shows a sinus rhythm, no acute ischemia. Cardiac enzyme testing x1 is not consistent with acute cardiac injury. Influenza testing was negative. Covid testing returned positive. Chest film shows bilateral infiltrates consistent with a viral pneumonia. No pneumothorax. Chest CT does not show PE, bilateral infiltrates consistent with a viral pneumonia were noted. The patient was given IV saline, 1 L. She was given IV potassium, IV magnesium, IV ertapenem, IV Decadron and a DuoNeb. She was ordered for a unit of irradi ated packed red blood cells and a transfusion of platelets. She did sign consent for the blood transfusion. I discussed the case with hematology. They suggested the blood transfusion and the platelet transfusion. Medication to boost the white count was also felt reasonable. Patient is in need of a hospital stay. She has multiple issues right now that require attention. She has a severe pancytopenia, she has a low potassium and magnesium, she is dehydrated, she has Covid pneumonia and worsening of her respiratory status. I did speak with the patient at length. I spoke with the counter caser. The on-call hospitalist was consulted. 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 NO LOCKING Surgical History History of appendectomy (~1967) History of breast biopsy (~09/03/12) History of cholecystectomy (~1974) History of colonoscopy 2019 History of esophagogastroduodenoscopy (EGD) History of hysterectomy (~1974) ovaries removed as well History of lithotripsy 2011 Hx of cataract surgery right and left Hx of lumpectomy LEFT BREAST-NO LIMB RESTIRCTIONS Hx of tonsillectomy Family History Sister Diabetes Breast cancer Brother Diabetes Heart disease Father Diabetes Hypertension Lung disease Myocardial infarction Mother Diabetes Hypertension Kidney disease Myocardial infarction Daughter Breast cancer Denies family history of Ovarian cancer Prostate cancer Colorectal cancer Social History Smoking Status: Former smoker Tobacco Type: Cigarettes Age Started Using Tobacco: 17; Age Quit Using Tobacco: 68; Cigarettes Per Day: 20; Number of Years Since Quit: 4; Second Hand Exposure: Yes (SPOUSE SMOKES); Hx Alcohol Use: No Hx Substance Use: No Preferred Language: Citizen Of [place] Communication Ability: Effective Visual Impairment: No Limitations Hearing Ability: Normal Small Electric Engine Technician Required: No Beliefs That Will Affect Care: None marital status: Current Living Situation: Spouse current occupational status: retired current occupation: used to work at [employer] out of [employer] Feels Safe at Home: Yes Childhood Exposure to Second-Hand Smoke: Yes caffeine: Yes during the past year weight has: remained stable Dental Care, Regularly: No Physical Activity Frequency: Does not Exercise Seatbelt Use: always Sunscreen Use: Yes Assistive Devices: Denture - Upper, Denture - Lower and Glasses Allergies Allergies Allergy/AdvReac Type Severity Reaction Status Date / Time Penicillins Allergy Severe RASH AND Verified 01/23/21 14:33 THROAT SWELLING shellfish derived Allergy Severe RASH WELTS Verified 01/23/21 14:33 house dust mite Allergy Mild ALLERGY Verified 01/23/21 14:33 TESTING mold Allergy Mild PER Verified 01/23/21 14:33 ALLERGY TESTS-SNEEZING adhesive AdvReac Intermediate BLISTERS Verified 01/23/21 14:33 WITH TAPE-CLOTH OK aspirin AdvReac Intermediate Rash Verified 01/23/21 14:33 [From Thu-Lesage Plus Cold/Cough] chlorpheniramine AdvReac Intermediate Rash Verified 01/23/21 14:33 [From Thu-Lesage Plus Cold/Cough] dextromethorphan AdvReac Intermediate Rash Verified 01/23/21 14:33 [From Thu-Lesage Plus Cold/Cough] phenylpropanolamine AdvReac Intermediate Rash Verified 01/23/21 14:33 [From Thu-Lesage Plus Cold/Cough] Home Meds Home Medications Medication Instructions Recorded Confirmed calcium carbonate-vitamin D3 600 1 tab PO QAM tab 01/21/19 01/23/21 mg(1,500 mg)-400 unit chewable tablet (Calcium 600 with Vitamin D3) cetirizine 10 mg tablet 10 mg PO QAM tab 01/21/19 01/23/21 ergocalciferol (vitamin D2) 1,250 50,000 units PO WEEKLY cap 01/21/19 01/23/21 mcg (50,000 unit) capsule carboxymethylcellulose sodium 0.5 1 drp OPHTHALMIC (EYE) BID 11/06/19 01/23/21 % eye drops in a dropperette (Refresh Plus) azelastine 137 mcg (0.1 %) nasal 1 spray INTRANASAL BID PRN 10/18/20 01/23/21 spray aerosol sitagliptin 50 mg tablet (Januvia) 50 mg PO QAM 10/18/20 01/23/21 Previous Rx's Medication Instructions Recorded OneTouch Ultra Blue Test Strip #100 ea NS 04/15/19 (blood sugar diagnostic) lancets 33 gauge (OneTouch Delica #100 ea 03/16/20 Lancets) atorvastatin 40 mg tablet 40 mg PO QPM #90 tab 06/28/20 levothyroxine 88 mcg tablet 88 mcg PO QAM #90 tab 08/16/20 metformin 500 mg tablet,extended 2,000 mg PO QAM #120 tab 09/15/20 release 24 hr clonazepam 0.5 mg tablet 0.5 mg PO DAILY PRN #5 tab 10/14/20 Portable Oxygen #1 ea 11/24/20 albuterol sulfate 90 mcg/actuation 2 puff INHALATION Q6H PRN #8.5 g 11/24/20 aerosol inhaler (Ventolin HFA) umeclidinium 62.5 mcg-vilanterol 1 inh INHALATION QAM #60 ea 11/24/20 25 mcg/actuation powdr for inhalation (Anoro Ellipta) glipizide 5 mg tablet 5 mg PO QAM #90 tab 11/25/20 Magic Mouthwash 300 mL mouthwash 10 ml MUCOUS MEMBRANE .COMPLEX 12/06/20 #300 ml sucralfate 1 gram tablet (Carafate) 1 g PO Q6H #120 tab 12/10/20 pantoprazole 40 mg tablet,delayed 40 mg PO BID 30 Days #60 tab 12/23/20 release montelukast 10 mg tablet 10 mg PO QAM #90 tab 12/27/20 (Singulair) codeine 10 mg-guaifenesin 100 mg/5 5 ml PO Q6H PRN #120 ml 01/07/21 mL oral liquid (Guaiatussin AC) amlodipine 5 mg-benazepril 20 mg 1 cap PO QAM #90 cap 01/18/21 capsule (Lotrel) doxycycline hyclate 100 mg capsule 100 mg PO BID 7 Days #14 cap 01/21/21 Results & Data (ED) Vital Signs Vital Signs - 24 hr 01/23/21 13:01 01/23/21 14:09 01/23/21 14:28 Temperature 36.7 C Temperature Source Temporal Artery Scan Pulse Rate 100 H 83 Pulse Rate [Apical] Respiratory Rate 20 Respiratory Effort / Characteristics Spontaneous Short of Breath Blood Pressure 94/67 L Blood Pressure [Left Arm] Blood Pressure Mean 76 Blood Pressure Mean [Left Arm] Blood Pressure Position [Left Arm] Pulse Oximetry 95 100 Oxygen Delivery Method Room Air Nasal Cannula Nasal Cannula Oxygen Flow Rate 2 2 Sepsis Recent Fever Within 48 Hours No Sepsis New/Unexplained Change in Mental Status No Sepsis Action Taken by Nursing No Action Required Oxygen Flow Rate - Titration Pulse Oximetry Post Tiitration 01/23/21 14:34 01/23/21 15:29 01/23/21 16:12 Temperature Temperature Source Pulse Rate Pulse Rate [Apical] 92 H 86 Respiratory Rate 18 20 22 Respiratory Effort / Characteristics Non-Labored Spontaneous Spontaneous Short of Breath Spontaneous Short of Breath Blood Pressure Blood Pressure [Left Arm] 97/68 L 117/58 L Blood Pressure Mean Blood Pressure Mean [Left Arm] 77 77 Blood Pressure Position [Left Arm] Sitting Sitting Pulse Oximetry 95 93 93 Oxygen Delivery Method Nasal Cannula Nasal Cannula Nasal Cannula Oxygen Flow Rate 2 2 2 Sepsis Recent Fever Within 48 Hours Sepsis New/Unexplained Change in Mental Status Sepsis Action Taken by Nursing Oxygen Flow Rate - Titration Pulse Oximetry Post Tiitration 01/23/21 16:59 Temperature Temperature Source Pulse Rate Pulse Rate [Apical] Respiratory Rate Respiratory Effort / Characteristics Short of Breath Blood Pressure Blood Pressure [Left Arm] Blood Pressure Mean Blood Pressure Mean [Left Arm] Blood Pressure Position [Left Arm] Pulse Oximetry 89 L Oxygen Delivery Method Nasal Cannula Oxygen Flow Rate 4 Sepsis Recent Fever Within 48 Hours Sepsis New/Unexplained Change in Mental Status Sepsis Action Taken by Nursing Oxygen Flow Rate - Titration 4 Pulse Oximetry Post Tiitration 94 Home Medications Current Medication List: was personally reviewed by me Laboratory Data Attestation: I reviewed the patient's lab results. Result diagrams: 01/23/21 15:30 01/23/21 14:01 Lab Results 01/23/21 01/23/21 01/23/21 Range/Units 14:01 14:01 14:01 WBC Cancelled RBC Cancelled Hgb Cancelled Hct Cancelled MCV Cancelled MCH Cancelled MCHC Cancelled RDW Std Deviation Cancelled RDW Coeff of Sari Cancelled Plt Count Cancelled MPV Cancelled Immature Gran % (Auto) Cancelled Neut % (Auto) Cancelled Lymph % (Auto) Cancelled Glynn % (Auto) Cancelled Eos % (Auto) Cancelled Baso % (Auto) Cancelled Neut # (Auto) Cancelled Lymph # (Auto) Cancelled Glynn # (Auto) Cancelled Eos # (Auto) Cancelled Baso # (Auto) Cancelled Immature Gran # (Auto) Cancelled Absolute Nucleated RBC Cancelled Nucleated RBC % (auto) Cancelled Neutrophils % (Manual) Cancelled Band Neutrophils % Cancelled Lymphocytes % (Manual) Cancelled Prolymphocyte % Cancelled Reactive Lymphs % (Man) Cancelled Monocytes % (Manual) Cancelled Eosinophils % (Manual) Cancelled Basophils % (Manual) Cancelled Metamyelocytes % (Man) Cancelled Myelocytes % (Man) Cancelled Promyelocytes % (Man) Cancelled Blast Cells % (Manual) Cancelled Plasma Cell % (Manual) Cancelled Other Cells % Cancelled Nucleated RBC % Cancelled Neutrophils # (Manual) Cancelled Band Neutrophils # Cancelled Total Absolute Neuts Cancelled Lymphocytes # (Manual) Cancelled Prolymphocyte # Cancelled Reactive Lymphs # Cancelled Total Abs Lymphocytes Cancelled Monocytes # (Manual) Cancelled Eosinophils # (Manual) Cancelled Basophils # (Manual) Cancelled Metamyelocytes # (Man) Cancelled Myelocytes # (Manual) Cancelled Promyelocytes # (Man) Cancelled Blast Cells # (Man) Cancelled Plasma Cell # (Manual) Cancelled Other Cells # Cancelled Nucleated RBCs # (Man) Cancelled Hypersegmented Neuts Cancelled Hyposegmented Neuts Cancelled Hypogranular Neuts Cancelled Large Granular Lymphs Cancelled # Lrg Granular Lymphs Cancelled Hairy Cells Cancelled Smudge Cells Cancelled Toxic Granulation Cancelled Toxic Vacuolation Cancelled Dohle Bodies Cancelled Ignacio Rods Cancelled Platelet Estimate Cancelled Hypogranular Platelets Cancelled Clumped Platelets Cancelled Giant Platelets Cancelled Platelet Satelliting Cancelled RBC Morphology Cancelled Polychromasia Cancelled Hypochromasia Cancelled Poikilocytosis Cancelled Basophilic Stippling Cancelled Anisocytosis Cancelled Microcytosis Cancelled Macrocytosis Cancelled Spherocytes Cancelled Pappenheimer Bodies Cancelled Sickle Cells Cancelled Target Cells Cancelled Tear Drop Cells Cancelled Ovalocytes Cancelled Stomatocytes Cancelled [place] Bodies Cancelled Echinocytes Cancelled Acanthocytes (Spur) Cancelled Rouleaux Cancelled RBC Agglutinates Cancelled Schistocytes Cancelled RBC Morph Comment Cancelled Sezary Cell Cancelled PT 10.6 (9.0-12.0) Seconds INR 1.0 (0.9-1.1) APTT 28.7 (21.0-31.0) Seconds PTT Ratio 1.1 Sodium 136 (136-145) mmol/L Potassium 3.0 L (3.5-5.1) mmol/L Chloride 104 (98-107) mmol/L Carbon Dioxide 18 L (21-32) mmol/L Anion Gap 14.0 H (3-11) BUN 35 H (7-18) mg/dl Creatinine 1.51 H (0.6-1.2) mg/dl Est Cr Clr Drug Dosing 36.1 ml/min Est GFR ( Amer) 39.3 ml/min Est GFR (Non-Af Amer) 33.9 ml/min BUN/Creatinine Ratio 22.9 H (10-20) Glucose 169 H (70-99) mg/dl Lactate (0.4-2.0) mmol/L Calcium 8.7 (8.5-10.1) mg/dl Magnesium 1.3 L (1.8-2.4) mg/dl Total Bilirubin 0.6 (0.2-1) mg/dl AST 36 (15-37) U/L ALT 26 (12-78) U/L Alkaline Phosphatase 63 (45-117) U/L Troponin I < 0.015 (0-0.045) ng/ml Total Protein 7.1 (6.4-8.2) gm/dl Albumin 2.9 L (3.4-5.0) gm/dl Globulin 4.2 H (2.5-4.0) gm/dl Albumin/Globulin Ratio 0.7 L (0.9-2) Procalcitonin (0-0.5) ng/ml COVID-19 Eval Order SARS-CoV-2 (PCR) (Negative) Influ A Molecular Assay (Negative) Influ B Molecular Assay (Negative) Crossmatch 01/23/21 01/23/21 01/23/21 Range/Units 14:01 14:01 14:01 WBC RBC Hgb Hct MCV MCH MCHC RDW Std Deviation RDW Coeff of Sari Plt Count MPV Immature Gran % (Auto) Neut % (Auto) Lymph % (Auto) Glynn % (Auto) Eos % (Auto) Baso % (Auto) Neut # (Auto) Lymph # (Auto) Glynn # (Auto) Eos # (Auto) Baso # (Auto) Immature Gran # (Auto) Absolute Nucleated RBC Nucleated RBC % (auto) Neutrophils % (Manual) Band Neutrophils % Lymphocytes % (Manual) Prolymphocyte % Reactive Lymphs % (Man) Monocytes % (Manual) Eosinophils % (Manual) Basophils % (Manual) Metamyelocytes % (Man) Myelocytes % (Man) Promyelocytes % (Man) Blast Cells % (Manual) Plasma Cell % (Manual) Other Cells % Nucleated RBC % Neutrophils # (Manual) Band Neutrophils # Total Absolute Neuts Lymphocytes # (Manual) Prolymphocyte # Reactive Lymphs # Total Abs Lymphocytes Monocytes # (Manual) Eosinophils # (Manual) Basophils # (Manual) Metamyelocytes # (Man) Myelocytes # (Manual) Promyelocytes # (Man) Blast Cells # (Man) Plasma Cell # (Manual) Other Cells # Nucleated RBCs # (Man) Hypersegmented Neuts Hyposegmented Neuts Hypogranular Neuts Large Granular Lymphs # Lrg Granular Lymphs Hairy Cells Smudge Cells Toxic Granulation Toxic Vacuolation Dohle Bodies Ignacio Rods Platelet Estimate Hypogranular Platelets Clumped Platelets Giant Platelets Platelet Satelliting RBC Morphology Polychromasia Hypochromasia Poikilocytosis Basophilic Stippling Anisocytosis Microcytosis Macrocytosis Spherocytes Pappenheimer Bodies Sickle Cells Target Cells Tear Drop Cells Ovalocytes Stomatocytes [place] Bodies Echinocytes Acanthocytes (Spur) Rouleaux RBC Agglutinates Schistocytes RBC Morph Comment Sezary Cell PT (9.0-12.0) Seconds INR (0.9-1.1) APTT (21.0-31.0) Seconds PTT Ratio Sodium (136-145) mmol/L Potassium (3.5-5.1) mmol/L Chloride (98-107) mmol/L Carbon Dioxide (21-32) mmol/L Anion Gap (3-11) BUN (7-18) mg/dl Creatinine (0.6-1.2) mg/dl Est Cr Clr Drug Dosing ml/min Est GFR ( Amer) ml/min Est GFR (Non-Af Amer) ml/min BUN/Creatinine Ratio (10-20) Glucose (70-99) mg/dl Lactate 1.0 (0.4-2.0) mmol/L Calcium (8.5-10.1) mg/dl Magnesium (1.8-2.4) mg/dl Total Bilirubin (0.2-1) mg/dl AST (15-37) U/L ALT (12-78) U/L Alkaline Phosphatase (45-117) U/L Troponin I (0-0.045) ng/ml Total Protein (6.4-8.2) gm/dl Albumin (3.4-5.0) gm/dl Globulin (2.5-4.0) gm/dl Albumin/Globulin Ratio (0.9-2) Procalcitonin 0.11 (0-0.5) ng/ml COVID-19 Eval Order SARS-CoV-2 (PCR) (Negative) Influ A Molecular Assay Negative (Negative) Influ B Molecular Assay Negative (Negative) Crossmatch 01/23/21 01/23/21 01/23/21 Range/Units 14:01 14:01 15:30 WBC 0.18 L* RBC 1.87 L Hgb 6.2 L* Hct 17.2 L* MCV 92.0 MCH 33.2 MCHC 36.0 RDW Std Deviation 60.8 H RDW Coeff of Sari 18.2 H Plt Count 11 L* MPV 11.8 H Immature Gran % (Auto) 0.0 Neut % (Auto) 5.5 Lymph % (Auto) 77.8 Glynn % (Auto) 16.7 Eos % (Auto) 0.0 Baso % (Auto) 0.0 Neut # (Auto) 0.01 L* Lymph # (Auto) 0.14 L Glynn # (Auto) 0.03 L Eos # (Auto) 0.00 Baso # (Auto) 0.00 Immature Gran # (Auto) 0.00 Absolute Nucleated RBC Nucleated RBC % (auto) Neutrophils % (Manual) Band Neutrophils % Lymphocytes % (Manual) Prolymphocyte % Reactive Lymphs % (Man) Monocytes % (Manual) Eosinophils % (Manual) Basophils % (Manual) Metamyelocytes % (Man) Myelocytes % (Man) Promyelocytes % (Man) Blast Cells % (Manual) Plasma Cell % (Manual) Other Cells % Nucleated RBC % Neutrophils # (Manual) Band Neutrophils # Total Absolute Neuts Lymphocytes # (Manual) Prolymphocyte # Reactive Lymphs # Total Abs Lymphocytes Monocytes # (Manual) Eosinophils # (Manual) Basophils # (Manual) Metamyelocytes # (Man) Myelocytes # (Manual) Promyelocytes # (Man) Blast Cells # (Man) Plasma Cell # (Manual) Other Cells # Nucleated RBCs # (Man) Hypersegmented Neuts Hyposegmented Neuts Hypogranular Neuts Large Granular Lymphs # Lrg Granular Lymphs Hairy Cells Smudge Cells Toxic Granulation Toxic Vacuolation Dohle Bodies Ignacio Rods Platelet Estimate SIGNIFIC DECREASED Hypogranular Platelets Clumped Platelets Giant Platelets Platelet Satelliting RBC Morphology Polychromasia Hypochromasia Poikilocytosis Basophilic Stippling Anisocytosis Microcytosis Macrocytosis Spherocytes Pappenheimer Bodies Sickle Cells Target Cells Tear Drop Cells 1+ Ovalocytes Stomatocytes Brand[place] Bodies Echinocytes Acanthocytes (Spur) Rouleaux RBC Agglutinates Schistocytes RBC Morph Comment Sezary Cell PT (9.0-12.0) Seconds INR (0.9-1.1) APTT (21.0-31.0) Seconds PTT Ratio Sodium (136-145) mmol/L Potassium (3.5-5.1) mmol/L Chloride (98-107) mmol/L Carbon Dioxide (21-32) mmol/L Anion Gap (3-11) BUN (7-18) mg/dl Creatinine (0.6-1.2) mg/dl Est Cr Clr Drug Dosing ml/min Est GFR ( Amer) ml/min Est GFR (Non-Af Amer) ml/min BUN/Creatinine Ratio (10-20) Glucose (70-99) mg/dl Lactate (0.4-2.0) mmol/L Calcium (8.5-10.1) mg/dl Magnesium (1.8-2.4) mg/dl Total Bilirubin (0.2-1) mg/dl AST (15-37) U/L ALT (12-78) U/L Alkaline Phosphatase (45-117) U/L Troponin I (0-0.045) ng/ml Total Protein (6.4-8.2) gm/dl Albumin (3.4-5.0) gm/dl Globulin (2.5-4.0) gm/dl Albumin/Globulin Ratio (0.9-2) Procalcitonin (0-0.5) ng/ml COVID-19 Eval Order Covid19 at [facility] SARS-CoV-2 (PCR) POSITIVE A* (Negative) Influ A Molecular Assay (Negative) Influ B Molecular Assay (Negative) Crossmatch 01/23/21 Range/Units 16:53 WBC RBC Hgb Hct MCV MCH MCHC RDW Std Deviation RDW Coeff of Sari Plt Count MPV Immature Gran % (Auto) Neut % (Auto) Lymph % (Auto) Glynn % (Auto) Eos % (Auto) Baso % (Auto) Neut # (Auto) Lymph # (Auto) Glynn # (Auto) Eos # (Auto) Baso # (Auto) Immature Gran # (Auto) Absolute Nucleated RBC Nucleated RBC % (auto) Neutrophils % (Manual) Band Neutrophils % Lymphocytes % (Manual) Prolymphocyte % Reactive Lymphs % (Man) Monocytes % (Manual) Eosinophils % (Manual) Basophils % (Manual) Metamyelocytes % (Man) Myelocytes % (Man) Promyelocytes % (Man) Blast Cells % (Manual) Plasma Cell % (Manual) Other Cells % Nucleated RBC % Neutrophils # (Manual) Band Neutrophils # Total Absolute Neuts Lymphocytes # (Manual) Prolymphocyte # Reactive Lymphs # Total Abs Lymphocytes Monocytes # (Manual) Eosinophils # (Manual) Basophils # (Manual) Metamyelocytes # (Man) Myelocytes # (Manual) Promyelocytes # (Man) Blast Cells # (Man) Plasma Cell # (Manual) Other Cells # Nucleated RBCs # (Man) Hypersegmented Neuts Hyposegmented Neuts Hypogranular Neuts Large Granular Lymphs # Lrg Granular Lymphs Hairy Cells Smudge Cells Toxic Granulation Toxic Vacuolation Dohle Bodies Ignacio Rods Platelet Estimate Hypogranular Platelets Clumped Platelets Giant Platelets Platelet Satelliting RBC Morphology Polychromasia Hypochromasia Poikilocytosis Basophilic Stippling Anisocytosis Microcytosis Macrocytosis Spherocytes Pappenheimer Bodies Sickle Cells Target Cells Tear Drop Cells Ovalocytes Stomatocytes Brand[place] Bodies Echinocytes Acanthocytes (Spur) Rouleaux RBC Agglutinates Schistocytes RBC Morph Comment Sezary Cell PT (9.0-12.0) Seconds INR (0.9-1.1) APTT (21.0-31.0) Seconds PTT Ratio Sodium (136-145) mmol/L Potassium (3.5-5.1) mmol/L Chloride (98-107) mmol/L Carbon Dioxide (21-32) mmol/L Anion Gap (3-11) BUN (7-18) mg/dl Creatinine (0.6-1.2) mg/dl Est Cr Clr Drug Dosing ml/min Est GFR ( Amer) ml/min Est GFR (Non-Af Amer) ml/min BUN/Creatinine Ratio (10-20) Glucose (70-99) mg/dl Lactate (0.4-2.0) mmol/L Calcium (8.5-10.1) mg/dl Magnesium (1.8-2.4) mg/dl Total Bilirubin (0.2-1) mg/dl AST (15-37) U/L ALT (12-78) U/L Alkaline Phosphatase (45-117) U/L Troponin I (0-0.045) ng/ml Total Protein (6.4-8.2) gm/dl Albumin (3.4-5.0) gm/dl Globulin (2.5-4.0) gm/dl Albumin/Globulin Ratio (0.9-2) Procalcitonin (0-0.5) ng/ml COVID-19 Eval Order SARS-CoV-2 (PCR) (Negative) Influ A Molecular Assay (Negative) Influ B Molecular Assay (Negative) Crossmatch See Detail Administered Medications Discontinued Medications Albuterol (Albut/Ipratrop 3mg/0.5mg Neb 3 Ml Vial) 3 ml NEB NOW STA Stop: 01/23/21 13:26 Last Admin: 01/23/21 14:33 Dose: 3 ml Documented by: [id number] Dexamethasone Sodium Phosphate (DexamethasonePf 10 Mg/Ml Vial) 6 mg IV NOW ONE Stop: 01/23/21 13:26 Last Admin: 01/23/21 15:19 Dose: 6 mg Documented by: [id number] Sodium Chloride (Nss 1000ml) 1,000 mls @ 999 mls/hr IV .Q1H1M MAYRA Stop: 01/23/21 14:30 Last Admin: 01/23/21 15:17 Dose: 999 mls/hr Documented by: [id number] Ertapenem (Invanz) 10 mls @ 2 mls/min IV NOW STA Stop: 01/23/21 13:29 Last Admin: 01/23/21 15:22 Dose: 2 mls/min Documented by: [id number] Potassium Chloride (K Gasper / Wtr) 10 meq in 100 mls @ 100 mls/hr IV ONE ONE Stop: 01/23/21 15:45 Last Infusion: 01/23/21 16:17 Dose: 0 mls/hr Documented by: [id number] Admin: 01/23/21 15:17 Dose: 100 mls/hr Documented by: [id number] Magnesium Sulfate/Dextrose (Magnesium Sulfate / D5w) 1 gm in 100 mls @ 100 mls/hr IV Q1H MAYRA Stop: 01/23/21 16:45 Last Admin: 01/23/21 16:25 Dose: 100 mls/hr Documented by: [id number] Infusion: 01/23/21 16:25 Dose: 0 mls/hr Documented by: [id number] Admin: 01/23/21 15:18 Dose: 100 mls/hr Documented by: [id number] Ioversol (Optiray 320 125ml) 92 ml IV ONCE ONE Stop: 01/23/21 15:53 Last Admin: 01/23/21 15:53 Dose: 92 ml Documented by: [id number] Imaging Data Radiologist's Impression: Chest X-Ray 01/23/21 13:25 XR chest 1V portable CLINICAL HISTORY: SEPSIS TECHNIQUE: Single frontal radiograph of the chest was obtained. Comparison: Comparison is made to chest one view 12/14/2020 FINDINGS: Port catheter is unchanged. The cardiomediastinal silhouette is normal. Left g reater than right lower lung predominant airspace opacities are seen. No evidence of pleural effusion or pneumothorax. IMPRESSION: Left greater than right lower lung predominant airspace opacities which may represent atelectasis, pneumonia, and/or aspiration. ACT 112: Negative or not required by law. Electronically signed by: Babak Muhammad M.D. 01/23/2021 2:28 PM Chest CTA 01/23/21 15:14 CT angio chest PE protocol CLINICAL HISTORY: PE, covid and lung cancer TECHNIQUE: Multidetector row helical CT of the chest was performed. Coronal and sagittal reformations were obtained. Automated dose lowering techniques and/or adjustment according to patient size were utilized for this exam. Comparison: Comparison is made to chest one view 01/23/[address] chest 12/15/2020 FINDINGS: Lungs and pleura: Diffuse centrilobular emphysema is seen most prominent in the upper lobes. Scattered cystic and reticular scarring changes are seen. Possible groundglass opacities most prominent in the lingula. Heart and pericardium: Heart size is normal. No pericardial effusion. Vessels: No evidence of pulmonary embolism. Mediastinum and karan: Unremarkable. Chest wall and lower neck: Unremarkable. Abdomen: A hiatal hernia is seen. Bones: Unremarkable. IMPRESSION: 1. No evidence of pulmonary embolism. 2. Emphysematous and cystic changes are again seen. Interval development of increased groundglass and/or interstitial opacities in the lingula and left lung base which may represent infectious/inflammatory process. ACT 112: Negative or not required by law. Electronically signed by: Babak Muhammad M.D. 01/23/2021 4:14 PM Discharge Plan Visit Data Chief Complaint: Shortness of Breath/Dyspnea Stated Complaint: COVID+,SOB ED Provider: Ned Lynch Discharge Problem: SOB (shortness of breath), Pneumonia, COVID-19, Pancytopenia, Lung cancer Patient Disposition: Admitted As Inpatient Condition: Serious Forms Stand Alone Forms: [facility] Prescriptions Prescriptions: No Action (DME) OneTouch Ultra Blue Test Strip Strip See Rx Instructions .ROUTE .MEDSUPPLY Qty: 100 RF: 3 (DME) lancets [OneTouch Delica Lancets] 33 gauge misc See Rx Instructions .ROUTE .MEDSUPPLY Qty: 100 RF: 3 atorvastatin 40 mg tablet 40 mg PO QPM Qty: 90 RF: 3 metformin 500 mg tablet extended release 24 hr 2,000 mg PO QAM Qty: 120 RF: 5 clonazepam 0.5 mg tablet 0.5 mg PO DAILY PRN (Reason: anxiety) Qty: 5 RF: 0 glipizide 5 mg tablet 5 mg PO QAM Qty: 90 RF: 3 Magic Mouthwash 300 mL mouthwash 10 ml mucous membrane .COMPLEX Qty: 300 RF: 1 sucralfate [Carafate] 1 gram tablet 1 g PO Q6H Qty: 120 RF: 4 montelukast [Singulair] 10 mg tablet 10 mg PO QAM Qty: 90 RF: 3 codeine-guaifenesin [Guaiatussin AC] 10-100 mg/5 mL liquid 5 ml PO Q6H PRN (Reason: cough) Qty: 120 RF: 0 amlodipine-benazepril [Lotrel] 5-20 mg capsule 1 cap PO QAM Qty: 90 RF: 3 Calcium 600 with Vitamin D3 600 mg(1,500mg) -400 unit tablet,chewable 1 tab PO QAM RF: 0 ergocalciferol (vitamin D2) 50,000 unit capsule 50,000 units PO WEEKLY RF: 0 cetirizine 10 mg tablet 10 mg PO QAM RF: 0 Refresh Plus 0.5 % dropperette 1 drp ophthalmic (eye) BID RF: 0 levothyroxine 88 mcg tablet 88 mcg PO QAM Qty: 90 RF: 3 doxycycline hyclate 100 mg capsule 100 mg PO BID 7 Days Qty: 14 RF: 0 albuterol sulfate [Ventolin HFA] 90 mcg/actuation HFA aerosol inhaler 2 puff INHALATION Q6H PRN (Reason: Wheezing) Qty: 8.5 RF: 3 Anoro Ellipta 62.5-25 mcg/actuation blister with device 1 inh inhalation QAM Qty: 60 RF: 5 (DME) Portable Oxygen Misc See Rx Instructions .MEDSUPPLY Qty: 1 RF: 0 azelastine 137 mcg (0.1 %) aerosol,spray 1 spray intranasal BID PRN (Reason: Congestion) RF: 0 Januvia 50 mg tablet 50 mg PO QAM RF: 0 pantoprazole 40 mg tablet,delayed release (DR/EC) 40 mg PO BID 30 Days Qty: 60 RF: 0 Referrals Referrals: Gayathri Parnell CRNP [Primary Care Provider] -
[2021-01-23 14:27] LABS: Partial Thromboplastin Ratio 1.1; Partial Thromboplastin Time 28.7 Seconds (21.0-31.0); Prothrombin Time 10.6 Seconds (9.0-12.0)
--- NOTE | 2021-01-23 14:29 | XRay Report ---
XR chest 1V portable CLINICAL HISTORY: SEPSIS TECHNIQUE: Single frontal radiograph of the chest was obtained. Comparison: Comparison is made to chest one view 12/14/2020 FINDINGS: Port catheter is unchanged. The cardiomediastinal silhouette is normal. Left greater than right lower lung predominant airspace opacities are seen. No evidence of pleural effusion or pneumothorax. IMPRESSION: Left greater than right lower lung predominant airspace opacities which may represent atelectasis, pn eumonia, and/or aspiration. ACT 112: Negative or not required by law. Electronically signed by: Babak Muhammad M.D. 01/23/2021 2:28 PM
[2021-01-23 14:39] LABS: Influenza A virus by PCR Negative (Negative); Influenza B virus by PCR Negative (Negative)
[2021-01-23 14:41] LABS: Alanine Aminotransferase 26 U/L (12-78); Albumin Level 2.9 gm/dl (3.4-5.0); Aspartate Aminotransferase 36 U/L (15-37); BUN Creatinine Ratio 22.9 (10-20); Blood Urea Nitrogen 35 mg/dl (7-18); Calcium 8.7 mg/dl (8.5-10.1); Carbon Dioxide 18 mmol/L (21-32); Chloride 104 mmol/L (98-107); Creatinine Clr Calc Pharmacy 36.1 ml/min; Est GFR (African American) 39.3 ml/min; Est GFR (Non-African American) 33.9 ml/min; Glucose 169 mg/dl (70-99); Magnesium 1.3 mg/dl (1.8-2.4); Sodium 136 mmol/L (136-145)
[2021-01-23 14:45] LABS: Albumin Globulin Ratio 0.7 (0.9-2); Alkaline Phosphatase 63 U/L (45-117); Bilirubin,Total 0.6 mg/dl (0.2-1); Globulin 4.2 gm/dl (2.5-4.0); Total Protein 7.1 gm/dl (6.4-8.2); Troponin I < 0.015 ng/ml (0-0.045)
[2021-01-23] MEDS ORDERED: POTASSIUM CHLORIDE / WTR 10 MEQ/100 ML PLCT IV ONE (14:46)
[2021-01-23] MEDS: MAGNESIUM SULFATE / D5W 1 GM/100 ML BAG IV SCH ×2 (15:18→16:25)
[2021-01-23] MEDS ORDERED: OPTIRAY 320 125ml IV ONE (15:52)
--- NOTE | 2021-01-23 16:15 | CT Scan Report ---
CT angio chest PE protocol CLINICAL HISTORY: PE, covid and lung cancer TECHNIQUE: Multidetector row helical CT of the chest was performed. Coronal and sagittal reformations were obtained. Automated dose lowering techniques and/or adjustment according to patient size were u tilized for this exam. Comparison: Comparison is made to chest one view 01/23/[address] chest 12/15/2020 FINDINGS: Lungs and pleura: Diffuse centrilobular emphysema is seen most prominent in the upper lobes. Scattere d cystic and reticular scarring changes are seen. Possible groundglass opacities most prominent in th e lingula. Heart and pericardium: Heart size is normal. No pericardial effusion. Vessels: No evidence of pulmonary embolism. Mediastinum and karan: Unremarkable. Chest wall and lower neck: Unremarkable. Abdomen: A hiatal hernia is seen. Bones: Unremarkable. IMPRESSION: 1. No evidence of pulmonary embolism. 2. Emphysematous and cystic changes are again seen. Interval development of increased groundglass an d/or interstitial opacities in the lingula and left lung base which may represent infectious/inflamma tory process. ACT 112: Negative or not required by law. Electronically signed by: Babak Muhammad M.D. 01/23/2021 4:14 PM
[2021-01-23 16:17] LABS: Hematocrit (blood only) 17.2 % (37-47); Hemoglobin 6.2 g/dL (12.0-16.0); Lymphocytes # (auto) 0.14 K/uL (1.2-3.4); Lymphocytes % (auto) 77.8 %; Mean Corpuscular Hemoglobin 33.2 pg (25-34); Mean Platelet Volume 11.8 fL (7.4-10.4); Monocytes # (auto) 0.03 K/uL (0.11-0.59); Monocytes % (auto) 16.7 %; Neutrophils # (auto) 0.01 K/uL (1.4-6.5); Neutrophils % (auto) 5.5 %; Platelet Count 11 K/uL (130-400); Platelet Estimate SIGNIFIC DECREASED (Normal); RDW Coefficient of Variation 18.2 % (11.5-14.5); RDW Standard Deviation 60.8 fL (36.4-46.3); Red Blood Count 1.87 M/uL (4.2-5.4); Tear Drop Cells 1+; White Blood Count 0.18 K/uL (4.8-10.8)
[2021-01-23] MEDS ORDERED: SODIUM CHLORIDE 0.9% 250 ML IV PRN (16:50)
[2021-01-23] MEDS ORDERED: MAGNESIUM HYDROXIDE SUSP 30 ML UDC PO PRN (17:32)
[2021-01-23] MEDS ORDERED: POLYETHYLENE (MIRALAX) 17 GM PACK PO PRN (17:32)
[2021-01-23] MEDS ORDERED: ALUMINUM/MAGNESIUM SUSP 30 ML UDC PO PRN (17:32)
[2021-01-23] MEDS ORDERED: ONDANSETRON INJ 2 MG/ML 2 ML VIAL IV PRN (17:32)
[2021-01-23] MEDS ORDERED: clonazePAM 0.5 MG TAB PO PRN (17:38)
[2021-01-23] MEDS ORDERED: AZELASTINE HCL 0.1% NASAL 200 SPRAYS/27,400 MCG BTL NAE PRN (17:38)
[2021-01-23] MEDS ORDERED: GLUCOSE 10 TABS/TUBE PO PRN (17:40)
[2021-01-23] MEDS ORDERED: GLUCOSE 40% GEL 15 GM TUBE PO PRN (17:40)
[2021-01-23] MEDS ORDERED: DEXTROSE 50% 50 ML SYRINGE IV PRN (17:40)
[2021-01-23] MEDS ORDERED: CARBOHYDRATES FOR HYPOGLYCEMIA PO PRN (17:40)
[2021-01-23] MEDS ORDERED: GLUCAGON FOR INJ 1 MG VIAL SQ PRN (17:40)
[2021-01-23] MEDS ORDERED: NON-FORMULARY MEDICATION (Magic Mouthwash 300 mL mouthwash) mucous membrane SCH (17:45)
[2021-01-23] MEDS ORDERED: POTASSIUM CHLORIDE / WTR 10 MEQ/100 ML PLCT IV STA (17:47)
--- NOTE | 2021-01-23 19:47 | History & Physical Report ---
Date of Service January 23, 2021 Assessment & Plan (1) COVID-19: Plan: - Symptom start on 01/21 with nasal congestion/cough - tested positive 01/22 with progression of cough, SOB, weakness -- Was given Doxycycline as outpatient while awaiting COVID results - CTA - no evidence of pulmonary embolism; emphysematous and cystic changes with interval development of increased groundglass and/or interstitial opacities in the lingula and L lung base - Continue O2 supplemental support - does have baseline emphysema requiring intermittent 2 L NC at home - saturation goal 90% - Decadron 6 mg IV x 10 days - eGFR at 36 - hold Remdesivir at this time but if GFR improves on next lab draw could consider implementation - Duonebs - Invanz 1 g IV daily - Will hold on additional fluid resuscitation as blood products will be supplied to prevent volume overload given COVID - however has a very weakened immune system which may give some benefit to not produce a severe immunological response resulting in ARDs...etc (2) Acute on chronic respiratory failure with hypoxemia: Plan: - In the setting of acute on chronic anemia, small cell lung CA, and COVID superimposed on chronic emphysema - Utilizes 2 L NC PRN as outpatient - Anion gap 14 - Treatment as above; monitor for volume overload in setting of COVID (3) Pancytopenia: Plan: - Last chemotherapy on 06 January; now with COVID - likely both contributing - On admission - WBC 0.18, Hgb 6.2, Plts 11; Neutrophils 0.01 - ED discussed with Heme/Onc - recommended transfusion -- Discussed with heme - give Neupogen 480 mcg SC x 3 days - Reassess labs in AM - Neutropenic precautions - Given risk for DVT/PE due to cancer and now COVID increasing risk for thrombotic event - will monitor. Given platelets of 11 would be hesitant to anti-coagulate at this time -- Had mild hemoptysis which is likely due to frequent coughing in the setting of thrombocytopenia but otherwise no reports to suggest bleeding issue (no melena/hematochezia/hematuria) -- Could consider anticoagulation pending stabilization of platelets (4) Chronic kidney disease: Plan: - Baseline appears around 1.3-1.5 - Currently at 1.51 - assess after blood transfusion - K and magnesium low - replete as necessary - Anion gap 14 (5) Small cell lung cancer, left upper lobe: Plan: - Follows with [facility] for chemotherapy and radiation - Completed radiation treatments; last chemotherapy on 01/06 - Was to resume chemotherapy tomorrow per patient (6) Hypothyroidism: Plan: - TSH is WNL in Nov 2020 - Continue Levothyroxine 88 mcg daily (7) GERD (gastroesophageal reflux disease): Plan: - Also with 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 - dilatation last admission on 12/21 - Hold orals given some discomfort with swallowing pills currently - Famotidine 20 mg IV BID due to Protonix shortages - Will do full liquids - if tolerating could advance to soft/easy to chew foods (states she eats mashed potatoes, soft veggies...) (8) Hypertension: Plan: - Hold amlodipine-benazepril due to softer BPs and Cr elevation (9) Diabetes mellitus, type 2: Plan: - Hold oral regimen; per PCP note patient stopped glipizide and Januvia - Lantus 10 units daily and SSI - will monitor needs and adjust accordingly (10) COPD with emphysema: Plan: - Treatment as above Plan: CODE STATUS: Full -- Did discuss this with her and she said yes to CPR immediately. She said she would have to think about intubation as she would not want to be on a ventilator for a prolonged period of time. Explained that we cannot predict the length of ventilator need if you were to be intubated. Explained given her lung cancer, COPD, and now COVID she could have worsening breathing requiring more aggressive intervention. When asked, if she should stop breathing right now would you want intubation she said yes if it was to acutely help her. Disposition: - Lives at home with - updated him this evening History of Present Illness Chief Complaint: COVID +; Worsening SOB/Cough/Weakness Primary Care Provider: HILDA Tristan Ms. Rivers is a 75 y/o female with PMHx of Small Cell Lung CA, Hypothyroidism, T2DM, HLD, Emphysema, CKD, GERD, and Esophageal Stenosis (Requires dilation due to radiation) who presents to the ED due to being COVID + with worsening SOB/cough/weakness today. Patient has completed a course of radiation approx. one month ago. Her last chemotherapy with etoposide and cisplatin was 06 January 2021. She was supposed to resume chemotherapy per patient report on Sunday. She states she was in her normal state of health until 21 January when she developed nasal congestion and a cough. She was instructed to get COVID testing and was prescribed Doxycycline while awaiting results. She tested positive on 22 January. Due to her esophagitis she was unable to tolerate Doxycycline. Today, patient was more weak and became febrile at 101. She was 90% on room air and does check her saturations at home as she does use 2 L as needed based on her saturations. She has not had much of an appetite which is not new. She underwent esophageal dilation last admission (December 21). While in the ED, she did have some small amounts of hemoptysis. She reports her breathing feels a bit better but she is very fatigued. She was initially only on 2 L NC but after coughing she did desaturate to 89% and was moved to 4 L NC. She was found to be pancytopenic with WBC 0.18, Hgb 6.2, and platelets 11. Neutrophils 0.01. Cr is mildly elevated at 1.51, K at 3.0, mag at 1.3, normal LFTs, normal lactic. She has been vaccinated against COVID-19 and received her influenza vaccine this year. Updated over the phone this evening. Allergies Allergy/AdvReac Type Severity Reaction Status Date / Time Penicillins Allergy Severe RASH AND Verified 01/23/21 14:33 THROAT SWELLING shellfish derived Allergy Severe RASH WELTS Verified 01/23/21 14:33 house dust mite Allergy Mild ALLERGY Verified 01/23/21 14:33 TESTING mold Allergy Mild PER Verified 01/23/21 14:33 ALLERGY TESTS-SNEEZING Fish Containing Products Allergy Verified 01/26/21 15:28 fish derived Allergy Verified 01/26/21 15:28 fish oil Allergy Verified 01/26/21 15:28 adhesive AdvReac Intermediate BLISTERS Verified 01/23/21 14:33 WITH TAPE-CLOTH [place] aspirin AdvReac Intermediate Rash Verified 01/23/21 14:33 [From [facility] Plus Cold/Cough] chlorpheniramine AdvReac Intermediate Rash Verified 01/23/21 14:33 [From [facility] Plus Cold/Cough] dextromethorphan AdvReac Intermediate Rash Verified 01/23/21 14:33 [From [facility] Plus Cold/Cough] phenylpropanolamine AdvReac Intermediate Rash Verified 01/23/21 14:33 [From [place] [facility] Cold/Cough] Home Medications Medication Instructions Recorded Confirmed Type calcium carbonate-vitamin D3 600 1 tab PO QAM tab 01/21/19 01/23/21 History mg(1,500 mg)-400 unit chewable tablet (Calcium 600 with Vitamin D3) cetirizine 10 mg tablet 10 mg PO QAM tab 01/21/19 01/23/21 History ergocalciferol (vitamin D2) 1,250 50,000 units PO WEEKLY cap 01/21/19 01/23/21 History mcg (50,000 unit) capsule [employer] Ultra Blue Test Strip #100 ea NS 04/15/19 01/23/21 Rx (blood sugar diagnostic) carboxymethylcellulose sodium 0.5 1 drp OPHTHALMIC (EYE) BID 11/06/19 01/23/21 History % eye drops in a dropperette (Refresh Plus) lancets 33 gauge (ModaboundTouch Delica #100 ea 03/16/20 01/23/21 Rx Lancets) atorvastatin 40 mg tablet 40 mg PO QPM #90 tab 06/28/20 01/23/21 Rx levothyroxine 88 mcg tablet 88 mcg PO QAM #90 tab 08/16/20 01/23/21 Rx metformin 500 mg tablet,extended 2,000 mg PO QAM #120 tab 09/15/20 01/23/21 Rx release 24 hr clonazepam 0.5 mg tablet 0.5 mg PO DAILY PRN #5 tab 10/14/20 01/23/21 Rx azelastine 137 mcg (0.1 %) nasal 1 spray INTRANASAL BID PRN 10/18/20 01/23/21 History spray aerosol sitagliptin 50 mg tablet (Januvia) 50 mg PO QAM 10/18/20 01/23/21 History Portable Oxygen #1 ea 11/24/20 01/23/21 Rx albuterol sulfate 90 mcg/actuation 2 puff INHALATION Q6H PRN #8.5 g 11/24/20 01/23/21 Rx aerosol inhaler (Ventolin HFA) umeclidinium 62.5 mcg-vilanterol 1 inh INHALATION QAM #60 ea 11/24/20 01/23/21 Rx 25 mcg/actuation powdr for inhalation (Anoro Ellipta) glipizide 5 mg tablet 5 mg PO QAM #90 tab 11/25/20 01/23/21 Rx Magic Mouthwash 300 mL mouthwash 10 ml MUCOUS MEMBRANE .COMPLEX 12/06/20 01/23/21 Rx #300 ml sucralfate 1 gram tablet (Carafate) 1 g PO Q6H #120 tab 12/10/20 01/23/21 Rx pantoprazole 40 mg tablet,delayed 40 mg PO BID 30 Days #60 tab 12/23/20 01/23/21 Rx release montelukast 10 mg tablet 10 mg PO QAM #90 tab 12/27/20 01/23/21 Rx (Singulair) codeine 10 mg-guaifenesin 100 mg/5 5 ml PO Q6H PRN #120 ml 01/07/21 01/23/21 Rx mL oral liquid (Guaiatussin AC) amlodipine 5 mg-benazepril 20 mg 1 cap PO QAM #90 cap 01/18/21 01/23/21 Rx capsule (Lotrel) doxycycline hyclate 100 mg capsule 100 mg PO BID 7 Days #14 cap 01/21/21 01/23/21 Rx Past Med/Surg History Medical History (Updated 01/30/21 @ 05:09 by Abraham Bonilla) Allergic rhinitis due to dust mite Anxiety Cardiomyopathy F/U DR FISHER COPD with emphysema Diabetes mellitus, type 2 Edema of both legs Essential tremor Exertional dyspnea GERD (gastroesophageal reflux disease) Hiatal hernia History of breast cancer chemo and radiation and then oral pill Hyperlipidemia Hypertension Hypothyroidism Kidney stones hx Multiple pulmonary nodules Nausea and vomiting Osteoporosis Secondary polycythemia Small cell lung cancer, 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) Temporomandibular joint disorder NO LOCKING Surgical History History of appendectomy (~1967) History of breast biopsy (~09/03/12) History of cholecystectomy (~1974) History of colonoscopy 2019 History of esophagogastroduodenoscopy (EGD) History of hysterectomy (~1974) ovaries removed as well History of lithotripsy 2011 Hx of cataract surgery right and left Hx of lumpectomy LEFT BREAST-NO LIMB RESTIRCTIONS Hx of tonsillectomy Family History Sister Diabetes Breast cancer Brother Diabetes Heart disease Father Diabetes Hypertension Lung disease Myocardial infarction Mother Diabetes Hypertension Kidney disease Myocardial infarction Daughter Breast cancer Denies family history of Ovarian cancer Prostate cancer Colorectal cancer Social History Smoking Status: Former smoker Tobacco Type: Cigarettes Age Started Using Tobacco: 17; Age Quit Using Tobacco: 68; Cigarettes Per Day: 20; Number of Years Since Quit: 4; Second Hand Exposure: No; Do You Dip or Chew Tobacco: No; Tobacco Cessation Education Requested by Patient: No Hx Alcohol Use: No Hx Substance Use: No Preferred Language: Yakut Communication Ability: Effective Visual Impairment: No Limitations Hearing Ability: Normal Wedding Decorator Required: No Beliefs That Will Affect Care: None marital status: Current Living Situation: Spouse current occupational status: retired current occupation: used to work at [employer] out of [employer] Other Information That Helps Us Care for You: No Feels Safe at Home: Yes Safety Concerns: Feels Safe At This Time Childhood Exposure to Second-Hand Smoke: Yes caffeine: Yes during the past year weight has: remained stable Dental Care, Regularly: No Physical Activity Frequency: Does not Exercise Seatbelt Use: always Sunscreen Use: Yes Assistive Devices: Oxygen - Continuous Review of Systems Review of Systems: All systems reviewed & are unremarkable except as noted in HPI & below Physical Exam Physical Exam: PHYSICAL EXAM General Appearance: Chronically ill appearing but NAD who is A&O x 3 HEENT: Head is normocephalic/atraumatic; Hearing grossly intact; +alopecia Neck: Supple; Trachea midline; Neg JVD Heart: RRR with no M/G/R Lungs: Diffusely diminished with sporadic expiratory wheeze and crackles in bilateral bases; Respirations unlabored; Neg accessory muscle use Abdomen: Soft, non-tender, non-distended; Positive BS x 4 quadrants; Neg organomegaly Extremities: Neg cyanosis or edema Neurological: Speech clear; Gross motor/sensory function intact; Neg focal neurologic deficits Psychiatric: Appropriate mood/affect Skin: Normal Color; Warm/Dry Results & Data Results & Data ([facility]) Vital Signs (Past 12 Hours) Vital Signs Temp Pulse Pulse Resp BP BP Pulse Ox 01/23/21 19:31 37.2 C 82 18 108/63 95 01/23/21 18:55 88 23 106/59 L 96 11/14/21 18:20 23 97 01/23/21 18:00 80 18 102/65 95 01/23/21 17:30 82 23 105/53 L 98 01/23/21 16:59 89 L 01/23/21 16:12 86 22 117/58 L 93 01/23/21 15:29 92 H 20 97/68 L 93 01/23/21 14:34 18 95 01/23/21 14:09 83 100 01/23/21 13:01 36.7 C 100 H 20 94/67 L 95 Code Status & VTE Plan VTE Prophylaxis Plan VTE Prophylaxis will be ordered: Yes Supervising Physician Co-Signing Physician Notes Patient seen and examined, chart reviewed, case discussed with Jenifer Herrera and I agree with the assessment and plan as above except as otherwise noted above. General: A&Ox3. NAD. Cooperative. HEENT: Atraumatic, normocephalic. Pulm: CTAB A&P. -wheezes, -rales, -rhonchi. Symmetrical chest rise. No increase work of breathing. No respiratory distress. Cardiac: RRR, -mrg. Radial pulses intact and symmetrical. Abdominal: Nontender, nondistended, soft. BS present. All labs and images reviewed [Assessment] PG Care Time/CCT Total # of Minutes Spent Total Time Spent with Patient: Total time spent is greater than 50% in coordination of care (as documented) at patient's floor/unit and/or counseling patient: Coding Level of Care Code 65076 Initial Inpt Care Lvl 3 Diagnoses COVID-19 U07.1 Acute on chronic respiratory failure with hypoxemia J96.21 Pancytopenia D61.818 Small cell lung cancer, left upper lobe C34.12 Hypothyroidism E03.9 GERD (gastroesophageal reflux disease) K21.9 Hypertension I10 Diabetes mellitus, type 2 E11.9 COPD with emphysema J43.9 Chronic kidney disease N18.9
[2021-01-23] MEDS ORDERED: SUCRALFATE 1 GM TAB PO SCH (20:00)
[2021-01-23] MEDS: ALBUT/IPRATROP 3MG/0.5MG NEB 3 ML VIAL NEB SCH ×2 (20:03→22:38)
[2021-01-23] MEDS ORDERED: Magic Swizzle w/Glycerin 240mL MT SCH (21:00)
[2021-01-23] MEDS ORDERED: Magic Mouthwash 240mL PO SCH (21:00)
[2021-01-23] MEDS ORDERED: Magic Swizzle w/ Sucralfate 240mL PO SCH (21:00)
[2021-01-23] MEDS: POTASSIUM CHLORIDE / WTR 10 MEQ/100 ML PLCT IV SCH ×2 (21:43→23:00)
[2021-01-23] MEDS: FAMOTIDINE 20 MG in SYRINGE 3 ML IV SCH (21:56)
[2021-01-23] MEDS: ARTIFICIAL TEARS OP SCH (21:57)
[2021-01-23] MEDS: SUCRALFATE 1 GM TAB PO SCH (21:57)
[2021-01-23] MEDS: INSULIN ASPART 100 UNITS/ML 3 ML PEN SC SCH (21:57)
[2021-01-23] MEDS: FILGRASTIM 480 MCG/1.6 ML VIAL SC SCH (22:09)
[2021-01-23] MEDS: LIDOCAINE VISCOUS 2% SOLN 60 ML, diphenhydrAMINE Syrup 150 MG, ALUMINUM/MAGNESIUM SUSP ... MT SCH (22:12)
[2021-01-24] MEDS ORDERED: HEPARIN 100 UNIT/ML 5ML FLUSH FLUSH PRN (00:07)
[2021-01-24] MEDS: ALBUT/IPRATROP 3MG/0.5MG NEB 3 ML VIAL NEB SCH ×2 (02:17→07:40)
--- NOTE | 2021-01-24 05:49 | Electrocardiogram Report ---
Test Reason : Blood Pressure : / mmHG Vent. Rate : 083 BPM Atrial Rate : 083 BPM P-R Int : 116 ms QRS Dur : 094 ms QT Int : 378 ms P-R-T Axes : 045 048 056 degrees QTc Int : 444 ms Normal sinus rhythm Normal ECG When compared with ECG of 13-DEC-2020 16:04, No significant change was found Confirmed by Edgardo Hernandez ([id number]) on 01/24/2021 5:49:23 AM Referred By: REFERRED SELF Confirmed By:Edgardo Hernandez
[2021-01-24] MEDS: LEVOTHYROXINE SODIUM 88 MCG TABLET PO SCH (05:53)
[2021-01-24] MEDS: SUCRALFATE 1 GM TAB PO SCH ×4 (07:57→21:01)
[2021-01-24] MEDS: guaiFENesin/CODEINE 100MG/10MG 5ML UDC PO PRN (08:13)
[2021-01-24 09:08] LABS: BUN Creatinine Ratio 21.3 (10-20); C Reactive Protein 18.5 mg/dl (0-0.29); Calcium 9.3 mg/dl (8.5-10.1); Creatinine Clr Calc Pharmacy 48.6 ml/min; Est GFR (African American) 55.8 ml/min; Est GFR (Non-African American) 48.2 ml/min; Magnesium 1.9 mg/dl (1.8-2.4); Potassium 3.3 mmol/L (3.5-5.1)
[2021-01-24] MEDS: ARTIFICIAL TEARS OP SCH ×2 (09:08→21:02)
[2021-01-24] MEDS: LIDOCAINE VISCOUS 2% SOLN 60 ML, diphenhydrAMINE Syrup 150 MG, ALUMINUM/MAGNESIUM SUSP ... MT SCH ×4 (09:08→21:01)
[2021-01-24] MEDS: ERTAPENEM SODIUM 1,000 MG in SODIUM CHLORIDE 0.9% 50 ML IV SCH (09:09)
[2021-01-24] MEDS: dexAMETHasone 6 MG in SYRINGE 0 ML IV SCH (09:09)
[2021-01-24] MEDS: FAMOTIDINE 20 MG in SYRINGE 3 ML IV SCH ×2 (09:09→21:01)
[2021-01-24 09:21] LABS: Hematocrit (blood only) 21.1 % (37-47); Hemoglobin 7.5 g/dL (12.0-16.0); Mean Corpuscular Hemoglobin 31.9 pg (25-34); Mean Corpuscular Hgb Conc 35.5 g/dL (32-36); Mean Corpuscular Volume 89.8 fL (80-100); Mean Platelet Volume 9.7 fL (7.4-10.4); Nucleated RBC # (auto) 0.02 K/uL (0-0); Nucleated RBC % (auto) 5.4 %; Platelet Count 22 K/uL (130-400); Platelet Estimate SIGNIFIC DECREASED (Normal); RDW Coefficient of Variation 18.5 % (11.5-14.5); RDW Standard Deviation 59.5 fL (36.4-46.3); Red Blood Count 2.35 M/uL (4.2-5.4)
[2021-01-24] MEDS: INSULIN ASPART 100 UNITS/ML 3 ML PEN SC SCH ×4 (10:02→21:01)
[2021-01-24] MEDS: INSULIN GLARGINE SOLOSTAR 100 UNITS/ML 3 ML PEN SC SCH (10:03)
[2021-01-24] MEDS ORDERED: ALBUT/IPRATROP 3MG/0.5MG NEB 3 ML VIAL NEB PRN (10:19)
[2021-01-24] MEDS: POTASSIUM CHLORIDE CRTAB 20 MEQ TABCR PO SCH ×3 (12:23→21:01)
[2021-01-24] MEDS ORDERED: SODIUM CHLORIDE 0.9% 250 ML IV PRN (13:02)
[2021-01-24] MEDS ORDERED: ACETAMINOPHEN 500 MG TAB PO ONE (13:02)
--- NOTE | 2021-01-24 13:14 | Hospitalist Progress Note ---
Date of Service January 24, 2021 Assessment & Plan (1) Pneumonia due to 2019 novel coronavirus: Plan: She is about day #4 into her illness. She has evidence of pneumonia on CT imaging. Day #2 of dexamethasone 6mg daily. She is at high risk of COVID progression given her severely immunocompromised state. Continue supportive care, incentive stephany/flutter valve, etc. Schedule ventolin 2 puffs QID. Supplemental O2 to maintain sats 90-92% in light of COPD. She is on ertapenem daily to cover for possibility of superimposed bacterial process given severe neutropenia. She is likely a Remdesivir candidate. Strongly consider such. (2) Acute on chronic respiratory failure with hypoxemia: Plan: On NC O2 at home, wears it "prn" but uses such on most days. 2nd COPD. Now with acute resp failure 2nd to #1. (3) Antineoplastic chemotherapy induced pancytopenia: Plan: Severe pancytopenia 2nd to recent chemo for left-sided lung cancer. s/p 1 unit PRBCs and 1 unit platelets yesterday. Hb 7.5 today - will give additional unit of PRBCs today. s/p neupogen yesterday for severe neutropenia - will give additional dose of such today. repeat CBC in am. Last chemo treatment was ~1 week ago. (4) Chronic kidney disease, stage 3a: Plan: baseline CrCl 40s/50s BMP in am (5) Small cell lung cancer, left upper lobe: Plan: dx [address] Daniels at [facility] and Dr Castro, radiation onc recent chemo for such as above (6) Diabetes mellitus, type 2: Plan: adjust novolog cont lantus most recent a1c 8.5% in late November hold oral agents (7) COPD with emphysema: Plan: schedule bronchodilators steroids for #1 NC O2 (8) Hyperlipidemia: Plan: holding statin (9) Hypertension: Plan: BPs low-normal thus holding home BP meds (10) GERD (gastroesophageal reflux disease): Plan: resume PPI (11) Hypothyroidism: Plan: TSH in 11/2020 wnl cont synthroid (12) Dysphagia: Plan: 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 requiring dilatation via EGD earlier this fall cont pureed diet (13) Herpes labialis: Plan: zovirax ointment (14) Essential tremor: Plan: severe (15) Cardiomyopathy: Plan: previous echos with EF 45-50% as well as >50% appears compensated today (16) DVT prophylaxis: Plan: chemical means contraindicated (17) Neutropenia: Plan: neutropenic precautions irradiated blood for her PRBCs neupogen again today CBC am Plan: updated by phone 01/24/21 Admission and Anticipated Discharge Date Admission Date: January 23, 2021 Subjective patient complains that her diet is liquids only she reports a previous history of dysphagia but had esophageal dilatation (per EGD in 12/30) for stenosis has been taking pureed foods at home without difficulty since appetite fair only she continues with cough mainly dry, occasional sputum no epistaxis or large volume hemoptysis c/o dyspnea w/ exertion no chest pain, but thinks she needs her inhaler (uses at least once daily) tele overnight wnl Review of Systems Review of Systems: gen - fatigue, chills HENT - no loss of taste/smell CV - no chest pain GI - had nausea earlier today with vomiting Physical Exam Physical Exam: gen - ill-appearing, weak, but no distress HENT - bottom lip with HSV lesion; no mucositis or thrush neck - no JVD heart - RRR, s1 s2 lungs - left-sided basilar rales, occasional wheeze, no increased work of breathing abd - soft NT ND BS+ ext - no edema skin - pallor, no rash psych - a/o x 3 neuro - tremors b/l Results & Data Results & Data ([facility]) Vital Signs (Past 12 Hours) Vital Signs Temp Pulse Resp BP Pulse Ox 01/24/21 12:09 36.9 C 82 17 108/69 93 01/24/21 11:00 19 100 01/24/21 10:00 19 99 01/24/21 09:00 19 98 01/24/21 08:00 36.9 C 81 19 113/61 96 01/24/21 07:41 77 18 97 01/24/21 07:30 19 92 01/24/21 07:00 19 93 01/24/21 06:30 16 92 01/24/21 06:00 16 92 01/24/21 05:30 16 92 01/24/21 05:00 16 92 01/24/21 04:51 36.5 C 52 L 16 96/54 L 92 01/24/21 04:30 18 94 01/24/21 04:00 18 94 01/24/21 03:00 18 94 01/24/21 02:30 18 94 01/24/21 02:17 71 18 94 01/24/21 02:00 18 94 01/24/21 01:30 18 94 Laboratory Results Laboratory Results - last 24 hr 01/23/21 01/24/21 01/24/21 16:53 08:15 08:26 WBC 0.30 L* RBC 2.35 L Hgb 7.5 L Hct 21.1 L MCV 89.8 MCH 31.9 MCHC 35.5 RDW Std Deviation 59.5 H RDW Coeff of Sari 18.5 H Plt Count 22 L* D MPV 9.7 Immature Gran % (Auto) Cancelled Neut % (Auto) Cancelled Lymph % (Auto) Cancelled [place] % (Auto) Cancelled Eos % (Auto) Cancelled Baso % (Auto) Cancelled Neut # (Auto) Cancelled Lymph # (Auto) Cancelled [place] # (Auto) Cancelled Eos # (Auto) Cancelled Baso # (Auto) Cancelled Immature Gran # (Auto) Cancelled Absolute Nucleated RBC 0.02 H Nucleated RBC % (auto) 5.4 Neutrophils % (Manual) Cancelled Band Neutrophils % Cancelled Lymphocytes % (Manual) Cancelled Prolymphocyte % Cancelled Reactive Lymphs % (Man) Cancelled Monocytes % (Manual) Cancelled Eosinophils % (Manual) Cancelled Basophils % (Manual) Cancelled Metamyelocytes % (Man) Cancelled Myelocytes % (Man) Cancelled Promyelocytes % (Man) Cancelled Blast Cells % (Manual) Cancelled Plasma Cell % (Manual) Cancelled Other Cells % Cancelled Nucleated RBC % Cancelled Neutrophils # (Manual) Cancelled Band Neutrophils # Cancelled Total Absolute Neuts Cancelled Lymphocytes # (Manual) Cancelled Prolymphocyte # Cancelled Reactive Lymphs # Cancelled Total Abs Lymphocytes Cancelled Monocytes # (Manual) Cancelled Eosinophils # (Manual) Cancelled Basophils # (Manual) Cancelled Metamyelocytes # (Man) Cancelled Myelocytes # (Manual) Cancelled Promyelocytes # (Man) Cancelled Blast Cells # (Man) Cancelled Plasma Cell # (Manual) Cancelled Other Cells # Cancelled Nucleated RBCs # (Man) Cancelled Hypersegmented Neuts Cancelled Hyposegmented Neuts Cancelled Hypogranular Neuts Cancelled Large Granular Lymphs Cancelled # Lrg Granular Lymphs Cancelled Hairy Cells Cancelled Smudge Cells Cancelled Toxic Granulation Cancelled Toxic Vacuolation Cancelled Dohle Bodies Cancelled Ignacio Rods Cancelled Platelet Estimate SIGNIFIC DECREASED Hypogranular Platelets Cancelled Clumped Platelets Cancelled Giant Platelets Cancelled Platelet Satelliting Cancelled RBC Morphology Cancelled Polychromasia Cancelled Hypochromasia Cancelled Poikilocytosis Cancelled Basophilic Stippling Cancelled Anisocytosis Cancelled Microcytosis Cancelled Macrocytosis Cancelled Spherocytes Cancelled Pappenheimer Bodies Cancelled Sickle Cells Cancelled Target Cells Cancelled Tear Drop Cells Cancelled Ovalocytes Cancelled Stomatocytes Cancelled [place] Bodies Cancelled Echinocytes Cancelled Acanthocytes (Spur) Cancelled Rouleaux Cancelled RBC Agglutinates Cancelled Schistocytes Cancelled RBC Morph Comment Cancelled Sezary Cell Cancelled Sodium Potassium Chloride Carbon Dioxide Anion Gap BUN Creatinine Est Cr Clr Drug Dosing Est GFR ( Amer) Est GFR (Non-Af Amer) BUN/Creatinine Ratio Glucose POC Glucose 210 H Calcium Magnesium AST ALT C-Reactive Protein Blood Type A Positive Antibody Screen NEGATIVE Crossmatch See Detail 01/24/21 01/24/21 01/24/21 08:26 12:18 16:53 WBC RBC Hgb Hct MCV MCH MCHC RDW Std Deviation RDW Coeff of Sari Plt Count MPV Immature Gran % (Auto) Neut % (Auto) Lymph % (Auto) [place] % (Auto) Eos % (Auto) Baso % (Auto) Neut # (Auto) Lymph # (Auto) [place] # (Auto) Eos # (Auto) Baso # (Auto) Immature Gran # (Auto) Absolute Nucleated RBC Nucleated RBC % (auto) Neutrophils % (Manual) Band Neutrophils % Lymphocytes % (Manual) Prolymphocyte % Reactive Lymphs % (Man) Monocytes % (Manual) Eosinophils % (Manual) Basophils % (Manual) Metamyelocytes % (Man) Myelocytes % (Man) Promyelocytes % (Man) Blast Cells % (Manual) Plasma Cell % (Manual) Other Cells % Nucleated RBC % Neutrophils # (Manual) Band Neutrophils # Total Absolute Neuts Lymphocytes # (Manual) Prolymphocyte # Reactive Lymphs # Total Abs Lymphocytes Monocytes # (Manual) Eosinophils # (Manual) Basophils # (Manual) Metamyelocytes # (Man) Myelocytes # (Manual) Promyelocytes # (Man) Blast Cells # (Man) Plasma Cell # (Manual) Other Cells # Nucleated RBCs # (Man) Hypersegmented Neuts Hyposegmented Neuts Hypogranular Neuts Large Granular Lymphs # Lrg Granular Lymphs Hairy Cells Smudge Cells Toxic Granulation Toxic Vacuolation Dohle Bodies Ignacio Rods Platelet Estimate Hypogranular Platelets Clumped Platelets Giant Platelets Platelet Satelliting RBC Morphology Polychromasia Hypochromasia Poikilocytosis Basophilic Stippling Anisocytosis Microcytosis Macrocytosis Spherocytes Pappenheimer Bodies Sickle Cells Target Cells Tear Drop Cells Ovalocytes Stomatocytes [place] Bodies Echinocytes Acanthocytes (Spur) Rouleaux RBC Agglutinates Schistocytes RBC Morph Comment Sezary Cell Sodium 139 Potassium 3.3 L Chloride 110 H Carbon Dioxide 18 L Anion Gap 11.0 BUN 24 H Creatinine 1.13 D Est Cr Clr Drug Dosing 48.6 Est GFR ( Amer) 55.8 Est GFR (Non-Af Amer) 48.2 BUN/Creatinine Ratio 21.3 H Glucose 192 H POC Glucose 162 H 199 H Calcium 9.3 Magnesium 1.9 AST 32 ALT 26 C-Reactive Protein 18.50 H Blood Type Antibody Screen Crossmatch 01/24/21 20:39 WBC RBC Hgb Hct MCV MCH MCHC RDW Std Deviation RDW Coeff of Sari Plt Count MPV Immature Gran % (Auto) Neut % (Auto) Lymph % (Auto) [place] % (Auto) Eos % (Auto) Baso % (Auto) Neut # (Auto) Lymph # (Auto) [place] # (Auto) Eos # (Auto) Baso # (Auto) Immature Gran # (Auto) Absolute Nucleated RBC Nucleated RBC % (auto) Neutrophils % (Manual) Band Neutrophils % Lymphocytes % (Manual) Prolymphocyte % Reactive Lymphs % (Man) Monocytes % (Manual) Eosinophils % (Manual) Basophils % (Manual) Metamyelocytes % (Man) Myelocytes % (Man) Promyelocytes % (Man) Blast Cells % (Manual) Plasma Cell % (Manual) Other Cells % Nucleated RBC % Neutrophils # (Manual) Band Neutrophils # Total Absolute Neuts Lymphocytes # (Manual) Prolymphocyte # Reactive Lymphs # Total Abs Lymphocytes Monocytes # (Manual) Eosinophils # (Manual) Basophils # (Manual) Metamyelocytes # (Man) Myelocytes # (Manual) Promyelocytes # (Man) Blast Cells # (Man) Plasma Cell # (Manual) Other Cells # Nucleated RBCs # (Man) Hypersegmented Neuts Hyposegmented Neuts Hypogranular Neuts Large Granular Lymphs # Lrg Granular Lymphs Hairy Cells Smudge Cells Toxic Granulation Toxic Vacuolation Dohle Bodies Ignacio Rods Platelet Estimate Hypogranular Platelets Clumped Platelets Giant Platelets Platelet Satelliting RBC Morphology Polychromasia Hypochromasia Poikilocytosis Basophilic Stippling Anisocytosis Microcytosis Macrocytosis Spherocytes Pappenheimer Bodies Sickle Cells Target Cells Tear Drop Cells Ovalocytes Stomatocytes [place] Bodies Echinocytes Acanthocytes (Spur) Rouleaux RBC Agglutinates Schistocytes RBC Morph Comment Sezary Cell Sodium Potassium Chloride Carbon Dioxide Anion Gap BUN Creatinine Est Cr Clr Drug Dosing Est GFR ( Amer) Est GFR (Non-Af Amer) BUN/Creatinine Ratio Glucose POC Glucose 198 H Calcium Magnesium AST ALT C-Reactive Protein Blood Type Antibody Screen Crossmatch PG Care Time/CCT Total # of Minutes Spent Total Time Spent with Patient: Total time spent is greater than 50% in coordination of care (as documented) at patient's floor/unit and/or counseling patient: Coding Level of Care Code 42800 Subseq Hosp Care Lvl 3 Diagnoses Pneumonia due to 2019 novel coronavirus U07.1; J12.82 Acute on chronic respiratory failure with hypoxemia J96.21 Antineoplastic chemotherapy induced pancytopenia D61.810; T45.1X5A Chronic kidney disease, stage 3a N18.31 Small cell lung cancer, left upper lobe C34.12 Diabetes mellitus, type 2 E11.9 COPD with emphysema J43.9 Hyperlipidemia E78.5 Hypertension I10 GERD (gastroesophageal reflux disease) K21.9 Hypothyroidism E03.9 Dysphagia R13.10 Herpes labialis B00.1 Essential tremor G25.0 Cardiomyopathy I42.9 Cardiomyopathy type: unspecified DVT prophylaxis Z29.9 Neutropenia D70.9 (1) Cardiomyopathy Cardiomyopathy type: unspecified Qualified Code(s): I42.9 - Cardiomyopathy, unspecified
[2021-01-24] MEDS ORDERED: ACETAMINOPHEN 1,000 MG/100 ML VIAL IV STA (14:46)
[2021-01-24] MEDS: ALBUTEROL HFA 8 GM INHALER INH SCH ×2 (15:25→19:47)
[2021-01-24] MEDS: ACYCLOVIR 5% OINT 15 GM TUBE EXT SCH ×2 (17:03→17:57)
[2021-01-24] MEDS: FILGRASTIM 480 MCG/1.6 ML VIAL SC SCH (21:01)
[2021-01-25] MEDS ORDERED: ACETAMINOPHEN 1000 MG/100 ML IV IV PRN (03:36)
[2021-01-25] MEDS: LEVOTHYROXINE SODIUM 88 MCG TABLET PO SCH (06:45)
[2021-01-25] MEDS: ACYCLOVIR 5% OINT 15 GM TUBE EXT SCH ×5 (06:46→18:32)
[2021-01-25] MEDS: ALBUTEROL HFA 8 GM INHALER INH SCH ×4 (07:21→19:18)
[2021-01-25 08:27] LABS: BUN Creatinine Ratio 16.3 (10-20); Creatinine Clr Calc Pharmacy 41.5 ml/min; Est GFR (African American) 46.3 ml/min; Est GFR (Non-African American) 39.9 ml/min; Potassium 3.5 mmol/L (3.5-5.1)
[2021-01-25 08:32] LABS: C Reactive Protein 21.1 mg/dl (0-0.29)
[2021-01-25] MEDS ORDERED: REMDESIVIR 200 MG in SODIUM CHLORIDE 0.9% 210 ML IV STA (08:44)
[2021-01-25] MEDS: INSULIN ASPART 100 UNITS/ML 3 ML PEN SC SCH ×4 (09:18→21:58)
[2021-01-25] MEDS: SUCRALFATE 1 GM TAB PO SCH ×4 (09:20→19:53)
[2021-01-25] MEDS: ARTIFICIAL TEARS OP SCH ×2 (09:20→19:52)
[2021-01-25] MEDS: dexAMETHasone 6 MG in SYRINGE 0 ML IV SCH (09:20)
[2021-01-25] MEDS: PANTOprazole 40 MG TAB PO SCH ×2 (09:20→21:58)
[2021-01-25] MEDS: INSULIN GLARGINE SOLOSTAR 100 UNITS/ML 3 ML PEN SC SCH (09:21)
[2021-01-25] MEDS: LIDOCAINE VISCOUS 2% SOLN 60 ML, diphenhydrAMINE Syrup 150 MG, ALUMINUM/MAGNESIUM SUSP ... MT SCH ×4 (09:29→22:00)
[2021-01-25] MEDS: ERTAPENEM SODIUM 1,000 MG in SODIUM CHLORIDE 0.9% 50 ML IV SCH (09:30)
[2021-01-25] MEDS: FAMOTIDINE 20 MG in SYRINGE 3 ML IV SCH ×2 (09:30→21:58)
[2021-01-25] MEDS: POTASSIUM CHLORIDE CRTAB 20 MEQ TABCR PO SCH ×3 (09:32→21:59)
[2021-01-25] MEDS ORDERED: SODIUM CHLORIDE 0.9% 10ML FLUSH IV ONE (10:44)
--- NOTE | 2021-01-25 10:55 | XRay Report ---
XR chest 1V portable HISTORY: 75 years-old Female COVID pneumonia, lung ca acute shortness of breath with reported pneumo bird. History of lung cancer COMPARISON: CTA chest and chest radiograph study 01/23/2021 TECHNIQUE: Portable AP view of the chest FINDINGS: Cardiomediastinal and hilar silhouettes are unchanged. Atherosclerotic plaque of the thoracic aorta. Left IJ Bhrlke-n-Dkxa catheter distal tip is again noted terminating in the expected location of the inferior SVC. Surgical clips project over the left breast. Degenerative changes of the shoulders and spine. Emphysema with chronic interstitial coarsening. Patchy opacities of the left lower appear unch anged. Mildly progressed ill-defined bibasilar densities. IMPRESSION: 1. Emphysema with chronic interstitial coarsening. 2. Ill-defined bilateral pulmonary opacities are suggestive of viral pneumonia, mildly progressed on the right. ACT 112: Negative or not required by law. The above report was generated using voice recognition software. It may contain grammatical, syntax o r spelling errors. Electronically signed by: Jori Onofre M.D. 01/25/2021 10:54 AM
[2021-01-25] MEDS ORDERED: POTASSIUM CHLORIDE CRTAB 20 MEQ TABCR PO STA (13:24)
[2021-01-25] MEDS ORDERED: MAGNESIUM OXIDE 400 MG TAB PO ONE (13:24)
[2021-01-25] MEDS ORDERED: FUROSEMIDE INJ 20 MG/2 ML VIAL IV ONE (13:24)
[2021-01-25 13:51] LABS: Hematocrit (blood only) 25.8 % (37-47); Hemoglobin 8.8 g/dL (12.0-16.0); Mean Corpuscular Hemoglobin 31.1 pg (25-34); Mean Corpuscular Hgb Conc 34.1 g/dL (32-36); Mean Corpuscular Volume 91.2 fL (80-100); Mean Platelet Volume 11.2 fL (7.4-10.4); Nucleated RBC # (auto) 0.02 K/uL (0-0); Nucleated RBC % (auto) 2.8 %; Platelet Count 26 K/uL (130-400); RDW Coefficient of Variation 19.8 % (11.5-14.5); RDW Standard Deviation 63.3 fL (36.4-46.3); Red Blood Count 2.83 M/uL (4.2-5.4); White Blood Count 0.77 K/uL (4.8-10.8)
[2021-01-25 13:55] LABS: Anisocytosis Present; Dohle Bodies 2+; Toxic Granulation 2+; Toxic Vacuolation 2+
[2021-01-25 14:10] LABS: ALC (manual) 0.15 K/uL (1.2-3.4); ANC (manual) 0.57 K/uL (1.4-6.5); Lymphocytes # (manual) 0.15 K/uL (1.2-3.4); Monocytes # (manual) 0.05 K/uL (0.11-0.59); Neutrophils # (manual) 0.57 K/uL (1.4-6.5)
[2021-01-25 14:53] LABS: Alanine Aminotransferase 27 U/L (12-78); Aspartate Aminotransferase 32 U/L (15-37)
[2021-01-25 14:56] LABS: Hematocrit (blood only) 25.7 % (37-47); Hemoglobin 9.1 g/dL (12.0-16.0); Mean Corpuscular Hemoglobin 31.5 pg (25-34); Mean Corpuscular Hgb Conc 35.4 g/dL (32-36); Mean Corpuscular Volume 88.9 fL (80-100); Mean Platelet Volume 9.9 fL (7.4-10.4); Nucleated RBC # (auto) 0.03 K/uL (0-0); Nucleated RBC % (auto) 3.4 %; Platelet Count 22 K/uL (130-400); RDW Coefficient of Variation 18.5 % (11.5-14.5); RDW Standard Deviation 59.2 fL (36.4-46.3); Red Blood Count 2.89 M/uL (4.2-5.4); White Blood Count 0.96 K/uL (4.8-10.8)
[2021-01-25 14:59] LABS: Dohle Bodies 1+; Platelet Estimate SIGNIFIC DECREASED (Normal); Tear Drop Cells 1+; Toxic Granulation 1+
[2021-01-25 15:05] LABS: ALC (manual) 0.11 K/uL (1.2-3.4); ANC (manual) 0.78 K/uL (1.4-6.5); Lymphocytes # (manual) 0.11 K/uL (1.2-3.4); Lymphocytes % (manual) 11.1 %; Monocytes # (manual) 0.07 K/uL (0.11-0.59); Monocytes % (manual) 7.4 %; Neutrophils # (manual) 0.78 K/uL (1.4-6.5); Neutrophils % (manual) 81.5 %
[2021-01-25] MEDS: levoFLOXacin/D5W 750 MG/150 ML BAG IV SCH (16:15)
--- NOTE | 2021-01-25 19:29 | Hospitalist Progress Note ---
Date of Service January 25, 2021 Assessment & Plan (1) Pneumonia due to 2019 novel coronavirus: Plan: She is about day #5 into her illness. CXR today shows worsening infiltrates. She sounds worse, and looks worse today. Day #3 of dexamethasone 6mg daily. She is at high risk of COVID progression given her severely immunocompromised state. Continue supportive care, incentive stephany/flutter valve, etc. Cont ventolin 2 puffs QID. Supplemental O2 to maintain sats 90-92% in light of COPD. She has been on ertapenem daily to cover for possibility of superimposed bacterial process given severe neutropenia. Will change to IV Levaquin as this will provide pseudomonas coverage. If any worsening will add additional gram negative coverage. MRSA MANAGER ICU swab pending. AST/ALT remain stable. CrCL remains >30. Will start 5-day course of Remdesivir today. (2) Acute on chronic respiratory failure with hypoxemia: Plan: On NC O2 at home, wears it "prn" but uses such on most days. 2nd COPD. Now with acute resp failure 2nd to #1. O2 requirements similar to yesterday but overall clinically worse.2 (3) Antineoplastic chemotherapy induced pancytopenia: Plan: Severe pancytopenia 2nd to recent chemo for left-sided lung cancer. s/p 2 units PRBCs and 1 unit platelets since admission. H/H improved with such. Platelets mid 20s without evidence of bleeding. Day #3 of neupogen today. repeat CBC in am. Cont neutropenic precautions. Last chemo treatment was ~1 week ago. (4) Chronic kidney disease, stage 3a: Plan: baseline CrCl 40s/50s BMP again stable today (5) Small cell lung cancer, left upper lobe: Plan: dx [address] Daniels at [facility] and Dr Castro, radiation onc recent chemo for such as above (6) Diabetes mellitus, type 2: Plan: cont novolog cont lantus most recent a1c 8.5% in late November hold oral agents (7) COPD with emphysema: Plan: schedule bronchodilators steroids for #1 NC O2 (8) Hyperlipidemia: Plan: holding statin AST/ALT wnl (9) Hypertension: Plan: BPs cont to be low-normal thus holding home BP meds (10) GERD (gastroesophageal reflux disease): Plan: PPI twice daily + IV H2 germán due to persistent nausea, etc (11) Hypothyroidism: Plan: TSH in 11/2020 wnl cont synthroid (12) Dysphagia: Plan: 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 requiring dilatation via EGD earlier this fall cont pureed diet (13) Herpes labialis: Plan: zovirax ointment (14) Essential tremor: Plan: severe (15) Cardiomyopathy: Plan: previous echos with EF 45-50% as well as >50% to keep fluid balance negative -- give lasix 20mg IV x 1 now (16) DVT prophylaxis: Plan: chemical means contraindicated due to low platelets SCDs only (17) Neutropenia: Plan: neutropenic precautions neupogen again today CBC am Plan: updated by phone 01/24/21 and once again today Admission and Anticipated Discharge Date Admission Date: January 23, 2021 Subjective patient feels quite poorly today very little appetite very tired still coughing - had 1 episode of bringing up sputum endorses dyspnea - maybe about the same as yesterday also with nausea earlier today tele overnight wnl Review of Systems Review of Systems: gen - fevers early this am neuro - severe tremors GI - nausea, emesis; but no abd pain CV - no chest pain Physical Exam Physical Exam: gen - ill-appearing, weaker appearing than yesterday, no distress HENT - bottom lip with HSV lesion; no mucositis or thrush; MM mildly dry neck - no JVD heart - RRR, s1 s2 lungs - b/l rales, L>R (right side are new) abd - soft NT ND BS+ ext - no edema skin - pallor, no rash, HSV lesion bottom lip psych - a/o x 3 but flat affect neuro - tremors b/l Results & Data Results & Data ([facility]) Vital Signs (Past 12 Hours) Vital Signs Temp Pulse Pulse Resp BP Pulse Ox 01/25/21 19:18 110 H 20 90 01/25/21 15:44 37.3 C 77 23 104/62 90 01/25/21 15:41 83 18 90 01/25/21 11:47 37.6 C H 75 19 114/70 93 01/25/21 10:33 75 18 94 01/25/21 07:56 36.6 C 82 19 101/58 L 92 Laboratory Results Laboratory Results - last 24 hr 01/23/21 01/24/21 01/25/21 16:53 20:39 07:25 WBC 0.77 L* RBC 2.83 L Hgb 8.8 L Hct 25.8 L MCV 91.2 MCH 31.1 MCHC 34.1 RDW Std Deviation 63.3 H RDW Coeff of Sari 19.8 H Plt Count 26 L* MPV 11.2 H Absolute Nucleated RBC 0.02 H Nucleated RBC % (auto) 2.8 Neutrophils % (Manual) 74.0 Lymphocytes % (Manual) 20.0 Monocytes % (Manual) 6.0 Neutrophils # (Manual) 0.57 L Total Absolute Neuts 0.57 L* Lymphocytes # (Manual) 0.15 L Total Abs Lymphocytes 0.15 L Monocytes # (Manual) 0.05 L Toxic Granulation 2+ Toxic Vacuolation 2+ Dohle Bodies 2+ Platelet Estimate Anisocytosis Present Tear Drop Cells Sodium Potassium Chloride Carbon Dioxide Anion Gap BUN Creatinine Est Cr Clr Drug Dosing Est GFR ( Amer) Est GFR (Non-Af Amer) BUN/Creatinine Ratio Glucose POC Glucose 198 H Calcium AST ALT C-Reactive Protein Procalcitonin Blood Type A Positive Antibody Screen NEGATIVE Crossmatch See Detail 01/25/21 01/25/21 01/25/21 07:25 07:55 12:00 WBC RBC Hgb Hct MCV MCH MCHC RDW Std Deviation RDW Coeff of Sari Plt Count MPV Absolute Nucleated RBC Nucleated RBC % (auto) Neutrophils % (Manual) Lymphocytes % (Manual) Monocytes % (Manual) Neutrophils # (Manual) Total Absolute Neuts Lymphocytes # (Manual) Total Abs Lymphocytes Monocytes # (Manual) Toxic Granulation Toxic Vacuolation Dohle Bodies Platelet Estimate Anisocytosis Tear Drop Cells Sodium 140 Potassium 3.5 Chloride 110 H Carbon Dioxide 21 Anion Gap 9.0 BUN 22 H Creatinine 1.32 H Est Cr Clr Drug Dosing 41.5 Est GFR ( Amer) 46.3 Est GFR (Non-Af Amer) 39.9 BUN/Creatinine Ratio 16.3 Glucose 128 H POC Glucose 131 H 159 H Calcium 9.0 AST ALT C-Reactive Protein 21.10 H Procalcitonin Blood Type Antibody Screen Crossmatch 01/25/21 01/25/21 01/25/21 14:08 14:08 14:08 WBC 0.96 L* RBC 2.89 L Hgb 9.1 L Hct 25.7 L MCV 88.9 MCH 31.5 MCHC 35.4 RDW Std Deviation 59.2 H RDW Coeff of Sari 18.5 H Plt Count 22 L* MPV 9.9 Absolute Nucleated RBC 0.03 H Nucleated RBC % (auto) 3.4 Neutrophils % (Manual) 81.5 Lymphocytes % (Manual) 11.1 Monocytes % (Manual) 7.4 Neutrophils # (Manual) 0.78 L Total Absolute Neuts 0.78 L* Lymphocytes # (Manual) 0.11 L Total Abs Lymphocytes 0.11 L Monocytes # (Manual) 0.07 L Toxic Granulation 1+ Toxic Vacuolation Dohle Bodies 1+ Platelet Estimate SIGNIFIC DECREASED Anisocytosis Tear Drop Cells 1+ Sodium Potassium Chloride Carbon Dioxide Anion Gap BUN Creatinine Est Cr Clr Drug Dosing Est GFR ( Amer) Est GFR (Non-Af Amer) BUN/Creatinine Ratio Glucose POC Glucose Calcium AST 32 ALT 27 C-Reactive Protein Procalcitonin 0.15 Blood Type Antibody Screen Crossmatch 01/25/21 16:38 WBC RBC Hgb Hct MCV MCH MCHC RDW Std Deviation RDW Coeff of Sair Plt Count MPV Absolute Nucleated RBC Nucleated RBC % (auto) Neutrophils % (Manual) Lymphocytes % (Manual) Monocytes % (Manual) Neutrophils # (Manual) Total Absolute Neuts Lymphocytes # (Manual) Total Abs Lymphocytes Monocytes # (Manual) Toxic Granulation Toxic Vacuolation Dohle Bodies Platelet Estimate Anisocytosis Tear Drop Cells Sodium Potassium Chloride Carbon Dioxide Anion Gap BUN Creatinine Est Cr Clr Drug Dosing Est GFR ( Amer) Est GFR (Non-Af Amer) BUN/Creatinine Ratio Glucose POC Glucose 229 H Calcium AST ALT C-Reactive Protein Procalcitonin Blood Type Antibody Screen Crossmatch Diagnostic Findings Chest X-Ray 01/25/21 08:49 XR chest 1V portable HISTORY: 75 years-old Female COVID pneumonia, lung ca acute shortness of breath with reported pneumonia. History of lung cancer COMPARISON: CTA chest and chest radiograph study 01/23/2021 TECHNIQUE: Portable AP view of the chest FINDINGS: Cardiomediastinal and hilar silhouettes are unchanged. Atherosclerotic plaque of the thoracic aorta. Left IJ Augsmu-c-Snhz catheter distal tip is again noted terminating in the expected location of the inferior SVC. Surgical clips project over the left breast. Degenerative changes of the shoulders and spine. Emphysema with chronic interstitial coarsening. Patchy opacities of the left lower appear unchanged. Mildly progressed ill-defined bibasilar densities. IMPRESSION: 1. Emphysema with chronic interstitial coarsening. 2. Ill-defined bilateral pulmonary opacities are suggestive of viral pneumonia, mildly progressed on the right. ACT 112: Negative or not required by law. The above report was generated using voice recognition software. It may contain grammatical, syntax or spelling errors. Electronically signed by: Jori Onofre M.D. 01/25/2021 10:54 AM PG Care Time/CCT Total # of Minutes Spent Total Time Spent with Patient: Total time spent is greater than 50% in coordination of care (as documented) at patient's floor/unit and/or counseling patient: Coding Level of Care Code 21975 Subseq Hosp Care Lvl 3 Diagnoses Pneumonia due to 2019 novel coronavirus U07.1; J12.82 Acute on chronic respiratory failure with hypoxemia J96.21 Antineoplastic chemotherapy induced pancytopenia D61.810; T45.1X5A Chronic kidney disease, stage 3a N18.31 Small cell lung cancer, left upper lobe C34.12 Diabetes mellitus, type 2 E11.9 COPD with emphysema J43.9 Hyperlipidemia E78.5 Hypertension I10 GERD (gastroesophageal reflux disease) K21.9 Hypothyroidism E03.9 Dysphagia R13.10 Herpes labialis B00.1 Essential tremor G25.0 Cardiomyopathy I42.9 Cardiomyopathy type: unspecified DVT prophylaxis Z29.9 Neutropenia D70.9 (1) Cardiomyopathy Cardiomyopathy type: unspecified Qualified Code(s): I42.9 - Cardiomyopathy, unspecified
[2021-01-25] MEDS: FILGRASTIM 480 MCG/1.6 ML VIAL SC SCH (19:52)
[2021-01-25] MEDS: ACETAMINOPHEN 325 MG TAB PO PRN (20:02)
[2021-01-26] MEDS: ACYCLOVIR 5% OINT 15 GM TUBE EXT SCH ×5 (06:16→21:35)
[2021-01-26] MEDS: LEVOTHYROXINE SODIUM 88 MCG TABLET PO SCH (06:16)
[2021-01-26 08:12] LABS: BUN Creatinine Ratio 21.6 (10-20); Calcium 9.6 mg/dl (8.5-10.1); Creatinine Clr Calc Pharmacy 40.9 ml/min; Est GFR (African American) 46.3 ml/min; Est GFR (Non-African American) 39.9 ml/min; Potassium 3.8 mmol/L (3.5-5.1)
[2021-01-26 08:14] LABS: Hematocrit (blood only) 26.5 % (37-47); Hemoglobin 9.2 g/dL (12.0-16.0); Mean Corpuscular Hemoglobin 31.2 pg (25-34); Mean Corpuscular Hgb Conc 34.7 g/dL (32-36); Mean Corpuscular Volume 89.8 fL (80-100); Mean Platelet Volume 10.4 fL (7.4-10.4); Nucleated RBC # (auto) 0.06 K/uL (0-0); Nucleated RBC % (auto) 3.8 %; Platelet Count 22 K/uL (130-400); RDW Standard Deviation 61.7 fL (36.4-46.3); Red Blood Count 2.95 M/uL (4.2-5.4); White Blood Count 1.47 K/uL (4.8-10.8)
[2021-01-26] MEDS: ALBUTEROL HFA 8 GM INHALER INH SCH ×4 (08:14→20:16)
[2021-01-26 08:15] LABS: Anisocytosis Present; Basophils # (auto) 0.01 K/uL (0-0.2); Basophils % (auto) 0.7 %; Immature Granulocytes # (auto) 0.02 K/uL (0.00-0.02); Immature Granulocytes % (auto) 1.4 %; Lymphocytes % (auto) 6.8 %; Monocytes # (auto) 0.28 K/uL (0.11-0.59); Neutrophils # (auto) 1.06 K/uL (1.4-6.5); Neutrophils % (auto) 72.1 %; Platelet Estimate SIGNIFIC DECREASED (Normal); Toxic Granulation 2+
--- NOTE | 2021-01-26 08:20 | Electrocardiogram Report ---
Test Reason : Blood Pressure : / mmHG Vent. Rate : 085 BPM Atrial Rate : 085 BPM P-R Int : 110 ms QRS Dur : 094 ms QT Int : 388 ms P-R-T Axes : 060 043 055 degrees QTc Int : 461 ms Sinus rhythm with short MA Otherwise normal ECG When compared with ECG of 23-JAN-2021 13:37, MA interval has decreased Confirmed by Mina Drummond ([id number]) on 01/26/2021 8:19:46 AM Referred By: REFERRED SELF Confirmed By:Mina Drummond
[2021-01-26 08:21] LABS: C Reactive Protein 29.7 mg/dl (0-0.29)
[2021-01-26] MEDS ORDERED: FUROSEMIDE INJ 20 MG/2 ML VIAL IV ONE (09:28)
[2021-01-26] MEDS: SUCRALFATE 1 GM TAB PO SCH ×4 (09:37→21:36)
[2021-01-26] MEDS: LIDOCAINE VISCOUS 2% SOLN 60 ML, diphenhydrAMINE Syrup 150 MG, ALUMINUM/MAGNESIUM SUSP ... MT SCH ×4 (09:38→21:36)
[2021-01-26] MEDS: dexAMETHasone 6 MG in SYRINGE 0 ML IV SCH (09:39)
[2021-01-26] MEDS: PANTOprazole 40 MG TAB PO SCH ×2 (09:39→21:36)
[2021-01-26] MEDS: INSULIN GLARGINE SOLOSTAR 100 UNITS/ML 3 ML PEN SC SCH (09:40)
[2021-01-26] MEDS: ARTIFICIAL TEARS OP SCH ×2 (09:40→21:35)
[2021-01-26] MEDS: INSULIN ASPART 100 UNITS/ML 3 ML PEN SC SCH ×4 (09:43→21:37)
[2021-01-26] MEDS: POTASSIUM CHLORIDE CRTAB 20 MEQ TABCR PO SCH ×3 (10:02→21:44)
[2021-01-26] MEDS: FAMOTIDINE 20 MG in SYRINGE 3 ML IV SCH ×2 (10:02→21:35)
--- NOTE | 2021-01-26 11:41 | XRay Report ---
SINGLE VIEW CHEST CLINICAL HISTORY: Hypoxia. Covid. FINDINGS: An AP, portable, upright chest radiograph is compared to study dated 01/25/2021 and correla jazz with chest CT dated 01/23/2021. A left internal jugular central venous infusion port is in place. The heart is top normal in size noting atherosclerotic calcification of the thoracic aorta. Emphysem a and chronic interstitial thickening is similar to previous. Patchy airspace consolidation is again seen throughout both lungs. This is unchanged to minimally increased as compared to yesterday. No lar ge pleural effusion or pneumothorax is identified. The skeletal structures are osteopenic. The bony t horax is grossly intact. Surgical clips are noted in the left chest wall. IMPRESSION: IMPRESSION: 1. Multifocal airspace consolidation is unchanged to modestly increased from yesterday. 2. Emphysema. ACT 112: Negative or not required by law. Electronically signed by: Ned Robles M.D. 01/26/2021 11:39 AM
[2021-01-26] MEDS ORDERED: MEROPENEM CONSULT ACTIVE PRN (12:16)
[2021-01-26] MEDS: REMDESIVIR 100 MG in SODIUM CHLORIDE 0.9% 230 ML IV SCH (13:23)
[2021-01-26] MEDS: SODIUM CHLORIDE 0.9% 10ML FLUSH IV SCH (14:32)
[2021-01-26] MEDS: MEROPENEM 500 MG in SYRINGE 0 ML IV SCH ×2 (14:32→21:34)
[2021-01-26] MEDS ORDERED: ALBUT/IPRATROP 3MG/0.5MG NEB 3 ML VIAL NEB STA (16:39)
[2021-01-26 17:38] LABS: D Dimer 4080 ug/L FEU (0-500)
--- NOTE | 2021-01-26 19:50 | Hospitalist Progress Note ---
Date of Service January 26, 2021 Assessment & Plan (1) Pneumonia due to 2019 novel coronavirus: Plan: MUCH worse today. She is about day #6 into her illness and hospital day #3. CXR again today with worsening infiltrates and on exam much more extensive rales. Day #4 of dexamethasone 6mg daily. Could consider increasing dexamethasone to 10mg/day. Day #2 of Remdesivir. CRP very high near 30 today; dimer 4000. O2 requirements have escalated to high-flow NC. She is about 72 hours into her stay. She is a very poor candidate for immune-based Rx (baricitinib) due to neutropenia and heavy immunosuppression from recent chemo for lung cancer; thus, defer on baricitinib. In light of worsening respiratory status & ongoing fever with neutropenia will add Meropenem to the levaquin IV to cover for possibility of bacterial superinfection. MRSA swab neg - defer on MRSA coverage. Low threshold for formal pulmonary consult. Remains full code. (2) Acute on chronic respiratory failure with hypoxemia: Plan: On NC O2 at home, wears it "prn" but uses such on most days. 2nd COPD. Now with acute resp failure 2nd to #1. O2 requirements with rapid escalation today - now on HFNC. Despite pleuritic chest pain and elevated dimer the chances of PE are low -- just had CTA chest 2-3 days ago & was negative for such. [id number] she remains at high risk of VTE given her concomitant lung ca and COVID infection. Low threshold to reimage her chest with any additional worsening or escalating pleuritic pain. Poor candidate for anticoagulation given her severe thrombocytopenia. (3) Antineoplastic chemotherapy induced pancytopenia: Plan: Severe pancytopenia 2nd to recent chemo for left-sided lung cancer. s/p 2 units PRBCs and 1 unit platelets since admission. H/H improved with such. Platelets mid 20s without evidence of bleeding. s/p 3 days of neupogen. repeat CBC in am. Cont neutropenic precautions. WBC count & neutrophil count did modestly rise today. We should be nearing her chemo baljeet and bone marrow will hopefully begin to make her cell lines. (4) Chronic kidney disease, stage 3a: Plan: baseline CrCl 40s/50s BMP again stable today repeat BMP am (5) Small cell lung cancer, left upper lobe: Plan: dx [address] Daniels at [facility] and Dr Castro, radiation onc recent chemo for such as above (6) Diabetes mellitus, type 2: Plan: cont novolog cont lantus most recent a1c 8.5% in late November hold oral agents adjust insulins for optimal glycemic control (7) COPD with emphysema: Plan: cont scheduled bronchodilators steroids for #1 -- consider increase in dexamethasone dosing as above NC O2 via high-flow (8) Hyperlipidemia: Plan: holding statin AST/ALT wnl repeat AST/ALT in am (9) Hypertension: Plan: BPs cont to be low-normal thus holding home BP meds (10) GERD (gastroesophageal reflux disease): Plan: PPI twice daily + IV H2 germán due to persistent nausea, etc (11) Hypothyroidism: Plan: TSH in 11/2020 wnl cont synthroid (12) Dysphagia: Plan: 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 requiring dilatation via EGD earlier this fall cont pureed diet no issues while here (13) Herpes labialis: Plan: zovirax ointment (14) Essential tremor: Plan: severe (15) Cardiomyopathy: Plan: previous echos with EF 45-50% as well as >50% to keep fluid balance negative -- give additional lasix 20mg IV x 1 today likely to need repeat lasix tomorrow repeat cxr in am (16) DVT prophylaxis: Plan: chemical means contraindicated due to low platelets SCDs only (17) Neutropenia: Plan: neutropenic precautions s/p 3 doses of neupogen since admission neutrophil count slowly rising CBC am (18) Pleuritic chest pain: Plan: likely due to the severe COVID pneumonia itself PE less likely doubt ACS/ischemic trop neg EKG neg low threshold for repeat CTA chest if necessary with recurrent or persistent symptoms Plan: updated by phone 01/24/21, 01/25/21, and again today understands his is doing poorly and he is realistic about her situation gave support he will report off details to his children critical care time 45 minutes today addressing worsening acute hypoxic resp failure and worsening COVID, chest pain, etc Admission and Anticipated Discharge Date Admission Date: January 23, 2021 Subjective tele overnight wnl overnight and through today she has had escalating O2 requirements during my visit (early-mid afternoon) she reported about 30 minutes of intermittent chest discomfort, pleuritic, with some radiation to the upper back she also reported ongoing cough and ongoing CASTELLANOS no hemoptysis appetite remains poor per staff she remains very weak and fatigued following my bedside visit I obtained EKG - no changes from prior EKG gave duoneb ordered vapotherm/HFNC labs - dimer 4000; trop negative Review of Systems Review of Systems: gen - no fevers or chills today but significant fatigue with anorexia pulm - worsening breathing today GI - minimal upper epigastric abd discomfort but no vomiting; had large BM today per staff cv - chest pain; see HPI Physical Exam Physical Exam: gen - ill-appearing; looks worse today; tachypneic (RR about 30); mild retractions noted HENT - bottom lip with HSV lesion; no mucositis or thrush; MM dry neck - no JVD heart - RRR, s1 s2, no murmur lungs - b/l rales much worse today - now extending 1/[address] up back and I can also hear anteriorly L>R; tachypnea, mild retractions abd - soft NT ND BS+ ext - no edema skin - pallor, no rash, HSV lesion bottom lip psych - a/o x 3 neuro - tremors b/l -- severe Results & Data Results & Data ([facility]) Vital Signs (Past 12 Hours) Vital Signs Temp Pulse Pulse Pulse Resp BP BP 01/26/21 19:40 36.5 C 93 H 18 111/68 01/26/21 17:38 102 H 18 01/26/21 17:36 86 18 01/26/21 16:24 81 22 01/26/21 15:53 36.7 C 76 23 107/64 01/26/21 14:00 01/26/21 11:30 36.8 C 97 H 20 114/67 01/26/21 11:01 81 18 01/26/21 08:14 67 18 01/26/21 08:00 36.8 C 79 65 24 124/74 Pulse Ox Pulse Ox 01/26/21 19:40 94 01/26/21 17:38 93 01/26/21 17:36 83 L 01/26/21 16:24 91 01/26/21 15:53 90 01/26/21 14:00 93 01/26/21 11:30 90 01/26/21 11:01 93 01/26/21 08:14 92 01/26/21 08:00 92 Laboratory Results Laboratory Results - last 24 hr 01/25/21 01/26/21 01/26/21 20:07 06:16 06:16 WBC 1.47 L RBC 2.95 L Hgb 9.2 L Hct 26.5 L MCV 89.8 MCH 31.2 MCHC 34.7 RDW Std Deviation 61.7 H RDW Coeff of Sari 19.0 H Plt Count 22 L* MPV 10.4 Immature Gran % (Auto) 1.4 Neut % (Auto) 72.1 Lymph % (Auto) 6.8 Valencia % (Auto) 19.0 Eos % (Auto) 0.0 Baso % (Auto) 0.7 Neut # (Auto) 1.06 L Lymph # (Auto) 0.10 L Valencia # (Auto) 0.28 Eos # (Auto) 0.00 Baso # (Auto) 0.01 Immature Gran # (Auto) 0.02 Absolute Nucleated RBC 0.06 H Nucleated RBC % (auto) 3.8 Toxic Granulation 2+ Platelet Estimate SIGNIFIC DECREASED Anisocytosis Present D-Dimer Sodium 141 Potassium 3.8 Chloride 108 H Carbon Dioxide 22 Anion Gap 10.0 BUN 29 H Creatinine 1.32 H Est Cr Clr Drug Dosing 40.9 Est GFR ( Amer) 46.3 Est GFR (Non-Af Amer) 39.9 BUN/Creatinine Ratio 21.6 H Glucose 172 H POC Glucose 164 H Calcium 9.6 AST 27 ALT 25 Troponin I C-Reactive Protein 29.70 H Nasal Screen MRSA (PCR) 01/26/21 01/26/21 01/26/21 06:28 11:26 16:11 WBC RBC Hgb Hct MCV MCH MCHC RDW Std Deviation RDW Coeff of Sari Plt Count MPV Immature Gran % (Auto) Neut % (Auto) Lymph % (Auto) Valencia % (Auto) Eos % (Auto) Baso % (Auto) Neut # (Auto) Lymph # (Auto) Valencia # (Auto) Eos # (Auto) Baso # (Auto) Immature Gran # (Auto) Absolute Nucleated RBC Nucleated RBC % (auto) Toxic Granulation Platelet Estimate Anisocytosis D-Dimer Sodium Potassium Chloride Carbon Dioxide Anion Gap BUN Creatinine Est Cr Clr Drug Dosing Est GFR ( Amer) Est GFR (Non-Af Amer) BUN/Creatinine Ratio Glucose POC Glucose 190 H 210 H Calcium AST ALT Troponin I C-Reactive Protein Nasal Screen MRSA (PCR) Negative 01/26/21 01/26/21 16:44 16:44 WBC RBC Hgb Hct MCV MCH MCHC RDW Std Deviation RDW Coeff of Sari Plt Count MPV Immature Gran % (Auto) Neut % (Auto) Lymph % (Auto) Valencia % (Auto) Eos % (Auto) Baso % (Auto) Neut # (Auto) Lymph # (Auto) Valencia # (Auto) Eos # (Auto) Baso # (Auto) Immature Gran # (Auto) Absolute Nucleated RBC Nucleated RBC % (auto) Toxic Granulation Platelet Estimate Anisocytosis D-Dimer 4080 H* Sodium Potassium Chloride Carbon Dioxide Anion Gap BUN Creatinine Est Cr Clr Drug Dosing Est GFR ( Amer) Est GFR (Non-Af Amer) BUN/Creatinine Ratio Glucose POC Glucose Calcium AST ALT Troponin I < 0.015 C-Reactive Protein Nasal Screen MRSA (PCR) PG Care Time/CCT Total # of Minutes Spent Total Time Spent with Patient: Total time spent is greater than 50% in coordination of care (as documented) at patient's floor/unit and/or counseling patient: Critical Care Time: Yes 60 Coding Level of Care Code None Diagnoses Pneumonia due to 2019 novel coronavirus U07.1; J12.82 Acute on chronic respiratory failure with hypoxemia J96.21 Antineoplastic chemotherapy induced pancytopenia D61.810; T45.1X5A Chronic kidney disease, stage 3a N18.31 Small cell lung cancer, left upper lobe C34.12 Diabetes mellitus, type 2 E11.9 COPD with emphysema J43.9 Hyperlipidemia E78.5 Hypertension I10 GERD (gastroesophageal reflux disease) K21.9 Hypothyroidism E03.9 Dysphagia R13.10 Herpes labialis B00.1 Essential tremor G25.0 Cardiomyopathy I42.9 Cardiomyopathy type: unspecified DVT prophylaxis Z29.9 Neutropenia D70.9 Pleuritic chest pain R07.81 Additional Codes Critical Care Time - Critical Care Time: Yes ([id number]) Comment 45 min -- critical care time (1) Cardiomyopathy Cardiomyopathy type: unspecified Qualified Code(s): I42.9 - Cardiomyopathy, unspecified
[2021-01-27] MEDS: MEROPENEM 500 MG in SYRINGE 0 ML IV SCH ×3 (05:48→20:40)
[2021-01-27] MEDS: ACYCLOVIR 5% OINT 15 GM TUBE EXT SCH ×5 (05:49→20:39)
[2021-01-27] MEDS: LEVOTHYROXINE SODIUM 88 MCG TABLET PO SCH (05:49)
[2021-01-27] MEDS: ALBUTEROL HFA 8 GM INHALER INH SCH ×4 (05:59→19:08)
[2021-01-27 07:03] LABS: BUN Creatinine Ratio 29.2 (10-20); C Reactive Protein 18.5 mg/dl (0-0.29); Calcium 9.7 mg/dl (8.5-10.1); Creatinine Clr Calc Pharmacy 43.2 ml/min; Est GFR (African American) 49.4 ml/min; Est GFR (Non-African American) 42.6 ml/min; Potassium 4.1 mmol/L (3.5-5.1)
[2021-01-27 07:19] LABS: Hematocrit (blood only) 26.4 % (37-47); Hemoglobin 9.2 g/dL (12.0-16.0); Mean Corpuscular Hemoglobin 31.2 pg (25-34); Mean Corpuscular Hgb Conc 34.8 g/dL (32-36); Mean Corpuscular Volume 89.5 fL (80-100); Mean Platelet Volume 10.7 fL (7.4-10.4); Nucleated RBC # (auto) 0.07 K/uL (0-0); Nucleated RBC % (auto) 3.3 %; Platelet Count 22 K/uL (130-400); RDW Coefficient of Variation 18.6 % (11.5-14.5); RDW Standard Deviation 60.8 fL (36.4-46.3); Red Blood Count 2.95 M/uL (4.2-5.4)
[2021-01-27 07:21] LABS: ALC (manual) 0.16 K/uL (1.2-3.4); ANC (manual) 1.83 K/uL (1.4-6.5); Dohle Bodies 1+; Lymphocytes # (manual) 0.16 K/uL (1.2-3.4); Lymphocytes % (manual) 7.1 %; Monocytes # (manual) 0.19 K/uL (0.11-0.59); Monocytes % (manual) 8.8 %; Myelocytes # (manual) 0.02 K/uL (0-0); Myelocytes % (manual) 0.9 %; Neutrophils # (manual) 1.83 K/uL (1.4-6.5); Neutrophils % (manual) 83.2 %; Toxic Granulation 1+
--- NOTE | 2021-01-27 08:39 | Electrocardiogram Report ---
Test Reason : Blood Pressure : / mmHG Vent. Rate : 076 BPM Atrial Rate : 076 BPM P-R Int : 114 ms QRS Dur : 084 ms QT Int : 382 ms P-R-T Axes : 077 048 055 degrees QTc Int : 429 ms Normal sinus rhythm Normal ECG When compared with ECG of 25-JAN-2021 19:56, No significant change was found Confirmed by Mina Drummond [id number]) on 01/27/2021 8:39:08 AM Referred By: REFERRED SELF Confirmed By:Mina Drummond
[2021-01-27] MEDS: FAMOTIDINE 20 MG in SYRINGE 3 ML IV SCH ×2 (08:53→20:43)
[2021-01-27] MEDS: SUCRALFATE 1 GM TAB PO SCH ×4 (08:54→20:39)
[2021-01-27] MEDS: ARTIFICIAL TEARS OP SCH ×2 (08:55→20:39)
[2021-01-27] MEDS: PANTOprazole 40 MG TAB PO SCH ×2 (08:56→20:39)
[2021-01-27] MEDS: POTASSIUM CHLORIDE CRTAB 20 MEQ TABCR PO SCH ×2 (08:57→13:28)
[2021-01-27] MEDS ORDERED: FUROSEMIDE INJ 20 MG/2 ML VIAL IV ONE (08:58)
[2021-01-27] MEDS: INSULIN GLARGINE SOLOSTAR 100 UNITS/ML 3 ML PEN SC SCH ×2 (08:59→20:58)
[2021-01-27] MEDS: dexAMETHasone 6 MG in SYRINGE 0 ML IV SCH (09:00)
[2021-01-27] MEDS: INSULIN ASPART 100 UNITS/ML 3 ML PEN SC SCH ×4 (09:04→20:58)
[2021-01-27] MEDS: LIDOCAINE VISCOUS 2% SOLN 60 ML, diphenhydrAMINE Syrup 150 MG, ALUMINUM/MAGNESIUM SUSP ... MT SCH ×4 (09:08→20:42)
--- NOTE | 2021-01-27 09:08 | XRay Report ---
XR chest 1V portable CLINICAL HISTORY: covid pneumonia TECHNIQUE: Single frontal radiograph of the chest was obtained. Comparison: Comparison is made to chest one view 01/26/2021 FINDINGS: Port catheter is unchanged in appearance. The cardiomediastinal silhouette is normal. Similar appeara nce of multifocal airspace opacities. No evidence of pleural effusion or pneumothorax. IMPRESSION: Stable multifocal airspace opacities in this patient with history of viral pneumonia. ACT 112: Negative or not required by law. Electronically signed by: Babak Muhammad M.D. 01/27/2021 9:07 AM
[2021-01-27] MEDS: REMDESIVIR 100 MG in SODIUM CHLORIDE 0.9% 230 ML IV SCH (11:41)
[2021-01-27] MEDS: SODIUM CHLORIDE 0.9% 10ML FLUSH IV SCH (13:19)
[2021-01-27] MEDS: levoFLOXacin/D5W 750 MG/150 ML BAG IV SCH (16:08)
--- NOTE | 2021-01-27 19:30 | Hospitalist Progress Note ---
Date of Service January 27, 2021 Assessment & Plan (1) Pneumonia due to 2019 novel coronavirus: Plan: SEVERE, with ongoing need for HFNC. She is about day #7 into her illness and hospital day #4. CXR today unchanged from 01/26. Day #5 of dexamethasone 6mg daily. Could consider increasing dexamethasone to 10mg/day. Day #3 of Remdesivir. CRP mildly improved today but still quite high. O2 requirements have escalated to high-flow NC. She was a very poor candidate for immune-based Rx (baricitinib) due to neutropenia and heavy immunosuppression from recent chemo for lung cancer; thus, deferred on baricitinib. In light of worsening respiratory status & ongoing fever with neutropenia added Meropenem to the levaquin IV to cover for possibility of bacterial superinfection yesterday; continue both. MRSA swab neg - defer on MRSA coverage. Low threshold for formal pulmonary consult. Remains full code. (2) Acute on chronic respiratory failure with hypoxemia: Plan: On NC O2 at home, wears it "prn" but uses such on most days. 2nd COPD. Now with acute resp failure 2nd to #1. (3) Antineoplastic chemotherapy induced pancytopenia: Plan: Severe pancytopenia 2nd to recent chemo for left-sided lung cancer. s/p 2 units PRBCs and 1 unit platelets since admission. H/H improved with such. Platelets remain 20s without evidence of bleeding. s/p 3 days of neupogen. Neutropenia finally resolved with rising WBC count. (4) Chronic kidney disease, stage 3a: Plan: baseline CrCl 40s/50s BMP again stable repeat BMP am (5) Small cell lung cancer, left upper lobe: Plan: dx [address] Daniels at [facility] and Dr Castro, radiation onc recent chemo for such as above (6) Diabetes mellitus, type 2: Plan: cont novolog cont lantus most recent a1c 8.5% in late November hold oral agents adjust insulins for optimal glycemic control (7) COPD with emphysema: Plan: cont scheduled bronchodilators steroids for #1 -- consider increase in dexamethasone dosing as above NC O2 via high-flow (8) Hyperlipidemia: Plan: holding statin AST/ALT wnl repeat AST/ALT in am (9) Hypertension: Plan: BPs cont to be low-normal thus holding home BP meds (10) GERD (gastroesophageal reflux disease): Plan: PPI twice daily + IV H2 germán (11) Hypothyroidism: Plan: TSH in 11/2020 wnl cont synthroid (12) Dysphagia: Plan: 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 requiring dilatation via EGD earlier this fall cont pureed diet no issues (13) Herpes labialis: Plan: zovirax ointment (14) Essential tremor: Plan: severe (15) Cardiomyopathy: Plan: previous echos with EF 45-50% as well as >50% to keep fluid balance negative -- give additional lasix 20mg IV x 1 today BNP noted to be elevated today may need daily lasix for a few days (16) DVT prophylaxis: Plan: chemical means contraindicated due to low platelets SCDs only (17) Neutropenia: Plan: s/p 3 doses of neupogen since admission neutropenia resolved with such CBC am (18) Pleuritic chest pain: Plan: now resolved was likely due to the severe COVID pneumonia itself PE less likely doubt ACS/ischemic trop neg EKG neg dimer high, but just had CTA chest 3 days ago that was neg defer on repeat CTA for now Plan: updated by phone 01/24/21, 01/25/21, 01/26/21, and again today understands his is doing poorly and he is realistic about her situation gave support he will report off details to his children Admission and Anticipated Discharge Date Admission Date: January 23, 2021 Subjective tele overnight wnl pt states "I feel better" when asked what was better she could not pin down any specific symptom she then stated she didn't like the sound of the HFNC and asked why she needed to be on it she then asked about going home we had a lengthy discussion about how sick she was and that the HFNC was needed due to the severity of her COVID pneumonia staff report very little appetite ~600-800cc of UOP with lasix today? pt still coughing Review of Systems Review of Systems: gen - fatigue, weak CV - no further pleuritic pain (none since yesterday) pulm - ongoing cough, dyspnea with any movement GI - no pain, n/v Physical Exam Physical Exam: gen - no distress today, but again ill-appearing HENT - bottom lip with HSV lesion; no mucositis or thrush; MM dry neck - no JVD heart - RRR, s1 s2, no murmur lungs - b/l rales unchanged; no retractions today while on HFNC abd - soft NT ND BS+ ext - no edema skin - pallor, no rash psych - a/o x 3 but seems a bit confused neuro - tremors b/l -- severe Results & Data Results & Data ([facility]) Vital Signs (Past 12 Hours) Vital Signs Temp Pulse Pulse Resp BP Pulse Ox 01/27/21 19:08 87 20 90 01/27/21 16:20 36.4 C L 73 16 110/79 92 01/27/21 16:18 83 20 91 01/27/21 11:46 36.5 C 78 20 106/80 91 01/27/21 10:59 70 18 91 Laboratory Results Laboratory Results - last 24 hr 01/26/21 01/27/21 01/27/21 20:14 05:45 05:45 WBC 2.20 L RBC 2.95 L Hgb 9.2 L Hct 26.4 L MCV 89.5 MCH 31.2 MCHC 34.8 RDW Std Deviation 60.8 H RDW Coeff of Sari 18.6 H Plt Count 22 L* MPV 10.7 H Absolute Nucleated RBC 0.07 H Nucleated RBC % (auto) 3.3 Neutrophils % (Manual) 83.2 Lymphocytes % (Manual) 7.1 Monocytes % (Manual) 8.8 Myelocytes % (Man) 0.9 Neutrophils # (Manual) 1.83 Total Absolute Neuts 1.83 Lymphocytes # (Manual) 0.16 L Total Abs Lymphocytes 0.16 L Monocytes # (Manual) 0.19 Myelocytes # (Manual) 0.02 H Toxic Granulation 1+ Dohle Bodies 1+ Sodium 141 Potassium 4.1 Chloride 109 H Carbon Dioxide 23 Anion Gap 9.0 BUN 37 H Creatinine 1.25 H Est Cr Clr Drug Dosing 43.2 Est GFR ( Amer) 49.4 Est GFR (Non-Af Amer) 42.6 BUN/Creatinine Ratio 29.2 H Glucose 171 H POC Glucose 249 H Calcium 9.7 C-Reactive Protein 18.50 H NT-Pro-B Natriuret Pep 2472 H Lipase 113 01/27/21 01/27/21 01/27/21 07:56 11:43 17:03 WBC RBC Hgb Hct MCV MCH MCHC RDW Std Deviation RDW Coeff of Sari Plt Count MPV Absolute Nucleated RBC Nucleated RBC % (auto) Neutrophils % (Manual) Lymphocytes % (Manual) Monocytes % (Manual) Myelocytes % (Man) Neutrophils # (Manual) Total Absolute Neuts Lymphocytes # (Manual) Total Abs Lymphocytes Monocytes # (Manual) Myelocytes # (Manual) Toxic Granulation Dohle Bodies Sodium Potassium Chloride Carbon Dioxide Anion Gap BUN Creatinine Est Cr Clr Drug Dosing Est GFR ( Amer) Est GFR (Non-Af Amer) BUN/Creatinine Ratio Glucose POC Glucose 153 H 177 H 262 H Calcium C-Reactive Protein NT-Pro-B Natriuret Pep Lipase PG Care Time/CCT Total # of Minutes Spent Total Time Spent with Patient: Total time spent is greater than 50% in coordination of care (as documented) at patient's floor/unit and/or counseling patient: Coding Level of Care Code 67477 Subseq Hosp Care Lvl 3 Diagnoses Pneumonia due to 2019 novel coronavirus U07.1; J12.82 Acute on chronic respiratory failure with hypoxemia J96.21 Antineoplastic chemotherapy induced pancytopenia D61.810; T45.1X5A Chronic kidney disease, stage 3a N18.31 Small cell lung cancer, left upper lobe C34.12 Diabetes mellitus, type 2 E11.9 COPD with emphysema J43.9 Hyperlipidemia E78.5 Hypertension I10 GERD (gastroesophageal reflux disease) K21.9 Hypothyroidism E03.9 Dysphagia R13.10 Herpes labialis B00.1 Essential tremor G25.0 Cardiomyopathy I42.9 Cardiomyopathy type: unspecified DVT prophylaxis Z29.9 Neutropenia D70.9 Pleuritic chest pain R07.81 (1) Cardiomyopathy Cardiomyopathy type: unspecified Qualified Code(s): I42.9 - Cardiomyopathy, unspecified
[2021-01-27] MEDS: POTASSIUM CHLORIDE 20 MEQ/15 ML UDC PO SCH (20:40)
[2021-01-28] MEDS: LEVOTHYROXINE SODIUM 88 MCG TABLET PO SCH (05:33)
[2021-01-28] MEDS: MEROPENEM 500 MG in SYRINGE 0 ML IV SCH ×3 (05:34→20:55)
[2021-01-28] MEDS: ALBUTEROL HFA 8 GM INHALER INH SCH ×4 (06:05→19:19)
[2021-01-28] MEDS: ACYCLOVIR 5% OINT 15 GM TUBE EXT SCH ×5 (07:15→20:55)
[2021-01-28] MEDS: LIDOCAINE VISCOUS 2% SOLN 60 ML, diphenhydrAMINE Syrup 150 MG, ALUMINUM/MAGNESIUM SUSP ... MT SCH ×4 (07:30→20:55)
[2021-01-28] MEDS: SUCRALFATE 1 GM TAB PO SCH ×4 (08:48→20:55)
[2021-01-28] MEDS: dexAMETHasone 6 MG in SYRINGE 0 ML IV SCH (08:49)
[2021-01-28] MEDS: ARTIFICIAL TEARS OP SCH ×2 (08:49→20:54)
[2021-01-28] MEDS: POTASSIUM CHLORIDE 20 MEQ/15 ML UDC PO SCH (08:50)
[2021-01-28] MEDS: FAMOTIDINE 20 MG in SYRINGE 3 ML IV SCH ×2 (08:50→20:55)
[2021-01-28] MEDS: PANTOprazole 40 MG TAB PO SCH ×2 (08:50→20:56)
[2021-01-28] MEDS: INSULIN GLARGINE SOLOSTAR 100 UNITS/ML 3 ML PEN SC SCH ×2 (09:26→20:40)
[2021-01-28] MEDS: INSULIN ASPART 100 UNITS/ML 3 ML PEN SC SCH ×4 (09:28→20:40)
[2021-01-28 11:00] LABS: Hematocrit (blood only) 27.9 % (37-47); Hemoglobin 9.5 g/dL (12.0-16.0); Mean Corpuscular Hemoglobin 31.5 pg (25-34); Mean Corpuscular Hgb Conc 34.1 g/dL (32-36); Mean Corpuscular Volume 92.4 fL (80-100); Nucleated RBC # (auto) 0.05 K/uL (0-0); Nucleated RBC % (auto) 1.8 %; RDW Coefficient of Variation 18.6 % (11.5-14.5); RDW Standard Deviation 62.3 fL (36.4-46.3); Red Blood Count 3.02 M/uL (4.2-5.4); White Blood Count 3.07 K/uL (4.8-10.8)
[2021-01-28 11:04] LABS: Platelet Count 31 K/uL (130-400)
[2021-01-28 11:27] LABS: BUN Creatinine Ratio 33.5 (10-20); Calcium 9.9 mg/dl (8.5-10.1); Creatinine Clr Calc Pharmacy 40.9 ml/min; Est GFR (African American) 45.8 ml/min; Est GFR (Non-African American) 39.6 ml/min; Magnesium 1.7 mg/dl (1.8-2.4); Potassium 4.9 mmol/L (3.5-5.1)
[2021-01-28 11:39] LABS: ANC (manual) 2.72 K/uL (1.4-6.5); Anisocytosis Present; Dohle Bodies 1+; Monocytes # (manual) 0.19 K/uL (0.11-0.59); Monocytes % (manual) 6.1 %; Myelocytes # (manual) 0.16 K/uL (0-0); Myelocytes % (manual) 5.3 %; Neutrophils # (manual) 2.72 K/uL (1.4-6.5); Neutrophils % (manual) 88.6 %; Toxic Granulation 2+
[2021-01-28] MEDS: REMDESIVIR 100 MG in SODIUM CHLORIDE 0.9% 230 ML IV SCH (13:25)
[2021-01-28] MEDS ORDERED: MAGNESIUM SULFATE / D5W 1 GM/100 ML BAG IV ONE (13:30)
[2021-01-28] MEDS: SODIUM CHLORIDE 0.9% 10ML FLUSH IV SCH (14:37)
--- NOTE | 2021-01-28 20:34 | Hospitalist Progress Note ---
Date of Service January 28, 2021 Assessment & Plan (1) Pneumonia due to 2019 novel coronavirus: Plan: SEVERE, with ongoing need for HFNC. WORSENING. She is about day #8 into her illness and hospital day #5. Day #6 of dexamethasone 6mg daily. Day #4 of Remdesivir. Was not a candidate for baricitinib due to neutropenia and heavy immunosuppression from recent chemo for lung cancer. In light of worsening respiratory status & ongoing fever with neutropenia she remains on Meropenem - day #3 - and levaquin day #4. MRSA swab neg - deferred on MRSA coverage. Patient does not examine volume overloaded today - defer on lasix. (2) Acute on chronic respiratory failure with hypoxemia: Plan: Chronic - on NC O2 at home, wears it "prn" but uses such on most days. 2nd COPD. Now with acute resp failure 2nd to #1. (3) Antineoplastic chemotherapy induced pancytopenia: Plan: Severe pancytopenia 2nd to recent chemo for left-sided lung cancer. Improving albeit slowly. s/p 2 units PRBCs and 1 unit platelets since admission. s/p 3 days of neupogen. Neutropenia finally resolved. Platelets starting to rise. H/H acceptable. No bleeding complications. (4) Chronic kidney disease, stage 3a: Plan: baseline CrCl 40s/50s BMP again stable repeat BMP am (5) Small cell lung cancer, left upper lobe: Plan: dx [address] Daniels at [facility] and Dr Castro, radiation onc recent chemo for such as above (6) Diabetes mellitus, type 2: Plan: cont novolog cont lantus most recent a1c 8.5% in late November hold oral agents adjust novolog for better meal-time coverage (7) COPD with emphysema: Plan: cont scheduled bronchodilators cont steroids cont HFNC - sats low 90s acceptable (8) Hyperlipidemia: Plan: holding statin AST/ALT wnl repeat AST/ALT in am due to Remdesivir (9) Hypertension: Plan: BPs cont to be low-normal -- hold BP meds (10) GERD (gastroesophageal reflux disease): Plan: PPI twice daily + IV H2 germán (11) Hypothyroidism: Plan: TSH in 11/2020 wnl cont synthroid (12) Dysphagia: Plan: 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 requiring dilatation via EGD earlier this fall cont pureed diet (13) Herpes labialis: Plan: zovirax ointment (14) Essential tremor: Plan: severe (15) Cardiomyopathy: Plan: previous echos with EF 45-50% as well as >50% s/p lasix this week - defer on dosing today - appears euvolemic (16) DVT prophylaxis: Plan: chemical means contraindicated due to low platelets SCDs only (17) Neutropenia: Plan: s/p 3 doses of neupogen since admission neutropenia resolved with such CBC am (18) Pleuritic chest pain: Plan: resolved was likely due to the severe COVID pneumonia itself PE less likely doubt ACS/ischemic trop neg EKG neg dimer high, but had neg CTA chest day of admission - thus, defer on repeat CTA Plan: updated by phone 01/24/21, 01/25/21, 01/26/21, 01/27/21, and today he will report off details to his children offered Zoom option for & children to allow them to see Mrs Rivers Admission and Anticipated Discharge Date Admission Date: January 23, 2021 Subjective pt denies complaints she asks again "why can't I go home?" nursing staff report that with transferring from the bed to chair she had severe fatigue, dyspnea, and hypoxia continues with dry cough no chest pain no abdominal pain tele overnight wnl also per staff - appetite very poor Review of Systems Review of Systems: gen - no fevers, no chills CV - no cp, no orthopnea pulm - no hemoptysis GI - no pain neuro - no headache Physical Exam Physical Exam: gen - weak appearing, mild tachypnea but no distress HENT - bottom lip with HSV lesion; MM dry neck - no JVD heart - RRR, s1 s2, no murmur lungs - b/l fine rales unchanged abd - soft NT ND BS+ ext - no edema skin - pallor, no rash psych - poor insight Results & Data Results & Data ([facility]) Vital Signs (Past 12 Hours) Vital Signs Temp Pulse Pulse Resp BP Pulse Ox 01/28/21 19:19 77 20 95 01/28/21 18:38 36.4 C L 83 19 100/69 91 01/28/21 16:47 36.4 C L 84 22 111/71 91 01/28/21 16:00 70 01/28/21 15:20 64 21 93 01/28/21 10:59 36.4 C L 63 20 108/70 95 01/28/21 10:40 78 19 92 Laboratory Results Laboratory Results - last 24 hr 01/27/21 01/28/21 01/28/21 20:49 07:51 10:33 WBC 3.07 L RBC 3.02 L Hgb 9.5 L Hct 27.9 L MCV 92.4 MCH 31.5 MCHC 34.1 RDW Std Deviation 62.3 H RDW Coeff of Sari 18.6 H Plt Count 31 L MPV 11.0 H Absolute Nucleated RBC 0.05 H Nucleated RBC % (auto) 1.8 Neutrophils % (Manual) 88.6 Lymphocytes % (Manual) 0.0 Monocytes % (Manual) 6.1 Myelocytes % (Man) 5.3 Neutrophils # (Manual) 2.72 Total Absolute Neuts 2.72 Total Abs Lymphocytes 0.00 L Monocytes # (Manual) 0.19 Myelocytes # (Manual) 0.16 H Toxic Granulation 2+ Dohle Bodies 1+ Anisocytosis Present Sodium Potassium Chloride Carbon Dioxide Anion Gap BUN Creatinine Est Cr Clr Drug Dosing Est GFR ( Amer) Est GFR (Non-Af Amer) BUN/Creatinine Ratio Glucose POC Glucose 215 H 132 H Calcium Magnesium AST ALT 01/28/21 01/28/21 01/28/21 10:33 11:54 17:09 WBC RBC Hgb Hct MCV MCH MCHC RDW Std Deviation RDW Coeff of Sari Plt Count MPV Absolute Nucleated RBC Nucleated RBC % (auto) Neutrophils % (Manual) Lymphocytes % (Manual) Monocytes % (Manual) Myelocytes % (Man) Neutrophils # (Manual) Total Absolute Neuts Total Abs Lymphocytes Monocytes # (Manual) Myelocytes # (Manual) Toxic Granulation Dohle Bodies Anisocytosis Sodium 141 Potassium 4.9 D Chloride 110 H Carbon Dioxide 23 Anion Gap 8.0 BUN 45 H Creatinine 1.33 H Est Cr Clr Drug Dosing 40.9 Est GFR ( Amer) 45.8 Est GFR (Non-Af Amer) 39.6 BUN/Creatinine Ratio 33.5 H Glucose 175 H POC Glucose 172 H 262 H Calcium 9.9 Magnesium 1.7 L AST 17 ALT 20 01/28/21 19:56 WBC RBC Hgb Hct MCV MCH MCHC RDW Std Deviation RDW Coeff of Sari Plt Count MPV Absolute Nucleated RBC Nucleated RBC % (auto) Neutrophils % (Manual) Lymphocytes % (Manual) Monocytes % (Manual) Myelocytes % (Man) Neutrophils # (Manual) Total Absolute Neuts Total Abs Lymphocytes Monocytes # (Manual) Myelocytes # (Manual) Toxic Granulation Dohle Bodies Anisocytosis Sodium Potassium Chloride Carbon Dioxide Anion Gap BUN Creatinine Est Cr Clr Drug Dosing Est GFR ( Amer) Est GFR (Non-Af Amer) BUN/Creatinine Ratio Glucose POC Glucose 232 H Calcium Magnesium AST ALT PG Care Time/CCT Total # of Minutes Spent Total Time Spent with Patient: Total time spent is greater than 50% in coordination of care (as documented) at patient's floor/unit and/or counseling patient: Coding Level of Care Code 49458 Subseq Hosp Care Lvl 2 Diagnoses Pneumonia due to 2019 novel coronavirus U07.1; J12.82 Acute on chronic respiratory failure with hypoxemia J96.21 Antineoplastic chemotherapy induced pancytopenia D61.810; T45.1X5A Chronic kidney disease, stage 3a N18.31 Small cell lung cancer, left upper lobe C34.12 Diabetes mellitus, type 2 E11.9 COPD with emphysema J43.9 Hyperlipidemia E78.5 Hypertension I10 GERD (gastroesophageal reflux disease) K21.9 Hypothyroidism E03.9 Dysphagia R13.10 Herpes labialis B00.1 Essential tremor G25.0 Cardiomyopathy I42.9 Cardiomyopathy type: unspecified DVT prophylaxis Z29.9 Neutropenia D70.9 Pleuritic chest pain R07.81 (1) Cardiomyopathy Cardiomyopathy type: unspecified Qualified Code(s): I42.9 - Cardiomyopathy, unspecified
[2021-01-29] MEDS: LEVOTHYROXINE SODIUM 88 MCG TABLET PO SCH (05:41)
[2021-01-29] MEDS: MEROPENEM 500 MG in SYRINGE 0 ML IV SCH ×3 (05:41→20:19)
[2021-01-29 07:17] LABS: Hematocrit (blood only) 28.7 % (37-47); Hemoglobin 9.6 g/dL (12.0-16.0); Mean Corpuscular Hemoglobin 31.4 pg (25-34); Mean Corpuscular Hgb Conc 33.4 g/dL (32-36); Mean Corpuscular Volume 93.8 fL (80-100); Nucleated RBC # (auto) 0.05 K/uL (0-0); Nucleated RBC % (auto) 1.7 %; RDW Coefficient of Variation 18.5 % (11.5-14.5); RDW Standard Deviation 62.7 fL (36.4-46.3); Red Blood Count 3.06 M/uL (4.2-5.4); White Blood Count 3.02 K/uL (4.8-10.8)
[2021-01-29 07:20] LABS: Mean Platelet Volume 9.7 fL (7.4-10.4); Platelet Count 30 K/uL (130-400)
[2021-01-29 07:41] LABS: Basophils # (auto) 0.01 K/uL (0-0.2); Basophils % (auto) 0.3 %; Immature Granulocytes # (auto) 0.18 K/uL (0.00-0.02); Lymphocytes # (auto) 0.12 K/uL (1.2-3.4); Monocytes # (auto) 0.46 K/uL (0.11-0.59); Monocytes % (auto) 15.2 %; Neutrophils # (auto) 2.25 K/uL (1.4-6.5); Neutrophils % (auto) 74.5 %; Tear Drop Cells 1+; Toxic Granulation 2+
[2021-01-29 07:54] LABS: BUN Creatinine Ratio 36.2 (10-20); Calcium 9.6 mg/dl (8.5-10.1); Creatinine Clr Calc Pharmacy 42.7 ml/min; Est GFR (African American) 48.9 ml/min; Est GFR (Non-African American) 42.2 ml/min; Potassium 4.1 mmol/L (3.5-5.1)
[2021-01-29] MEDS: ALBUTEROL HFA 8 GM INHALER INH SCH ×4 (08:08→19:53)
[2021-01-29] MEDS: SUCRALFATE 1 GM TAB PO SCH ×4 (09:00→20:17)
[2021-01-29] MEDS: PANTOprazole 40 MG TAB PO SCH ×2 (09:00→20:17)
[2021-01-29] MEDS: FAMOTIDINE 20 MG in SYRINGE 3 ML IV SCH ×2 (09:00→20:17)
[2021-01-29] MEDS: INSULIN ASPART 100 UNITS/ML 3 ML PEN SC SCH ×4 (09:01→20:18)
[2021-01-29] MEDS: ACYCLOVIR 5% OINT 15 GM TUBE EXT SCH ×5 (09:02→20:17)
[2021-01-29] MEDS: ARTIFICIAL TEARS OP SCH ×2 (09:02→20:17)
[2021-01-29] MEDS: LIDOCAINE VISCOUS 2% SOLN 60 ML, diphenhydrAMINE Syrup 150 MG, ALUMINUM/MAGNESIUM SUSP ... MT SCH ×4 (09:17→20:19)
[2021-01-29] MEDS ORDERED: FUROSEMIDE INJ 20 MG/2 ML VIAL IV ONE (09:30)
[2021-01-29] MEDS: INSULIN GLARGINE SOLOSTAR 100 UNITS/ML 3 ML PEN SC SCH ×2 (09:57→20:19)
[2021-01-29] MEDS: REMDESIVIR 100 MG in SODIUM CHLORIDE 0.9% 230 ML IV SCH (11:50)
[2021-01-29] MEDS: dexAMETHasone 10 MG in SYRINGE 0 ML IV SCH (11:51)
[2021-01-29] MEDS: SODIUM CHLORIDE 0.9% 10ML FLUSH IV SCH (11:52)
[2021-01-29] MEDS: levoFLOXacin/D5W 750 MG/150 ML BAG IV SCH (16:51)
[2021-01-29] MEDS: ACETAMINOPHEN 325 MG TAB PO PRN (17:01)
[2021-01-29] MEDS: NYSTATIN SUSP 500,000 U/5 ML UDC PO SCH ×2 (18:21→20:19)
--- NOTE | 2021-01-30 04:51 | Hospitalist Progress Note ---
Date of Service January 29, 2021 Assessment & Plan (1) Pneumonia due to 2019 novel coronavirus: Plan: SEVERE, with ongoing need for HFNC. WORSENING hypoxia - FiO2 needs now 100%. We discussed proning - she will attempt such. She is about day #9 into her illness and hospital day #6. Day #7 of dexamethasone - will increase to 10mg daily due to probable early ARDS. Day #5 of Remdesivir. Was not a candidate for baricitinib due to neutropenia and heavy immunosuppr ession from recent chemo for lung cancer. Neutropenia now resolved. In light of worsening respiratory status & ongoing fever with neutropenia she was initiated on Meropenem - day #4 of such; and levaquin day #5. MRSA swab neg - deferred on MRSA coverage. Cont pulmonary toilet - flutter, IS, etc. Another dose of IV lasix 20mg today to keep I/O balance neg. (2) Acute on chronic respiratory failure with hypoxemia: Plan: Chronic - on NC O2 at home, wears it "prn" but uses such on most days. 2nd COPD. Now with acute resp failure 2nd to #1. (3) Antineoplastic chemotherapy induced pancytopenia: Plan: Severe pancytopenia 2nd to recent chemo for left-sided lung cancer. WBC count improved. Neutropenia resolved Platelets slowly rising. s/p 2 units PRBCs and 1 unit platelets since admission. s/p 3 days of neupogen. No bleeding complications. (4) Chronic kidney disease, stage 3a: Plan: baseline CrCl 40s/50s BMP again stable today repeat BMP am (5) Small cell lung cancer, left upper lobe: Plan: dx [address] Daniels at [facility] and Dr Castro, radiation onc recent chemo for such as above (6) Diabetes mellitus, type 2: Plan: cont novolog cont lantus most recent a1c 8.5% in late November hold oral agents (7) COPD with emphysema: Plan: cont scheduled bronchodilators cont steroids cont HFNC - sats low 90s acceptable prone pulmonary toilet (8) Hyperlipidemia: Plan: can resume statin AST/ALT wnl repeat AST/ALT in am due to Remdesivir (9) Hypertension: Plan: BPs cont to be low-normal -- hold BP meds (10) GERD (gastroesophageal reflux disease): Plan: PPI twice daily + IV H2 germán (11) Hypothyroidism: Plan: TSH in 11/2020 wnl cont synthroid (12) Dysphagia: Plan: 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 requiring dilatation via EGD earlier this fall cont pureed diet no issues this admission (13) Herpes labialis: Plan: zovirax ointment (14) Essential tremor: Plan: severe (15) Cardiomyopathy: Plan: previous echos with EF 45-50% as well as >50% s/p lasix this week multiple times - give another dose this am (16) DVT prophylaxis: Plan: chemical means contraindicated due to low platelets SCDs only (17) Neutropenia: Plan: s/p 3 doses of neupogen since admission neutropenia resolved with such CBC am (18) Pleuritic chest pain: Plan: resolved was likely due to the severe COVID pneumonia itself PE less likely doubt ACS/ischemic trop neg EKG neg dimer high, but had neg CTA chest day of admission - thus, repeat CTA has been deferred (19) Candidiasis of mouth and esophagus: Plan: nystatin solution 5cc qid swish/swallow Plan: updated by phone 01/24/21, 01/25/21, 01/26/21, 01/27/21, 01/28/21, and today he continues to report off details to his children discussed code status with patient - she denies having a living will, and reports she has never discussed end of life wishes with spouse or children full code for now consider palliative consultation Admission and Anticipated Discharge Date Admission Date: January 23, 2021 Subjective pt had her HFNC settings increased overnight - FiO2 now 100% with sats in low 90s pt w/ ongoing poor appetite, dry cough, fatigue, and CASTELLANOS voided several times with Lasix this am c/o dry mouth now she asks similar questions to yesterday - "why can't I go home?" she admits she is scared & lonely tele overnight wnl Review of Systems Review of Systems: gen - fatigue, anorexia cv - mild chest tightness with coughing only pulm - no sputum, no hemoptysis GI - no pain, nausea or emesis psych - depressed, anxious Physical Exam Physical Exam: gen - very weak appearing, mild tachypnea but no distress HENT - bottom lip with HSV lesion; MM dry; probable thrush on tongue; alopecia neck - no JVD heart - RRR, s1 s2, no murmur lungs - b/l fine rales unchanged - 1/2 way up back abd - soft NT ND BS+ ext - no edema skin - pallor, no rash psych - poor insight, anxious Results & Data Results & Data ([facility]) Vital Signs (Past 12 Hours) Vital Signs Temp Pulse Pulse Resp BP BP Pulse Ox 01/30/21 03:25 88 24 90 01/30/21 03:18 36.8 C 86 24 106/70 86 L 01/29/21 23:21 36.6 C 88 20 139/97 90 01/29/21 23:12 83 01/29/21 23:11 76 25 H 89 L 01/29/21 19:56 96 H 24 91 01/29/21 19:55 93 H 24 90 01/29/21 19:00 36.4 C L 105 H 17 98/70 L 92 Laboratory Results Laboratory Results - last 24 hr 01/29/21 01/29/21 01/29/21 05:40 05:40 07:50 WBC 3.02 L RBC 3.06 L Hgb 9.6 L Hct 28.7 L MCV 93.8 MCH 31.4 MCHC 33.4 RDW Std Deviation 62.7 H RDW Coeff of Sari 18.5 H Plt Count 30 L MPV 9.7 Immature Gran % (Auto) 6.0 Neut % (Auto) 74.5 Lymph % (Auto) 4.0 Nelson % (Auto) 15.2 Eos % (Auto) 0.0 Baso % (Auto) 0.3 Neut # (Auto) 2.25 Lymph # (Auto) 0.12 L Nelson # (Auto) 0.46 Eos # (Auto) 0.00 Baso # (Auto) 0.01 Immature Gran # (Auto) 0.18 H Absolute Nucleated RBC 0.05 H Nucleated RBC % (auto) 1.7 Toxic Granulation 2+ Tear Drop Cells 1+ Sodium 141 Potassium 4.1 D Chloride 108 H Carbon Dioxide 24 Anion Gap 9.0 BUN 46 H Creatinine 1.26 H Est Cr Clr Drug Dosing 42.7 Est GFR ( Amer) 48.9 Est GFR (Non-Af Amer) 42.2 BUN/Creatinine Ratio 36.2 H Glucose 105 H POC Glucose 111 H Calcium 9.6 Magnesium 2.0 AST 14 L ALT 19 01/29/21 01/29/21 01/29/21 11:12 16:44 20:15 WBC RBC Hgb Hct MCV MCH MCHC RDW Std Deviation RDW Coeff of Sari Plt Count MPV Immature Gran % (Auto) Neut % (Auto) Lymph % (Auto) Nelson % (Auto) Eos % (Auto) Baso % (Auto) Neut # (Auto) Lymph # (Auto) Nelson # (Auto) Eos # (Auto) Baso # (Auto) Immature Gran # (Auto) Absolute Nucleated RBC Nucleated RBC % (auto) Toxic Granulation Tear Drop Cells Sodium Potassium Chloride Carbon Dioxide Anion Gap BUN Creatinine Est Cr Clr Drug Dosing Est GFR ( Amer) Est GFR (Non-Af Amer) BUN/Creatinine Ratio Glucose POC Glucose 153 H 264 H 219 H Calcium Magnesium AST ALT PG Care Time/CCT Total # of Minutes Spent Total Time Spent with Patient: Total time spent is greater than 50% in coordination of care (as documented) at patient's floor/unit and/or counseling patient: Coding Level of Care Code 58334 Subseq Hosp Care Lvl 3 Diagnoses Pneumonia due to 2019 novel coronavirus U07.1; J12.82 Acute on chronic respiratory failure with hypoxemia J96.21 Antineoplastic chemotherapy induced pancytopenia D61.810; T45.1X5A Chronic kidney disease, stage 3a N18.31 Small cell lung cancer, left upper lobe C34.12 Diabetes mellitus, type 2 E11.9 COPD with emphysema J43.9 Hyperlipidemia E78.5 Hypertension I10 GERD (gastroesophageal reflux disease) K21.9 Hypothyroidism E03.9 Dysphagia R13.10 Herpes labialis B00.1 Essential tremor G25.0 Cardiomyopathy I42.9 Cardiomyopathy type: unspecified DVT prophylaxis Z29.9 Neutropenia D70.9 Pleuritic chest pain R07.81 Candidiasis of mouth and esophagus B37.81; B37.0 (1) Cardiomyopathy Cardiomyopathy type: unspecified Qualified Code(s): I42.9 - Cardiomyopathy, unspecified
[2021-01-30] MEDS: MEROPENEM 500 MG in SYRINGE 0 ML IV SCH ×3 (05:22→21:01)
[2021-01-30] MEDS: LEVOTHYROXINE SODIUM 88 MCG TABLET PO SCH (05:22)
[2021-01-30] MEDS: ALBUTEROL HFA 8 GM INHALER INH SCH ×4 (07:02→19:33)
[2021-01-30] MEDS: ACYCLOVIR 5% OINT 15 GM TUBE EXT SCH ×5 (07:30→20:58)
[2021-01-30 07:47] LABS: Hematocrit (blood only) 27.9 % (37-47); Hemoglobin 9.5 g/dL (12.0-16.0); Mean Corpuscular Hemoglobin 31.4 pg (25-34); Mean Corpuscular Hgb Conc 34.1 g/dL (32-36); Mean Corpuscular Volume 92.1 fL (80-100); Nucleated RBC # (auto) 0.04 K/uL (0-0); RDW Coefficient of Variation 17.7 % (11.5-14.5); RDW Standard Deviation 58.8 fL (36.4-46.3); Red Blood Count 3.03 M/uL (4.2-5.4); White Blood Count 3.59 K/uL (4.8-10.8)
[2021-01-30 07:49] LABS: Mean Platelet Volume 10.6 fL (7.4-10.4); Platelet Count 31 K/uL (130-400)
[2021-01-30 08:13] LABS: BUN Creatinine Ratio 36.3 (10-20); C Reactive Protein 8.82 mg/dl (0-0.29); Calcium 9.5 mg/dl (8.5-10.1); Creatinine Clr Calc Pharmacy 42.6 ml/min; Est GFR (African American) 48.9 ml/min; Est GFR (Non-African American) 42.2 ml/min; Potassium 3.8 mmol/L (3.5-5.1)
[2021-01-30 08:21] LABS: Basophils # (auto) 0.01 K/uL (0-0.2); Basophils % (auto) 0.3 %; Immature Granulocytes # (auto) 0.24 K/uL (0.00-0.02); Immature Granulocytes % (auto) 6.7 %; Lymphocytes # (auto) 0.29 K/uL (1.2-3.4); Lymphocytes % (auto) 8.1 %; Monocytes # (auto) 0.34 K/uL (0.11-0.59); Monocytes % (auto) 9.5 %; Neutrophils # (auto) 2.71 K/uL (1.4-6.5); Neutrophils % (auto) 75.4 %
[2021-01-30] MEDS: SUCRALFATE 1 GM TAB PO SCH ×4 (09:15→21:00)
[2021-01-30] MEDS: LIDOCAINE VISCOUS 2% SOLN 60 ML, diphenhydrAMINE Syrup 150 MG, ALUMINUM/MAGNESIUM SUSP ... MT SCH ×4 (09:16→21:09)
[2021-01-30] MEDS: dexAMETHasone 10 MG in SYRINGE 0 ML IV SCH (09:19)
[2021-01-30] MEDS: FAMOTIDINE 20 MG in SYRINGE 3 ML IV SCH ×2 (09:19→21:00)
[2021-01-30] MEDS: NYSTATIN SUSP 500,000 U/5 ML UDC PO SCH ×4 (09:20→21:00)
[2021-01-30] MEDS: PANTOprazole 40 MG TAB PO SCH ×2 (09:21→21:00)
[2021-01-30] MEDS: ARTIFICIAL TEARS OP SCH ×2 (09:22→20:58)
[2021-01-30] MEDS: INSULIN ASPART 100 UNITS/ML 3 ML PEN SC SCH ×4 (09:52→21:11)
[2021-01-30] MEDS: INSULIN GLARGINE SOLOSTAR 100 UNITS/ML 3 ML PEN SC SCH ×2 (09:52→21:11)
[2021-01-30] MEDS: ACETAMINOPHEN 325 MG TAB PO PRN (10:41)
[2021-01-30] MEDS: ATORVASTATIN 40 MG TAB PO SCH (21:00)
--- NOTE | 2021-01-30 22:14 | Hospitalist Progress Note ---
Date of Service January 30, 2021 Assessment & Plan (1) Pneumonia due to 2019 novel coronavirus: Plan: SEVERE, with ongoing need for HFNC. FiO2 needs now 100%. She is about day #10 into her illness and hospital day #7. Day #8 of dexamethasone - increased from 6mg to 10mg daily due to probable early ARDS on 01/29. Completed 5-day course of Remdesivir. Was not a candidate for baricitinib due to neutropenia and heavy immunosuppression from recent chemo for lung cancer. Neutropenia now resolved. In light of worsening respiratory status & ongoing fever with neutropenia she was initiated on Meropenem - day #5 of such; and levaquin day #6. MRSA swab neg - deferred on MRSA coverage. Stop Meropenem after tonight's dose. Give 1 additional dose of levaquin tomorrow then stop. Cont pulmonary toilet - flutter, IS, etc. Cont self-proning. (2) Antineoplastic chemotherapy induced pancytopenia: Plan: Severe pancytopenia 2nd to recent chemo for left-sided lung cancer. Received chemo late December. WBC count improved. Neutropenia resolved Platelets slowly rising. If platelets remain low obtain formal heme/onc consultation. s/p 2 units PRBCs and 1 unit platelets since admission. s/p 3 days of neupogen. No bleeding complications. (3) Acute on chronic respiratory failure with hypoxemia: Plan: 2 L NC 02 PRN as outpatient but tends to use it frequently. Acute component 2nd to #1. Diuresis given much of this week - lasix d/c. (4) Small cell lung cancer, left upper lobe: Plan: Follows with Dr Daniels and Dr Castro for chemotherapy and radiation, respectively. Radiation treatments were completed. Last chemotherapy ~ 01/06? (5) Hypothyroidism: Plan: TSH wnl Nov 2020 Continue Levothyroxine 88 mcg daily (6) GERD (gastroesophageal reflux disease): Plan: Improved with PPI + H2 germán. Can stop IV pepcid. Cont with PPI twice daily. (7) Hypertension: Plan: Still holding amlodipine-benazepril due to low / low-normal BPs (8) Diabetes mellitus, type 2: Plan: Uncontrolled 2nd to steroids. Cont lantus BID. Adjust novolog. Most recent a1c 8.5% in late November (9) COPD with emphysema: Plan: Cont inhalers. Cont steroids. (10) Chronic kidney disease, stage 3a: Plan: Cr has been stable over the last few days even in the midst of diuresis. BMP in am. (11) Hyperlipidemia: Plan: Cont statin. AST / ALT wnl. (12) Dysphagia: Plan: Patient with esophageal stenosis requiring dilatation via EGD earlier this fall cont pureed diet no issues this admission (13) Herpes labialis: Plan: cont zovirax (14) Essential tremor: Plan: chronic (15) Cardiomyopathy: Plan: previous echos with EF 45-50% as well as >50% s/p lasix this week multiple times patient is net fluid negative to date hold on further diuresis (16) DVT prophylaxis: Plan: SCDs chemical means contraindicated due to low platelets (17) Neutropenia: Plan: resolved s/p neupogen x 3 this admission (18) Candidiasis of mouth and esophagus: Plan: cont nystatin solution Plan: updated by phone 01/24/21, 01/25/21, 01/26/21, 01/27/21, 01/28/21, 01/29/21, and today he continues to report off details to his children discussed code status with patient on 01/29 and 01/30 - she denies having a living will, and reports she has never discussed end of life wishes with spouse or children however, she has thought about her code status - wants CPR but NO intubation consider palliative consultation given guarded prognosis needs PT/OT Admission and Anticipated Discharge Date Admission Date: January 23, 2021 Subjective pt w/o complaints she was resting comfortably cough remains - "occasional" sputum no dyspnea at rest; CASTELLANOS with getting into the chair eating fair at best overnight she had desaturation requiring 100% FiO2 to maintain sats in low 90s fatigue is somewhat improved tele overnight - NSR Review of Systems Review of Systems: gen - no fevers or chills HENT - MM dry CV - some chest tightness with coughing pulm - cough, CASTELLANOS, no hemoptysis GI - no N/V/diarrhea Physical Exam Physical Exam: gen - weak, but no acute distress HENT - bottom lip with healing HSV lesion; MM dry; thrush on tongue; alopecia neck - no JVD heart - RRR, s1 s2, no murmur lungs - b/l fine rales unchanged abd - soft NT ND BS+ ext - no edema skin - pallor, no rash psych - poor insight; a/o x 3 Results & Data Results & Data ([facility]) Vital Signs (Past 12 Hours) Vital Signs Temp Pulse Pulse Pulse Resp BP BP 01/30/21 19:33 75 24 01/30/21 19:14 36.8 C 82 18 100/59 L 01/30/21 16:17 01/30/21 15:27 36.8 C 100 H 20 117/80 01/30/21 15:06 88 24 01/30/21 14:00 96 H 01/30/21 11:49 112 H 20 01/30/21 11:29 36.5 C 103 H 18 121/78 Pulse Ox Pulse Ox 01/30/21 19:33 93 01/30/21 19:14 92 01/30/21 16:17 91 01/30/21 15:27 92 01/30/21 15:06 97 01/30/21 14:00 97 01/30/21 11:49 91 01/30/21 11:29 100 Laboratory Results Laboratory Results - last 24 hr 01/30/21 01/30/21 01/30/21 07:15 07:15 08:28 WBC 3.59 L RBC 3.03 L Hgb 9.5 L Hct 27.9 L MCV 92.1 MCH 31.4 MCHC 34.1 RDW Std Deviation 58.8 H RDW Coeff of Sari 17.7 H Plt Count 31 L MPV 10.6 H Immature Gran % (Auto) 6.7 Neut % (Auto) 75.4 Lymph % (Auto) 8.1 Pickett % (Auto) 9.5 Eos % (Auto) 0.0 Baso % (Auto) 0.3 Neut # (Auto) 2.71 Lymph # (Auto) 0.29 L Pickett # (Auto) 0.34 Eos # (Auto) 0.00 Baso # (Auto) 0.01 Immature Gran # (Auto) 0.24 H Absolute Nucleated RBC 0.04 H Nucleated RBC % (auto) 1.0 Sodium 139 Potassium 3.8 Chloride 107 Carbon Dioxide 24 Anion Gap 8.0 BUN 46 H Creatinine 1.26 H Est Cr Clr Drug Dosing 42.6 Est GFR ( Amer) 48.9 Est GFR (Non-Af Amer) 42.2 BUN/Creatinine Ratio 36.3 H Glucose 128 H POC Glucose 125 H Calcium 9.5 AST 14 L ALT 16 C-Reactive Protein 8.82 H 01/30/21 01/30/21 01/30/21 12:04 16:49 20:06 WBC RBC Hgb Hct MCV MCH MCHC RDW Std Deviation RDW Coeff of Sari Plt Count MPV Immature Gran % (Auto) Neut % (Auto) Lymph % (Auto) Pickett % (Auto) Eos % (Auto) Baso % (Auto) Neut # (Auto) Lymph # (Auto) Pickett # (Auto) Eos # (Auto) Baso # (Auto) Immature Gran # (Auto) Absolute Nucleated RBC Nucleated RBC % (auto) Sodium Potassium Chloride Carbon Dioxide Anion Gap BUN Creatinine Est Cr Clr Drug Dosing Est GFR ( Amer) Est GFR (Non-Af Amer) BUN/Creatinine Ratio Glucose POC Glucose 244 H 234 H 201 H Calcium AST ALT C-Reactive Protein PG Care Time/CCT Total # of Minutes Spent Total Time Spent with Patient: Total time spent is greater than 50% in coordination of care (as documented) at patient's floor/unit and/or counseling patient: Coding Level of Care Code 58077 Subseq Hosp Care Lvl 3 Diagnoses Acute on chronic respiratory failure with hypoxemia J96.21 Small cell lung cancer, left upper lobe C34.12 Hypothyroidism E03.9 GERD (gastroesophageal reflux disease) K21.9 Hypertension I10 Diabetes mellitus, type 2 E11.9 COPD with emphysema J43.9 Pneumonia due to 2019 novel coronavirus U07.1; J12.82 Antineoplastic chemotherapy induced pancytopenia D61.810; T45.1X5A Chronic kidney disease, stage 3a N18.31 Hyperlipidemia E78.5 Dysphagia R13.10 Herpes labialis B00.1 Essential tremor G25.0 Cardiomyopathy I42.9 Cardiomyopathy type: unspecified DVT prophylaxis Z29.9 Neutropenia D70.9 Candidiasis of mouth and esophagus B37.81; B37.0 (1) Cardiomyopathy Cardiomyopathy type: unspecified Qualified Code(s): I42.9 - Cardiomyopathy, unspecified
[2021-01-31] MEDS: LEVOTHYROXINE SODIUM 88 MCG TABLET PO SCH (05:42)
[2021-01-31 06:08] LABS: Hematocrit (blood only) 28.4 % (37-47); Hemoglobin 9.3 g/dL (12.0-16.0); Mean Corpuscular Hemoglobin 30.4 pg (25-34); Mean Corpuscular Hgb Conc 32.7 g/dL (32-36); Mean Corpuscular Volume 92.8 fL (80-100); Nucleated RBC # (auto) 0.04 K/uL (0-0); RDW Coefficient of Variation 17.5 % (11.5-14.5); RDW Standard Deviation 58.8 fL (36.4-46.3); Red Blood Count 3.06 M/uL (4.2-5.4); White Blood Count 4.21 K/uL (4.8-10.8)
[2021-01-31 06:13] LABS: Mean Platelet Volume 11.3 fL (7.4-10.4); Platelet Count 43 K/uL (130-400)
[2021-01-31 06:41] LABS: BUN Creatinine Ratio 38.1 (10-20); Calcium 9.5 mg/dl (8.5-10.1); Creatinine Clr Calc Pharmacy 46.8 ml/min; Est GFR (African American) 54.7 ml/min; Est GFR (Non-African American) 47.2 ml/min; Potassium 3.5 mmol/L (3.5-5.1)
[2021-01-31 06:55] LABS: ALC (manual) 0.08 K/uL (1.2-3.4); ANC (manual) 3.42 K/uL (1.4-6.5); Basophils # (manual) 0.04 K/uL (0-0.2); Basophils % (manual) 0.9 %; Eosinophils # (manual) 0.04 K/uL (0-0.5); Eosinophils % (manual) 0.9 %; Lymphocytes # (manual) 0.08 K/uL (1.2-3.4); Lymphocytes % (manual) 1.8 %; Metamyelocytes # (manual) 0.11 K/uL (0-0); Metamyelocytes % (manual) 2.7 %; Monocytes # (manual) 0.45 K/uL (0.11-0.59); Monocytes % (manual) 10.6 %; Myelocytes # (manual) 0.08 K/uL (0-0); Myelocytes % (manual) 1.8 %; Neutrophils # (manual) 3.42 K/uL (1.4-6.5); Neutrophils % (manual) 81.3 %; Polychromasia 1+
[2021-01-31 07:07] LABS: Toxic Granulation 1+
[2021-01-31] MEDS: ALBUTEROL HFA 8 GM INHALER INH SCH ×4 (07:24→20:31)
[2021-01-31] MEDS: ACYCLOVIR 5% OINT 15 GM TUBE EXT SCH ×5 (07:30→17:52)
[2021-01-31] MEDS ORDERED: levoFLOXacin 750 MG TAB PO ONE (09:00)
[2021-01-31] MEDS ORDERED: FUROSEMIDE INJ 20 MG/2 ML VIAL IV ONE (09:01)
[2021-01-31] MEDS ORDERED: POTASSIUM CHLORIDE 20 MEQ/15 ML UDC PO STA (09:01)
--- NOTE | 2021-01-31 09:11 | Hospitalist Progress Note ---
Date of Service January 31, 2021 Assessment & Plan (1) Pneumonia due to 2019 novel coronavirus: Plan: SEVERE, with ongoing need for HFNC, today she is 50L and 75%, says she feels better She is about day #11 into her illness and hospital day #8 Day #9 of dexamethasone - increased from 6mg to 10mg daily due to probable early ARDS on 01/29 continue on 10mg for 10 days then back to 6mg, so last day of 10mg would be 02/08 Completed 5-day course of Remdesivir. Was not a candidate for baricitinib due to neutropenia and heavy immunosuppression from recent chemo for lung cancer. Neutropenia now resolved. In light of worsening respiratory status & ongoing fever with neutropenia she was initiated on Meropenem and Levaquin completed both antibiotics MRSA swab neg - deferred on MRSA coverage. Cont pulmonary toilet - flutter, IS, etc. Cont self-proning (the best she can do is lay on her side) will give Lasix 20mg IV today, Cr is stable, try to keep negative fluid balance (2) Antineoplastic chemotherapy induced pancytopenia: Plan: Severe pancytopenia 2nd to recent chemo for left-sided lung cancer. Received chemo late December. WBC count improved. Neutropenia resolved Platelets are low but stable s/p 2 units PRBCs and 1 unit platelets since admission. s/p 3 days of neupogen. No bleeding complications. Hb is 9.3 (3) Acute on chronic respiratory failure with hypoxemia: Plan: 2 L NC 02 PRN as outpatient but tends to use it frequently. Acute component 2nd to #1. she is on 50L and 75%, try to wean as tolerated not in distress today (4) Small cell lung cancer, left upper lobe: Plan: Follows with Dr Daniels and Dr Castro for chemotherapy and radiation, respectively. Radiation treatments were completed. Last chemotherapy ~ 01/06? (5) Hypothyroidism: Plan: TSH wnl Nov 2020 Continue Levothyroxine 88 mcg daily (6) GERD (gastroesophageal reflux disease): Plan: Improved with PPI + H2 germán. Can stop IV pepcid. Cont with PPI twice daily. (7) Hypertension: Plan: Still holding amlodipine-benazepril due to low / low-normal BPs (8) Diabetes mellitus, type 2: Plan: Uncontrolled 2nd to steroids. Cont lantus BID. Adjust novolog. Most recent a1c 8.5% in late November monitor for hyperglycemia and hypoglycemia (9) COPD with emphysema: Plan: Cont inhalers. Cont steroids. (10) Chronic kidney disease, stage 3a: Plan: Cr has been stable over the last few days even in the midst of diuresis. Cr is 1.1 today give a dose of lasix 20mg IV this morning give Potassium 20mEq since K is 3.5 (11) Hyperlipidemia: Plan: Cont statin. AST / ALT wnl. (12) Dysphagia: Plan: Patient with esophageal stenosis requiring dilatation via EGD earlier this fall cont pureed diet no issues this admission (13) Herpes labialis: Plan: cont zovirax (14) Essential tremor: Plan: chronic (15) Cardiomyopathy: Plan: previous echos with EF 45-50% as well as >50% patient is net fluid negative to date lasix 20mg IV this morning (16) DVT prophylaxis: Plan: SCDs chemical means contraindicated due to low platelets (17) Neutropenia: Plan: resolved s/p neupogen x 3 this admission (18) Candidiasis of mouth and esophagus: Plan: cont nystatin solution Plan: will update this evening will get PT/OT once on less oxygen try to wean oxygen, prognosis is guarded, short term goal is to get her to wall high flow later this week Admission and Anticipated Discharge Date Admission Date: January 23, 2021 Subjective patient says she is feeling better, sitting up in chair today, on 50L and 75%, no distress has a cough but no sputum, no fever/chills, no nausea, no diarrhea eating and drinking well today reviewed her chart and her labs today will give her Lasix 20mg IV to keep lungs dry discussed prognosis, explained that recovery will take a long time, at least another week in the hospital decent short term goal is to get off of high flow this week Review of Systems Review of Systems: All systems reviewed & are unremarkable except as noted in Subjective Respiratory: + cough, + dyspnea and + dyspnea on exertion; no sputum production Physical Exam Physical Exam: General: well developed, thin elderly female, ill appearing, no distress Neck: supple, trachea midline, normal thyroid Lungs: diminished breath sounds, mild tachypnea, no distress, no accessory muscle use Heart: regular S1 and S2, no murmur, peripheral pulses normal, capillary refill normal, no edema Abdomen: soft, NT, ND, + BS, no hepatomegaly, normal to percussion Extremities: normal in appearance, no cyanosis, no petechiae, strength is 5/5 b ilaterally Neuro: awake, cooperative, moves all extremities, no focal motor deficits, CN II-XII intact, sensation in extremities intact, normal speech Skin: warm, dry, no rash, normal turgor Psych: Awake, alert oriented x 3, euthymic affect Results & Data Results & Data ([facility]) Vital Signs (Past 12 Hours) Vital Signs Temp Pulse Pulse Pulse Resp BP BP 01/31/21 07:34 36.4 C L 88 20 93/57 L 01/31/21 07:24 88 18 01/31/21 03:40 69 16 01/31/21 02:23 36.4 C L 100 H 20 132/80 01/31/21 02:07 24 01/31/21 00:58 78 26 H 01/30/21 23:59 72 01/30/21 23:34 36.5 C 66 18 113/73 01/30/21 22:45 67 18 Pulse Ox 01/31/21 07:34 93 01/31/21 07:24 91 01/31/21 03:40 95 01/31/21 02:23 93 01/31/21 02:07 97 01/31/21 00:58 91 01/30/21 23:59 01/30/21 23:34 95 01/30/21 22:45 94 Laboratory Results Laboratory Results - last 24 hr 01/30/21 01/30/21 01/30/21 12:04 16:49 20:06 WBC RBC Hgb Hct MCV MCH MCHC RDW Std Deviation RDW Coeff of Sari Plt Count MPV Absolute Nucleated RBC Nucleated RBC % (auto) Neutrophils % (Manual) Lymphocytes % (Manual) Monocytes % (Manual) Eosinophils % (Manual) Basophils % (Manual) Metamyelocytes % (Man) Myelocytes % (Man) Neutrophils # (Manual) Total Absolute Neuts Lymphocytes # (Manual) Total Abs Lymphocytes Monocytes # (Manual) Eosinophils # (Manual) Basophils # (Manual) Metamyelocytes # (Man) Myelocytes # (Manual) Toxic Granulation Polychromasia Peripher Smr Path Cons Sodium Potassium Chloride Carbon Dioxide Anion Gap BUN Creatinine Est Cr Clr Drug Dosing Est GFR ( Amer) Est GFR (Non-Af Amer) BUN/Creatinine Ratio Glucose POC Glucose 244 H 234 H 201 H Calcium 01/31/21 01/31/21 01/31/21 05:38 05:38 07:56 WBC 4.21 L RBC 3.06 L Hgb 9.3 L Hct 28.4 L MCV 92.8 MCH 30.4 MCHC 32.7 RDW Std Deviation 58.8 H RDW Coeff of Sari 17.5 H Plt Count 43 L MPV 11.3 H Absolute Nucleated RBC 0.04 H Nucleated RBC % (auto) 1.0 Neutrophils % (Manual) 81.3 Lymphocytes % (Manual) 1.8 Monocytes % (Manual) 10.6 Eosinophils % (Manual) 0.9 Basophils % (Manual) 0.9 Metamyelocytes % (Man) 2.7 Myelocytes % (Man) 1.8 Neutrophils # (Manual) 3.42 Total Absolute Neuts 3.42 Lymphocytes # (Manual) 0.08 L Total Abs Lymphocytes 0.08 L Monocytes # (Manual) 0.45 Eosinophils # (Manual) 0.04 Basophils # (Manual) 0.04 Metamyelocytes # (Man) 0.11 H Myelocytes # (Manual) 0.08 H Toxic Granulation 1+ Polychromasia 1+ Peripher Smr Path Cons Sodium 141 Potassium 3.5 Chloride 108 H Carbon Dioxide 26 Anion Gap 7.0 BUN 44 H Creatinine 1.15 Est Cr Clr Drug Dosing 46.8 Est GFR ( Amer) 54.7 Est GFR (Non-Af Amer) 47.2 BUN/Creatinine Ratio 38.1 H Glucose 103 H POC Glucose 123 H Calcium 9.5 Medications Administered Current Inpatient Medications Acetaminophen (Acetaminophen 325 Mg Tab) 650 mg PO Q4H PRN PRN Reason: Pain or Fever Stop: 02/22/21 17:31 Last Admin: 01/30/21 10:41 Dose: 650 mg Documented by: Acyclovir (Acyclovir 5% Oint 15 Gm Tube) 1 appln EXT [id number] MAYRA Stop: 02/03/21 15:59 Last Admin: 01/30/21 20:58 Dose: 1 appln Documented by: Al Hydrox/Mg Hydrox/Simethicone (Aluminum/Magnesium Susp 30 Ml Udc) 15 ml PO Q4H PRN PRN Reason: Dyspepsia Stop: 02/22/21 17:31 Albuterol (Albut/Ipratrop 3mg/0.5mg Neb 3 Ml Vial) 3 ml NEB Q4R PRN PRN Reason: Shortness Of Breath Or Wheezing Stop: 02/22/21 18:59 Albuterol (Albuterol Hfa 8 Gm Inhaler) 2 puffs INH QIDR MAYRA Stop: 02/23/21 15:59 Last Admin: 01/31/21 07:24 Dose: 2 puffs Documented by: Artificial Tears (Artificial Tears) 1 drops OP BID MAYRA; Protocol Stop: 02/22/21 20:59 Last Admin: 01/30/21 20:58 Dose: 1 drops Documented by: Atorvastatin Calcium (Atorvastatin 40 Mg Tab) 40 mg PO HS MAYRA Stop: 03/01/21 20:59 Last Admin: 01/30/21 21:00 Dose: 40 mg Documented by: Azelastine HCl (Azelastine Hcl 0.1% Nasal 200 Sprays/27,400 Mcg Btl) 1 sprays MARVIN BID PRN PRN Reason: Congestion Stop: 02/22/21 17:37 Clonazepam (Clonazepam 0.5 Mg Tab) 0.5 mg PO DAILY PRN PRN Reason: anxiety Stop: 02/22/21 17:37 Lidocaine HCl 60 ml/Diphenhydramine HCl 150 mg/ Al Hydrox/Mg Hydrox/Simethicone 60 ml/ BARCODE IDENTIFIER 1 ea 0 ml [facility] Stop: 02/22/21 20:59 Last Admin: 01/30/21 21:09 Dose: 10 ml Documented by: Dextrose (Dextrose 50% 50 Ml Syringe) 25 - 50 ml IV UD PRN; Protocol PRN Reason: Hypoglycemia Protocol Stop: 02/22/21 17:39 Furosemide (Furosemide Inj 20 Mg/2 Ml Vial) 20 mg IV ONE ONE Stop: 01/31/21 09:02 Glucagon (Glucagon For Inj 1 Mg Vial) 1 mg SQ UD PRN; Protocol PRN Reason: Hypoglycemia Protocol Stop: 02/22/21 17:39 Glucose (Glucose 10 Tabs/Tube) 4 - 8 tabs PO UD PRN; Protocol PRN Reason: Hypoglycemia Protocol Stop: 02/22/21 17:39 Glucose (Glucose 40% Gel 15 Gm Tube) 15 - 30 gm PO UD PRN; Protocol PRN Reason: Hypoglycemia Protocol Stop: 02/22/21 17:39 Guaifenesin/Codeine Phosphate (Guaifenesin/Codeine 100mg/10mg 5ml Udc) 5 ml PO Q6H PRN PRN Reason: cough Stop: 02/22/21 17:37 Last Admin: 01/24/21 08:13 Dose: 5 ml Documented by: Heparin Sodium (Porcine) (Heparin 100 Unit/Ml 5ml Flush) 5 ml FLUSH PRN PRN PRN Reason: Flush Stop: 02/23/21 00:06 Famotidine 20 mg/ Syringe 5 mls @ 2.5 mls/min IV BID MAYRA Stop: 02/22/21 20:59 Last Admin: 01/30/21 21:00 Dose: 2.5 mls/min Documented by: Dexamethasone 10 mg/ Syringe 2.5 mls @ 1 mls/min IV DAILY [facility] Stop: 02/07/21 09:03 Last Admin: 01/30/21 09:19 Dose: 1 mls/min Documented by: Insulin Aspart (Insulin Aspart 100 Units/Ml 3 Ml Pen) 0 units SC ACHS MAYRA Stop: 02/22/21 20:59 Last Admin: 01/30/21 21:11 Dose: 3 units Documented by: Insulin Glargine (Insulin Glargine Solostar 100 Units/Ml 3 Ml Pen) 10 units SC BID [facility] Stop: 02/26/21 20:59 Last Admin: 01/30/21 21:11 Dose: 10 units Documented by: Levothyroxine Sodium (Levothyroxine Sodium 88 Mcg Tablet) 88 mcg PO DAILYBB [facility] Stop: 02/23/21 06:29 Last Admin: 01/31/21 05:42 Dose: 88 mcg Documented by: Magnesium Hydroxide (Magnesium Hydroxide Susp 30 Ml Udc) 30 ml PO Q12H PRN PRN Reason: Constipation Stop: 02/22/21 17:31 Miscellaneous (Carbohydrates For Hypoglycemia ) 15 - 30 gm PO UD PRN PRN Reason: Hypoglycemia Protocol Stop: 02/22/21 17:39 Nystatin (Nystatin Susp 500,000 U/5 Ml Udc) 5 ml PO QID [facility] Stop: 02/08/21 16:59 Last Admin: 01/30/21 21:00 Dose: 5 ml Documented by: Ondansetron HCl (Ondansetron Inj 2 Mg/Ml 2 Ml Vial) 4 mg IV Q6H PRN PRN Reason: Nausea Stop: 02/22/21 17:31 Last Admin: 01/24/21 06:54 Dose: 4 mg Documented by: Pantoprazole Sodium (Pantoprazole 40 Mg Tab) 40 mg PO BID MAYRA Stop: 02/24/21 08:59 Last Admin: 01/30/21 21:00 Dose: 40 mg Documented by: Polyethylene Glycol (Polyethylene (Miralax) 17 Gm Pack) 17 gm PO DAILY PRN PRN Reason: Constipation Stop: 02/22/21 17:31 Potassium Chloride (Potassium Chloride 20 Meq/15 Ml Udc) 20 meq PO NOW STA Stop: 01/31/21 09:02 Sucralfate (Sucralfate 1 Gm Tab) 1 gm PO ACHS MAYRA Stop: 02/22/21 19:59 Last Admin: 01/30/21 21:00 Dose: 1 gm Documented by: PG Care Time/CCT Total # of Minutes Spent Total Time Spent with Patient: Total time spent is greater than 50% in coordination of care (as documented) at patient's floor/unit and/or counseling patient: Coding Level of Care Code 99318 Subseq Hosp Care Lvl 3 Diagnoses Pneumonia due to 2019 novel coronavirus U07.1; J12.82 Antineoplastic chemotherapy induced pancytopenia D61.810; T45.1X5A Acute on chronic respiratory failure with hypoxemia J96.21 Small cell lung cancer, left upper lobe C34.12 Hypothyroidism E03.9 GERD (gastroesophageal reflux disease) K21.9 Hypertension I10 Diabetes mellitus, type 2 E11.9 COPD with emphysema J43.9 Chronic kidney disease, stage 3a N18.31 Hyperlipidemia E78.5 Dysphagia R13.10 Herpes labialis B00.1 Essential tremor G25.0 Cardiomyopathy I42.9 Cardiomyopathy type: unspecified DVT prophylaxis Z29.9 Neutropenia D70.9 Candidiasis of mouth and esophagus B37.81; B37.0 (1) Cardiomyopathy Cardiomyopathy type: unspecified Qualified Code(s): I42.9 - Cardiomyopathy, unspecified
[2021-01-31] MEDS: INSULIN ASPART 100 UNITS/ML 3 ML PEN SC SCH ×4 (09:17→20:03)
[2021-01-31] MEDS: LIDOCAINE VISCOUS 2% SOLN 60 ML, diphenhydrAMINE Syrup 150 MG, ALUMINUM/MAGNESIUM SUSP ... MT SCH ×4 (09:18→20:19)
[2021-01-31] MEDS: SUCRALFATE 1 GM TAB PO SCH ×4 (09:19→20:21)
[2021-01-31] MEDS: FAMOTIDINE 20 MG in SYRINGE 3 ML IV SCH ×2 (09:19→20:21)
[2021-01-31] MEDS: ARTIFICIAL TEARS OP SCH ×2 (09:19→20:19)
[2021-01-31] MEDS: dexAMETHasone 10 MG in SYRINGE 0 ML IV SCH (09:19)
[2021-01-31] MEDS: PANTOprazole 40 MG TAB PO SCH ×2 (09:20→20:21)
[2021-01-31] MEDS: NYSTATIN SUSP 500,000 U/5 ML UDC PO SCH ×4 (09:20→20:21)
[2021-01-31] MEDS: INSULIN GLARGINE SOLOSTAR 100 UNITS/ML 3 ML PEN SC SCH ×2 (09:32→20:13)
[2021-01-31] MEDS: ACETAMINOPHEN 325 MG TAB PO PRN (15:53)
[2021-01-31] MEDS ORDERED: INSULIN HUMAN REGULAR PER UNIT 6 UNITS in SYRINGE 5.94 ML IV ONE (17:15)
[2021-01-31] MEDS: ATORVASTATIN 40 MG TAB PO SCH (20:22)
[2021-02-01] MEDS: LEVOTHYROXINE SODIUM 88 MCG TABLET PO SCH (05:56)
[2021-02-01] MEDS: ALBUTEROL HFA 8 GM INHALER INH SCH ×4 (07:19→21:21)
[2021-02-01] MEDS ORDERED: COUGH DROP (SUGAR FREE) LOZ 24 LOZ/1 BOX BUCCAL ONE (08:03)
[2021-02-01] MEDS ORDERED: COUGH DROP (SUGAR FREE) LOZ 24 LOZ/1 BOX BUCCAL STA (08:06)
[2021-02-01] MEDS: SUCRALFATE 1 GM TAB PO SCH ×4 (08:28→20:43)
[2021-02-01] MEDS: ACETAMINOPHEN 325 MG TAB PO PRN (08:28)
[2021-02-01] MEDS: NYSTATIN SUSP 500,000 U/5 ML UDC PO SCH ×4 (08:29→20:43)
[2021-02-01] MEDS: ACYCLOVIR 5% OINT 15 GM TUBE EXT SCH ×5 (08:29→18:03)
[2021-02-01] MEDS: PANTOprazole 40 MG TAB PO SCH ×2 (08:29→20:43)
[2021-02-01] MEDS: ARTIFICIAL TEARS OP SCH ×2 (08:30→20:44)
[2021-02-01] MEDS: LIDOCAINE VISCOUS 2% SOLN 60 ML, diphenhydrAMINE Syrup 150 MG, ALUMINUM/MAGNESIUM SUSP ... MT SCH ×4 (08:31→21:00)
[2021-02-01] MEDS: FAMOTIDINE 20 MG in SYRINGE 3 ML IV SCH ×2 (08:40→20:55)
[2021-02-01] MEDS: INSULIN ASPART 100 UNITS/ML 3 ML PEN SC SCH ×4 (08:47→21:10)
[2021-02-01] MEDS: INSULIN GLARGINE SOLOSTAR 100 UNITS/ML 3 ML PEN SC SCH ×2 (08:50→21:11)
[2021-02-01] MEDS: dexAMETHasone 10 MG in SYRINGE 0 ML IV SCH (09:44)
--- NOTE | 2021-02-01 10:36 | Hospitalist Progress Note ---
Date of Service February 01, 2021 Assessment & Plan (1) Pneumonia due to 2019 novel coronavirus: Plan: SEVERE, with ongoing need for HFNC, today she is down to 40L and 55%, says she feels better, big improvement in oxygen requirements She is about day #12 into her illness and hospital day #9 Day #10 of dexamethasone - increased from 6mg to 10mg daily due to probable early ARDS on 01/29 continue on 10mg for 10 days then back to 6mg, so last day of 10mg would be 02/08 Completed 5-day course of Remdesivir. Was not a candidate for baricitinib due to neutropenia and heavy immunosuppression from recent chemo for lung cancer. Neutropenia now resolved. In light of worsening respiratory status & ongoing fever with neutropenia she was initiated on Meropenem and Levaquin completed both antibiotics MRSA swab neg - deferred on MRSA coverage. Cont pulmonary toilet - flutter, IS, etc. Cont self-proning (the best she can do is lay on her side) gave Lasix 20mg IV on 01/31, good response, hold today but check BMP tomorrow, could likely give Lasix again (2) Antineoplastic chemotherapy induced pancytopenia: Plan: Severe pancytopenia 2nd to recent chemo for left-sided lung cancer. Received chemo late December. WBC count improved. Neutropenia resolved Platelets are low but stable s/p 2 units PRBCs and 1 unit platelets since admission. s/p 3 days of neupogen. No bleeding complications. Hb is 9.3 on 01/31, repeat tomorrow (3) Acute on chronic respiratory failure with hypoxemia: Plan: 2 L NC 02 PRN as outpatient but tends to use it frequently. Acute component 2nd to #1. she is on 40L and 55%, try to wean as tolerated not in distress today, making improvements (4) Small cell lung cancer, left upper lobe: Plan: Follows with Dr Daniels and Dr Castro for chemotherapy and radiation, respectively. Radiation treatments were completed. Last chemotherapy ~ 01/06? (5) Hypothyroidism: Plan: TSH wnl Nov 2020 Continue Levothyroxine 88 mcg daily (6) GERD (gastroesophageal reflux disease): Plan: Improved with PPI + H2 germán. Can stop IV pepcid. Cont with PPI twice daily. (7) Hypertension: Plan: Still holding amlodipine-benazepril due to low / low-normal BPs (8) Diabetes mellitus, type 2: Plan: Uncontrolled 2nd to steroids. Cont lantus BID. Adjust novolog. Most recent a1c 8.5% in late November was hyperglycemic on 01/31 in afternoon, gave regular insulin and increased Lantus to 20 BID was hypoglycemic last night in the 60's plan: reduce PM lantus to 10 units, continue AM lantus at 20, follow sugars (9) COPD with emphysema: Plan: Cont inhalers. Cont steroids. (10) Chronic kidney disease, stage 3a: Plan: Cr has been stable over the last few days even in the midst of diuresis. Cr is 1.1 on 01/31, repeat tomorrow got Lasix and potassium on 01/31, could likely repeat tomorrow (11) Hyperlipidemia: Plan: Cont statin. AST / ALT wnl. (12) Dysphagia: Plan: Patient with esophageal stenosis requiring dilatation via EGD earlier this fall cont pureed diet no issues this admission (13) Herpes labialis: Plan: cont zovirax (14) Essential tremor: Plan: chronic (15) Cardiomyopathy: Plan: previous echos with EF 45-50% as well as >50% patient is net fluid negative to date lasix 20mg IV this morning (16) DVT prophylaxis: Plan: SCDs chemical means contraindicated due to low platelets (17) Neutropenia: Plan: resolved s/p neupogen x 3 this admission (18) Candidiasis of mouth and esophagus: Plan: cont nystatin solution, would treat for 14 days, still c/o sore throat at risk for this given steroids, antibiotic use Plan: will update this evening will get PT/OT once on less oxygen try to wean oxygen, prognosis is guarded, short term goal is to get her to wall high flow later this week Admission and Anticipated Discharge Date Admission Date: January 23, 2021 Subjective patient doing well, just really tired this morning and her throat hurts she is down to 40L and 55%, big improvement from yesterday she is eating fairly well she was hypoglycemic last night, will adjust Lantus to 10 units PM and 20 AM check BMP tomorrow Review of Systems Review of Systems: All systems reviewed & are unremarkable except as noted in Subjective Constitutional: + fatigue and + weakness Ear, Nose, Mouth, Throat: + sore throat Respiratory: + cough and + dyspnea Physical Exam Physical Exam: General: well developed, thin elderly female, ill appearing, no distress EENT: throat is red, white plaque on tongue Neck: supple, trachea midline, normal thyroid Lungs: diminished breath sounds, mild tachypnea, no distress, no accessory muscle use Heart: regular S1 and S2, no murmur, peripheral pulses normal, capillary refill normal, no edema Abdomen: soft, NT, ND, + BS, no hepatomegaly, normal to percussion Extremities: normal in appearance, no cyanosis, no petechiae, strength is 5/5 bilaterally Neuro: awake, cooperative, moves all extremities, no focal motor deficits, CN II-XII intact, sensation in extremities intact, normal speech Skin: warm, dry, no rash, normal turgor Psych: Awake, alert oriented x 3, euthymic affect Results & Data Results & Data ([facility]) Vital Signs (Past 12 Hours) Vital Signs Temp Pulse Pulse Pulse Resp BP Pulse Ox 02/01/21 08:00 76 02/01/21 07:20 92 H 18 96 02/01/21 06:30 16 97 02/01/21 03:40 36.5 C 112 H 20 94/64 L 90 02/01/21 03:11 77 18 95 01/31/21 23:59 74 01/31/21 23:08 36.5 C 82 20 115/79 91 01/31/21 23:00 82 20 90 Laboratory Results Laboratory Results - last 24 hr 01/31/21 01/31/21 01/31/21 11:51 16:07 16:07 POC Glucose 222 H 352 H* 372 H* 01/31/21 02/01/21 02/01/21 19:57 01:39 02:11 POC Glucose 112 H 66 L* 76 02/01/21 07:55 POC Glucose 121 H Medications Administered Current Inpatient Medications Acetaminophen (Acetaminophen 325 Mg Tab) 650 mg PO Q4H PRN PRN Reason: Pain or Fever Stop: 02/22/21 17:31 Last Admin: 02/01/21 08:28 Dose: 650 mg Documented by: Acyclovir (Acyclovir 5% Oint 15 Gm Tube) 1 appln EXT [id number] MAYRA Stop: 02/03/21 15:59 Last Admin: 02/01/21 09:45 Dose: 1 appln Documented by: Al Hydrox/Mg Hydrox/Simethicone (Aluminum/Magnesium Susp 30 Ml Udc) 15 ml PO Q4H PRN PRN Reason: Dyspepsia Stop: 02/22/21 17:31 Albuterol (Albut/Ipratrop 3mg/0.5mg Neb 3 Ml Vial) 3 ml NEB Q4R PRN PRN Reason: Shortness Of Breath Or Wheezing Stop: 02/22/21 18:59 Albuterol (Albuterol Hfa 8 Gm Inhaler) 2 puffs INH QIDR MAYRA Stop: 02/23/21 15:59 Last Admin: 02/01/21 07:19 Dose: 2 puffs Documented by: Artificial Tears (Artificial Tears) 1 drops OP BID MAYRA; Protocol Stop: 02/22/21 20:59 Last Admin: 02/01/21 08:30 Dose: 1 drops Documented by: Atorvastatin Calcium (Atorvastatin 40 Mg Tab) 40 mg PO HS [facility] Stop: 03/01/21 20:59 Last Admin: 01/31/21 20:22 Dose: 40 mg Documented by: Azelastine HCl (Azelastine Hcl 0.1% Nasal 200 Sprays/27,400 Mcg Btl) 1 sprays MARVIN BID PRN PRN Reason: Congestion Stop: 02/22/21 17:37 Clonazepam (Clonazepam 0.5 Mg Tab) 0.5 mg PO DAILY PRN PRN Reason: anxiety Stop: 02/22/21 17:37 Lidocaine HCl 60 ml/Diphenhydramine HCl 150 mg/ Al Hydrox/Mg Hydrox/Simethicone 60 ml/ BARCODE IDENTIFIER 1 ea 0 ml [facility] Stop: 02/22/21 20:59 Last Admin: 02/01/21 08:31 Dose: 10 ml Documented by: Dextrose (Dextrose 50% 50 Ml Syringe) 25 - 50 ml IV UD PRN; Protocol PRN Reason: Hypoglycemia Protocol Stop: 02/22/21 17:39 Glucagon (Glucagon For Inj 1 Mg Vial) 1 mg SQ UD PRN; Protocol PRN Reason: Hypoglycemia Protocol Stop: 02/22/21 17:39 Glucose (Glucose 10 Tabs/Tube) 4 - 8 tabs PO UD PRN; Protocol PRN Reason: Hypoglycemia Protocol Stop: 02/22/21 17:39 Glucose (Glucose 40% Gel 15 Gm Tube) 15 - 30 gm PO UD PRN; Protocol PRN Reason: Hypoglycemia Protocol Stop: 02/22/21 17:39 Guaifenesin/Codeine Phosphate (Guaifenesin/Codeine 100mg/10mg 5ml Udc) 5 ml PO Q6H PRN PRN Reason: cough Stop: 02/22/21 17:37 Last Admin: 01/24/21 08:13 Dose: 5 ml Documented by: Heparin Sodium (Porcine) (Heparin 100 Unit/Ml 5ml Flush) 5 ml FLUSH PRN PRN PRN Reason: Flush Stop: 02/23/21 00:06 Famotidine 20 mg/ Syringe 5 mls @ 2.5 mls/min IV BID MAYRA Stop: 02/22/21 20:59 Last Admin: 02/01/21 08:40 Dose: 2.5 mls/min Documented by: Dexamethasone 10 mg/ Syringe 2.5 mls @ 1 mls/min IV DAILY MAYRA Stop: 02/07/21 09:03 Last Admin: 02/01/21 09:44 Dose: 1 mls/min Documented by: Insulin Aspart (Insulin Aspart 100 Units/Ml 3 Ml Pen) 0 units SC ACHS MAYRA Stop: 02/22/21 20:59 Last Admin: 02/01/21 08:47 Dose: Not Given Documented by: Insulin Glargine (Insulin Glargine Solostar 100 Units/Ml 3 Ml Pen) 20 units SC BID MAYRA Stop: 03/02/21 20:59 Last Admin: 02/01/21 08:50 Dose: 20 units Documented by: Levothyroxine Sodium (Levothyroxine Sodium 88 Mcg Tablet) 88 mcg PO DAILYBB MAYRA Stop: 02/23/21 06:29 Last Admin: 02/01/21 05:56 Dose: 88 mcg Documented by: Magnesium Hydroxide (Magnesium Hydroxide Susp 30 Ml Udc) 30 ml PO Q12H PRN PRN Reason: Constipation Stop: 02/22/21 17:31 Miscellaneous (Carbohydrates For Hypoglycemia ) 15 - 30 gm PO UD PRN PRN Reason: Hypoglycemia Protocol Stop: 02/22/21 17:39 Nystatin (Nystatin Susp 500,000 U/5 Ml Udc) 5 ml PO QID MAYRA Stop: 02/08/21 16:59 Last Admin: 02/01/21 08:29 Dose: 5 ml Documented by: Ondansetron HCl (Ondansetron Inj 2 Mg/Ml 2 Ml Vial) 4 mg IV Q6H PRN PRN Reason: Nausea Stop: 02/22/21 17:31 Last Admin: 01/24/21 06:54 Dose: 4 mg Documented by: Pantoprazole Sodium (Pantoprazole 40 Mg Tab) 40 mg PO BID MAYRA Stop: 02/24/21 08:59 Last Admin: 02/01/21 08:29 Dose: 40 mg Documented by: Polyethylene Glycol (Polyethylene (Miralax) 17 Gm Pack) 17 gm PO DAILY PRN PRN Reason: Constipation Stop: 02/22/21 17:31 Sucralfate (Sucralfate 1 Gm Tab) 1 gm PO ACHS MAYRA Stop: 02/22/21 19:59 Last Admin: 02/01/21 08:28 Dose: 1 gm Documented by: PG Care Time/CCT Total # of Minutes Spent Total Time Spent with Patient: Total time spent is greater than 50% in coordination of care (as documented) at patient's floor/unit and/or counseling patient: Coding Level of Care Code 22865 Subseq Hosp Care Lvl 3 Diagnoses Pneumonia due to 2019 novel coronavirus U07.1; J12.82 Antineoplastic chemotherapy induced pancytopenia D61.810; T45.1X5A Acute on chronic respiratory failure with hypoxemia J96.21 Small cell lung cancer, left upper lobe C34.12 Hypothyroidism E03.9 GERD (gastroesophageal reflux disease) K21.9 Hypertension I10 Diabetes mellitus, type 2 E11.9 COPD with emphysema J43.9 Chronic kidney disease, stage 3a N18.31 Hyperlipidemia E78.5 Dysphagia R13.10 Herpes labialis B00.1 Essential tremor G25.0 Cardiomyopathy I42.9 Cardiomyopathy type: unspecified DVT prophylaxis Z29.9 Neutropenia D70.9 Candidiasis of mouth and esophagus B37.81; B37.0 (1) Cardiomyopathy Cardiomyopathy type: unspecified Qualified Code(s): I42.9 - Cardiomyopathy, unspecified
[2021-02-01] MEDS ORDERED: SODIUM CHLORIDE 0.9% 500 ML IV ONE (11:51)
[2021-02-01 12:29] LABS: Hematocrit (blood only) 25.1 % (37-47); Hemoglobin 8.3 g/dL (12.0-16.0); Mean Corpuscular Hemoglobin 30.5 pg (25-34); Mean Corpuscular Hgb Conc 33.1 g/dL (32-36); Mean Corpuscular Volume 92.3 fL (80-100); Nucleated RBC # (auto) 0.03 K/uL (0-0); Nucleated RBC % (auto) 0.8 %; RDW Coefficient of Variation 17.2 % (11.5-14.5); RDW Standard Deviation 56.5 fL (36.4-46.3); Red Blood Count 2.72 M/uL (4.2-5.4); White Blood Count 3.63 K/uL (4.8-10.8)
[2021-02-01 12:46] LABS: Platelet Count 35 K/uL (130-400)
[2021-02-01 12:48] LABS: Basophils # (auto) 0.01 K/uL (0-0.2); Basophils % (auto) 0.3 %; Immature Granulocytes % (auto) 2.8 %; Lymphocytes # (auto) 0.29 K/uL (1.2-3.4); Monocytes # (auto) 0.16 K/uL (0.11-0.59); Monocytes % (auto) 4.4 %; Neutrophils # (auto) 3.07 K/uL (1.4-6.5); Neutrophils % (auto) 84.5 %
[2021-02-01 12:49] LABS: BUN Creatinine Ratio 38.4 (10-20); Calcium 8.3 mg/dl (8.5-10.1); Creatinine Clr Calc Pharmacy 52.8 ml/min; Est GFR (Non-African American) 55.2 ml/min; Potassium 3.3 mmol/L (3.5-5.1)
[2021-02-01] MEDS ORDERED: POTASSIUM CHLORIDE 20 MEQ/15 ML UDC PO STA (16:47)
[2021-02-01] MEDS: ATORVASTATIN 40 MG TAB PO SCH (20:43)
[2021-02-01] MEDS ORDERED: INSULIN GLARGINE SOLOSTAR 100 UNITS/ML 3 ML PEN SC SCH (21:00)
[2021-02-01] MEDS ORDERED: LANTUS PER UNIT CHARGE SQ SCH (21:00)
[2021-02-02] MEDS: LEVOTHYROXINE SODIUM 88 MCG TABLET PO SCH (05:53)
[2021-02-02 06:37] LABS: Nucleated RBC # (auto) 0.05 K/uL (0-0)
[2021-02-02 07:15] LABS: Hematocrit (blood only) 27.7 % (37-47); Hemoglobin 9.7 g/dL (12.0-16.0); Mean Corpuscular Hemoglobin 32.1 pg (25-34); Mean Corpuscular Volume 91.7 fL (80-100); Mean Platelet Volume 10.4 fL (7.4-10.4); Platelet Count 61 K/uL (130-400); Red Blood Count 3.02 M/uL (4.2-5.4)
[2021-02-02 07:20] LABS: BUN Creatinine Ratio 32.9 (10-20); C Reactive Protein 9.14 mg/dl (0-0.29); Calcium 9.6 mg/dl (8.5-10.1); Creatinine Clr Calc Pharmacy 48.5 ml/min; Est GFR (African American) 57.1 ml/min; Est GFR (Non-African American) 49.2 ml/min; Potassium 3.6 mmol/L (3.5-5.1)
--- NOTE | 2021-02-02 07:40 | Hospitalist Progress Note ---
Date of Service February 02, 2021 Assessment & Plan (1) Pneumonia due to 2019 novel coronavirus: Plan: SEVERE, with ongoing need for HFNC, seems to be at least stable and not worsening Initial illness around 01/20/21 hospitalized 01/23/21 dexamethasone - increased from 6mg to 10mg daily due to probable early ARDS on 01/29 continue on 10mg for 10 days then back to 6mg, so last day of 10mg would be 02/08 Completed 5-day course of Remdesivir. Was not a candidate for baricitinib due to neutropenia and heavy immunosuppression from recent chemo for lung cancer. Neutropenia now resolved. completed course of Meropenem and Levaquin with initial concern for bacterial infection with immune suppressed state from chemo MRSA swab neg - deferred on MRSA coverage. Cont pulmonary toilet - flutter, IS, etc. Cont self-proning (the best she can do is lay on her side) gave Lasix 20mg IV on 01/31, good response (2) Antineoplastic chemotherapy induced pancytopenia: Plan: Severe pancytopenia 2nd to recent chemo for left-sided lung cancer. Received chemo late December. WBC count improved. Neutropenia resolved Platelets are low but stable s/p 2 units PRBCs and 1 unit platelets since admission. s/p 3 days of neupogen. No bleeding complications. Hb stable (3) Acute on chronic respiratory failure with hypoxemia: Plan: 2 L NC 02 PRN as outpatient but tends to use it frequently. Acute component 2nd to #1. she is on 40L and 55%, try to wean as tolerated not in distress, making improvements (4) Small cell lung cancer, left upper lobe: Plan: Follows with Dr Daniels and Dr Castro for chemotherapy and radiation, respectively. Radiation treatments were completed. Last chemotherapy ~ 01/06? (5) Hypothyroidism: Plan: TSH wnl Nov 2020 Continue Levothyroxine 88 mcg daily (6) GERD (gastroesophageal reflux disease): Plan: Improved with PPI + H2 germán. Can stop IV pepcid. Cont with PPI twice daily. (7) Hypertension: Plan: continue holding amlodipine-benazepril due to low / low-normal BPs (8) Diabetes mellitus, type 2: Plan: Uncontrolled 2nd to steroids. Cont lantus BID. Adjust novolog. Most recent a1c 8.5% in late November was hyperglycemic on 01/31 in afternoon, gave regular insulin and increased Lantus to 20 BID was hypoglycemic last night in the 60's PM lantus to 10 units, continue AM lantus at 20, follow sugars (9) COPD with emphysema: Plan: Cont inhalers. Cont steroids. (10) Chronic kidney disease, stage 3a: Plan: Cr has been stable over the last few days even in the midst of diuresis. Cr is stable bit follow got Lasix and potassium on 01/31, (11) Hyperlipidemia: Plan: Cont statin. AST / ALT wnl. (12) Dysphagia: Plan: Patient with esophageal stenosis requiring dilatation via EGD earlier this fall cont pureed diet no issues this admission (13) Herpes labialis: Plan: cont zovirax (14) Essential tremor: Plan: chronic (15) Cardiomyopathy: Plan: previous echos with EF 45-50% as well as >50% patient is net fluid negative to date (16) DVT prophylaxis: Plan: SCDs chemical means contraindicated due to low platelets (17) Neutropenia: Plan: resolved s/p neupogen x 3 this admission (18) Candidiasis of mouth and esophagus: Plan: cont nystatin solution, would treat for 14 days, still c/o sore throat at risk for this given steroids, antibiotic use Plan: will get PT/OT once on less oxygen try to wean oxygen, prognosis is guarded, short term goal is to get her to wall high flow later this week Admission and Anticipated Discharge Date Admission Date: January 23, 2021 Subjective pt is pleasantly confused has many questions, reinforced that she is doing better but has a long way to go, still with elevated oxygen requirements Review of Systems Review of Systems: Mild distress and fatigue no headache, no visual changes no speech or swallowing issues no chest pain, pressure or palpitations no shortness of breath, cough or wheezes no abdominal pain, nausea or vomiting, diarrhea or constipation no dysuria, hematuria or frequency no focal joint pain or swelling no back pain, CVA tenderness or radicular pain no bruising, bleeding or rashes no focal signs of weakness or numbness or altered sensation no complaints of anxiety or depression.. Physical Exam Physical Exam: The patient appeared alopecia from recent chemotherapy treatment Vital signs as documented. Head exam is normocephalic atraumatic Neck is without JVD, thyromegaly, or carotid bruits. Lungs are bilateral crackles in both lung grewal all the way to the apex Cardiac exam, Rhythm is regular... Ejection murmur Abdominal exam reveals normal bowel sounds, soft non tender, no masses Extremities are trace edema bilaterally and both pedal pulses are present Neurologic exam is alert and oriented, no focal loss of strength or sensation Skin is without bruises or rashes Psychologically is without concerns for anxiety or depression.. Results & Data Results & Data ([facility]) Vital Signs (Past 12 Hours) Vital Signs Temp Pulse Pulse Pulse Resp BP Pulse Ox 02/02/21 07:35 97.7 F 95 H 15 94/60 L 89 L 02/02/21 04:33 98.2 F 91 H 18 96/66 L 90 02/02/21 04:21 92 H 20 90 02/02/21 01:04 84 20 89 L 02/01/21 23:59 83 02/01/21 23:29 98.2 F 81 16 122/82 88 L 02/01/21 21:21 85 18 93 02/01/21 19:47 98.2 F 90 18 95/68 L 90 PG Care Time/CCT Total # of Minutes Spent Total Time Spent with Patient: Total time spent is greater than 50% in coordination of care (as documented) at patient's floor/unit and/or counseling patient: Coding Level of Care Code 11746 Subseq Hosp Care Lvl 2 Diagnoses Pneumonia due to 2019 novel coronavirus U07.1; J12.82 Antineoplastic chemotherapy induced pancytopenia D61.810; T45.1X5A Acute on chronic respiratory failure with hypoxemia J96.21 Small cell lung cancer, left upper lobe C34.12 Hypothyroidism E03.9 GERD (gastroesophageal reflux disease) K21.9 Hypertension I10 Diabetes mellitus, type 2 E11.9 COPD with emphysema J43.9 Chronic kidney disease, stage 3a N18.31 Hyperlipidemia E78.5 Dysphagia R13.10 Herpes labialis B00.1 Essential tremor G25.0 Cardiomyopathy I42.9 Cardiomyopathy type: unspecified DVT prophylaxis Z29.9 Neutropenia D70.9 Candidiasis of mouth and esophagus B37.81; B37.0 (1) Cardiomyopathy Cardiomyopathy type: unspecified Qualified Code(s): I42.9 - Cardiomyopathy, unspecified
[2021-02-02] MEDS: ALBUTEROL HFA 8 GM INHALER INH SCH ×4 (07:45→18:26)
[2021-02-02] MEDS: ACYCLOVIR 5% OINT 15 GM TUBE EXT SCH ×5 (08:37→21:10)
[2021-02-02] MEDS: dexAMETHasone 10 MG in SYRINGE 0 ML IV SCH (08:38)
[2021-02-02] MEDS: ARTIFICIAL TEARS OP SCH ×2 (08:38→21:11)
[2021-02-02] MEDS: FAMOTIDINE 20 MG in SYRINGE 3 ML IV SCH ×2 (08:39→21:18)
[2021-02-02] MEDS: NYSTATIN SUSP 500,000 U/5 ML UDC PO SCH ×4 (08:39→21:13)
[2021-02-02] MEDS: PANTOprazole 40 MG TAB PO SCH ×2 (08:39→21:12)
[2021-02-02] MEDS: SUCRALFATE 1 GM TAB PO SCH ×4 (08:39→21:12)
[2021-02-02] MEDS: INSULIN ASPART 100 UNITS/ML 3 ML PEN SC SCH ×4 (09:30→21:40)
[2021-02-02] MEDS: INSULIN GLARGINE SOLOSTAR 100 UNITS/ML 3 ML PEN SC SCH ×2 (09:31→21:42)
[2021-02-02] MEDS: LIDOCAINE VISCOUS 2% SOLN 60 ML, diphenhydrAMINE Syrup 150 MG, ALUMINUM/MAGNESIUM SUSP ... MT SCH ×4 (09:32→21:19)
[2021-02-02] MEDS: ATORVASTATIN 40 MG TAB PO SCH (21:12)
[2021-02-03] MEDS: LEVOTHYROXINE SODIUM 88 MCG TABLET PO SCH (05:16)
[2021-02-03] MEDS: ALBUTEROL HFA 8 GM INHALER INH SCH ×4 (07:13→20:46)
[2021-02-03] MEDS: ACYCLOVIR 5% OINT 15 GM TUBE EXT SCH ×3 (08:47→13:05)
[2021-02-03] MEDS: SUCRALFATE 1 GM TAB PO SCH ×4 (08:47→21:27)
[2021-02-03] MEDS: FAMOTIDINE 20 MG in SYRINGE 3 ML IV SCH ×2 (08:48→21:25)
[2021-02-03] MEDS: dexAMETHasone 10 MG in SYRINGE 0 ML IV SCH (08:48)
[2021-02-03] MEDS: ARTIFICIAL TEARS OP SCH ×2 (08:48→21:25)
[2021-02-03] MEDS: PANTOprazole 40 MG TAB PO SCH ×2 (08:49→21:27)
[2021-02-03] MEDS: NYSTATIN SUSP 500,000 U/5 ML UDC PO SCH ×4 (08:49→21:27)
[2021-02-03] MEDS: INSULIN ASPART 100 UNITS/ML 3 ML PEN SC SCH ×4 (09:33→21:25)
[2021-02-03] MEDS: LIDOCAINE VISCOUS 2% SOLN 60 ML, diphenhydrAMINE Syrup 150 MG, ALUMINUM/MAGNESIUM SUSP ... MT SCH ×4 (09:33→21:27)
[2021-02-03] MEDS: INSULIN GLARGINE SOLOSTAR 100 UNITS/ML 3 ML PEN SC SCH ×2 (09:34→21:26)
--- NOTE | 2021-02-03 17:04 | Hospitalist Progress Note ---
Date of Service February 03, 2021 Assessment & Plan (1) Pneumonia due to 2019 novel coronavirus: Plan: SEVERE, with ongoing need for HFNC, seems to be at least stable and not worsening Initial illness around 01/20/21 hospitalized 01/23/21 dexamethasone - increased from 6mg to 10mg daily due to probable early ARDS on 01/29 continue on 10mg for 10 days then back to 6mg, so last day of 10mg would be 02/08 Completed 5-day course of Remdesivir. Was not a candidate for baricitinib due to neutropenia and heavy immunosuppression from recent chemo for lung cancer. Neutropenia now resolved. completed course of Meropenem and Levaquin with initial concern for bacterial infection with immune suppressed state from chemo MRSA swab neg - deferred on MRSA coverage. Cont pulmonary toilet - flutter, IS, etc. Cont self-proning (the best she can do is lay on her side) gave Lasix 20mg IV on 01/31, good response (2) Antineoplastic chemotherapy induced pancytopenia: Plan: Severe pancytopenia 2nd to recent chemo for left-sided lung cancer. Received chemo late December. WBC count improved. Neutropenia resolved Platelets are low but stable s/p 2 units PRBCs and 1 unit platelets since admission. s/p 3 days of neupogen. No bleeding complications. Hb stable (3) Acute on chronic respiratory failure with hypoxemia: Plan: 2 L NC 02 PRN as outpatient but tends to use it frequently. Acute component 2nd to #1. she is on 50L and 90%, try to wean as tolerated not in distress, making improvements (4) Small cell lung cancer, left upper lobe: Plan: Follows with Dr Daniels and Dr Castro for chemotherapy and radiation, respectively. Radiation treatments were completed. Last chemotherapy ~ 01/06? (5) Hypothyroidism: Plan: TSH wnl Nov 2020 Continue Levothyroxine 88 mcg daily (6) GERD (gastroesophageal reflux disease): Plan: Improved with PPI + H2 germán. Can stop IV pepcid. Cont with PPI twice daily. (7) Hypertension: Plan: continue holding amlodipine-benazepril due to low / low-normal BPs (8) Diabetes mellitus, type 2: Plan: Uncontrolled 2nd to steroids. Cont lantus BID. Adjust novolog. Most recent a1c 8.5% in late November was hyperglycemic on 01/31 in afternoon, gave regular insulin and increased Lantus to 20 BID was hypoglycemic last night in the 60's PM lantus to 10 units, continue AM lantus at 20, follow sugars (9) COPD with emphysema: Plan: Cont inhalers. Cont steroids. (10) Chronic kidney disease, stage 3a: Plan: Cr has been stable over the last few days even in the midst of diuresis. Cr is stable bit follow got Lasix and potassium on 01/31, (11) Hyperlipidemia: Plan: Cont statin. AST / ALT wnl. (12) Dysphagia: Plan: Patient with esophageal stenosis requiring dilatation via EGD earlier this fall cont pureed diet no issues this admission (13) Herpes labialis: Plan: cont zovirax (14) Essential tremor: Plan: chronic (15) Cardiomyopathy: Plan: previous echos with EF 45-50% as well as >50% patient is net fluid negative to date given one dose of lasix 02/03 (16) DVT prophylaxis: Plan: SCDs chemical means contraindicated due to low platelets (17) Neutropenia: Plan: resolved s/p neupogen x 3 this admission (18) Candidiasis of mouth and esophagus: Plan: cont nystatin solution, would treat for 14 days, still c/o sore throat at risk for this given steroids, antibiotic use Plan: will get PT/OT once on less oxygen try to wean oxygen, prognosis is guarded, short term goal is to get her to wall high flow later this week Admission and Anticipated Discharge Date Admission Date: January 23, 2021 Subjective pt is pleasantly confused, reinforced that she has a long way to go, still with elevated oxygen requirements now on vapotherm, did update Review of Systems Review of Systems: Mild distress and fatigue no headache, no visual changes no speech or swallowing issues no chest pain, pressure or palpitations no shortness of breath, cough or wheezes no abdominal pain, nausea or vomiting, diarrhea or constipation no dysuria, hematuria or frequency no focal joint pain or swelling no back pain, CVA tenderness or radicular pain no bruising, bleeding or rashes no focal signs of weakness or numbness or altered sensation no complaints of anxiety or depression.. Physical Exam Physical Exam: The patient appeared alopecia from recent chemotherapy julia tment Vital signs as documented. Head exam is normocephalic atraumatic Neck is without JVD, thyromegaly, or carotid bruits. Lungs are bilateral crackles in both lung grewal all the way to the apex Cardiac exam, Rhythm is regular... Ejection murmur Abdominal exam reveals normal bowel sounds, soft non tender, no masses Extremities are trace edema bilaterally and both pedal pulses are present Neurologic exam is alert and oriented, no focal loss of strength or sensation Skin is without bruises or rashes Psychologically is without concerns for anxiety or depression.. Results & Data Results & Data ([facility] [place]) Vital Signs (Past 12 Hours) Vital Signs Temp Pulse Resp BP Pulse Ox 02/03/21 15:34 95 H 18 92 02/03/21 15:20 97.9 F 104 H 20 96/68 L 90 02/03/21 12:13 98.1 F 95 H 16 102/66 91 02/03/21 11:14 109 H 22 93 02/03/21 07:30 98.4 F 95 H 19 88/69 L 93 02/03/21 07:14 103 H 26 H 87 L PG Care Time/CCT Total # of Minutes Spent Total Time Spent with Patient: Total time spent is greater than 50% in coordination of care (as documented) at patient's floor/unit and/or counseling patient: Coding Level of Care Code 38630 Subseq Hosp Care Lvl 2 Diagnoses Pneumonia due to 2019 novel coronavirus U07.1; J12.82 Antineoplastic chemotherapy induced pancytopenia D61.810; T45.1X5A Acute on chronic respiratory failure with hypoxemia J96.21 Small cell lung cancer, left upper lobe C34.12 Hypothyroidism E03.9 GERD (gastroesophageal reflux disease) K21.9 Hypertension I10 Diabetes mellitus, type 2 E11.9 COPD with emphysema J43.9 Chronic kidney disease, stage 3a N18.31 Hyperlipidemia E78.5 Dysphagia R13.10 Herpes labialis B00.1 Essential tremor G25.0 Cardiomyopathy I42.9 Cardiomyopathy type: unspecified DVT prophylaxis Z29.9 Neutropenia D70.9 Candidiasis of mouth and esophagus B37.81; B37.0 (1) Cardiomyopathy Cardiomyopathy type: unspecified Qualified Code(s): I42.9 - Cardiomyopathy, unspecified
[2021-02-03] MEDS: ATORVASTATIN 40 MG TAB PO SCH (21:25)
[2021-02-04] MEDS: LEVOTHYROXINE SODIUM 88 MCG TABLET PO SCH (06:33)
[2021-02-04] MEDS: ALBUTEROL HFA 8 GM INHALER INH SCH ×3 (08:12→20:09)
[2021-02-04] MEDS: dexAMETHasone 10 MG in SYRINGE 0 ML IV SCH (09:10)
[2021-02-04] MEDS: FAMOTIDINE 20 MG in SYRINGE 3 ML IV SCH ×2 (09:10→20:20)
[2021-02-04] MEDS: PANTOprazole 40 MG TAB PO SCH ×2 (09:11→20:19)
[2021-02-04] MEDS: SUCRALFATE 1 GM TAB PO SCH ×4 (09:11→20:19)
[2021-02-04] MEDS: NYSTATIN SUSP 500,000 U/5 ML UDC PO SCH ×4 (09:11→20:19)
[2021-02-04] MEDS: LIDOCAINE VISCOUS 2% SOLN 60 ML, diphenhydrAMINE Syrup 150 MG, ALUMINUM/MAGNESIUM SUSP ... MT SCH ×4 (09:12→20:20)
[2021-02-04] MEDS: ARTIFICIAL TEARS OP SCH ×2 (09:12→20:19)
[2021-02-04] MEDS: INSULIN ASPART 100 UNITS/ML 3 ML PEN SC SCH ×4 (09:13→20:25)
[2021-02-04] MEDS: INSULIN GLARGINE SOLOSTAR 100 UNITS/ML 3 ML PEN SC SCH ×2 (09:15→20:25)
--- NOTE | 2021-02-04 16:24 | Hospitalist Progress Note ---
Date of Service February 04, 2021 Assessment & Plan (1) Pneumonia due to 2019 novel coronavirus: Plan: SEVERE, with ongoing need for vapotherm HFNC, has had escalating requirement Initial illness around 01/20/21 hospitalized 01/23/21 dexamethasone - increased from 6mg to 10mg daily due to probable early ARDS on 01/29 continue on 10mg for 10 days then back to 6mg, so last day of 10mg would be 02/08 Completed 5-day course of Remdesivir. Was not a candidate for baricitinib due to neutropenia and heavy immunosuppression from recent chemo for lung cancer. Neutropenia now resolved. completed course of Meropenem and Levaquin with initial concern for bacterial infection with immune suppressed state from chemo MRSA swab neg - deferred on MRSA coverage. Cont pulmonary toilet - flutter, IS, etc. Cont self-proning (the best she can do is lay on her side) gave Lasix 20mg IV on 01/31, good response, additional dose 02/04/21 (2) Antineoplastic chemotherapy induced pancytopenia: Plan: Severe pancytopenia 2nd to recent chemo for left-sided lung cancer. Received chemo late December. WBC count improved. Neutropenia resolved Platelets are low but stable s/p 2 units PRBCs and 1 unit platelets since admission. s/p 3 days of neupogen. No bleeding complications. Hb stable (3) Acute on chronic respiratory failure with hypoxemia: Plan: 2 L NC 02 PRN as outpatient but tends to use it frequently. Acute component 2nd to #1. she is on 50L and 90%, try to wean as tolerated not in distress, making improvements (4) Small cell lung cancer, left upper lobe: Plan: Follows with Dr Daniels and Dr Castro for chemotherapy and radiation, respectively. Radiation treatments were completed. Last chemotherapy ~ 01/06? (5) Hypothyroidism: Plan: TSH wnl Nov 2020 Continue Levothyroxine 88 mcg daily (6) GERD (gastroesophageal reflux disease): Plan: Improved with PPI + H2 germán. Can stop IV pepcid. Cont with PPI twice daily. (7) Hypertension: Plan: continue holding amlodipine-benazepril due to low / low-normal BPs (8) Diabetes mellitus, type 2: Plan: Uncontrolled 2nd to steroids. Cont lantus BID. Adjust novolog. Most recent a1c 8.5% in late November was hyperglycemic on 01/31 in afternoon, gave regular insulin and increased Lantus to 20 BID was hypoglycemic last night in the 60's PM lantus to 10 units, continue AM lantus at 20, follow sugars (9) COPD with emphysema: Plan: Cont inhalers. Cont steroids. (10) Chronic kidney disease, stage 3a: Plan: Cr has been stable over the last few days even in the midst of diuresis. Cr is stable bit follow got Lasix and potassium on 01/31, (11) Hyperlipidemia: Plan: Cont statin. AST / ALT wnl. (12) Dysphagia: Plan: Patient with esophageal stenosis requiring dilatation via EGD earlier this fall cont pureed diet no issues this admission (13) Herpes labialis: Plan: cont zovirax (14) Essential tremor: Plan: chronic (15) Cardiomyopathy: Plan: previous echos with EF 45-50% as well as >50% patient is net fluid negative to date given one dose of lasix 02/03 (16) DVT prophylaxis: Plan: SCDs chemical means contraindicated due to low platelets (17) Neutropenia: Plan: resolved s/p neupogen x 3 this admission (18) Candidiasis of mouth and esophagus: Plan: cont nystatin solution, would treat for 14 days, still c/o sore throat at risk for this given steroids, antibiotic use Plan: will get PT/OT once on less oxygen try to wean oxygen, prognosis is guarded, short term goal is to get her to wall high flow later this week Admission and Anticipated Discharge Date Admission Date: January 23, 2021 Subjective pt is pleasantly confused, reinforced that she has a long way to go, still with elevated oxygen requirements now on vapotherm, did update 02/04 pt still seems not to understand how ill she is Review of Systems Review of Systems: moderate distress and fatigue no headache, no visual changes no speech or swallowing issues no chest pain, pressure or palpitations significant shortness of breath, cough or wheezes no abdominal pain, nausea or vomiting, diarrhea or constipation no dysuria, hematuria or frequency no focal joint pain or swelling no back pain, CVA tenderness or radicular pain no bruising, bleeding or rashes no focal signs of weakness or numbness or altered sensation no complaints of anxiety or depression.. Physical Exam Physical Exam: The patient appeared alopecia from recent chemotherapy treatment Vital signs as documented. Head exam is normocephalic atraumatic Neck is without JVD, thyromegaly, or carotid bruits. Lungs are bilateral crackles in both lung grewal all the way to the apex Cardiac exam, Rhythm is regular... Ejection murmur Abdominal exam reveals normal bowel sounds, soft non tender, no masses Extremities are trace edema bilaterally and both pedal pulses are present Neurologic exam is alert and oriented, no focal loss of strength or sensation Skin is without bruises or rashes Psychologically is without concerns for anxiety or depression.. Results & Data Results & Data ([facility]) Vital Signs (Past 12 Hours) Vital Signs Temp Pulse Resp BP Pulse Ox 02/04/21 15:47 97.9 F 88 20 100/67 99 02/04/21 12:12 97.9 F 108 H 22 98/80 L 92 02/04/21 10:14 20 87 L 02/04/21 08:12 95 H 20 90 02/04/21 07:54 98.4 F 92 H 22 94/55 L 93 02/04/21 04:35 76 26 H 90 PG Care Time/CCT Total # of Minutes Spent Total Time Spent with Patient: Total time spent is greater than 50% in coordination of care (as documented) at patient's floor/unit and/or counseling patient: Coding Level of Care Code 82538 Subseq Hosp Care Lvl 2 Diagnoses Pneumonia due to 2019 novel coronavirus U07.1; J12.82 Antineoplastic chemotherapy induced pancytopenia D61.810; T45.1X5A Acute on chronic respiratory failure with hypoxemia J96.21 Small cell lung cancer, left upper lobe C34.12 Hypothyroidism E03.9 GERD (gastroesophageal reflux disease) K21.9 Hypertension I10 Diabetes mellitus, type 2 E11.9 COPD with emphysema J43.9 Chronic kidney disease, stage 3a N18.31 Hyperlipidemia E78.5 Dysphagia R13.10 Herpes labialis B00.1 Essential tremor G25.0 Cardiomyopathy I42.9 Cardiomyopathy type: unspecified DVT prophylaxis Z29.9 Neutropenia D70.9 Candidiasis of mouth and esophagus B37.81; B37.0 (1) Cardiomyopathy Cardiomyopathy type: unspecified Qualified Code(s): I42.9 - Cardiomyopathy, unspecified
[2021-02-04] MEDS: ATORVASTATIN 40 MG TAB PO SCH (20:19)
[2021-02-05] MEDS: ALBUTEROL HFA 8 GM INHALER INH SCH ×2 (06:00→17:00)
[2021-02-05] MEDS: LEVOTHYROXINE SODIUM 88 MCG TABLET PO SCH (06:15)
[2021-02-05 07:29] LABS: Hematocrit (blood only) 24.9 % (37-47); Hemoglobin 8.4 g/dL (12.0-16.0); Mean Corpuscular Hemoglobin 31.7 pg (25-34); Mean Corpuscular Hgb Conc 33.7 g/dL (32-36); Nucleated RBC # (auto) 0.08 K/uL (0-0); Nucleated RBC % (auto) 1.2 %; RDW Coefficient of Variation 17.1 % (11.5-14.5); RDW Standard Deviation 57.4 fL (36.4-46.3); Red Blood Count 2.65 M/uL (4.2-5.4); White Blood Count 6.68 K/uL (4.8-10.8)
[2021-02-05 07:38] LABS: BUN Creatinine Ratio 27.5 (10-20); Calcium 9.2 mg/dl (8.5-10.1); Creatinine Clr Calc Pharmacy 47.6 ml/min; Est GFR (African American) 54.7 ml/min; Est GFR (Non-African American) 47.2 ml/min; Potassium 3.7 mmol/L (3.5-5.1)
[2021-02-05 07:57] LABS: Mean Platelet Volume 9.6 fL (7.4-10.4); Platelet Count 97 K/uL (130-400)
[2021-02-05 07:58] LABS: Basophils # (auto) 0.01 K/uL (0-0.2); Basophils % (auto) 0.1 %; Immature Granulocytes # (auto) 0.08 K/uL (0.00-0.02); Immature Granulocytes % (auto) 1.2 %; Lymphocytes # (auto) 0.26 K/uL (1.2-3.4); Lymphocytes % (auto) 3.9 %; Monocytes # (auto) 0.52 K/uL (0.11-0.59); Monocytes % (auto) 7.8 %; Neutrophils # (auto) 5.81 K/uL (1.4-6.5)
[2021-02-05] MEDS: INSULIN GLARGINE SOLOSTAR 100 UNITS/ML 3 ML PEN SC SCH ×2 (08:28→21:50)
[2021-02-05] MEDS: INSULIN ASPART 100 UNITS/ML 3 ML PEN SC SCH ×4 (08:29→21:50)
[2021-02-05] MEDS: ARTIFICIAL TEARS OP SCH ×2 (08:29→21:51)
[2021-02-05] MEDS: dexAMETHasone 10 MG in SYRINGE 0 ML IV SCH (08:29)
[2021-02-05] MEDS: NYSTATIN SUSP 500,000 U/5 ML UDC PO SCH ×4 (08:30→21:50)
[2021-02-05] MEDS: SUCRALFATE 1 GM TAB PO SCH ×4 (08:30→21:50)
[2021-02-05] MEDS: FAMOTIDINE 20 MG in SYRINGE 3 ML IV SCH ×2 (08:30→21:50)
[2021-02-05] MEDS: LIDOCAINE VISCOUS 2% SOLN 60 ML, diphenhydrAMINE Syrup 150 MG, ALUMINUM/MAGNESIUM SUSP ... MT SCH ×4 (08:30→21:51)
[2021-02-05] MEDS: PANTOprazole 40 MG TAB PO SCH ×2 (08:31→21:50)
[2021-02-05] MEDS ORDERED: FUROSEMIDE INJ 20 MG/2 ML VIAL IV ONE (08:39)
--- NOTE | 2021-02-05 08:42 | Hospitalist Progress Note ---
Date of Service February 05, 2021 Assessment & Plan (1) Pneumonia due to 2019 novel coronavirus: Plan: SEVERE, with ongoing need for vapotherm HFNC, has had escalating requirement the past two days, up to 60L 90% this morning Initial illness around 01/20/21 hospitalized 01/23/21 dexamethasone - increased from 6mg to 10mg daily due to probable early ARDS on 01/29 continue on 10mg for 10 days then back to 6mg, so last day of 10mg would be 02/08 Completed 5-day course of Remdesivir. Was not a candidate for baricitinib due to neutropenia and heavy immunosuppression from recent chemo for lung cancer. Neutropenia now resolved. completed course of Meropenem and Levaquin with initial concern for bacterial infection with immune suppressed state from chemo has a cough, no fever, check procalcitonin tomorrow MRSA swab neg - deferred on MRSA coverage. Cont pulmonary toilet - flutter, IS, etc. Cont self-proning (the best she can do is lay on her side) give Lasix 20mg IV today, likely continue every morning if it helps to keep her dry, she is drinking more fluids now (2) Antineoplastic chemotherapy induced pancytopenia: Plan: Severe pancytopenia 2nd to recent chemo for left-sided lung cancer. Received chemo late December. WBC count improved to 6k Platelets are low but stable, 97k s/p 2 units PRBCs and 1 unit platelets since admission. s/p 3 days of neupogen. No bleeding complications. Hb stable at 8.4 (3) Acute on chronic respiratory failure with hypoxemia: Plan: 2 L NC 02 PRN as outpatient but tends to use it frequently. Acute component 2nd to #1. she is on 60L and 90%, try to wean as tolerated not in distress but saturations sitting in high 80s give Lasix 20mg IV today, have her lay on side or prone (4) Small cell lung cancer, left upper lobe: Plan: Follows with Dr Daniels and Dr Castro for chemotherapy and radiation, respectively. Radiation treatments were completed. Last chemotherapy ~ 01/06? (5) Hypothyroidism: Plan: TSH wnl Nov 2020 Continue Levothyroxine 88 mcg daily (6) GERD (gastroesophageal reflux disease): Plan: Improved with PPI + H2 germán. Can stop IV pepcid. Cont with PPI twice daily. (7) Hypertension: Plan: continue holding amlodipine-benazepril due to low / low-normal BPs (8) Diabetes mellitus, type 2: Plan: Uncontrolled 2nd to steroids. Cont lantus BID. Adjust novolog. Most recent a1c 8.5% in late November PM lantus to 10 units, continue AM lantus at 20, follow sugars, monitor for hypoglycemia (9) COPD with emphysema: Plan: Cont inhalers. Cont steroids. (10) Chronic kidney disease, stage 3a: Plan: Cr has been stable over the last few days even in the midst of diuresis. BUN/Cr stable (11) Hyperlipidemia: Plan: Cont statin. AST / ALT wnl. (12) Dysphagia: Plan: Patient with esophageal stenosis requiring dilatation via EGD earlier this fall cont pureed diet no issues this admission (13) Herpes labialis: Plan: cont zovirax (14) Essential tremor: Plan: chronic (15) Cardiomyopathy: Plan: previous echos with EF 45-50% as well as >50% patient is net fluid negative to date given one dose of lasix 02/03 (16) DVT prophylaxis: Plan: SCDs start on Heparin since platelets are 97k (17) Neutropenia: Plan: resolved s/p neupogen x 3 this admission (18) Candidiasis of mouth and esophagus: Plan: cont nystatin solution, would treat for 14 days, still c/o sore throat at risk for this given steroids, antibiotic use Plan: will get PT/OT once on less oxygen try to wean oxygen, prognosis is guarded, short term goal is to get her to wall high flow in a few days Admission and Anticipated Discharge Date Admission Date: January 23, 2021 Subjective patient is on 60L and 90%, she is not in distress, says she is breathing "just fine" she has a cough with some sputum occasionally, no fever/chills, no nausea he has a good appetite, she is making urine, she is moving her bowels got portable CXR this morning, appears a little better on my read but still has bilateral infiltrates Cr and K are stable, CBC is stable, will give Lasix 20mg IV this morning she has a lot of questions, wants to know why she is requiring more oxygen, wants to know how long she will be here, "isn't there a cure for COVID?" I discussed that she has cancer, undergoing treatment, she was weaker that other people, more prone to severe infection asked her to focus on eating, drinking, laying on her side or prone, will try to wean oxygen over the weekend Review of Systems Review of Systems: All systems reviewed & are unremarkable except as noted in Subjective Physical Exam Physical Exam: General: well developed, thin elderly female, ill appearing, no distress EENT: throat is red, white plaque on tongue Neck: supple, trachea midline, normal thyroid Lungs: diminished breath sounds, + rhonchi, mild tachypnea, no distress, no accessory muscle use Heart: regular S1 and S2, no murmur, peripheral pulses normal, capillary refill normal, no edema Abdomen: soft, NT, ND, + BS, no hepatomegaly, normal to percussion Extremities: normal in appearance, no cyanosis, no petechiae, strength is 5/5 bilaterally Neuro: awake, cooperative, moves all extremities, no focal motor deficits, CN II-XII intact, sensation in extremities intact, normal speech Skin: warm, dry, no rash, normal turgor Psych: Awake, alert oriented x 3, euthymic affect Results & Data Results & Data ([facility]) Vital Signs (Past 12 Hours) Vital Signs Temp Pulse Pulse Resp BP Pulse Ox 02/05/21 07:49 36.7 C 98 H 22 124/92 91 02/05/21 06:00 77 20 99 02/05/21 03:00 36.9 C 72 20 108/69 95 02/05/21 02:30 74 20 94 02/05/21 00:00 86 18 92 02/04/21 23:37 84 103/66 93 02/04/21 23:00 36.6 C 83 20 85/50 L 90 Laboratory Results Laboratory Results - last 24 hr 02/04/21 02/04/21 02/04/21 11:09 16:25 20:16 WBC RBC Hgb Hct MCV MCH MCHC RDW Std Deviation RDW Coeff of Sari Plt Count MPV Immature Gran % (Auto) Neut % (Auto) Lymph % (Auto) Grayson % (Auto) Eos % (Auto) Baso % (Auto) Neut # (Auto) Lymph # (Auto) Grayson # (Auto) Eos # (Auto) Baso # (Auto) Immature Gran # (Auto) Absolute Nucleated RBC Nucleated RBC % (auto) Sodium Potassium Chloride Carbon Dioxide Anion Gap BUN Creatinine Est Cr Clr Drug Dosing Est GFR ( Amer) Est GFR (Non-Af Amer) BUN/Creatinine Ratio Glucose POC Glucose 221 H 135 H 196 H Calcium 02/05/21 02/05/21 02/05/21 06:28 06:28 07:59 WBC 6.68 RBC 2.65 L Hgb 8.4 L Hct 24.9 L MCV 94.0 MCH 31.7 MCHC 33.7 RDW Std Deviation 57.4 H RDW Coeff of Sari 17.1 H Plt Count 97 L MPV 9.6 Immature Gran % (Auto) 1.2 Neut % (Auto) 87.0 Lymph % (Auto) 3.9 Grayson % (Auto) 7.8 Eos % (Auto) 0.0 Baso % (Auto) 0.1 Neut # (Auto) 5.81 Lymph # (Auto) 0.26 L Grayson # (Auto) 0.52 Eos # (Auto) 0.00 Baso # (Auto) 0.01 Immature Gran # (Auto) 0.08 H Absolute Nucleated RBC 0.08 H Nucleated RBC % (auto) 1.2 Sodium 142 Potassium 3.7 Chloride 106 Carbon Dioxide 28 Anion Gap 8.0 BUN 32 H Creatinine 1.15 Est Cr Clr Drug Dosing 47.6 Est GFR ( Amer) 54.7 Est GFR (Non-Af Amer) 47.2 BUN/Creatinine Ratio 27.5 H Glucose 92 POC Glucose 101 H Calcium 9.2 Medications Administered Current Inpatient Medications Acetaminophen (Acetaminophen 325 Mg Tab) 650 mg PO Q4H PRN PRN Reason: Pain or Fever Stop: 02/22/21 17:31 Last Admin: 02/01/21 08:28 Dose: 650 mg Documented by: Al Hydrox/Mg Hydrox/Simethicone (Aluminum/Magnesium Susp 30 Ml Udc) 15 ml PO Q4H PRN PRN Reason: Dyspepsia Stop: 02/22/21 17:31 Albuterol (Albut/Ipratrop 3mg/0.5mg Neb 3 Ml Vial) 3 ml NEB Q4R PRN PRN Reason: Shortness Of Breath Or Wheezing Stop: 02/22/21 18:59 Last Admin: 02/02/21 04:20 Dose: 3 ml Documented by: Albuterol (Albuterol Hfa 8 Gm Inhaler) 2 puffs INH QIDR MAYRA Stop: 02/23/21 15:59 Last Admin: 02/05/21 06:00 Dose: 2 puffs Documented by: Artificial Tears (Artificial Tears) 1 drops OP BID MAYRA; Protocol Stop: 02/22/21 20:59 Last Admin: 02/05/21 08:29 Dose: 1 drops Documented by: Atorvastatin Calcium (Atorvastatin 40 Mg Tab) 40 mg PO HS MAYRA Stop: 03/01/21 20:59 Last Admin: 02/04/21 20:19 Dose: 40 mg Documented by: Azelastine HCl (Azelastine Hcl 0.1% Nasal 200 Sprays/27,400 Mcg Btl) 1 sprays MARVIN BID PRN PRN Reason: Congestion Stop: 02/22/21 17:37 Clonazepam (Clonazepam 0.5 Mg Tab) 0.5 mg PO DAILY PRN PRN Reason: anxiety Stop: 02/22/21 17:37 Lidocaine HCl 60 ml/Diphenhydramine HCl 150 mg/ Al Hydrox/Mg Hydrox/Simethicone 60 ml/ [employer] 1 ea 0 ml MT [facility] Stop: 02/22/21 20:59 Last Admin: 02/05/21 08:30 Dose: 1 ml Documented by: Dextrose (Dextrose 50% 50 Ml Syringe) 25 - 50 ml IV UD PRN; Protocol PRN Reason: Hypoglycemia Protocol Stop: 02/22/21 17:39 Furosemide (Furosemide Inj 20 Mg/2 Ml Vial) 20 mg IV ONE ONE Stop: 02/05/21 08:40 Glucagon (Glucagon For Inj 1 Mg Vial) 1 mg SQ UD PRN; Protocol PRN Reason: Hypoglycemia Protocol Stop: 02/22/21 17:39 Glucose (Glucose 10 Tabs/Tube) 4 - 8 tabs PO UD PRN; Protocol PRN Reason: Hypoglycemia Protocol Stop: 02/22/21 17:39 Glucose (Glucose 40% Gel 15 Gm Tube) 15 - 30 gm PO UD PRN; Protocol PRN Reason: Hypoglycemia Protocol Stop: 02/22/21 17:39 Guaifenesin/Codeine Phosphate (Guaifenesin/Codeine 100mg/10mg 5ml Udc) 5 ml PO Q6H PRN PRN Reason: cough Stop: 02/22/21 17:37 Last Admin: 01/24/21 08:13 Dose: 5 ml Documented by: Heparin Sodium (Porcine) (Heparin 100 Unit/Ml 5ml Flush) 5 ml FLUSH PRN PRN PRN Reason: Flush Stop: 02/23/21 00:06 Famotidine 20 mg/ Syringe 5 mls @ 2.5 mls/min IV BID MAYRA Stop: 02/22/21 20:59 Last Admin: 02/05/21 08:30 Dose: 2.5 mls/min Documented by: Dexamethasone 10 mg/ Syringe 2.5 mls @ 1 mls/min IV DAILY MAYRA Stop: 02/07/21 09:03 Last Admin: 02/05/21 08:29 Dose: 1 mls/min Documented by: Insulin Aspart (Insulin Aspart 100 Units/Ml 3 Ml Pen) 0 units SC ACHS MAYRA Stop: 02/22/21 20:59 Last Admin: 02/05/21 08:29 Dose: 2 units Documented by: Insulin Glargine (Insulin Glargine Solostar 100 Units/Ml 3 Ml Pen) 20 units SC QAM MAYRA Stop: 03/04/21 08:59 Last Admin: 02/05/21 08:28 Dose: 20 units Documented by: Insulin Glargine (Insulin Glargine Solostar 100 Units/Ml 3 Ml Pen) 10 units SC QPM MAYRA Stop: 03/03/21 20:59 Last Admin: 02/04/21 20:25 Dose: 10 units Documented by: Levothyroxine Sodium (Levothyroxine Sodium 88 Mcg Tablet) 88 mcg PO DAILYBB [facility] Stop: 02/23/21 06:29 Last Admin: 02/05/21 06:15 Dose: 88 mcg Documented by: Magnesium Hydroxide (Magnesium Hydroxide Susp 30 Ml Udc) 30 ml PO Q12H PRN PRN Reason: Constipation Stop: 02/22/21 17:31 Miscellaneous (Carbohydrates For Hypoglycemia ) 15 - 30 gm PO UD PRN PRN Reason: Hypoglycemia Protocol Stop: 02/22/21 17:39 Nystatin (Nystatin Susp 500,000 U/5 Ml Udc) 5 ml PO QID MAYRA Stop: 02/08/21 16:59 Last Admin: 02/05/21 08:30 Dose: 5 ml Documented by: Ondansetron HCl (Ondansetron Inj 2 Mg/Ml 2 Ml Vial) 4 mg IV Q6H PRN PRN Reason: Nausea Stop: 02/22/21 17:31 Last Admin: 01/24/21 06:54 Dose: 4 mg Documented by: Pantoprazole Sodium (Pantoprazole 40 Mg Tab) 40 mg PO BID MAYRA Stop: 02/24/21 08:59 Last Admin: 02/05/21 08:31 Dose: 40 mg Documented by: Polyethylene Glycol (Polyethylene (Miralax) 17 Gm Pack) 17 gm PO DAILY PRN PRN Reason: Constipation Stop: 02/22/21 17:31 Sucralfate (Sucralfate 1 Gm Tab) 1 gm PO ACHS MAYRA Stop: 02/22/21 19:59 Last Admin: 02/05/21 08:30 Dose: 1 gm Documented by: PG Care Time/CCT Total # of Minutes Spent Total Time Spent with Patient: Total time spent is greater than 50% in coordination of care (as documented) at patient's floor/unit and/or counseling patient: Coding Level of Care Code 06735 Subseq Hosp Care Lvl 3 Diagnoses Pneumonia due to 2019 novel coronavirus U07.1; J12.82 Antineoplastic chemotherapy induced pancytopenia D61.810; T45.1X5A Acute on chronic respiratory failure with hypoxemia J96.21 Small cell lung cancer, left upper lobe C34.12 Hypothyroidism E03.9 GERD (gastroesophageal reflux disease) K21.9 Hypertension I10 Diabetes mellitus, type 2 E11.9 COPD with emphysema J43.9 Chronic kidney disease, stage 3a N18.31 Hyperlipidemia E78.5 Dysphagia R13.10 Herpes labialis B00.1 Essential tremor G25.0 Cardiomyopathy I42.9 Cardiomyopathy type: unspecified DVT prophylaxis Z29.9 Neutropenia D70.9 Candidiasis of mouth and esophagus B37.81; B37.0 (1) Cardiomyopathy Cardiomyopathy type: unspecified Qualified Code(s): I42.9 - Cardiomyopathy, unspecified
--- NOTE | 2021-02-05 08:45 | XRay Report ---
SINGLE VIEW CHEST CLINICAL HISTORY: Hypoxia. Covid. FINDINGS: An AP, portable, upright chest radiograph is compared to study dated 01/27/2021 and correla jazz with chest CT dated 01/23/2021. A left internal jugular central venous infusion port is in place. The heart is top normal in size noting atherosclerotic calcification of the thoracic aorta. Emphysem a and chronic interstitial thickening is similar to previous. Patchy airspace consolidation is again seen throughout both lungs. This has not appreciably changed as compared to 01/27/2021. No large pleu ral effusion or pneumothorax is identified. The skeletal structures are osteopenic. The bony thorax i s grossly intact. Surgical clips are noted in the left chest wall. Cholecystectomy clips are seen in the right upper quadrant. IMPRESSION: 1. Multifocal airspace consolidation has not appreciably changed as compared to 01/17/2021. 2. Emphysema. ACT 112: Negative or not required by law. Electronically signed by: Ned Robles M.D. 02/05/2021 8:43 AM
[2021-02-05] MEDS ORDERED: POTASSIUM CHLORIDE CRTAB 20 MEQ TABCR PO STA (08:52)
[2021-02-05] MEDS: HEPARIN SOD 5,000 UNIT/0.5 ML VIAL SQ SCH ×2 (16:39→21:49)
[2021-02-05] MEDS ORDERED: ALBUTEROL HFA 8 GM INHALER INH PRN (17:03)
[2021-02-05] MEDS: ATORVASTATIN 40 MG TAB PO SCH (21:50)
[2021-02-06] MEDS: HEPARIN SOD 5,000 UNIT/0.5 ML VIAL SQ SCH ×3 (05:29→22:39)
[2021-02-06] MEDS: LEVOTHYROXINE SODIUM 88 MCG TABLET PO SCH (05:29)
[2021-02-06 07:43] LABS: Hematocrit (blood only) 24.8 % (37-47); Hemoglobin 8.3 g/dL (12.0-16.0); Mean Corpuscular Hemoglobin 31.7 pg (25-34); Mean Corpuscular Hgb Conc 33.5 g/dL (32-36); Mean Corpuscular Volume 94.7 fL (80-100); Mean Platelet Volume 9.6 fL (7.4-10.4); Nucleated RBC # (auto) 0.09 K/uL (0-0); Nucleated RBC % (auto) 1.3 %; Platelet Count 108 K/uL (130-400); RDW Coefficient of Variation 17.2 % (11.5-14.5); RDW Standard Deviation 57.2 fL (36.4-46.3); Red Blood Count 2.62 M/uL (4.2-5.4); White Blood Count 7.18 K/uL (4.8-10.8)
[2021-02-06 08:01] LABS: BUN Creatinine Ratio 30.6 (10-20); Calcium 9.3 mg/dl (8.5-10.1); Creatinine Clr Calc Pharmacy 50.5 ml/min; Est GFR (African American) 59.6 ml/min; Est GFR (Non-African American) 51.5 ml/min; Potassium 3.6 mmol/L (3.5-5.1)
[2021-02-06 08:02] LABS: C Reactive Protein 9.19 mg/dl (0-0.29)
[2021-02-06] MEDS: INSULIN ASPART 100 UNITS/ML 3 ML PEN SC SCH ×4 (09:20→22:36)
[2021-02-06] MEDS: dexAMETHasone 10 MG in SYRINGE 0 ML IV SCH (09:20)
[2021-02-06] MEDS: NYSTATIN SUSP 500,000 U/5 ML UDC PO SCH ×4 (09:20→22:39)
[2021-02-06] MEDS: FAMOTIDINE 20 MG in SYRINGE 3 ML IV SCH ×2 (09:21→22:39)
[2021-02-06] MEDS: SUCRALFATE 1 GM TAB PO SCH ×4 (09:21→22:38)
[2021-02-06] MEDS: LIDOCAINE VISCOUS 2% SOLN 60 ML, diphenhydrAMINE Syrup 150 MG, ALUMINUM/MAGNESIUM SUSP ... MT SCH ×4 (09:21→22:39)
[2021-02-06] MEDS: ARTIFICIAL TEARS OP SCH ×2 (09:21→22:37)
[2021-02-06] MEDS: INSULIN GLARGINE SOLOSTAR 100 UNITS/ML 3 ML PEN SC SCH ×2 (09:22→22:38)
[2021-02-06] MEDS: PANTOprazole 40 MG TAB PO SCH ×2 (09:22→22:37)
[2021-02-06] MEDS ORDERED: FUROSEMIDE INJ 20 MG/2 ML VIAL IV ONE (11:00)
--- NOTE | 2021-02-06 11:09 | Hospitalist Progress Note ---
Date of Service February 06, 2021 Assessment & Plan (1) Pneumonia due to 2019 novel coronavirus: Plan: SEVERE, with ongoing need for vapotherm HFNC, going up and down, was 60L 100% yesterday, today she is 50L 85%, CRP is still high at 9.1 Initial illness around 01/20/21 hospitalized 01/23/21 dexamethasone - increased from 6mg to 10mg daily due to probable early ARDS on 01/29 continue on 10mg for 10 days then back to 6mg, so last day of 10mg would be 02/08 Completed 5-day course of Remdesivir. Was not a candidate for baricitinib due to neutropenia and heavy immunosuppression from recent chemo for lung cancer. Neutropenia now resolved. completed course of Meropenem and Levaquin with initial concern for bacterial infection with immune suppressed state from chemo has a cough, no fever, procalcitonin is normal today MRSA swab neg - deferred on MRSA coverage. Cont pulmonary toilet - flutter, IS, etc. Cont self-proning (the best she can do is lay on her side) give Lasix 20mg IV daily, making adequate urine, Cr is stable (2) Antineoplastic chemotherapy induced pancytopenia: Plan: Severe pancytopenia 2nd to recent chemo for left-sided lung cancer. Received chemo late December. WBC, Hb and plts are stable, resumed heparin SC (3) Acute on chronic respiratory failure with hypoxemia: Plan: 2 L NC 02 PRN as outpatient but tends to use it frequently. Acute component 2nd to #1. she is on 50L and 85%, try to wean as tolerated not in distress, saturations low 90s give Lasix 20mg IV daily (4) Small cell lung cancer, left upper lobe: Plan: Follows with Dr Daniels and Dr Castro for chemotherapy and radiation, respectively. Radiation treatments were completed. Last chemotherapy ~ 01/06? (5) Hypothyroidism: Plan: TSH wnl Nov 2020 Continue Levothyroxine 88 mcg daily (6) GERD (gastroesophageal reflux disease): Plan: Improved with PPI + H2 germán. Can stop IV pepcid. Cont with PPI twice daily. (7) Hypertension: Plan: continue holding amlodipine-benazepril due to low / low-normal BPs (8) Diabetes mellitus, type 2: Plan: Uncontrolled 2nd to steroids. Cont lantus BID. Adjust novolog. Most recent a1c 8.5% in late November PM lantus to 10 units, continue AM lantus at 20, follow sugars, monitor for hypoglycemia (9) COPD with emphysema: Plan: Cont inhalers. Cont steroids. (10) Chronic kidney disease, stage 3a: Plan: Cr has been stable over the last few days even in the midst of diuresis. BUN/Cr stable (11) Hyperlipidemia: Plan: Cont statin. AST / ALT wnl. (12) Dysphagia: Plan: Patient with esophageal stenosis requiring dilatation via EGD earlier this fall cont pureed diet no issues this admission (13) Herpes labialis: Plan: cont zovirax (14) Essential tremor: Plan: chronic (15) Cardiomyopathy: Plan: previous echos with EF 45-50% as well as >50% patient is net fluid negative to date given one dose of lasix 02/03 (16) DVT prophylaxis: Plan: Heparin SC (17) Neutropenia: Plan: resolved s/p neupogen x 3 this admission (18) Candidiasis of mouth and esophagus: Plan: cont nystatin solution, would treat for 14 days, still c/o sore throat at risk for this given steroids, antibiotic use Plan: will get PT/OT once on less oxygen try to wean oxygen, prognosis is guarded, short term goal is to get her to wall high flow in a few days Admission and Anticipated Discharge Date Admission Date: January 23, 2021 Subjective patient doing okay today, down to 50L and 85%, not in distress she tried to lay prone, lasted only 30 minutes like yesterday, now on her right side I discussed that it is okay to just lay on her side she ate all her breakfast, drinking well, will give Lasix 20mg IV this morning as Cr is stable I called her to update him Review of Systems Review of Systems: All systems reviewed & are unremarkable except as noted in Subjective Respiratory: + cough, + dyspnea and + dyspnea on exertion Physical Exam Physical Exam: General: well developed, thin elderly female, ill appearing, no distress EENT: throat is red, white plaque on tongue Neck: supple, trachea midline, normal thyroid Lungs: diminished breath sounds, no wheezing, no crackles, mild tachypnea, no distress, no accessory muscle use Heart: regular S1 and S2, no murmur, peripheral pulses normal, capillary refill normal, no edema Abdomen: soft, NT, ND, + BS, no hepatomegaly, normal to percussion Extremities: normal in appearance, no cyanosis, no petechiae, strength is 5/5 bilaterally Neuro: awake, cooperative, moves all extremities, no focal motor deficits, CN II-XII intact, sensation in extremities intact, normal speech Skin: warm, dry, no rash, normal turgor Psych: Awake, alert oriented x 3, euthymic affect Results & Data Results & Data ([facility]) Vital Signs (Past 12 Hours) Vital Signs Temp Pulse Pulse Resp BP Pulse Ox 02/06/21 08:00 71 02/06/21 07:48 36.6 C 92 H 20 111/83 90 02/06/21 07:20 85 22 96 02/06/21 06:31 96 02/06/21 03:08 80 20 90 02/06/21 02:59 36.8 C 74 20 105/61 90 02/05/21 23:50 90 Laboratory Results Laboratory Results - last 24 hr 02/05/21 02/05/21 02/05/21 11:44 16:17 20:08 WBC RBC Hgb Hct MCV MCH MCHC RDW Std Deviation RDW Coeff of Sari Plt Count MPV Absolute Nucleated RBC Nucleated RBC % (auto) Sodium Potassium Chloride Carbon Dioxide Anion Gap BUN Creatinine Est Cr Clr Drug Dosing Est GFR ( Amer) Est GFR (Non-Af Amer) BUN/Creatinine Ratio Glucose POC Glucose 154 H 193 H 245 H Calcium C-Reactive Protein Procalcitonin 02/06/21 02/06/21 02/06/21 06:37 06:37 06:37 WBC 7.18 RBC 2.62 L Hgb 8.3 L Hct 24.8 L MCV 94.7 MCH 31.7 MCHC 33.5 RDW Std Deviation 57.2 H RDW Coeff of Sari 17.2 H Plt Count 108 L MPV 9.6 Absolute Nucleated RBC 0.09 H Nucleated RBC % (auto) 1.3 Sodium 143 Potassium 3.6 Chloride 107 Carbon Dioxide 29 Anion Gap 6.0 BUN 33 H Creatinine 1.07 Est Cr Clr Drug Dosing 50.5 Est GFR ( Amer) 59.6 Est GFR (Non-Af Amer) 51.5 BUN/Creatinine Ratio 30.6 H Glucose 83 POC Glucose Calcium 9.3 C-Reactive Protein 9.19 H Procalcitonin 0.13 02/06/21 08:18 WBC RBC Hgb Hct MCV MCH MCHC RDW Std Deviation RDW Coeff of Sari Plt Count MPV Absolute Nucleated RBC Nucleated RBC % (auto) Sodium Potassium Chloride Carbon Dioxide Anion Gap BUN Creatinine Est Cr Clr Drug Dosing Est GFR ( Amer) Est GFR (Non-Af Amer) BUN/Creatinine Ratio Glucose POC Glucose 86 Calcium C-Reactive Protein Procalcitonin Medications Administered Current Inpatient Medications Acetaminophen (Acetaminophen 325 Mg Tab) 650 mg PO Q4H PRN PRN Reason: Pain or Fever Stop: 02/22/21 17:31 Last Admin: 02/01/21 08:28 Dose: 650 mg Documented by: Al Hydrox/Mg Hydrox/Simethicone (Aluminum/Magnesium Susp 30 Ml Udc) 15 ml PO Q4H PRN PRN Reason: Dyspepsia Stop: 02/22/21 17:31 Albuterol (Albut/Ipratrop 3mg/0.5mg Neb 3 Ml Vial) 3 ml NEB Q4R PRN PRN Reason: Shortness Of Breath Or Wheezing Stop: 02/22/21 18:59 Last Admin: 02/02/21 04:20 Dose: 3 ml Documented by: Albuterol (Albuterol Hfa 8 Gm Inhaler) 2 puffs INH QIDR PRN PRN Reason: Wheezing Stop: 02/23/21 15:59 Artificial Tears (Artificial Tears) 1 drops OP BID MAYRA; Protocol Stop: 02/22/21 20:59 Last Admin: 02/06/21 09:21 Dose: 1 drops Documented by: Atorvastatin Calcium (Atorvastatin 40 Mg Tab) 40 mg PO HS MAYRA Stop: 03/01/21 20:59 Last Admin: 02/05/21 21:50 Dose: 40 mg Documented by: Azelastine HCl (Azelastine Hcl 0.1% Nasal 200 Sprays/27,400 Mcg Btl) 1 sprays MARVIN BID PRN PRN Reason: Congestion Stop: 02/22/21 17:37 Clonazepam (Clonazepam 0.5 Mg Tab) 0.5 mg PO DAILY PRN PRN Reason: anxiety Stop: 02/22/21 17:37 Lidocaine HCl 60 ml/Diphenhydramine HCl 150 mg/ Al Hydrox/Mg Hydrox/Simethicone 60 ml/ BARCODE IDENTIFIER 1 ea 0 ml MT ACHS MAYRA Stop: 02/22/21 20:59 Last Admin: 02/06/21 09:21 Dose: 5 ml Documented by: Dextrose (Dextrose 50% 50 Ml Syringe) 25 - 50 ml IV UD PRN; Protocol PRN Reason: Hypoglycemia Protocol Stop: 02/22/21 17:39 Glucagon (Glucagon For Inj 1 Mg Vial) 1 mg SQ UD PRN; Protocol PRN Reason: Hypoglycemia Protocol Stop: 02/22/21 17:39 Glucose (Glucose 10 Tabs/Tube) 4 - 8 tabs PO UD PRN; Protocol PRN Reason: Hypoglycemia Protocol Stop: 02/22/21 17:39 Glucose (Glucose 40% Gel 15 Gm Tube) 15 - 30 gm PO UD PRN; Protocol PRN Reason: Hypoglycemia Protocol Stop: 02/22/21 17:39 Guaifenesin/Codeine Phosphate (Guaifenesin/Codeine 100mg/10mg 5ml Udc) 5 ml PO Q6H PRN PRN Reason: cough Stop: 02/22/21 17:37 Last Admin: 01/24/21 08:13 Dose: 5 ml Documented by: Heparin Sodium (Porcine) (Heparin 100 Unit/Ml 5ml Flush) 5 ml FLUSH PRN PRN PRN Reason: Flush Stop: 02/23/21 00:06 Heparin Sodium (Porcine) (Heparin Sod 5,000 Unit/0.5 Ml Vial) 5,000 units SQ Q8 MAYRA Stop: 03/07/21 13:59 Last Admin: 02/06/21 05:29 Dose: 5,000 units Documented by: Famotidine 20 mg/ Syringe 5 mls @ 2.5 mls/min IV BID MAYRA Stop: 02/22/21 20:59 Last Admin: 02/06/21 09:21 Dose: 2.5 mls/min Documented by: Dexamethasone 10 mg/ Syringe 2.5 mls @ 1 mls/min IV DAILY MAYRA Stop: 02/07/21 09:03 Last Admin: 02/06/21 09:20 Dose: 1 mls/min Documented by: Insulin Aspart (Insulin Aspart 100 Units/Ml 3 Ml Pen) 0 units SC ACHS MAYRA Stop: 02/22/21 20:59 Last Admin: 02/06/21 09:20 Dose: Not Given Documented by: Insulin Glargine (Insulin Glargine Solostar 100 Units/Ml 3 Ml Pen) 20 units SC QAM [facility] Stop: 03/04/21 08:59 Last Admin: 02/06/21 09:22 Dose: 20 units Documented by: Insulin Glargine (Insulin Glargine Solostar 100 Units/Ml 3 Ml Pen) 10 units SC QPM [facility] Stop: 03/03/21 20:59 Last Admin: 02/05/21 21:50 Dose: 10 units Documented by: Levothyroxine Sodium (Levothyroxine Sodium 88 Mcg Tablet) 88 mcg PO DAILYBB MAYRA Stop: 02/23/21 06:29 Last Admin: 02/06/21 05:29 Dose: 88 mcg Documented by: Magnesium Hydroxide (Magnesium Hydroxide Susp 30 Ml Udc) 30 ml PO Q12H PRN PRN Reason: Constipation Stop: 02/22/21 17:31 Miscellaneous (Carbohydrates For Hypoglycemia ) 15 - 30 gm PO UD PRN PRN Reason: Hypoglycemia Protocol Stop: 02/22/21 17:39 Nystatin (Nystatin Susp 500,000 U/5 Ml Udc) 5 ml PO QID [facility] Stop: 02/08/21 16:59 Last Admin: 02/06/21 09:20 Dose: 5 ml Documented by: Ondansetron HCl (Ondansetron Inj 2 Mg/Ml 2 Ml Vial) 4 mg IV Q6H PRN PRN Reason: Nausea Stop: 02/22/21 17:31 Last Admin: 01/24/21 06:54 Dose: 4 mg Documented by: Pantoprazole Sodium (Pantoprazole 40 Mg Tab) 40 mg PO BID [facility] Stop: 02/24/21 08:59 Last Admin: 02/06/21 09:22 Dose: 40 mg Documented by: Polyethylene Glycol (Polyethylene (Miralax) 17 Gm Pack) 17 gm PO DAILY PRN PRN Reason: Constipation Stop: 02/22/21 17:31 Sucralfate (Sucralfate 1 Gm Tab) 1 gm PO ACHS [facility] Stop: 02/22/21 19:59 Last Admin: 02/06/21 09:21 Dose: 1 gm Documented by: PG Care Time/CCT Total # of Minutes Spent Total Time Spent with Patient: Total time spent is greater than 50% in coordination of care (as documented) at patient's floor/unit and/or counseling patient: Coding Level of Care Code 20860 Subseq Hosp Care Lvl 2 Diagnoses Pneumonia due to 2019 novel coronavirus U07.1; J12.82 Antineoplastic chemotherapy induced pancytopenia D61.810; T45.1X5A Acute on chronic respiratory failure with hypoxemia J96.21 Small cell lung cancer, left upper lobe C34.12 Hypothyroidism E03.9 GERD (gastroesophageal reflux disease) K21.9 Hypertension I10 Diabetes mellitus, type 2 E11.9 COPD with emphysema J43.9 Chronic kidney disease, stage 3a N18.31 Hyperlipidemia E78.5 Dysphagia R13.10 Herpes labialis B00.1 Essential tremor G25.0 Cardiomyopathy I42.9 Cardiomyopathy type: unspecified DVT prophylaxis Z29.9 Neutropenia D70.9 Candidiasis of mouth and esophagus B37.81; B37.0 (1) Cardiomyopathy Cardiomyopathy type: unspecified Qualified Code(s): I42.9 - Cardiomyopathy, unspecified
[2021-02-06] MEDS: ATORVASTATIN 40 MG TAB PO SCH (22:38)
[2021-02-07] MEDS: HEPARIN SOD 5,000 UNIT/0.5 ML VIAL SQ SCH ×3 (05:30→21:14)
[2021-02-07] MEDS: LEVOTHYROXINE SODIUM 88 MCG TABLET PO SCH (05:30)
[2021-02-07] MEDS: ARTIFICIAL TEARS OP SCH ×2 (08:43→21:10)
[2021-02-07] MEDS: SUCRALFATE 1 GM TAB PO SCH ×4 (08:43→21:07)
[2021-02-07] MEDS: dexAMETHasone 10 MG in SYRINGE 0 ML IV SCH (08:43)
[2021-02-07] MEDS: LIDOCAINE VISCOUS 2% SOLN 60 ML, diphenhydrAMINE Syrup 150 MG, ALUMINUM/MAGNESIUM SUSP ... MT SCH ×4 (08:43→21:13)
[2021-02-07] MEDS: FAMOTIDINE 20 MG in SYRINGE 3 ML IV SCH ×2 (08:44→21:07)
[2021-02-07] MEDS: NYSTATIN SUSP 500,000 U/5 ML UDC PO SCH ×4 (08:44→21:09)
[2021-02-07] MEDS: PANTOprazole 40 MG TAB PO SCH ×2 (08:44→21:07)
[2021-02-07] MEDS: INSULIN GLARGINE SOLOSTAR 100 UNITS/ML 3 ML PEN SC SCH ×2 (08:45→21:14)
[2021-02-07] MEDS: INSULIN ASPART 100 UNITS/ML 3 ML PEN SC SCH ×4 (08:46→21:12)
--- NOTE | 2021-02-07 09:57 | Hospitalist Progress Note ---
Date of Service February 07, 2021 Assessment & Plan (1) Pneumonia due to 2019 novel coronavirus: Plan: SEVERE, with ongoing need for vapotherm HFNC, day 16 of hospitalization now Initial illness around 01/20/21 hospitalized 01/23/21 dexamethasone - increased from 6mg to 10mg daily due to probable early ARDS on 01/29 continue on 10mg for 10 days then back to 6mg, so last day of 10mg would be 02/08 CRP still high at 9 yesterday, unsure how much steroids are helping at this point repeat CXR today Completed 5-day course of Remdesivir. Was not a candidate for baricitinib due to neutropenia and heavy immunosuppression from recent chemo for lung cancer. Neutropenia now resolved. completed course of Meropenem and Levaquin with initial concern for bacterial infection with immune suppressed state from chemo has a cough, no fever, procalcitonin is normal on 02/06 MRSA swab neg - deferred on MRSA coverage. Cont pulmonary toilet - flutter, IS, etc. Cont self-proning (the best she can do is lay on her side) she is back up to 60L and 100% today, not in disterss will repeat a portable CXR hold on Lasix IV as her BP is 84 systolic although she does not have any symptoms (2) Antineoplastic chemotherapy induced pancytopenia: Plan: Severe pancytopenia 2nd to recent chemo for left-sided lung cancer. Received chemo late December. WBC, Hb and plts are stable, resumed heparin SC (3) Acute on chronic respiratory failure with hypoxemia: Plan: 2 L NC 02 PRN as outpatient but tends to use it frequently. Acute component 2nd to #1. she is on 60L and 100%, try to wean as tolerated requiring more oxygen than yesterday she has not improved much the past 5 days, back and forth but never lower than 50L 70% unclear how much she will recover will consult palliative care to help discuss goals of care (4) Small cell lung cancer, left upper lobe: Plan: Follows with Dr Daniels and Dr Castro for chemotherapy and radiation, respectively. Radiation treatments were completed. Last chemotherapy ~ 01/06? (5) Hypothyroidism: Plan: TSH wnl Nov 2020 Continue Levothyroxine 88 mcg daily (6) GERD (gastroesophageal reflux disease): Plan: Improved with PPI + H2 germán. Can stop IV pepcid. Cont with PPI twice daily. (7) Hypertension: Plan: continue holding amlodipine-benazepril due to low BPs (8) Diabetes mellitus, type 2: Plan: Uncontrolled 2nd to steroids. Cont lantus BID. Adjust novolog. Most recent a1c 8.5% in late November PM lantus to 10 units, continue AM lantus at 20, follow sugars, monitor for hypoglycemia (9) COPD with emphysema: Plan: Cont inhalers. Cont steroids. (10) Chronic kidney disease, stage 3a: Plan: Cr has been stable over the last few days even in the midst of diuresis. BUN/Cr stable (11) Hyperlipidemia: Plan: Cont statin. AST / ALT wnl. (12) Dysphagia: Plan: Patient with esophageal stenosis requiring dilatation via EGD earlier this fall cont pureed diet no issues this admission (13) Herpes labialis: Plan: cont zovirax (14) Essential tremor: Plan: chronic (15) Cardiomyopathy: Plan: previous echos with EF 45-50% as well as >50% patient is net fluid negative to date given one dose of lasix 02/03 (16) DVT prophylaxis: Plan: Heparin SC (17) Neutropenia: Plan: resolved s/p neupogen x 3 this admission (18) Candidiasis of mouth and esophagus: Plan: cont nystatin solution, would treat for 14 days, still c/o sore throat at risk for this given steroids, antibiotic use Plan: will get PT/OT once on less oxygen try to wean oxygen, prognosis is guarded, short term goal is to get her to wall high flow in a few days but that has not happened back to 60L and 100% today consult palliative care today Admission and Anticipated Discharge Date Admission Date: January 23, 2021 Subjective patient feels the same this morning, mild dyspnea but no distress, minimal cough she ate her breakfast, slept okay her oxygen saturations are worse, requiring 60L and 100% FiO2, her BP is low at 84 systolic, no light headed sensation or chest pain could not give her Lasix due to the low BP, she had a decent response yesterday she keeps asking what we can do, how can we get her lungs stronger? I assured her it is not about strength, it's just that her inflammation is so severe, likely developing fibrotic changes she wants to be home for [place], she wants to see her family I told her I was not sure that was possible, she has taken some steps backwards this week we will get a CXR and I will follow up with her Review of Systems Review of Systems: All systems reviewed & are unremarkable except as noted in Subjective Respiratory: + cough, + dyspnea and + dyspnea on exertion Psychiatric: + depression Physical Exam Physical Exam: General: well developed, thin elderly female, ill appearing, no distress EENT: throat is red, white plaque on tongue Neck: supple, trachea midline, normal thyroid Lungs: diminished breath sounds, no wheezing, no crackles, mild tachypnea, no distress, no accessory muscle use Heart: regular S1 and S2, no murmur, peripheral pulses normal, capillary refill normal, no edema Abdomen: soft, NT, ND, + BS, no hepatomegaly, normal to percussion Extremities: normal in appearance, no cyanosis, no petechiae, strength is 5/5 bilaterally Neuro: awake, cooperative, moves all extremities, no focal motor deficits, CN II-XII intact, sensation in extremities intact, normal speech Skin: warm, dry, no rash, normal turgor Psych: Awake, alert oriented x 3, flat affect Results & Data Results & Data ([facility]) Vital Signs (Past 12 Hours) Vital Signs Temp Pulse Pulse Pulse Resp BP Pulse Ox 02/07/21 07:54 19 89 L 02/07/21 07:04 36.6 C 110 H 22 84/65 L 80 L 02/07/21 03:00 36.6 C 79 18 112/77 91 02/07/21 02:50 92 H 24 89 L 02/06/21 22:28 36.6 C 66 19 92/56 L 90 02/06/21 22:21 66 24 85 L 02/06/21 22:20 68 Laboratory Results Laboratory Results - last 24 hr 02/06/21 02/06/21 02/06/21 12:17 16:51 20:07 POC Glucose 164 H 244 H 145 H 02/07/21 07:33 POC Glucose 87 Medications Administered Current Inpatient Medications Acetaminophen (Acetaminophen 325 Mg Tab) 650 mg PO Q4H PRN PRN Reason: Pain or Fever Stop: 02/22/21 17:31 Last Admin: 02/01/21 08:28 Dose: 650 mg Documented by: Al Hydrox/Mg Hydrox/Simethicone (Aluminum/Magnesium Susp 30 Ml Udc) 15 ml PO Q4H PRN PRN Reason: Dyspepsia Stop: 02/22/21 17:31 Albuterol (Albut/Ipratrop 3mg/0.5mg Neb 3 Ml Vial) 3 ml NEB Q4R PRN PRN Reason: Shortness Of Breath Or Wheezing Stop: 02/22/21 18:59 Last Admin: 02/02/21 04:20 Dose: 3 ml Documented by: Albuterol (Albuterol Hfa 8 Gm Inhaler) 2 puffs INH QIDR PRN PRN Reason: Wheezing Stop: 02/23/21 15:59 Artificial Tears (Artificial Tears) 1 drops OP BID MAYRA; Protocol Stop: 02/22/21 20:59 Last Admin: 02/07/21 08:43 Dose: 1 drops Documented by: Atorvastatin Calcium (Atorvastatin 40 Mg Tab) 40 mg PO HS MAYRA Stop: 03/01/21 20:59 Last Admin: 02/06/21 22:38 Dose: 40 mg Documented by: Azelastine HCl (Azelastine Hcl 0.1% Nasal 200 Sprays/27,400 Mcg Btl) 1 sprays MARVIN BID PRN PRN Reason: Congestion Stop: 02/22/21 17:37 Clonazepam (Clonazepam 0.5 Mg Tab) 0.5 mg PO DAILY PRN PRN Reason: anxiety Stop: 02/22/21 17:37 Lidocaine HCl 60 ml/Diphenhydramine HCl 150 mg/ Al Hydrox/Mg Hydrox/Simethicone 60 ml/ BARCODE IDENTIFIER 1 ea 0 ml [facility] Stop: 02/22/21 20:59 Last Admin: 02/07/21 08:43 Dose: 10 ml Documented by: Dextrose (Dextrose 50% 50 Ml Syringe) 25 - 50 ml IV UD PRN; Protocol PRN Reason: Hypoglycemia Protocol Stop: 02/22/21 17:39 Glucagon (Glucagon For Inj 1 Mg Vial) 1 mg SQ UD PRN; Protocol PRN Reason: Hypoglycemia Protocol Stop: 02/22/21 17:39 Glucose (Glucose 10 Tabs/Tube) 4 - 8 tabs PO UD PRN; Protocol PRN Reason: Hypoglycemia Protocol Stop: 02/22/21 17:39 Glucose (Glucose 40% Gel 15 Gm Tube) 15 - 30 gm PO UD PRN; Protocol PRN Reason: Hypoglycemia Protocol Stop: 02/22/21 17:39 Guaifenesin/Codeine Phosphate (Guaifenesin/Codeine 100mg/10mg 5ml Udc) 5 ml PO Q6H PRN PRN Reason: cough Stop: 02/22/21 17:37 Last Admin: 01/24/21 08:13 Dose: 5 ml Documented by: Heparin Sodium (Porcine) (Heparin 100 Unit/Ml 5ml Flush) 5 ml FLUSH PRN PRN PRN Reason: Flush Stop: 02/23/21 00:06 Heparin Sodium (Porcine) (Heparin Sod 5,000 Unit/0.5 Ml Vial) 5,000 units SQ Q8 MAYRA Stop: 03/07/21 13:59 Last Admin: 02/07/21 05:30 Dose: 5,000 units Documented by: Famotidine 20 mg/ Syringe 5 mls @ 2.5 mls/min IV BID MAYRA Stop: 02/22/21 20:59 Last Admin: 02/07/21 08:44 Dose: 2.5 mls/min Documented by: Insulin Aspart (Insulin Aspart 100 Units/Ml 3 Ml Pen) 0 units SC ACHS MAYRA Stop: 02/22/21 20:59 Last Admin: 02/07/21 08:46 Dose: 3 units Documented by: Insulin Glargine (Insulin Glargine Solostar 100 Units/Ml 3 Ml Pen) 20 units SC QAM MAYRA Stop: 03/04/21 08:59 Last Admin: 02/07/21 08:45 Dose: 20 units Documented by: Insulin Glargine (Insulin Glargine Solostar 100 Units/Ml 3 Ml Pen) 10 units SC QPM MAYRA Stop: 03/03/21 20:59 Last Admin: 02/06/21 22:38 Dose: 10 units Documented by: Levothyroxine Sodium (Levothyroxine Sodium 88 Mcg Tablet) 88 mcg PO DAILYBB MAYRA Stop: 02/23/21 06:29 Last Admin: 02/07/21 05:30 Dose: 88 mcg Documented by: Magnesium Hydroxide (Magnesium Hydroxide Susp 30 Ml Udc) 30 ml PO Q12H PRN PRN Reason: Constipation Stop: 02/22/21 17:31 Miscellaneous (Carbohydrates For Hypoglycemia ) 15 - 30 gm PO UD PRN PRN Reason: Hypoglycemia Protocol Stop: 02/22/21 17:39 Nystatin (Nystatin Susp 500,000 U/5 Ml Udc) 5 ml PO QID MAYRA Stop: 02/08/21 16:59 Last Admin: 02/07/21 08:44 Dose: 5 ml Documented by: Ondansetron HCl (Ondansetron Inj 2 Mg/Ml 2 Ml Vial) 4 mg IV Q6H PRN PRN Reason: Nausea Stop: 02/22/21 17:31 Last Admin: 01/24/21 06:54 Dose: 4 mg Documented by: Pantoprazole Sodium (Pantoprazole 40 Mg Tab) 40 mg PO BID MAYRA Stop: 02/24/21 08:59 Last Admin: 02/07/21 08:44 Dose: 40 mg Documented by: Polyethylene Glycol (Polyethylene (Miralax) 17 Gm Pack) 17 gm PO DAILY PRN PRN Reason: Constipation Stop: 02/22/21 17:31 Sucralfate (Sucralfate 1 Gm Tab) 1 gm PO ACHS [facility] Stop: 02/22/21 19:59 Last Admin: 02/07/21 08:43 Dose: 1 gm Documented by: PG Care Time/CCT Total # of Minutes Spent Total Time Spent: 32 Total Time Spent with Patient: Total time spent is greater than 50% in coordination of care (as documented) at patient's floor/unit and/or counseling patient: Coding Level of Care Code 69405 Subseq Hosp Care Lvl 3 Diagnoses Pneumonia due to 2019 novel coronavirus U07.1; J12.82 Antineoplastic chemotherapy induced pancytopenia D61.810; T45.1X5A Acute on chronic respiratory failure with hypoxemia J96.21 Small cell lung cancer, left upper lobe C34.12 Hypothyroidism E03.9 GERD (gastroesophageal reflux disease) K21.9 Hypertension I10 Diabetes mellitus, type 2 E11.9 COPD with emphysema J43.9 Chronic kidney disease, stage 3a N18.31 Hyperlipidemia E78.5 Dysphagia R13.10 Herpes labialis B00.1 Essential tremor G25.0 Cardiomyopathy I42.9 Cardiomyopathy type: unspecified DVT prophylaxis Z29.9 Neutropenia D70.9 Candidiasis of mouth and esophagus B37.81; B37.0 (1) Cardiomyopathy Cardiomyopathy type: unspecified Qualified Code(s): I42.9 - Cardiomyopathy, unspecified
--- NOTE | 2021-02-07 10:50 | XRay Report ---
XR chest 1V portable CLINICAL HISTORY: hypoxia COMPARISON STUDY: Chest CT January 23, 2021. Chest radiograph February 05, 2021. FINDINGS: Left internal jugular [id number] is in place. There is underlying emphysema. Cardiomedia stinal silhouette is stable. Right lower lung airspace opacity has increased. Otherwise, opacities wi thin the lungs are similar to prior exam. IMPRESSION: Increase in right lower lung opacity. Otherwise, unchanged appearance in bilateral airspace opacities which favor an infectious process superimposed upon emphysema. ACT 112: Negative or not required by law. Electronically signed by: Vahe Reynoso M.D. 02/07/2021 10:48 AM
--- NOTE | 2021-02-07 13:06 | Palliative Care Consultation ---
Date of Consultation February 07, 2021 Assessment & Plan (1) Palliative care encounter: Ms. Rivers is a 75 year old female who presented to [facility] with a worsening cough, SOB, and weakness. She was found to be positive for COVID-19 on arrival to the hospital. She has an unfortunate PMH that includes: Small Cell Lung CA, Hypothyroidism, T2DM, HLD, Emphysema, CKD, GERD, and Esophageal Stenosis. The patient is a patient of both Dr. Daniels and Dr. Castro. She has completed radiation fractions one month ago and her last chemotherapy sessions was on 01/06/21 Etoposide and Cisplatin. She was supposed to resume chemotherapy on 01/24. She has been having increased oxygen requirements and is likely experiencing fibrotic lung changes, resulting in her overall decline. Palliative Medicine was consulted to discuss overall goals of care. I met with Daina at her bedside. She was sitting upright in her bed and when I asked how she was doing she said "Im doing better, they moved my oxygen down from 100% to 90%" She expressed that her goal is to see her family. She expressed confusion and frustration that she had 'double vaccinations' and now she is in 'this predicament'. She said she would like to be home in a week or so, I expressed the concerns that we have regarding fibrotic changes in her lung tissue, making it challenging to overcome. We did confirm that she would not want a ventilator should she continue to worsen. She told me she does not want to struggle if she is dying. I mentioned talking to her and see if if they could do a zoom visit to at least see eachother that way for now. She agreed that would be welcomed. I called her Chris at [phone] and talked to him at length. He was appropriately tearful and recognizes that despite medical efforts, she is likely to decline. For now, she is able to talk in complete sentences and hold conversations, but also recognizes that she is getting tired. She would like to 'keep doing what we are doing' for a little while longer. Chris asked that I called their daughter Nancie to discuss setting up a zoom together. I called [phone] and left a VM. Will call again tomorrow to discuss a meeting. Palliative will follow. (2) Hypoxia: On High Flow NC: 60L 90%, down from 100% (3) Weakness: (4) Small cell lung cancer, left upper lobe: History of Present Illness Reason for Consultation: Goals of care Requesting Physician: Dr. Walker Attending Physician: Babak Walker DO History of Present Illness Ms. Rivers is a 75 year old female who presented to [facility] with a worsening cough, SOB, and weakness. She was found to be positive for COVID-19 on arrival to the hospital. She has an unfortunate PMH that includes: Small Cell Lung CA, Hypothyroidism, T2DM, HLD, Emphysema, CKD, GERD, and Esophageal Stenosis. The patient is a patient of both Dr. Daniels and Dr. Castro. She has completed radiation fractions one month ago and her last chemotherapy sessions was on 01/06/21 Etoposide and Cisplatin. She was supposed to resume chemotherapy on 01/24. She has been having increased oxygen requirements and is likely experiencing fibrotic lung changes, resulting in her overall decline. Palliative Medicine was consulted to discuss overall goals of care. Please see A/P for further details. Thanks for involving palliative medicine with this individual. Allergies Allergy/AdvReac Type Severity Reaction Status Date / Time Penicillins Allergy Severe RASH AND Verified 01/23/21 14:33 THROAT SWELLING shellfish derived Allergy Severe RASH WELTS Verified 01/23/21 14:33 house dust mite Allergy Mild ALLERGY Verified 01/23/21 14:33 TESTING mold Allergy Mild PER Verified 01/23/21 14:33 ALLERGY TESTS-SNEEZING Fish Containing Products Allergy Verified 01/26/21 15:28 fish derived Allergy Verified 01/26/21 15:28 fish oil Allergy Verified 01/26/21 15:28 adhesive AdvReac Intermediate BLISTERS Verified 01/23/21 14:33 WITH TAPE-CLOTH OK aspirin AdvReac Intermediate Rash Verified 01/23/21 14:33 [From [facility]-[place] [facility] Cold/Cough] chlorpheniramine AdvReac Intermediate Rash Verified 01/23/21 14:33 [From [facility] [facility] Cold/Cough] dextromethorphan AdvReac Intermediate Rash Verified 01/23/21 14:33 [From [facility] [facility] Cold/Cough] phenylpropanolamine AdvReac Intermediate Rash Verified 01/23/21 14:33 [From [facility] [facility] Cold/Cough] Home Medications Medication Instructions Recorded Confirmed Type calcium carbonate-vitamin D3 600 1 tab PO QAM tab 01/21/19 01/23/21 History mg(1,500 mg)-400 unit chewable tablet (Calcium 600 with Vitamin D3) cetirizine 10 mg tablet 10 mg PO QAM tab 01/21/19 01/23/21 History ergocalciferol (vitamin D2) 1,250 50,000 units PO WEEKLY cap 01/21/19 01/23/21 History mcg (50,000 unit) capsule Lio Social Ultra Blue Test Strip #100 ea NS 04/15/19 01/23/21 Rx (blood sugar diagnostic) carboxymethylcellulose sodium 0.5 1 drp OPHTHALMIC (EYE) BID 11/06/19 01/23/21 History % eye drops in a dropperette (Refresh Plus) lancets 33 gauge (Quenchuch Delica #100 ea 03/16/20 01/23/21 Rx Lancets) atorvastatin 40 mg tablet 40 mg PO QPM #90 tab 06/28/20 01/23/21 Rx levothyroxine 88 mcg tablet 88 mcg PO QAM #90 tab 08/16/20 01/23/21 Rx metformin 500 mg tablet,extended 2,000 mg PO QAM #120 tab 09/15/20 01/23/21 Rx release 24 hr clonazepam 0.5 mg tablet 0.5 mg PO DAILY PRN #5 tab 10/14/20 01/23/21 Rx azelastine 137 mcg (0.1 %) nasal 1 spray INTRANASAL BID PRN 10/18/20 01/23/21 History spray aerosol sitagliptin 50 mg tablet (Januvia) 50 mg PO QAM 10/18/20 01/23/21 History Portable Oxygen #1 ea 11/24/20 01/23/21 Rx albuterol sulfate 90 mcg/actuation 2 puff INHALATION Q6H PRN #8.5 g 11/24/20 01/23/21 Rx aerosol inhaler (Ventolin HFA) umeclidinium 62.5 mcg-vilanterol 1 inh INHALATION QAM #60 ea 11/24/20 01/23/21 Rx 25 mcg/actuation powdr for inhalation (Anoro Ellipta) glipizide 5 mg tablet 5 mg PO QAM #90 tab 11/25/20 01/23/21 Rx Magic Mouthwash 300 mL mouthwash 10 ml MUCOUS MEMBRANE .COMPLEX 12/06/20 01/23/21 Rx #300 ml sucralfate 1 gram tablet (Carafate) 1 g PO Q6H #120 tab 12/10/20 01/23/21 Rx pantoprazole 40 mg tablet,delayed 40 mg PO BID 30 Days #60 tab 12/23/20 01/23/21 Rx release montelukast 10 mg tablet 10 mg PO QAM #90 tab 12/27/20 01/23/21 Rx (Singulair) codeine 10 mg-guaifenesin 100 mg/5 5 ml PO Q6H PRN #120 ml 01/07/21 01/23/21 Rx mL oral liquid (Guaiatussin AC) amlodipine 5 mg-benazepril 20 mg 1 cap PO QAM #90 cap 01/18/21 01/23/21 Rx capsule (Lotrel) doxycycline hyclate 100 mg capsule 100 mg PO BID 7 Days #14 cap 01/21/21 01/23/21 Rx Patient History Medical History (Updated 02/07/21 @ 21:58 by HILDA Streeter) Allergic rhinitis due to dust mite Anxiety Cardiomyopathy F/U DR FISHER COPD with emphysema Diabetes mellitus, type 2 Edema of both legs Essential tremor Exertional dyspnea GERD (gastroesophageal reflux disease) Hiatal hernia History of breast cancer chemo and radiation and then oral pill Hyperlipidemia Hypertension Hypothyroidism Hypoxia Kidney stones hx Multiple pulmonary nodules Nausea and vomiting Osteoporosis Palliative care encounter Secondary polycythemia Small cell lung cancer, 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) Temporomandibular joint disorder NO LOCKING Weakness Surgical History History of appendectomy (~1967) History of breast biopsy (~09/03/12) History of cholecystectomy (~1974) History of colonoscopy 2020 History of esophagogastroduodenoscopy (EGD) History of hysterectomy (~1974) ovaries removed as well History of lithotripsy 2011 Hx of cataract surgery right and left Hx of lumpectomy LEFT BREAST-NO LIMB RESTIRCTIONS Hx of tonsillectomy Family History Sister Diabetes Breast cancer Brother Diabetes Heart disease Father Diabetes Hypertension Lung disease Myocardial infarction Mother Diabetes Hypertension Kidney disease Myocardial infarction Daughter Breast cancer Denies family history of Ovarian cancer Prostate cancer Colorectal cancer Social History Smoking Status: Former smoker Tobacco Type: Cigarettes Age Started Using Tobacco: 17; Age Quit Using Tobacco: 68; Cigarettes Per Day: 20; Number of Years Since Quit: 4; Second Hand Exposure: No; Do You Dip or Chew Tobacco: No; Tobacco Cessation Education Requested by Patient: No Hx Alcohol Use: No Hx Substance Use: No Preferred Language: Armenian Communication Ability: Effective Visual Impairment: No Limitations Hearing Ability: Normal Convertible Sofa Bedspring Tester Required: No Beliefs That Will Affect Care: None marital status: Current Living Situation: Spouse current occupational status: retired current occupation: used to work at [employer] out of [employer] Other Information That Helps Us Care for You: No Feels Safe at Home: Yes Safety Concerns: Feels Safe At This Time Childhood Exposure to Second-Hand Smoke: Yes caffeine: Yes during the past year weight has: remained stable Dental Care, Regularly: No Physical Activity Frequency: Does not Exercise Seatbelt Use: always Sunscreen Use: Yes Assistive Devices: Oxygen - Continuous Review of Systems Review of Systems: [place] System Assessment Scale: Pain: 1/3 SOB: 2/3 Anxiety: 0/3 Depression: 1/3 Lack of Appetite: 1/3 Palliative Performance Scale: 30% Physical Exam Constitutional: + frail appearing, cooperative and comfortable ENMT: Mouth: + dry oral mucous membranes Respiratory: + uses accessory muscles Auscultation: + diminished lung sounds and + rhonchi Cardiovascular: Rate/Rhythm: regular rate and regular rhythm Heart Sounds: normal S1 and normal S2 Extremities: normal capillary refill Gastrointestinal (Abdomen): Inspection/Auscultation: abdomen normal to inspection Percussion/Palpation: abdomen soft Skin: + pallor Psychiatric: Orientation: alert and oriented x 3 Insight: + limited insight Judgement: good judgement Results & Data ([facility]) Vital Signs (Past 12 Hours) Vital Signs Temp Pulse Pulse Pulse Resp BP Pulse Ox 02/07/21 11:28 36.4 C L 98 H 19 105/68 90 02/07/21 10:35 91 H 20 90 02/07/21 08:00 103 H 02/07/21 07:54 19 89 L 02/07/21 07:04 36.6 C 110 H 22 84/65 L 80 L 02/07/21 03:00 36.6 C 79 18 112/77 91 02/07/21 02:50 92 H 24 89 L PG Care Time/CCT Total # of Minutes Spent Total Time Spent with Patient: Total time spent is greater than 50% in coordination of care (as documented) at patient's floor/unit and/or counseling patient:100 mintues Coding Level of Care Code 70573 Initial Inpt Care Lvl 3 Diagnoses Palliative care encounter Z51.5 Hypoxia R09.02 Weakness R53.1 Small cell lung cancer, left upper lobe C34.12 Time Spent (min) 100
[2021-02-07] MEDS: ATORVASTATIN 40 MG TAB PO SCH (21:09)
[2021-02-08] MEDS: HEPARIN SOD 5,000 UNIT/0.5 ML VIAL SQ SCH ×3 (05:12→21:02)
[2021-02-08] MEDS: LEVOTHYROXINE SODIUM 88 MCG TABLET PO SCH (05:12)
[2021-02-08] MEDS: PANTOprazole 40 MG TAB PO SCH ×2 (08:12→20:57)
[2021-02-08] MEDS: SUCRALFATE 1 GM TAB PO SCH ×4 (08:12→20:54)
[2021-02-08] MEDS: NYSTATIN SUSP 500,000 U/5 ML UDC PO SCH ×2 (08:12→12:23)
[2021-02-08] MEDS: FAMOTIDINE 20 MG in SYRINGE 3 ML IV SCH ×2 (08:13→20:52)
[2021-02-08] MEDS: ARTIFICIAL TEARS OP SCH ×2 (08:14→20:57)
[2021-02-08] MEDS: LIDOCAINE VISCOUS 2% SOLN 60 ML, diphenhydrAMINE Syrup 150 MG, ALUMINUM/MAGNESIUM SUSP ... MT SCH ×4 (08:14→21:01)
[2021-02-08] MEDS: INSULIN ASPART 100 UNITS/ML 3 ML PEN SC SCH ×4 (09:20→21:16)
[2021-02-08] MEDS: dexAMETHasone 6 MG in SYRINGE 0 ML IV SCH (09:21)
[2021-02-08] MEDS: INSULIN GLARGINE SOLOSTAR 100 UNITS/ML 3 ML PEN SC SCH ×2 (09:21→21:16)
--- NOTE | 2021-02-08 11:52 | Palliative Care Progress Note ---
Date of Service February 08, 2021 Assessment & Plan (1) Palliative care encounter: Plan: I met with Daina at her bedside. She was sitting upright in her bed. When I asked her how things were going, she said 'well look at those numbers, they look better, right?'. She felt that laying prone would 'fix things' and 'give her a chance'. She admitted to be struggling with the idea knowing that things are not improving. She said 'well, if I am not improving, why continue doing this' We discussed overall comfort measures and what that looks like. She is very eager to see her and daughter and asked 'is this to say goodbye to them?' Again, we discussed that if she is still feeling comfortable, we can continue with Hi-flow, but with the realization that she is unlikely to improve to the point of being stable for discharge from the hospital. We discussed when it feels like we are losing control of the situation, determining how the end of her life looks, is something she can have control of; continuing hi-flow while able vs transition to comfort measures. For now, she is able to talk in complete sentences and hold conversations, but also recognizes that she is getting tired. She would like to 'keep doing what we are doing' for a little while longer'. I was able to talk to Chris at [phone] and their daughter Nancie at [phone]. Both are eager to have a zoom with Daina. Both have an understanding at the grave condition their loved one is in. palliative will follow after their zoom meeting. (2) Hypoxia: Plan: On High Flow NC: 60L 90%, down from 100% (3) Weakness: (4) Small cell lung cancer, left upper lobe: Admission and Anticipated Discharge Date Admission Date: January 23, 2021 Subjective I visited with Daina this morning. Patient is requiring 100% 60L of Hi-flow. She has been laying prone, but unfortunately continues to desaturate into the mid 80's. Discussed zoom visit with her and daughter; which will occur this evening at 1700 for them to be able to see their mother, as they have not seen her since she has been hospitalized. See A/P for further details. Review of Systems Review of Systems: [place] System Assessment Scale: Pain: 1/3 SOB: 2/3 Anxiety: 0/3 Depression: 1/3 Lack of Appetite: 1/3 Palliative Performance Scale: 30% Physical Exam Constitutional: + frail appearing, cooperative and comfortable ENMT: Mouth: + dry oral mucous membranes Respiratory: + uses accessory muscles Auscultation: + diminished lung sounds and + rhonchi Cardiovascular: Rate/Rhythm: regular rate and regular rhythm Heart Sounds: normal S1 and normal S2 Extremities: normal capillary refill Gastrointestinal (Abdomen): Inspection/Auscultation: abdomen normal to inspection Percussion/Palpation: abdomen soft Skin: + pallor Psychiatric: Orientation: alert and oriented x 3 Insight: + limited insight Judgement: good judgement Results & Data ([facility]) Vital Signs (Past 12 Hours) Vital Signs Temp Pulse Resp BP Pulse Ox 02/08/21 11:49 98 H 24 92 02/08/21 08:36 96 H 26 H 80 L 02/08/21 07:13 36.9 C 87 18 105/74 90 02/08/21 03:33 36.5 C 88 18 126/93 91 02/08/21 02:12 66 16 92 PG Care Time/CCT Total # of Minutes Spent Total Time Spent with Patient: Total time spent is greater than 50% in coordination of care (as documented) at patient's floor/unit and/or counseling patient: 45 mintues Coding Level of Care Code 45325 Subseq Hosp Care Lvl 3 Diagnoses Palliative care encounter Z51.5 Hypoxia R09.02 Weakness R53.1 Small cell lung cancer, left upper lobe C34.12 Time Spent (min) 45
--- NOTE | 2021-02-08 16:04 | Hospitalist Progress Note ---
Date of Service February 08, 2021 Assessment & Plan (1) Pneumonia due to 2019 novel coronavirus: Plan: SEVERE, with ongoing need for vapotherm HFNC (max settings), day 17 of hospitalization now. Initial illness around 01/20/21. hospitalized 01/23/21. dexamethasone - increased from 6mg to 10mg daily due to probable early ARDS on 01/29 Completed 10 days of 10mg/day of dexamethasone on 02/07. Will revert back to 6mg/day today and wean off over the next 5-7 days. Completed 5-day course of Remdesivir. Was not a candidate for baricitinib due to neutropenia and heavy immunosuppression from recent chemo for lung cancer. Neutropenia now resolved. completed course of Meropenem and Levaquin with initial concern for bacterial infection due to severe neutropenia from recent chemotherapy. Cont pulmonary toilet - flutter, IS, etc. Cont self-proning as she is currently doing Her high FiO2 requirements are very worrisome, and she has made little to no improvement over the last week. She was off chemical DVT proph for many days due to severe thrombocytopenia in the setting of her chemotherapy for lung ca. Previous d-dimer very elevated. Easily could have PEs. Too sick to travel to CT scanner. Thus, obtain dopplers of legs - r/o DVT. If DVT present start heparin infusion. PROGNOSIS IS POOR / GUARDED. PALLIATIVE CARE IS INVOLVED. (2) Antineoplastic chemotherapy induced pancytopenia: Plan: Severe pancytopenia 2nd to recent chemo for left-sided lung cancer. Received chemo late December. WBC, Hb and plts are stable, resumed heparin SC platelets now >100 no longer leukopenic or neutropenic H/H low but acceptable (3) Acute on chronic respiratory failure with hypoxemia: Plan: 2 L NC 02 PRN as outpatient but tended to use it frequently. Acute component 2nd to #1. she is on max settings of HFNC (60L, 100% FiO2) see discussion above appreciate palliative care consultation (4) Small cell lung cancer, left upper lobe: Plan: Follows with Dr Daniels and Dr Castro for chemotherapy and radiation, respectively. Radiation treatments were completed. Last chemotherapy ~ 01/06? (5) Hypothyroidism: Plan: TSH wnl Nov 2020 Continue Levothyroxine 88 mcg daily (6) GERD (gastroesophageal reflux disease): Plan: Improved with PPI + H2 germná. Can stop IV pepcid. Cont with PPI twice daily. Remains on carafate 1gm qid - continue such. (7) Hypertension: Plan: continue holding amlodipine-benazepril due to low BPs (8) Diabetes mellitus, type 2: Plan: improved control with lantus BID and novolog. Most recent a1c 8.5% in late November (9) COPD with emphysema: Plan: Cont inhalers. Cont steroids. no wheezing on exam today. (10) Chronic kidney disease, stage 3a: Plan: Cr stable BMP am (11) Hyperlipidemia: Plan: Cont statin. AST / ALT wnl. (12) Dysphagia: Plan: Patient with esophageal stenosis requiring dilatation via EGD earlier this fall cont pureed diet no issues this admission (13) Herpes labialis: Plan: resolved (14) Essential tremor: Plan: chronic (15) Cardiomyopathy: Plan: previous echos with EF 45-50% as well as >50% patient is net fluid negative to date does not examine volume overloaded today -- no lasix today (16) DVT prophylaxis: Plan: Heparin SC (17) Neutropenia: Plan: resolved s/p neupogen x 3 early in admission (18) Candidiasis of mouth and esophagus: Plan: completed 10-day course of nystatin solution -- now off such (19) Severe protein-calorie malnutrition: Plan: 20kg weight loss since 10/2020 2nd to lung cancer, prolonged COVID illness/pneumonia, anorexia from her illness, etc Plan: very, very poor prognosis as detailed above await dopplers of legs updated pt's this evening by phone he requested I call his daughter - Nancie Conley, will attempt to call her tomorrow appreciate palliative care consultation pt is 20+ days into her illness -- thus, ok to downgrade to regular room in PCU; d/c airborne precautions Admission and Anticipated Discharge Date Admission Date: January 23, 2021 Subjective patient was self-proning upon my arrival she states "I'm doing better" when asked what was better she said "my oxygen was 100, now it's 90" (referring to FiO2 requirement) despite this statement nursing staff report she was severely dyspneic with moving from the bed to the commode earlier today; o2 sats promptly dropped into the 70s even with HFNC in place at one point an oxymask was placed on top of the HFNC device during my visit her O2 sats were about 90/91% on maxed out HFNC appetite fair per staff pt reports a zoom session with family at 5pm this evening Review of Systems Review of Systems: gen - no fevers or chills; weak, fatigued CV - no chest pain or palpitations pulm - CASTELLANOS remains GI - no abd pain, N/V of note - nearly 20 kg weight loss since 10/2020 Physical Exam Physical Exam: gen - proning; able to speak in full sentences mouth - MMM heart - RRR, s1 s2 lungs - mild bibasilar dry/fine rales, no wheeze, mild "quiet" tachypnea abd - soft NT ext - no edema, no palpable cords, pulses 2+ b/l psych - a/o x 3 Results & Data Results & Data ([facility]) Vital Signs (Past 12 Hours) Vital Signs Temp Pulse Resp BP Pulse Ox 02/08/21 14:31 111 H 20 93 02/08/21 12:29 36.8 C 117 H 28 H 114/76 84 L 02/08/21 11:49 98 H 24 92 02/08/21 08:36 96 H 26 H 80 L 02/08/21 07:13 36.9 C 87 18 105/74 90 Laboratory Results Laboratory Results - last 24 hr 02/08/21 02/08/21 02/08/21 08:10 11:54 16:51 POC Glucose 93 120 H 115 H 02/08/21 20:06 POC Glucose 203 H PG Care Time/CCT Total # of Minutes Spent Total Time Spent with Patient: Total time spent is greater than 50% in coordination of care (as documented) at patient's floor/unit and/or counseling patient: Coding Level of Care Code 72751 Subseq Hosp Care Lvl 3 Diagnoses Pneumonia due to 2019 novel coronavirus U07.1; J12.82 Antineoplastic chemotherapy induced pancytopenia D61.810; T45.1X5A Acute on chronic respiratory failure with hypoxemia J96.21 Small cell lung cancer, left upper lobe C34.12 Hypothyroidism E03.9 GERD (gastroesophageal reflux disease) K21.9 Hypertension I10 Diabetes mellitus, type 2 E11.9 COPD with emphysema J43.9 Chronic kidney disease, stage 3a N18.31 Hyperlipidemia E78.5 Dysphagia R13.10 Herpes labialis B00.1 Essential tremor G25.0 Cardiomyopathy I42.9 Cardiomyopathy type: unspecified DVT prophylaxis Z29.9 Neutropenia D70.9 Candidiasis of mouth and esophagus B37.81; B37.0 Severe protein-calorie malnutrition E43 (1) Cardiomyopathy Cardiomyopathy type: unspecified Qualified Code(s): I42.9 - Cardiomyopathy, unspecified
[2021-02-08] MEDS: ATORVASTATIN 40 MG TAB PO SCH (20:58)
[2021-02-08] MEDS: guaiFENesin/CODEINE 100MG/10MG 5ML UDC PO PRN (23:57)
[2021-02-09] MEDS: HEPARIN SOD 5,000 UNIT/0.5 ML VIAL SQ SCH ×2 (05:08→17:34)
[2021-02-09] MEDS: LEVOTHYROXINE SODIUM 88 MCG TABLET PO SCH (05:08)
[2021-02-09] MEDS: SUCRALFATE 1 GM TAB PO SCH ×2 (07:55→12:25)
[2021-02-09] MEDS: PANTOprazole 40 MG TAB PO SCH (07:56)
[2021-02-09 07:59] LABS: Hematocrit (blood only) 23.1 % (37-47); Hemoglobin 7.6 g/dL (12.0-16.0); Mean Corpuscular Hemoglobin 31.4 pg (25-34); Mean Corpuscular Hgb Conc 32.9 g/dL (32-36); Mean Corpuscular Volume 95.5 fL (80-100); Mean Platelet Volume 8.7 fL (7.4-10.4); Nucleated RBC % (auto) 1.5 %; Platelet Count 104 K/uL (130-400); RDW Standard Deviation 59.7 fL (36.4-46.3); Red Blood Count 2.42 M/uL (4.2-5.4); White Blood Count 6.43 K/uL (4.8-10.8)
[2021-02-09] MEDS: dexAMETHasone 6 MG in SYRINGE 0 ML IV SCH (07:59)
--- NOTE | 2021-02-09 08:05 | Ultrasound Report ---
BILATERAL LOWER EXTREMITY VENOUS DOPPLER CLINICAL HISTORY: high dimer, long COVID, extreme hypoxia; eval DVT COMPARISON STUDY: No previous studies for comparison. TECHNIQUE: Sonography of the deep venous system of the bilateral lower extremities was performed. Co mpression and augmentation were evaluated. FINDINGS: The bilateral common femoral, superficial femoral and popliteal veins were compressible. A ugmentation was normal. Flow was shown within the deep calf vessels. IMPRESSION: No evidence of deep venous thrombus within the bilateral lower extremities. ACT 112: Negative or not required by law. Electronically signed by: Vahe Reynoso M.D. 02/09/2021 8:03 AM
[2021-02-09 08:18] LABS: BUN Creatinine Ratio 19.3 (10-20); Calcium 8.8 mg/dl (8.5-10.1); Creatinine Clr Calc Pharmacy 42.8 ml/min; Est GFR (African American) 49.9 ml/min; Est GFR (Non-African American) 43.1 ml/min; Potassium 3.4 mmol/L (3.5-5.1)
[2021-02-09] MEDS: INSULIN GLARGINE SOLOSTAR 100 UNITS/ML 3 ML PEN SC SCH (08:30)
[2021-02-09] MEDS: ARTIFICIAL TEARS OP SCH (08:30)
[2021-02-09] MEDS: INSULIN ASPART 100 UNITS/ML 3 ML PEN SC SCH ×3 (08:30→17:34)
[2021-02-09] MEDS ORDERED: POTASSIUM CHLORIDE CRTAB 20 MEQ TABCR PO SCH (09:00)
--- NOTE | 2021-02-09 10:23 | Palliative Care Progress Note ---
Date of Service February 09, 2021 Assessment & Plan (1) Palliative care encounter: Plan: Patient was moved out of covid unit into room 238-2. I talked with the patient who was unable to recall our visit from yesterday or the past two days. THe patient has been proning,but does not favor that position. Lengthy conversation held with the patient regarding our maximized efforts with her oxygen with no real meaningful gain. I did explain that its unlikely she will leave the hospital and is nearing her dying time. I explained that we want to have air hunger medication available for when she has accessory muscle use with her breathing. Two family members visited the patient. The patient wanted to hold off for any removal of her high-flow until her arrived and she was moved into a private room. At that point, a full comfort measures transition to take place and highflow O2 to be removed and transitioned to nasal canula with Morphine administration PRN for air hunger. Low threshold to start a Morphine infusion based on pt response. Hospitalist and nursing aware. (2) Hypoxia: Plan: On High Flow NC: 60L 90%, down from 100%. Transition to [employer] (3) Weakness: (4) Small cell lung cancer, left upper lobe: Admission and Anticipated Discharge Date Admission Date: January 23, 2021 Subjective Pt remains on Hi-flow 100% 60L. Decreased PO intake. No accessory muscle use during visit. Plan for transition to [employer] upon family arrival. Review of Systems Review of Systems: [place] System Assessment Scale: Pain: 1/3 SOB: 2/3 Anxiety: 0/3 Depression: 1/3 Lack of Appetite: 1/3 Palliative Performance Scale: 20% Physical Exam Constitutional: + frail appearing, cooperative and comfortable ENMT: Mouth: + dry oral mucous membranes Respiratory: + uses accessory muscles Auscultation: + diminished lung sounds and + rhonchi Cardiovascular: Rate/Rhythm: regular rate and regular rhythm Heart Sounds: normal S1 and normal S2 Extremities: normal capillary refill Gastrointestinal (Abdomen): Inspection/Auscultation: abdomen normal to inspection Percussion/Palpation: abdomen soft Skin: + pallor Psychiatric: Orientation: alert and oriented x 3 Insight: + limited insight Judgement: good judgement Results & Data ([facility]) Vital Signs (Past 12 Hours) Vital Signs Temp Pulse Pulse Resp BP Pulse Ox 12/01/21 07:38 89 20 90 02/09/21 03:40 84 22 91 02/09/21 03:16 37.2 C 103 H 26 H 94/59 L 84 L 02/09/21 00:01 91 H 02/08/21 23:45 90 20 89 L 02/08/21 23:12 36.9 C 104 H 22 104/67 88 L PG Care Time/CCT Total # of Minutes Spent Total Time Spent with Patient: Total time spent is greater than 50% in coordination of care (as documented) at patient's floor/unit and/or counseling patient: 65 minutes Coding Level of Care Code 50084 Subseq Hosp Care Lvl 3 Diagnoses Palliative care encounter Z51.5 Hypoxia R09.02 Weakness R53.1 Small cell lung cancer, left upper lobe C34.12 Time Spent (min) 65
[2021-02-09] MEDS: LIDOCAINE VISCOUS 2% SOLN 60 ML, diphenhydrAMINE Syrup 150 MG, ALUMINUM/MAGNESIUM SUSP ... MT SCH ×4 (10:43→22:14)
[2021-02-09] MEDS ORDERED: ONDANSETRON 4 MG OD TAB SL PRN (15:35)
[2021-02-09 17:21] VITALS: BP 121/63; TEMP 98.4
--- NOTE | 2021-02-09 22:36 | Hospitalist Progress Note ---
Date of Service February 09, 2021 Assessment & Plan (1) Pneumonia due to 2019 novel coronavirus: Plan: SEVERE, with ongoing need for max settings of HFNC (60 L, 100% FiO2) day 18 of hospitalization Initial illness around 01/20/21. hospitalized 01/23/21. dexamethasone - increased from 6mg to 10mg daily due to probable early ARDS on 01/29 Completed 10 days of 10mg/day of dexamethasone on 02/07. reverted back to 6mg/day on 02/08 Completed 5-day course of Remdesivir. Was not a candidate for baricitinib due to neutropenia and heavy immunosuppression from recent chemo for lung cancer. Neutropenia now resolved. completed course of Meropenem and Levaquin with initial concern for bacterial infection due to severe neutropenia from recent chemotherapy. Cont pulmonary toilet - flutter, IS, etc. Cont self-proning as she is currently doing dopplers of legs negative for DVT but this does not exclude PEs despite maximal medical efforts she has made no progress overnight was hypoxic in the low 80s despite the maxed out HFNC palliative care has been meeting with patient over the last few days family has been involved in these discussions patient is moving in direction of full comfort care measures she is no longer in need of COVID isolation thus she has been transferred to 3rd floor, regular room steroids, other meds stopped focus on comfort and symptom control (2) Antineoplastic chemotherapy induced pancytopenia: Plan: Severe pancytopenia 2nd to recent chemo for left-sided lung cancer. Received chemo late December. WBC, Hb and plts are stable, resumed heparin SC platelets now >100 no longer leukopenic or neutropenic H/H worse today - slow GI bleeding? will not pursue w/u or provide PRBCs in light of transitioning to comfort care (3) Acute on chronic respiratory failure with hypoxemia: Plan: 2 L NC 02 PRN as outpatient but tended to use it frequently. Acute component 2nd to #1. she is on max settings of HFNC (60L, 100% FiO2) see discussion above appreciate palliative care consultation (4) Small cell lung cancer, left upper lobe: Plan: Follows with Dr Daniels and Dr Castro for chemotherapy and radiation, respectively. Radiation treatments were completed. Last chemotherapy ~ 01/06? (5) Hypothyroidism: Plan: TSH wnl Nov 2020 Continue Levothyroxine 88 mcg daily (6) GERD (gastroesophageal reflux disease): Plan: PPI or H2 germán prn (7) Hypertension: (8) Diabetes mellitus, type 2: Plan: stop BSGs, insulin, etc (9) COPD with emphysema: Plan: inhalers prn (10) Chronic kidney disease, stage 3a: Plan: no further lab work (11) Hyperlipidemia: Plan: stopped statin (12) Dysphagia: Plan: diet as desired/tolerated (13) Herpes labialis: Plan: resolved (14) Essential tremor: Plan: chronic (15) Cardiomyopathy: (16) DVT prophylaxis: Plan: stop her Heparin SC (17) Neutropenia: Plan: resolved s/p neupogen x 3 early in admission (18) Candidiasis of mouth and esophagus: Plan: resolved (19) Severe protein-calorie malnutrition: Plan: 20kg weight loss since 10/2020 2nd to lung cancer, prolonged COVID illness/pneumonia, anorexia from her illness, etc Plan: 40 min spent today over 2 bedside visits and providing care coordination Admission and Anticipated Discharge Date Admission Date: January 23, 2021 Subjective prior to my bedside rounds the palliative care team had met with patient extensively this am decision made to begin the process of moving towards comfort care overnight her o2 sats were 80-85% on maxed out HFNC (60 L, 100% Fio2) when I went to see the patient her daughter and a sister were visiting patient asked multiple questions about what was going to happen patient's family asked questions as well patient denied any pain in any location Ms Rivers was ultimately moved to 3rd floor in a non-COVID room met with her 2 daughters and her late in the day Ms Rivers was again comfortable Review of Systems Review of Systems: gen - fatigue, weakness, fair appetite at best pulm - cough, severe CASTELLANOS with minimal activity cv - no chest pain gi - no pain Physical Exam Physical Exam: gen - no acute distress, awake, alert mouth - MMM heart - RRR, s1 s2 lungs - mild bibasilar dry/fine rales, no wheeze abd - soft NT ND BS+ ext - no edema psych - a/o x 3 Results & Data Results & Data ([facility]) Vital Signs (Past 12 Hours) Vital Signs Temp Pulse Pulse Resp BP Pulse Ox Pulse Ox 02/09/21 19:30 67 14 91 02/09/21 17:17 36.9 C 73 16 121/63 98 02/09/21 14:38 92 H 18 90 02/09/21 14:00 94 02/09/21 13:19 36.6 C 90 24 114/72 89 L 02/09/21 10:53 79 20 92 Laboratory Results Laboratory Results - last 24 hr 02/09/21 02/09/21 02/09/21 07:36 07:36 08:09 WBC 6.43 RBC 2.42 L Hgb 7.6 L Hct 23.1 L MCV 95.5 MCH 31.4 MCHC 32.9 RDW Std Deviation 59.7 H RDW Coeff of Sari 18.0 H Plt Count 104 L MPV 8.7 Absolute Nucleated RBC 0.10 H Nucleated RBC % (auto) 1.5 Sodium 141 Potassium 3.4 L Chloride 107 Carbon Dioxide 26 Anion Gap 9.0 BUN 24 H Creatinine 1.24 H Est Cr Clr Drug Dosing 42.8 Est GFR ( Amer) 49.9 Est GFR (Non-Af Amer) 43.1 BUN/Creatinine Ratio 19.3 Glucose 84 POC Glucose 91 Calcium 8.8 Magnesium 2.0 02/09/21 11:36 WBC RBC Hgb Hct MCV MCH MCHC RDW Std Deviation RDW Coeff of Sari Plt Count MPV Absolute Nucleated RBC Nucleated RBC % (auto) Sodium Potassium Chloride Carbon Dioxide Anion Gap BUN Creatinine Est Cr Clr Drug Dosing Est GFR ( Amer) Est GFR (Non-Af Amer) BUN/Creatinine Ratio Glucose POC Glucose 163 H Calcium Magnesium PG Care Time/CCT Total # of Minutes Spent Total Time Spent with Patient: Total time spent is greater than 50% in coordination of care (as documented) at patient's floor/unit and/or counseling patient: Coding Level of Care Code 17535 Subseq Hosp Care Lvl 3 Diagnoses Pneumonia due to 2019 novel coronavirus U07.1; J12.82 Antineoplastic chemotherapy induced pancytopenia D61.810; T45.1X5A Acute on chronic respiratory failure with hypoxemia J96.21 Small cell lung cancer, left upper lobe C34.12 Hypothyroidism E03.9 GERD (gastroesophageal reflux disease) K21.9 Hypertension I10 Diabetes mellitus, type 2 E11.9 COPD with emphysema J43.9 Chronic kidney disease, stage 3a N18.31 Hyperlipidemia E78.5 Dysphagia R13.10 Herpes labialis B00.1 Essential tremor G25.0 Cardiomyopathy I42.9 Cardiomyopathy type: unspecified DVT prophylaxis Z29.9 Neutropenia D70.9 Candidiasis of mouth and esophagus B37.81; B37.0 Severe protein-calorie malnutrition E43 (1) Cardiomyopathy Cardiomyopathy type: unspecified Qualified Code(s): I42.9 - Cardiomyopathy, unspecified
[2021-02-10] MEDS: MoRPHine SULFATE 2 MG/ML CARP IV PRN ×5 (05:01→17:16)
[2021-02-10] MEDS: LORazepam 0.5 MG TAB PO PRN ×3 (07:34→17:15)
[2021-02-10] MEDS: LIDOCAINE VISCOUS 2% SOLN 60 ML, diphenhydrAMINE Syrup 150 MG, ALUMINUM/MAGNESIUM SUSP ... MT SCH ×2 (11:43→18:08)
[2021-02-10] MEDS ORDERED: SODIUM CHLORIDE 0.65% NA SOLN 45 ML (OCEAN) STA (13:31)
[2021-02-10] MEDS ORDERED: SODIUM CHLORIDE 0.65% NA SOLN 45 ML (OCEAN) ONE (13:35)
[2021-02-10] MEDS: ONDANSETRON INJ 2 MG/ML 2 ML VIAL IV PRN ×2 (14:10→17:39)
[2021-02-10] MEDS: HYDROcodone/HOMATROPINE SYRUP 5MG/1.5MG 5ML UDP PO PRN (17:27)
[2021-02-10 19:49] VITALS: PULSE 63
--- NOTE | 2021-02-10 20:29 | Hospitalist Progress Note ---
Date of Service February 10, 2021 Assessment & Plan (1) Palliative care patient: Plan: continue comfort care measures anticipate d/c of HFNC tomorrow after all of her family have had opportunity to visit w/ her at that time will transition to wall-mounted HFNC (which can provide up 15 L) cont morphine, ativan, etc added hycodan for cough support given to during my phone call (2) Pneumonia due to 2019 novel coronavirus: Plan: SEVERE, with ongoing need for max settings of HFNC (60 L, 100% FiO2) day 19 of hospitalization Initial illness around 01/20/21. hospitalized 01/23/21. dexamethasone - increased from 6mg to 10mg daily due to probable early ARDS on 01/29 Completed 10 days of 10mg/day of dexamethasone on 02/07. reverted back to 6mg/day on 02/08 Completed 5-day course of Remdesivir. Was not a candidate for baricitinib due to neutropenia and heavy immunosuppression from recent chemo for lung cancer. Neutropenia now resolved. completed course of Meropenem and Levaquin with initial concern for bacterial infection due to severe neutropenia from recent chemotherapy. Cont pulmonary toilet - flutter, IS, etc. Cont self-proning as she is currently doing dopplers of legs negative for DVT but this does not exclude PEs despite maximal medical efforts she has made no progress overnight was hypoxic in the low 80s despite the maxed out HFNC palliative care has been meeting with patient over the last few days family has been involved in these discussions patient is moving in direction of full comfort care measures she is no longer in need of COVID isolation thus she has been transferred to 3rd floor, regular room steroids, other meds stopped focus on comfort and symptom control (3) Antineoplastic chemotherapy induced pancytopenia: Plan: Severe pancytopenia 2nd to recent chemo for left-sided lung cancer. Received chemo late December. WBC, Hb and plts are stable, resumed heparin SC platelets now >100 no longer leukopenic or neutropenic H/H worse today - slow GI bleeding? will not pursue w/u or provide PRBCs in light of transitioning to comfort care (4) Acute on chronic respiratory failure with hypoxemia: Plan: 2 L NC 02 PRN as outpatient but tended to use it frequently. Acute component 2nd to #1. she is on max settings of HFNC (60L, 100% FiO2) see discussion above appreciate palliative care consultation (5) Small cell lung cancer, left upper lobe: Plan: Follows with Dr Daniels and Dr Castro for chemotherapy and radiation, respectively. Radiation treatments were completed. Last chemotherapy ~ 01/06? (6) Hypothyroidism: Plan: TSH wnl Nov 2020 Continue Levothyroxine 88 mcg daily (7) GERD (gastroesophageal reflux disease): Plan: PPI or H2 germán prn (8) Hypertension: (9) Diabetes mellitus, type 2: Plan: stop BSGs, insulin, etc (10) COPD with emphysema: Plan: inhalers prn (11) Chronic kidney disease, stage 3a: Plan: no further lab work (12) Hyperlipidemia: Plan: stopped statin (13) Dysphagia: Plan: diet as desired/tolerated (14) Herpes labialis: Plan: resolved (15) Essential tremor: Plan: chronic (16) Cardiomyopathy: (17) DVT prophylaxis: Plan: stopped her Heparin SC (18) Neutropenia: Plan: resolved s/p neupogen x 3 early in admission (19) Candidiasis of mouth and esophagus: Plan: resolved (20) Severe protein-calorie malnutrition: Plan: 20kg weight loss since 10/2020 2nd to lung cancer, prolonged COVID illness/pneumonia, anorexia from her illness, etc Admission and Anticipated Discharge Date Admission Date: January 23, 2021 Subjective pt tried to eat fish earlier today - had emesis with such tired today NUMEROUS family in/out to see her nursing providing morphine for breathing / discomfort minimal UOP per nursing updated by phone this evening Review of Systems Review of Systems: gen - weak, fatigue cv - no pain pulm - dyspnea present, mild cough - asks for cough syrup GI - vomiting but no abd pain Physical Exam Physical Exam: gen - looks tired today, coughing mouth - MM dry heart - RRR, s1 s2 lungs - bibasilar dry/fine rales extending 1/2 [address] up back; no wheeze abd - soft NT ND BS+ ext - no edema psych - a/o x 3 Results & Data Results & Data ([facility]) Vital Signs (Past 12 Hours) Vital Signs Pulse Resp Pulse Ox 02/10/21 19:46 63 16 95 02/10/21 15:28 85 18 91 02/10/21 11:22 78 18 91 PG Care Time/CCT Total # of Minutes Spent Total Time Spent with Patient: Total time spent is greater than 50% in coordination of care (as documented) at patient's floor/unit and/or counseling patient: Coding Level of Care Code 31379 Subseq Hosp Care Lvl 1 Diagnoses Pneumonia due to 2019 novel coronavirus U07.1; J12.82 Antineoplastic chemotherapy induced pancytopenia D61.810; T45.1X5A Acute on chronic respiratory failure with hypoxemia J96.21 Small cell lung cancer, left upper lobe C34.12 Hypothyroidism E03.9 GERD (gastroesophageal reflux disease) K21.9 Hypertension I10 Diabetes mellitus, type 2 E11.9 COPD with emphysema J43.9 Chronic kidney disease, stage 3a N18.31 Hyperlipidemia E78.5 Dysphagia R13.10 Herpes labialis B00.1 Essential tremor G25.0 Cardiomyopathy I42.9 Cardiomyopathy type: unspecified DVT prophylaxis Z29.9 Neutropenia D70.9 Candidiasis of mouth and esophagus B37.81; B37.0 Severe protein-calorie malnutrition E43 Palliative care patient Z51.5 (1) Cardiomyopathy Cardiomyopathy type: unspecified Qualified Code(s): I42.9 - Cardiomyopathy, unspecified
[2021-02-11] MEDS: LORazepam 0.5 MG/1 ML VIAL IV PRN ×2 (02:53→12:48)
[2021-02-11] MEDS: MoRPHine SULFATE 2 MG/ML CARP IV PRN ×3 (02:54→11:56)
[2021-02-11] MEDS: HYDROcodone/HOMATROPINE SYRUP 5MG/1.5MG 5ML UDP PO PRN ×2 (07:22→11:35)
[2021-02-11 08:06] VITALS: O2SAT 78
--- NOTE | 2021-02-11 12:18 | Palliative Care Progress Note ---
Date of Service February 11, 2021 Assessment & Plan (1) Palliative care encounter: Plan: Patient sitting in her bed using accessory muscles for breathing. Pt remains on Hi-flow. Increased use of accessory muscle use. Lengthy discussion held with her and her daughter and two grandsons at the bedside. She has fears about dying and what it will 'feel like' We discussed symptom management and assured she would be kept comfortable with medications to give for air hunger. Discussion held with nursing and the plan is to start a Morphine infusion and wean O2 to nasal cannula. Life expectancy hours to a day or so. (2) Hypoxia: Plan: On High Flow NC: 60L 90%, down from 100%. Transition to [employer] (3) Weakness: (4) Small cell lung cancer, left upper lobe: Admission and Anticipated Discharge Date Admission Date: January 23, 2021 Subjective Pt tired today, with some buccal cyanosis. She is able to communicate with me, but is falling asleep throughout conversation. Family at bedside. See A/P for further details. Review of Systems Review of Systems: [place] System Assessment Scale: Pain: 1/3 SOB: 2/3 Anxiety: 0/3 Depression: 1/3 Lack of Appetite: 1/3 Palliative Performance Scale: 10% Physical Exam Constitutional: + frail appearing ENMT: Mouth: + dry oral mucous membranes Respiratory: + uses accessory muscles Auscultation: + diminished lung sounds and + rhonchi Cardiovascular: Rate/Rhythm: regular rate and regular rhythm Heart Sounds: normal S1 and normal S2 Extremities: normal capillary refill Gastrointestinal (Abdomen): Inspection/Auscultation: abdomen normal to inspection Percussion/Palpation: abdomen soft Skin: + mottling Psychiatric: Orientation: alert and oriented x 3 Insight: + limited insight Judgement: good judgement Results & Data ([facility]) Vital Signs (Past 12 Hours) Vital Signs Pulse Ox 02/11/21 07:53 78 L PG Care Time/CCT Total # of Minutes Spent Total Time Spent with Patient: Total time spent is greater than 50% in coordination of care (as documented) at patient's floor/unit and/or counseling patient: 45 minutes Coding Level of Care Code 94486 Subseq Hosp Care Lvl 3 Diagnoses Palliative care encounter Z51.5 Hypoxia R09.02 Weakness R53.1 Small cell lung cancer, left upper lobe C34.12 Time Spent (min) 45
[2021-02-11] MEDS ORDERED: STAT IV Infusion **Titration per Protocol STA (12:34)
[2021-02-11] MEDS ORDERED: MoRPHine SULF/NSS 250 MG/250 ML BTL IV SCH (12:45)
--- NOTE | 2021-02-11 23:37 | Hospitalist Progress Note ---
Date of Service February 11, 2021 Assessment & Plan (1) Palliative care patient: Plan: continue comfort care measures morphine drip initiated HFNC stopped and transitioned over to standard NC cont other comfort care measures & meds gave support to her family at bedside anticipate her passing within the next 24 hours (2) Pneumonia due to 2019 novel coronavirus: Plan: SEVERE had ongoing need for max settings of HFNC (60 L, 100% FiO2) just prior to transitioning to comfort care measures today is day # 20 of hospitalization Initial illness around 01/20/21. hospitalized 01/23/21. dexamethasone - increased from 6mg to 10mg daily due to probable early ARDS on 01/29 Completed 10 days of 10mg/day of dexamethasone on 02/07. reverted back to 6mg/day on 02/08 Completed 5-day course of Remdesivir. Was not a candidate for baricitinib due to neutropenia and heavy immunosuppression from recent chemo for lung cancer. Neutropenia now resolved. completed course of Meropenem and Levaquin with initial concern for bacterial infection due to severe neutropenia from recent chemotherapy. dopplers of legs negative for DVT despite maximal medical efforts she had made no progress 2 days ago was hypoxic in the low 80s despite the maxed out HFNC palliative care was heavily involved all week, and she transitioned to comfort care on 02/09/21 (3) Antineoplastic chemotherapy induced pancytopenia: Plan: Severe pancytopenia 2nd to recent chemo for left-sided lung cancer. Received chemo late December. (4) Acute on chronic respiratory failure with hypoxemia: Plan: 2 L NC 02 PRN as outpatient but tended to use it frequently. Acute component 2nd to #2. see above. now transitioned to comfort care measures. appreciate palliative care consultation (5) Small cell lung cancer, left upper lobe: Plan: Had been following with Dr Daniels and Dr Castro for chemotherapy and radiation, respectively. Radiation treatments were completed. Last chemotherapy ~ 01/06? (6) Hypothyroidism: (7) GERD (gastroesophageal reflux disease): (8) Hypertension: (9) Diabetes mellitus, type 2: (10) COPD with emphysema: (11) Chronic kidney disease, stage 3a: (12) Hyperlipidemia: (13) Dysphagia: (14) Herpes labialis: (15) Essential tremor: (16) Cardiomyopathy: (17) Neutropenia: (18) Candidiasis of mouth and esophagus: (19) Severe protein-calorie malnutrition: Plan: 20kg weight loss since 10/2020 2nd to lung cancer, prolonged COVID illness/pneumonia, anorexia from her illness, etc Plan: support given to family at bedside anticipate patient passing in the next 24 hours Admission and Anticipated Discharge Date Admission Date: January 23, 2021 Subjective patient with eyes open but very lethargic and could not answer questions family at bedside numerous family were able to visit with her yesterday HFNC has been stopped; she is over to regular NC O2 morphine drip ordered by palliative care Review of Systems Review of Systems: Unobtainable due to reduced consciousness Physical Exam Physical Exam: gen - lethargic mouth - MM dry and cyanotic heart - tachycardic, s1 s2 lungs - rales and wheezes b/l abd - soft NT ND PG Care Time/CCT Total # of Minutes Spent Total Time Spent with Patient: Total time spent is greater than 50% in coordination of care (as documented) at patient's floor/unit and/or counseling patient: Coding Level of Care Code None Diagnoses Palliative care patient Z51.5 Pneumonia due to 2019 novel coronavirus U07.1; J12.82 Antineoplastic chemotherapy induced pancytopenia D61.810; T45.1X5A Acute on chronic respiratory failure with hypoxemia J96.21 Small cell lung cancer, left upper lobe C34.12 Hypothyroidism E03.9 GERD (gastroesophageal reflux disease) K21.9 Hypertension I10 Diabetes mellitus, type 2 E11.9 COPD with emphysema J43.9 Chronic kidney disease, stage 3a N18.31 Hyperlipidemia E78.5 Dysphagia R13.10 Herpes labialis B00.1 Essential tremor G25.0 Cardiomyopathy I42.9 Cardiomyopathy type: unspecified Neutropenia D70.9 Candidiasis of mouth and esophagus B37.81; B37.0 Severe protein-calorie malnutrition E43 (1) Cardiomyopathy Cardiomyopathy type: unspecified Qualified Code(s): I42.9 - Cardiomyopathy, unspecified
--- NOTE | 2021-02-12 03:41 | Death Pronouncement Note ---
Date of Service February 12, 2021 Pronouncement Note Admission Date Admission Date: January 23, 2021 Date and Time of Date of : 02/12/21 Time of : 03:30 Contributing Factors (1) Palliative care patient: (2) Pneumonia due to 2019 novel coronavirus: (3) Antineoplastic chemotherapy induced pancytopenia: (4) Acute on chronic respiratory failure with hypoxemia: (5) Small cell lung cancer, left upper lobe: (6) Hypothyroidism: (7) GERD (gastroesophageal reflux disease): (8) Hypertension: (9) Diabetes mellitus, type 2: (10) COPD with emphysema: (11) Chronic kidney disease, stage 3a: (12) Hyperlipidemia: (13) Dysphagia: (14) Herpes labialis: (15) Essential tremor: (16) Cardiomyopathy: (17) DVT prophylaxis: (18) Neutropenia: (19) Candidiasis of mouth and esophagus: (20) Severe protein-calorie malnutrition: Additional Data Confirmation of : no respirations Family: at bedside Attending/PCP notified?: Yes Attending physician: Abraahm Bonilla Was code activated?: No Autopsy requested?: No
--- NOTE | 2021-02-12 09:42 | Discharge Summary ---
Date of Service date of admission - January 23, 2021 date of - February 12, 2021 time of - 0330 Admission HPI Per Admitting Provider Ms. Rivers is a 75 y/o female with PMHx of Small Cell Lung CA, Hypothyroidism, T2DM, HLD, Emphysema, CKD, GERD, and Esophageal Stenosis (Requires dilation due to radiation) who presents to the ED due to being COVID + with worsening SOB/cough/weakness today. Patient has completed a course of radiation approx. one month ago. Her last chemotherapy with etoposide and cisplatin was 06 January 2021. She was supposed to resume chemotherapy per patient report on Sunday. She states she was in her normal state of health until 21 January when she developed nasal congestion and a cough. She was instructed to get COVID testing and was prescribed Doxycycline while awaiting results. She tested positive on 22 January. Due to her esophagitis she was unable to tolerate Doxycycline. Today, patient was more weak and became febrile at 101. She was 90% on room air and does check her saturations at home as she does use 2 L as needed based on her saturations. She has not had much of an appetite which is not new. She underwent esophageal dilation last admission (December 21). While in the ED, she did have some small amounts of hemoptysis. She reports her breathing feels a bit better but she is very fatigued. She was initially only on 2 L NC but after coughing she did desaturate to 89% and was moved to 4 L NC. She was found to be pancytopenic with WBC 0.18, Hgb 6.2, and platelets 11. Neutrophils 0.01. Cr is mildly elevated at 1.51, K at 3.0, mag at 1.3, normal LFTs, normal lactic. She has been vaccinated against COVID-19 and received her influenza vaccine this year. Updated over the phone this evening. Principal Diagnosis Severe acute hypoxic respiratory failure 2nd to ARDS from COVID-19 pneumonia Discharge Exam Last physical exam prior to - gen - lethargic, confused, cyanotic lips mouth - MM dry, cyanotic lips heart - RRR, s1 s2 lungs - diffuse crackles b/l, tachypneic abd - soft NT ext - cool feet Discharge Data Allergies Allergy/AdvReac Type Severity Reaction Status Date / Time Penicillins Allergy Severe RASH AND Verified 01/23/21 14:33 THROAT SWELLING shellfish derived Allergy Severe RASH WELTS Verified 01/23/21 14:33 house dust mite Allergy Mild ALLERGY Verified 01/23/21 14:33 TESTING mold Allergy Mild PER Verified 01/23/21 14:33 ALLERGY TESTS-SNEEZING Fish Containing Products Allergy Verified 01/26/21 15:28 fish derived Allergy Verified 01/26/21 15:28 fish oil Allergy Verified 01/26/21 15:28 adhesive AdvReac Intermediate BLISTERS Verified 01/23/21 14:33 WITH TAPE-CLOTH OK aspirin AdvReac Intermediate Rash Verified 01/23/21 14:33 [From Thu-Maynard Plus Cold/Cough] chlorpheniramine AdvReac Intermediate Rash Verified 01/23/21 14:33 [From Thu-Maynard Plus Cold/Cough] dextromethorphan AdvReac Intermediate Rash Verified 01/23/21 14:33 [From Thu-Maynard Plus Cold/Cough] phenylpropanolamine AdvReac Intermediate Rash Verified 01/23/21 14:33 [From Thu-Maynard Plus Cold/Cough] Consultations Palliative care Procedures Performed 1. PRBCs x 2 units 2. Platelets x 1 unit Ordered Studies Chest X-Ray 01/23/21 13:25 XR chest 1V portable CLINICAL HISTORY: SEPSIS TECHNIQUE: Single frontal radiograph of the chest was obtained. Comparison: Comparison is made to chest one view 12/14/2020 FINDINGS: Port catheter is unchanged. The cardiomediastinal silhouette is normal. Left greater than right lower lung predominant airspace opacities are seen. No evidence of pleural effusion or pneumothorax. IMPRESSION: Left greater than right lower lung predominant airspace opacities which may represent atelectasis, pneumonia, and/or aspiration. ACT 112: Negative or not required by law. Electronically signed by: Babak Muhammad M.D. 01/23/2021 2:28 PM Chest CTA 01/23/21 15:14 CT angio chest PE protocol CLINICAL HISTORY: PE, covid and lung cancer TECHNIQUE: Multidetector row helical CT of the chest was performed. Coronal and sagittal reformations were obtained. Automated dose lowering techniques and/or adjustment according to patient size were utilized for this exam. Comparison: Comparison is made to chest one view 01/23/[address] chest 12/15/2020 FINDINGS: Lungs and pleura: Diffuse centrilobular emphysema is seen most prominent in the upper lobes. Scattered cystic and reticular scarring changes are seen. Possible groundglass opacities most prominent in the lingula. Heart and pericardium: Heart size is normal. No pericardial effusion. Vessels: No evidence of pulmonary embolism. Mediastinum and karan: Unremarkable. Chest wall and lower neck: Unremarkable. Abdomen: A hiatal hernia is seen. Bones: Unremarkable. IMPRESSION: 1. No evidence of pulmonary embolism. 2. Emphysematous and cystic changes are again seen. Interval development of increased groundglass and/or interstitial opacities in the lingula and left lung base which may represent infectious/inflammatory process. ACT 112: Negative or not required by law. Electronically signed by: Babak Muhammad M.D. 01/23/2021 4:14 PM Chest X-Ray 01/25/21 08:49 XR chest 1V portable HISTORY: 75 years-old Female COVID pneumonia, lung ca acute shortness of breath with reported pneumonia. History of lung cancer COMPARISON: CTA chest and chest radiograph study 01/23/2021 TECHNIQUE: Portable AP view of the chest FINDINGS: Cardiomediastinal and hilar silhouettes are unchanged. Atherosclerotic plaque of the thoracic aorta. Left IJ [id number] catheter distal tip is again noted terminating in the expected location of the inferior SVC. Surgical clips project over the left breast. Degenerative changes of the shoulders and spine. Emphysema with chronic interstitial coarsening. Patchy opacities of the left lower appear unchanged. Mildly progressed ill-defined bibasilar densities. IMPRESSION: 1. Emphysema with chronic interstitial coarsening. 2. Ill-defined bilateral pulmonary opacities are suggestive of viral pneumonia, mildly progressed on the right. ACT 112: Negative or not required by law. The above report was generated using voice recognition software. It may contain grammatical, syntax or spelling errors. Electronically signed by: Jori Onofre M.D. 01/25/2021 10:54 AM Chest X-Ray 01/26/21 09:28 SINGLE VIEW CHEST CLINICAL HISTORY: Hypoxia. Covid. FINDINGS: An AP, portable, upright chest radiograph is compared to study dated 01/25/2021 and correlated with chest CT dated 01/23/2021. A left internal jugular central venous infusion port is in place. The heart is top normal in size noting atherosclerotic calcification of the thoracic aorta. Emphysema and chronic interstitial thickening is similar to previous. Patchy airspace consolidation is again seen throughout both lungs. This is unchanged to minimally increased as compared to yesterday. No large pleural effusion or pneumothorax is identified. The skeletal structures are osteopenic. The bony thorax is grossly intact. Surgical clips are noted in the left chest wall. IMPRESSION: IMPRESSION: 1. Multifocal airspace consolidation is unchanged to modestly increased from yesterday. 2. Emphysema. ACT 112: Negative or not required by law. Electronically signed by: Ned Robles M.D. 01/26/2021 11:39 AM Chest X-Ray 01/27/21 07:00 XR chest 1V portable CLINICAL HISTORY: covid pneumonia TECHNIQUE: Single frontal radiograph of the chest was obtained. Comparison: Comparison is made to chest one view 01/26/2021 FINDINGS: Port catheter is unchanged in appearance. The cardiomediastinal silhouette is normal. Similar appearance of multifocal airspace opacities. No evidence of pleural effusion or pneumothorax. IMPRESSION: Stable multifocal airspace opacities in this patient with history of viral pneumonia. ACT 112: Negative or not required by law. Electronically signed by: Babak Muhammad M.D. 01/27/2021 9:07 AM Chest X-Ray 02/05/21 07:44 SINGLE VIEW CHEST CLINICAL HISTORY: Hypoxia. Covid. FINDINGS: An AP, portable, upright chest radiograph is compared to study dated 01/27/2021 and correlated with chest CT dated 01/23/2021. A left internal jugular central venous infusion port is in place. The heart is top normal in size noting atherosclerotic calcification of the thoracic aorta. Emphysema and chronic interstitial thickening is similar to previous. Patchy airspace consolidation is again seen throughout both lungs. This has not appreciably changed as compared to 01/27/2021. No large pleural effusion or pneumothorax is identified. The skeletal structures are osteopenic. The bony thorax is grossly intact. Surgical clips are noted in the left chest wall. Cholecystectomy clips are seen in the right upper quadrant. IMPRESSION: 1. Multifocal airspace consolidation has not appreciably changed as compared to 01/17/2021. 2. Emphysema. ACT 112: Negative or not required by law. Electronically signed by: Ned Robles M.D. 02/05/2021 8:43 AM Chest X-Ray 02/07/21 10:07 XR chest 1V portable CLINICAL HISTORY: hypoxia COMPARISON STUDY: Chest CT January 23, 2021. Chest radiograph February 05, 2021. FINDINGS: Left internal jugular [id number] is in place. There is underlying emphysema. Cardiomediastinal silhouette is stable. Right lower lung airspace opacity has increased. Otherwise, opacities within the lungs are similar to prior exam. IMPRESSION: Increase in right lower lung opacity. Otherwise, unchanged appearance in bilateral airspace opacities which favor an infectious process superimposed upon emphysema. ACT 112: Negative or not required by law. Electronically signed by: Vahe Reynoso M.D. 02/07/2021 10:48 AM Venous Doppler Study 02/08/21 16:01 BILATERAL LOWER EXTREMITY VENOUS DOPPLER CLINICAL HISTORY: high dimer, long COVID, extreme hypoxia; eval DVT COMPARISON STUDY: No previous studies for comparison. TECHNIQUE: Sonography of the deep venous system of the bilateral lower extremities was performed. Compression and augmentation were evaluated. FINDINGS: The bilateral common femoral, superficial femoral and popliteal veins were compressible. Augmentation was normal. Flow was shown within the deep calf vessels. IMPRESSION: No evidence of deep venous thrombus within the bilateral lower extremities. ACT 112: Negative or not required by law. Electronically signed by: Vahe Reynoso M.D. 02/09/2021 8:03 AM Hospital Course (1) Palliative care patient: After a protracted hospitalization due to severe acute hypoxic respiratory failure 2nd to ARDS from COVID-19 pneumonia the patient was transitioned to comfort care measures on 02/09/2021. She ultimately required a morphine infusion once her high-flow NC O2 was stopped and she was transitioned over to standard NC O2. The patient's family stayed with her at bedside until her passing early in the AM on 02/12/2021. (2) Pneumonia due to 2019 novel coronavirus: SEVERE disease. The patient initially only required a small amount of NC O2. However, by the AM of 01/26/21, her oxygen requirements quickly escalated to high-flow NC. She required max settings (60 L, 100% FiO2) for 2+ weeks prior to transitioning to comfort care. She was treated with steroid therapy - dexamethasone - for her entire stay. Initially received 6mg daily but her dose was increased to 10mg daily on 01/29 due to probable early ARDS. Completed 10 days of 10mg/day of dexamethasone on 02/07. Reverted back to 6mg/day on 02/08. She also completed a 5-day course of Remdesivir. She was never a candidate for baricitinib due to neutropenia and heavy immunosuppression from recent chemo for lung cancer. She completed a course of Meropenem and Levaquin with initial concern for bacterial infection due to severe neutropenia from recent chemotherapy. Despite maximal medical efforts as above she made little progress with her pulmonary status. In fact, about 24 hours prior to transitioning to comfort care, she had O2 sats in the low-mid 80s for a significant period of time despite the maxed out high- flow. Again the patient was transitioned to comfort care measures on 02/09 and passed peacefully on 02/12 at 0330. (3) Acute respiratory distress syndrome (ARDS) due to 2019 novel coronavirus: as above in #2 (4) Acute on chronic respiratory failure with hypoxemia: Patient had 2 L NC 02 at home. She used it PRN outside the hospital. Acute component 2nd to #2. see above. (5) Antineoplastic chemotherapy induced pancytopenia: Severe pancytopenia 2nd to recent chemotherapy for left-sided lung cancer. Viral bone marrow suppression may also have played a role. Received chemo late December 2020. Required 2 units of PRBCs and 1 unit of platelets while here. Just before transitioning to comfort care her Hb was trending down once again to <8. (6) Small cell lung cancer, left upper lobe: Had been following with Dr Chris Daniels and Dr Maria Isabel Castro for chemotherapy and radiation, respectively, at [facility]. Radiation treatments were completed. Last chemotherapy ~ 01/06? (7) Hypothyroidism: (8) GERD (gastroesophageal reflux disease): (9) Hypertension: (10) Diabetes mellitus, type 2: (11) COPD with emphysema: severe, O2-dependent (12) Chronic kidney disease, stage 3a: (13) Hyperlipidemia: (14) Dysphagia: (15) Herpes labialis: (16) Essential tremor: (17) Cardiomyopathy: (18) Neutropenia: (19) Candidiasis of mouth and esophagus: (20) Severe protein-calorie malnutrition: 20kg weight loss since 10/2020 2nd to lung cancer, prolonged COVID illness/pneumonia, anorexia from her illness, etc Total Time Total Time Spent Total Time Spent (In Minutes): 15 (on d/c summary) Discharge Plan Discharge Items Patient Disposition: Other Date/Time: 02/12/21 03:30 Coding Level of Care Code None Diagnoses Palliative care patient Z51.5 Pneumonia due to 2019 novel coronavirus U07.1; J12.82 Antineoplastic chemotherapy induced pancytopenia D61.810; T45.1X5A Acute on chronic respiratory failure with hypoxemia J96.21 Small cell lung cancer, left upper lobe C34.12 Hypothyroidism E03.9 GERD (gastroesophageal reflux disease) K21.9 Hypertension I10 Diabetes mellitus, type 2 E11.9 COPD with emphysema J43.9 Chronic kidney disease, stage 3a N18.31 Hyperlipidemia E78.5 Dysphagia R13.10 Herpes labialis B00.1 Essential tremor G25.0 Cardiomyopathy I42.9 Cardiomyopathy type: unspecified Neutropenia D70.9 Candidiasis of mouth and esophagus B37.81; B37.0 Severe protein-calorie malnutrition E43 Acute respiratory distress syndrome (ARDS) due to 2019 novel coronavirus U07.1; J80
== END 2021-02-12 05:23 | disposition expired | DRG 177 ==
LOC: ED 12:57 → 2E 17:33 → SUATTDRO 17:33 → 2E 18:55 → 2S 02-08 18:00 → 3E 02-09 16:09